=== PATIENT | male | born 1960 | race Caucasian/White ===

== ENCOUNTER 2017-11-13 12:22 | Emergency (ER) | payer OTHER ==
--- OUTSIDE RECORDS SUMMARY | 2017-11-13 12:25 | XMS REPORT | Clinical Summary ---
:1960 Author Organization [facility] Address [address] [place] [address] Care Team Providers Name Role Phone System, Provider Not In MD Primary Care Provider Unavailable Allergies Active Allergy Reactions Severity Noted Date Comments Iodine Rash Low 06/10/2017 Nsaids (Non-Steroidal Anaphylaxis High 04/18/2017 Anti-Inflammatory Drug) Penicillin Other (See Comments) 04/18/2017 "childhood allergy" Current Medications Prescription Sig. Disp. Refills Start Date End Date Status HYDROcodone-acetamin Take 1 tablet Active ophen (NORCO) 10-325 by mouth every mg per tablet 6 (six) hours as needed for moderate pain. moxifloxacin 1 drop. 10/23/2017 Active (VIGAMOX) 0.5 % ophthalmic solution prednisoLONE acetate 10/23/2017 Active (PRED FORTE) 1 % ophthalmic suspension tamsulosin (FLOMAX) Take 1 capsule 7 capsule 0 11/11/2017 Active 0.4 mg capsule (0.4 mg total) 8 by mouth daily for 7 days. ondansetron ODT Take 1 tablet 9 tablet 0 11/11/2017 Active (ZOFRAN-ODT) 4 MG (4 mg total) 8 disintegrating by mouth every tablet 8 (eight) hours as needed for nausea or vomiting for up to 3 days. traMADol (ULTRAM) 50 Take 1 tablet 20 tablet 0 04/18/2017 mg tablet (50 mg total) 8 by mouth every 6 (six) hours as needed for moderate pain for up to 20 days. clindamycin Take 2 28 capsule 0 04/18/2017 (CLEOCIN) 150 MG capsules (300 8 capsule mg total) by mouth 3 (three) times a day for 10 days. traMADol (ULTRAM) 50 Take 1 tablet 15 tablet 0 08/04/2017 mg tablet (50 mg total) 8 by mouth every 6 (six) hours as needed for moderate pain for up to 5 days. dicyclomine (BENTYL) Take 1 tablet 20 tablet 0 08/16/2017 20 mg tablet (20 mg total) 8 by mouth 2 (two) times a day for 20 doses. ciprofloxacin Take 1 tablet 20 tablet 0 08/16/2017 (CIPRO) 500 MG (500 mg total) 8 tablet by mouth 2 (two) times a day for 10 days. metroNIDAZOLE Take 1 tablet 30 tablet 0 08/16/2017 (FLAGYL) 500 MG (500 mg total) 8 tablet by mouth 3 (three) times a day for 10 days. acetaminophen-codein Take 1-2 20 tablet 0 09/08/2017 Discontinued e (TYLENOL WITH tablets by 8 CODEINE #3) 300-30 mouth every 6 mg per tablet (six) hours as needed for moderate pain for up to 5 days. ondansetron ODT Take 1 tablet 8 tablet 0 09/08/2017 (ZOFRAN ODT) 4 MG (4 mg total) 8 disintegrating by mouth every tablet 8 (eight) hours as needed for nausea or vomiting for up to 30 days. acetaminophen-codein Take 1-2 20 tablet 0 09/08/2017 e (TYLENOL WITH tablets by 8 CODEINE #3) 300-30 mouth every 6 mg per tablet (six) hours as needed for moderate pain for up to 5 days. 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 Nephrolithiasis 06/10/2017 Encounters Date Type Specialty Care Team Description 11/11/2017 Emergency Emergency Medicine Roberto Carlos Alex, Acute suprapubic pain (Primary Dx) 2017 Emergency Emergency Medicine Mike Pepper Hidradenicandie ( Primary Dx); III, Pelvic pain; Testicular pain 10/11/2017 Emergency Emergency Medicine Sami Patel Abdominal pain, Mohammad, DO unspecified abdominal location (Primary Dx) 10/06/2017 Emergency General Internal David Sommers Chronic abdominal pain (Primary Dx); Medicine MD Mitul Rectal fistula Silvia Harris MD 09/19/2017 Emergency Emergency Medicine Les Worrell Abdominal pain, unspecified abdominal location (Primary Dx); MD Brennan Pelvic pain; Diarrhea, unspecified type 09/15/2017 Emergency Emergency Medicine Brandi, Abdominal pain, unspecified abdominal location (Primary Dx); Derek Evans MD [facility] 09/11/2017 Emergency Emergency Medicine Damion Nadim Bin, Abdominal pain, unspecified abdominal location (Primary Dx); Acute back pain, unspecified back location, unspecified back pain laterality 09/08/2017 Emergency Emergency Medicine ghassan Tucker, Left lower quadrant pain (Primary Dx); Adriano Maynard, Renal stones 09/01/2017 Emergency Emergency Medicine Raul Cameron Flank pain ( Primary T., Dx) 08/31/2017 Emergency Emergency Medicine Damion Nadim Bin, Lower abdominal pain (Primary Dx); Diarrhea, unspecified type 08/16/2017 Emergency Emergency Medicine Meagan, Mando LLQ pain (Primary Dx ) MD Ej 08/10/2017 Orders Only Pulmonology Osmany Britton MD 08/04/2017 Emergency Emergency Medicine Bee Clark, Abdominal pain, unspecified abdominal location (Primary Dx); Diarrhea, unspecified type 06/10/2017 Emergency General Internal Tarik Triana, Nephrolithiasis ( Primary Dx); - Medicine Intractable back pain 06/11/2017 Michaela Lira MD Lakhva, Asma, MD 06/10/2017 Hospital Access Pati Go Encounter MD Fredrick 04/18/2017 Emergency Emergency Medicine Mosque, Nadim Bin, Lower abdominal pain (Primary Dx); Hidradenitis; Phlegmon; Anemia, unspecified type after 11/12/2016 Social History Tobacco Use Types Packs/Day Years Used Date Current Some Day Smoker Cigarettes 0.25 20 Smokeless Tobacco: Never Used Tobacco Cessation: Ready to Quit: No; Counseling Given: Yes Alcohol Use Drinks/Week oz/Week Comments No Sex Assigned at Date Recorded Not on file Last Filed Vital Signs Vital Sign Reading Time Taken Blood Pressure 122/74 11/11/2017 11:35 AM CDT Pulse 75 11/11/2017 11:35 AM CDT Temperature 36.7 C (98 F) 11/11/2017 11:35 AM CDT Respiratory Rate 15 11/11/2017 11:35 AM CDT Oxygen Saturation 99% 11/11/2017 11:35 AM CDT Inhaled Oxygen Concentration - - Weight 65.8 kg (145 lb) 11/11/2017 8:38 AM CDT Height 175.3 cm (5' 9") 11/11/2017 8:38 AM CDT Body Mass Index 21.41 11/11/2017 8:38 AM CDT Plan of Treatment Health Maintenance Due Date Last Done Comments COLON CANCER SCREENING 2010 SHINGRIX VACCINE (#1) 2010 INFLUENZA VACCINE 11/01/2017 Procedures Procedure Name Priority Date/Time Associated Comments Diagnosis US SCROTAL STAT 11/11/2017 10:47 Results for this AM CDT procedure are in the results section. URINALYSIS SCREEN AND STAT 11/11/2017 10:19 Results for this MICROSCOPY, WITH REFLEX AM CDT procedure are in TO CULTURE the results section. URINE CULTURE STAT 11/11/2017 10:19 Results for this AM CDT procedure are in the results section. CT RENAL STONE PROTOCOL STAT 11/11/2017 10:03 Results for this AM CDT procedure are in the results section. SMEAR REVIEW STAT 11/11/2017 9:11 Results for this AM CDT procedure are in the results section. HEPATIC FUNCTION PANEL STAT 11/11/2017 9:11 Results for this AM CDT procedure are in the results section. LIPASE LEVEL STAT 11/11/2017 9:11 Results for this AM CDT procedure are in the results section. ESTIMATED GFR STAT 11/11/2017 9:11 Results for this AM CDT procedure are in the results section. BASIC METABOLIC PANEL STAT 11/11/2017 9:11 Results for this AM CDT procedure are in the results section. HC COMPLETE BLD COUNT STAT 11/11/2017 9:11 Results for this W/AUTO DIFF AM CDT procedure are in the results section. CT ABDOMEN PELVIS WO STAT 2017 12:47 Results for this CONTRAST PM CDT procedure are in the results section. US SCROTAL STAT 2017 12:13 Results for this PM CDT procedure are in the results section. ESTIMATED GFR STAT 2017 11:40 Results for this AM CDT procedure are in the results section. LACTIC ACID LEVEL, STAT 2017 11:40 Results for this SEPSIS - NOW AND REPEAT AM CDT procedure are in 2X EVERY 3 HOURS the results section. COMPREHENSIVE METABOLIC STAT 2017 11:40 Results for this PANEL AM CDT procedure are in the results section. HC COMPLETE BLD COUNT STAT 2017 11:40 Results for this W/AUTO DIFF AM CDT procedure are in the results section. CT RENAL STONE PROTOCOL STAT 10/11/2017 9:52 Results for this AM CDT procedure are in the results section. SMEAR REVIEW STAT 10/11/2017 9:20 Results for this AM CDT procedure are in the results section. ESTIMATED GFR STAT 10/11/2017 9:20 Results for this AM CDT procedure are in the results section. LIPASE LEVEL STAT 10/11/2017 9:20 Results for this AM CDT procedure are in the results section. COMPREHENSIVE METABOLIC STAT 10/11/2017 9:20 Results for this PANEL AM CDT procedure are in the results section. HC COMPLETE BLD COUNT STAT 10/11/2017 9:20 Results for this W/AUTO DIFF AM CDT procedure are in the results section. ESTIMATED GFR STAT 10/06/2017 11:30 Results for this AM CDT procedure are in the results section. LIPASE LEVEL STAT 10/06/2017 11:30 Results for this AM CDT procedure are in the results section. COMPREHENSIVE METABOLIC STAT 10/06/2017 11:30 Results for this PANEL AM CDT procedure are in the results section. PARTIAL THROMBOPLASTIN STAT 10/06/2017 11:30 Results for this TIME (PTT) AM CDT procedure are in the results section. PROTHROMBIN TIME WITH STAT 10/06/2017 11:30 Results for this INR AM CDT procedure are in the results section. HC COMPLETE BLD COUNT STAT 10/06/2017 11:30 Results for this W/AUTO DIFF AM CDT procedure are in the results section. CT RENAL STONE PROTOCOL STAT 10/06/2017 11:13 Results for this AM CDT procedure are in the results section. CT ABDOMEN PELVIS WO STAT 09/19/2017 11:21 Results for this CONTRAST AM CDT procedure are in the results section. ESTIMATED GFR STAT 09/19/2017 11:02 Results for this AM CDT procedure are in the results section. LIPASE LEVEL STAT 09/19/2017 11:02 Results for this AM CDT procedure are in the results section. HEPATIC FUNCTION PANEL STAT 09/19/2017 11:02 Results for this AM CDT procedure are in the results section. BASIC METABOLIC PANEL STAT 09/19/2017 11:02 Results for this AM CDT procedure are in the results section. HC COMPLETE BLD COUNT STAT 09/19/2017 11:02 Results for this W/AUTO DIFF AM CDT procedure are in the results section. URINALYSIS SCREEN AND STAT 09/19/2017 10:37 Results for this MICROSCOPY, WITH REFLEX AM CDT procedure are in TO CULTURE the results section. GRAM STAIN STAT 09/19/2017 10:37 Results for this AM CDT procedure are in the results section. URINE CULTURE STAT 09/19/2017 10:37 Results for this AM CDT procedure are in the results section. ESTIMATED GFR STAT 09/15/2017 12:30 Results for this PM CDT procedure are in the results section. COMPREHENSIVE METABOLIC STAT 09/15/2017 12:30 Results for this PANEL PM CDT procedure are in the results section. HC COMPLETE BLD COUNT STAT 09/15/2017 12:30 Results for this W/AUTO DIFF PM CDT procedure are in the results section. US RENAL STAT 09/11/2017 3:28 Results for this PM CDT procedure are in the results section. XR CHEST 1 VW STAT 09/11/2017 1:00 Results for this PM CDT procedure are in the results section. URINALYSIS SCREEN AND STAT 09/11/2017 11:45 Results for this MICROSCOPY, WITH REFLEX AM CDT procedure are in TO CULTURE the results section. URINE CULTURE STAT 09/11/2017 11:45 Results for this AM CDT procedure are in the results section. BLOOD CULTURE, AEROBIC Routine 09/11/2017 11:45 Results for this & ANAEROBIC AM CDT procedure are in the results section. BLOOD CULTURE, AEROBIC Routine 09/11/2017 11:43 Results for this & ANAEROBIC AM CDT procedure are in the results section. SMEAR REVIEW STAT 09/11/2017 11:40 Results for this AM CDT procedure are in the results section. ESTIMATED GFR STAT 09/11/2017 11:40 Results for this AM CDT procedure are in the results section. B NATRIURETIC PEPTIDE STAT 09/11/2017 11:40 Results for this AM CDT procedure are in the results section. TROPONIN STAT 09/11/2017 11:40 Results for this AM CDT procedure are in the results section. CREATINE KINASE, TOTAL STAT 09/11/2017 11:40 Results for this (CPK) AM CDT procedure are in the results section. LACTIC ACID LEVEL, STAT 09/11/2017 11:40 Results for this SEPSIS - NOW AND REPEAT AM CDT procedure are in 2X EVERY 3 HOURS the results section. COMPREHENSIVE METABOLIC STAT 09/11/2017 11:40 Results for this PANEL AM CDT procedure are in the results section. PARTIAL THROMBOPLASTIN STAT 09/11/2017 11:40 Results for this TIME (PTT) AM CDT procedure are in the results section. PROTHROMBIN TIME WITH STAT 09/11/2017 11:40 Results for this INR AM CDT procedure are in the results section. HC COMPLETE BLD COUNT STAT 09/11/2017 11:40 Results for this W/AUTO DIFF AM CDT procedure are in the results section. CT RENAL STONE PROTOCOL STAT 09/08/2017 12:05 Results for this PM CDT procedure are in the results section. URINALYSIS SCREEN AND STAT 09/08/2017 11:51 Results for this MICROSCOPY, WITH REFLEX AM CDT procedure are in TO CULTURE the results section. URINE CULTURE STAT 09/08/2017 11:51 Results for this AM CDT procedure are in the results section. SMEAR REVIEW STAT 09/08/2017 11:25 Results for this AM CDT procedure are in the results section. ESTIMATED GFR STAT 09/08/2017 11:25 Results for this AM CDT procedure are in the results section. LIPASE LEVEL STAT 09/08/2017 11:25 Results for this AM CDT procedure are in the results section. COMPREHENSIVE METABOLIC STAT 09/08/2017 11:25 Results for this PANEL AM CDT procedure are in the results section. HC COMPLETE BLD COUNT STAT 09/08/2017 11:25 Results for this W/AUTO DIFF AM CDT procedure are in the results section. URINALYSIS SCREEN AND STAT 09/01/2017 4:06 Results for this MICROSCOPY, WITH REFLEX PM CDT procedure are in TO CULTURE the results section. URINE CULTURE STAT 09/01/2017 4:00 Results for this PM CDT procedure are in the results section. ESTIMATED GFR STAT 09/01/2017 3:27 Results for this PM CDT procedure are in the results section. LIPASE LEVEL STAT 09/01/2017 3:27 Results for this PM CDT procedure are in the results section. COMPREHENSIVE METABOLIC STAT 09/01/2017 3:27 Results for this PANEL PM CDT procedure are in the results section. HC COMPLETE BLD COUNT STAT 09/01/2017 3:27 Results for this W/AUTO DIFF PM CDT procedure are in the results section. CT RENAL STONE PROTOCOL STAT 09/01/2017 2:36 Results for this PM CDT procedure are in the results section. CT ABDOMEN PELVIS WO STAT 08/31/2017 2:06 Results for this CONTRAST PM CDT procedure are in the results section. URINALYSIS SCREEN AND STAT 08/31/2017 12:21 Results for this MICROSCOPY, WITH REFLEX PM CDT procedure are in TO CULTURE the results section. URINE CULTURE STAT 08/31/2017 12:21 Results for this PM CDT procedure are in the results section. SMEAR REVIEW STAT 08/31/2017 11:25 Results for this AM CDT procedure are in the results section. ESTIMATED GFR STAT 08/31/2017 11:25 Results for this AM CDT procedure are in the results section. LIPASE LEVEL STAT 08/31/2017 11:25 Results for this AM CDT procedure are in the results section. AMYLASE LEVEL STAT 08/31/2017 11:25 Results for this AM CDT procedure are in the results section. COMPREHENSIVE METABOLIC STAT 08/31/2017 11:25 Results for this PANEL AM CDT procedure are in the results section. HC COMPLETE BLD COUNT STAT 08/31/2017 11:25 Results for this W/AUTO DIFF AM CDT procedure are in the results section. CT ABDOMEN PELVIS W STAT 08/16/2017 4:36 Results for this CONTRAST PM CDT procedure are in the results section. URINALYSIS SCREEN AND STAT 08/16/2017 3:45 Results for this MICROSCOPY, WITH REFLEX PM CDT procedure are in TO CULTURE the results section. ESTIMATED GFR STAT 08/16/2017 3:08 Results for this PM CDT procedure are in the results section. LIPASE LEVEL STAT 08/16/2017 3:08 Results for this PM CDT procedure are in the results section. COMPREHENSIVE METABOLIC STAT 08/16/2017 3:08 Results for this PANEL PM CDT procedure are in the results section. HC COMPLETE BLD COUNT STAT 08/16/2017 3:08 Results for this W/AUTO DIFF PM CDT procedure are in the results section. ECG 12-LEAD Routine 08/07/2017 12:00 AM CDT ECG ED PRELIMINARY Routine 08/04/2017 3:45 Results for this INTERPRETATION PM CDT procedure are in the results section. URINALYSIS SCREEN AND STAT 08/04/2017 3:33 Results for this MICROSCOPY, WITH REFLEX PM CDT procedure are in TO CULTURE the results section. URINE CULTURE STAT 08/04/2017 3:33 Results for this PM CDT procedure are in the results section. ECG 12-LEAD STAT 08/04/2017 1:52 Results for this PM CDT procedure are in the results section. CT ABDOMEN PELVIS WO STAT 08/04/2017 1:49 Results for this CONTRAST PM CDT procedure are in the results section. ESTIMATED GFR STAT 08/04/2017 1:00 Results for this PM CDT procedure are in the results section. LIPASE LEVEL STAT 08/04/2017 1:00 Results for this PM CDT procedure are in the results section. AMYLASE LEVEL STAT 08/04/2017 1:00 Results for this PM CDT procedure are in the results section. COMPREHENSIVE METABOLIC STAT 08/04/2017 1:00 Results for this PANEL PM CDT procedure are in the results section. HC COMPLETE BLD COUNT STAT 08/04/2017 1:00 Results for this W/AUTO DIFF PM CDT procedure are in the results section. ESTIMATED GFR Routine 06/11/2017 3:55 Results for this AM CDT procedure are in the results section. COMPREHENSIVE METABOLIC Routine 06/11/2017 3:55 Results for this PANEL AM CDT procedure are in the results section. HC COMPLETE BLD COUNT Routine 06/11/2017 3:55 Results for this W/AUTO DIFF AM CDT procedure are in the results section. CT RENAL STONE PROTOCOL STAT 06/10/2017 9:06 Results for this PM [facility] procedure are in the results section. ESTIMATED GFR STAT 06/10/2017 8:40 Results for this PM [facility] procedure are in the results section. LIPASE LEVEL STAT 06/10/2017 8:40 Results for this PM [facility] procedure are in the results section. AMYLASE LEVEL STAT 06/10/2017 8:40 Results for this PM [facility] procedure are in the results section. COMPREHENSIVE METABOLIC STAT 06/10/2017 8:40 Results for this PANEL PM [facility] procedure are in the results section. HC COMPLETE BLD COUNT STAT 06/10/2017 8:40 Results for this W/AUTO DIFF PM [facility] procedure are in the results section. CT ABDOMEN PELVIS W STAT 04/18/2017 4:22 Results for this CONTRAST AM [facility] procedure are in the results section. ESTIMATED GFR STAT 04/18/2017 2:27 Results for this AM [facility] procedure are in the results section. URINALYSIS SCREEN AND STAT 04/18/2017 2:27 Results for this MICROSCOPY, WITH REFLEX AM [facility] procedure are in TO CULTURE the results section. LIPASE LEVEL STAT 04/18/2017 2:27 Results for this AM [facility] procedure are in the results section. AMYLASE LEVEL STAT 04/18/2017 2:27 Results for this AM [facility] procedure are in the results section. COMPREHENSIVE METABOLIC STAT 04/18/2017 2:27 Results for this PANEL AM [facility] procedure are in the results section. HC COMPLETE BLD COUNT STAT 04/18/2017 2:27 Results for this W/AUTO DIFF AM [facility] procedure are in the results section. after 11/12/2016 Results US Scrotal (11/11/2017 10:47 AM)Only the most recent of2 resultswithin the time period is included. Narrative Performed At PROCEDURE:US SCROTAL [facility] CLINICAL HISTORY:R testicular pain since this AM COMPARISON:2017 TECHNIQUE: Multiple B-mode grayscale 2-D echo tomograms were performed of the testes and both hemiscrota in sagittal and transverse orientations. Interrogation with color-flow and 2-D spectral Doppler was also performed. FINDINGS: The echotexture of the right and left testes is homogeneous. The right testicle measures 4 cm length by 1.9 cm x 2.5 cm. The left testicle measures 4 cm length by 1.6 cm x 2.7 cm. Color flow and pulse wave spectral Doppler confirm arterial flow to both testes. The head of the right epididymis measures 6.3 mm x 7.2 mm and the head of the left epididymis measures 8.7 mm x 7.6 mm. No fluid is demonstrated in either hemiscrotum. No skin thickening is demonstrated of the right or left hemiscrotum. The right hemiscrotal skin thickness measures 2.1 mm and the left hemiscrotal skin thickness measures 1.9 mm. IMPRESSION: Unremarkable exam. No evidence of testicular torsion or epididymitis. [facility] [id number] . Procedure Note Interface, Radiology Results Incoming - 11/11/2017 11:07 AM CDT PROCEDURE: US SCROTAL CLINICAL HISTORY: R testicular pain since this AM COMPARISON: 2017 TECHNIQUE: Multiple B-mode grayscale 2-D echo tomograms were performed of the testes and both hemiscrota in sagittal and transverse orientations. Interrogation with color-flow and 2-D spectral Doppler was also performed. FINDINGS: The echotexture of the right and left testes is homogeneous. The right testicle measures 4 cm length by 1.9 cm x 2.5 cm. The left testicle measures 4 cm length by 1.6 cm x 2.7 cm. Color flow and pulse wave spectral Doppler confirm arterial flow to both testes. The head of the right epididymis measures 6.3 mm x 7.2 mm and the head of the left epididymis measures 8.7 mm x 7.6 mm. No fluid is demonstrated in either hemiscrotum. No skin thickening is demonstrated of the right or left hemiscrotum. The right hemiscrotal skin thickness measures 2.1 mm and the left hemiscrotal skin thickness measures 1.9 mm. IMPRESSION: Unremarkable exam. No evidence of testicular torsion or epididymitis. [facility] [place]-[id number] . Performing Organization Address City/State/Zipcode Phone Number [facility] [address] [place] [address] Urinalysis screen and microscopy, with reflex to culture (11/11/2017 10:19 AM) Only the most recent of9 resultswithin the time period is included. Specimen site Clean catch [facility] DEPARTMENT OF PATHOLOGY AND GENOMIC MEDICINE Color, UA Yellow [facility] DEPARTMENT OF PATHOLOGY AND GENOMIC MEDICINE Appearance, UA Clear [facility] DEPARTMENT OF PATHOLOGY AND GENOMIC MEDICINE Specific gravity, UA 1.017 1.001 - 1.[address] [facility] DEPARTMENT OF PATHOLOGY AND GENOMIC MEDICINE pH, UA 5.0 5.0 - 8.[address] [facility] DEPARTMENT OF PATHOLOGY AND GENOMIC MEDICINE Protein, UA Negative Negative [facility] DEPARTMENT OF PATHOLOGY AND GENOMIC MEDICINE Glucose, UA Negative Negative [facility] DEPARTMENT OF PATHOLOGY AND GENOMIC MEDICINE Ketones, UA Negative Negative [facility] DEPARTMENT OF PATHOLOGY AND GENOMIC MEDICINE Bilirubin, UA Negative Negative [facility] DEPARTMENT OF PATHOLOGY AND GENOMIC MEDICINE Blood, UA Negative Negative [facility] DEPARTMENT OF PATHOLOGY AND GENOMIC MEDICINE Nitrite, UA Negative Negative [facility] DEPARTMENT OF PATHOLOGY AND GENOMIC MEDICINE Urobilinogen, UA Negative <2.[address] [facility] DEPARTMENT OF PATHOLOGY AND [facility] Leukocyte esterase, UA Negative Negative [facility] DEPARTMENT OF PATHOLOGY AND GENOMIC MEDICINE WBC, UA 0-5 0 - 1 /HPF [facility] DEPARTMENT OF PATHOLOGY AND GENOMIC MEDICINE RBC, UA 0-5 0 - 5 /HPF [facility] DEPARTMENT OF PATHOLOGY AND GENOMIC MEDICINE Bacteria, UA None seen None seen [facility] DEPARTMENT OF PATHOLOGY AND GENOMIC MEDICINE Yeast, UA None seen [facility] DEPARTMENT OF PATHOLOGY AND GENOMIC MEDICINE Yeast with pseudohyphae, UA None seen [facility] DEPARTMENT OF PATHOLOGY AND [facility] Specimen Urine Performing Organization Address City/[facility] Phone Number [facility] AND [id number] [place] [address] [place], [place] [id number] [place] [address] Urine culture (11/11/2017 10:19 AM)Only the most recent of7 resultswithin the time period is included. Urine culture SEE COMMENTComment: Bacteriuria [facility] DEPARTMENT OF PATHOLOGY screen negative. AND [facility] Specimen Urine Performing Organization Address City/[facility] Phone Number [facility] AND [address] [place] [address] [place] [address] [facility] CT Renal Stone Protocol (11/11/2017 10:03 AM)Only the most recent of6 resultswithin the time period is included. Narrative Performed At PROCEDURE:CT RENAL STONE PROTOCOL [facility] CLINICAL HISTORY:lower abd pain with suprapubic testicular painhx of kidney stones COMPARISON:2017 TECHNIQUE: Contiguous 2.5 mm axial images were obtained from the hemidiaphragms to the pubic symphysis without administration of intravenous iodinated or oral contrast media on a multidetector CT scanner using helical scanning technique followed by 2-D sagittal and coronal reconstructions. The dose length product for this procedure was 373 mGy-cm. CT imaging was performed with iterative reconstruction technique and/or automated exposure control to reduce radiation dose. FINDINGS: 1. Lung parenchymal window settings demonstrate no abnormality in the visualized lung bases. 2. Multiple calculi are demonstrated in both kidneys more numerous in the left kidney than the right. The size and distribution of the calculi are unchanged from the prior examination. 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 In the right kidney multiple calculi are present with the largest in the anterior aspect of the upper pole of the right kidney measuring 3.3 mm. No dilatation of the pelvicalyceal system is seen. 3. No calculi are demonstrated along the course of the ureters. 4. The enteric tract is generally better evaluated if opacified with enteric contrast. Multiple diverticula are demonstrated in the sigmoid colon. The appendix is is visualized and normal. The appendix fills with contrast.. 5. No abnormality is demonstrated of the remainder of the intra-abdominal solid organs on this unenhanced study. 6. L5 atheromatous plaque formation is demonstrated in the infrarenal abdominal aorta with no aneurysm seen.. The IVC is unremarkable on this unenhanced exam. 7. The sagittal and coronal reconstructed images demonstrate disc space narrowing with vacuum phenomenon throughout most of the lumbar spine with prior laminectomy at the L3 and L4 levels. Degenerative anterolisthesis is noted with spondylolysis at L5-S1. CT PELVIS- No calculi are seen in the distal ureters or UV junction. No pelvic fluid collections or masses are seen. Note is made of skin thickening in the region of the intergluteal cleft and towards the inferior gluteal fold. Mild punctate prostatic calcification is seen. IMPRESSION: Abnormal study. Multiple bilateral intrarenal nonobstructing calculi as before. No evidence of obstructive uropathy. Diverticulosis. Degenerative disc disease. [facility]-[id number] . Procedure Note Interface, Radiology Results Incoming - 11/11/2017 10:24 AM CDT PROCEDURE: CT RENAL STONE PROTOCOL CLINICAL HISTORY: lower abd pain with suprapubic testicular pain hx of kidney stones COMPARISON: 2017 TECHNIQUE: Contiguous 2.5 mm axial images were obtained from the hemidiaphragms to the pubic symphysis without administration of intravenous iodinated or oral contrast media on a multidetector CT scanner using helical scanning technique followed by 2-D sagittal and coronal reconstructions. The dose length product for this procedure was 373 mGy-cm. CT imaging was performed with iterative reconstruction technique and/or automated exposure control to reduce radiation dose. FINDINGS: 1. Lung parenchymal window settings demonstrate no abnormality in the visualized lung bases. 2. Multiple calculi are demonstrated in both kidneys more numerous in the left kidney than the right. The size and distribution of the calculi are unchanged from the prior examination. 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 In the right kidney multiple calculi are present with the largest in the anterior aspect of the upper pole of the right kidney measuring 3.3 mm. No dilatation of the pelvicalyceal system is seen. 3. No calculi are demonstrated along the course of the ureters. 4. The enteric tract is generally better evaluated if opacified with enteric contrast. Multiple diverticula are demonstrated in the sigmoid colon. The appendix is is visualized and normal. The appendix fills with contrast.. 5. No abnormality is demonstrated of the remainder of the intra-abdominal solid organs on this unenhanced study. 6. L5 atheromatous plaque formation is demonstrated in the infrarenal abdominal aorta with no aneurysm seen.. The IVC is unremarkable on this unenhanced exam. 7. The sagittal and coronal reconstructed images demonstrate disc space narrowing with vacuum phenomenon throughout most of the lumbar spine with prior laminectomy at the L3 and L4 levels. Degenerative anterolisthesis is noted with spondylolysis at L5-S1. CT PELVIS- No calculi are seen in the distal ureters or UV junction. No pelvic fluid collections or masses are seen. Note is made of skin thickening in the region of the intergluteal cleft and towards the inferior gluteal fold. Mild punctate prostatic calcification is seen. IMPRESSION: Abnormal study. Multiple bilateral intrarenal nonobstructing calculi as before. No evidence of obstructive uropathy. Diverticulosis. Degenerative disc disease. [facility]-[id number] . Performing Organization Address City/State/Zipcode Phone Number [facility] [address] [place] [address] Smear review (11/11/2017 9:11 AM)Only the most recent of5 resultswithin the time period is included. Platelet slide review Og adequate [facility] DEPARTMENT OF PATHOLOGY AND GENOMIC MEDICINE Performing Organization Address City/State/Zipcode Phone Number [facility] DEPARTMENT OF PATHOLOGY AND [address] [place] [address] GENOMIC MEDICINE Estimated GFR (11/11/2017 9:11 AM)Only the most recent of15 resultswithin the time period is included. GFR Non Af Amer >90 mL/min/1.[address] [facility] DEPARTMENT OF PATHOLOGY AND GENOMIC MEDICINE GFR Af Amer >90 mL/min/1.[address] [facility] DEPARTMENT OF Comment: PATHOLOGY AND GENOMIC Chronic kidney disease: <60 mL/min/1.73m2 MEDICINE Kidney failure: <15 mL/min/1.73m2 The estimated GFR is calculated from the IDMS-traceable Modification of Diet in Renal Disease Equation. The accuracy of the calculation is poor when the creatinine is normal. Calculated values >90 mL/min/1.73m2 are not reported. This equation has not been validated in children (<18 years), women, the elderly (>70 years), or ethnic groups other than Caucasians and Americans. Specimen Plasma specimen Performing Organization Address City/State/Zipcode Phone Number [facility] DEPARTMENT OF PATHOLOGY AND [address] [place] [address] [facility] CBC with platelet and differential (11/11/2017 9:11 AM)Only the most recent of15 resultswithin the time period is included. WBC 9.44 4.50 - 11.00 k/uL [facility] DEPARTMENT OF PATHOLOGY AND GENOMIC MEDICINE RBC 3.65 (L) 4.40 - 6.00 m/uL [facility] DEPARTMENT OF PATHOLOGY AND GENOMIC MEDICINE HGB 8.1 (L) 14.0 - 18.0 g/dL [facility] DEPARTMENT OF PATHOLOGY AND GENOMIC MEDICINE HCT 28.1 (L) 41.0 - 51.0 % [facility] DEPARTMENT OF PATHOLOGY AND GENOMIC MEDICINE MCV 77.0 (L) 82.0 - 100.[address] [facility] DEPARTMENT OF PATHOLOGY AND GENOMIC MEDICINE MCH 22.2 (L) 27.0 - 34.[address] [facility] DEPARTMENT OF PATHOLOGY AND GENOMIC MEDICINE MCHC 28.8 (L) 31.0 - 37.0 g/dL [facility] DEPARTMENT OF PATHOLOGY AND GENOMIC MEDICINE RDW - SD 49.1 37.0 - 55.[address] [facility] DEPARTMENT OF PATHOLOGY AND GENOMIC MEDICINE MPV 9.2 8.8 - 13.[address] [facility] DEPARTMENT OF PATHOLOGY AND GENOMIC MEDICINE Platelet count 417 (H) 150 - 400 k/uL [facility] DEPARTMENT OF PATHOLOGY AND GENOMIC MEDICINE Nucleated RBC 0.00 /[address] [facility] DEPARTMENT OF PATHOLOGY AND GENOMIC MEDICINE Neutrophils 75.7 (H) 39.0 - 69.0 % [facility] DEPARTMENT OF PATHOLOGY AND GENOMIC MEDICINE Lymphocytes 11.1 (L) 25.0 - 45.0 % [facility] DEPARTMENT OF PATHOLOGY AND GENOMIC MEDICINE Monocytes 8.1 0.0 - 10.0 % [facility] DEPARTMENT OF PATHOLOGY AND GENOMIC MEDICINE Eosinophils 4.3 0.0 - 5.0 % [facility] DEPARTMENT OF PATHOLOGY AND GENOMIC MEDICINE Basophils 0.3 0.0 - 1.0 % [facility] DEPARTMENT OF PATHOLOGY AND GENOMIC MEDICINE Specimen Blood Performing Organization Address City/[facility] Phone Number [facility] DEPARTMENT OF PATHOLOGY AND [address] [place] [address] [place], [place] [id number] [place] [address] Lipase level (11/11/2017 9:11 AM)Only the most recent of11 resultswithin the time period is included. Lipase 36 13 - 60 U/L [facility] DEPARTMENT OF PATHOLOGY AND GENOMIC MEDICINE Specimen Plasma specimen Performing Organization Address [facility] Phone Number [facility] AND [address] [place] [address] [place] [address] [facility] Hepatic function panel (11/11/2017 9:11 AM)Only the most recent of2 resultswithin the time period is included. Albumin 3.7 3.5 - 5.0 g/dL [facility] DEPARTMENT OF PATHOLOGY AND GENOMIC MEDICINE Total bilirubin <0.2 0.0 - 1.2 mg/dL [facility] DEPARTMENT OF PATHOLOGY AND GENOMIC MEDICINE Bilirubin direct <0.1 0.0 - 0.3 mg/dL [facility] DEPARTMENT OF PATHOLOGY AND GENOMIC MEDICINE Alkaline phosphatase 127 40 - 129 U/L [facility] DEPARTMENT OF PATHOLOGY AND GENOMIC MEDICINE Protein 7.6 6.3 - 8.3 g/dL [facility] DEPARTMENT OF Comment: PATHOLOGY AND GENOMIC 4.6-7.0 g/dL MEDICINE 1 week 4.4-7.6 g/dL 7 months-1year5.1-7.3 g/dL 1-2 years5.6-7.5 g/dL >3 years6.0-8.0 g/dL 18-150 6.3-8.3 g/dL ALT 7 5 - 50 U/L [facility] DEPARTMENT OF PATHOLOGY AND GENOMIC MEDICINE AST 9 (L) 10 - 50 U/L [facility] DEPARTMENT OF PATHOLOGY AND GENOMIC [facility] Specimen Plasma specimen Performing Organization Address [facility] Phone Number [facility] AND [id number] [place] [address] [place] [address] [facility] Basic metabolic panel (11/11/2017 9:11 AM)Only the most recent of2 resultswithin the time period is included. Sodium 138 135 - 148 mEq/L [facility] OF PATHOLOGY AND [facility] Potassium 4.4 3.5 - 5.0 mEq/L [facility] OF PATHOLOGY AND [facility] Chloride 104 98 - 112 mEq/L [facility] OF PATHOLOGY AND [facility] CO2 23 (L) 24 - 31 mEq/L [facility] PATHOLOGY [facility] Anion gap 11@ANIO 7 - 15 mEq/L [facility] PATHOLOGY [facility] HOSTING MEDICINE BUN 12 6 - 20 mg/dL [facility] OF PATHOLOGY AND [facility] Creatinine 0.7 0.7 - 1.2 mg/dL [facility] DEPARTMENT OF PATHOLOGY [facility]ICINE Glucose 99 65 - 99 mg/dL [facility] PATHOLOGY [facility] Calcium 8.7 8.3 - 10.2 mg/dL [facility] PATHOLOGY AND [facility] Specimen Plasma specimen Performing Organization Address [facility] Phone Number [facility] AND [address] [place] [address] [place] [address] [facility] [address] Abdomen Pelvis Wo Contrast (2017 12:47 PM)Only the most recent of4 resultswithin the time period is included. Narrative Performed At EXAMINATION:CT ABDOMEN PELVIS WO CONTRAST [facility] CLINICAL HISTORY:no oral contrast Patient with perianal hidradenitisconcern for abscess perirectal.Patient has iodine allergy TECHNIQUE:Multiple axial images of the abdomen and pelvis were obtained without intravenous administration of iodinated contrast. Sagittal and coronal computerized reformatted images were also obtained. The lack of intravenous contrast reduces the sensitivity of detecting solid organ disease. CT imaging was performed with iterative reconstruction techniques and/or automated exposure control to reduce radiation dose. COMPARISON:To previous studies dating back to 04/18/2017 and 12/11/2014 IMPRESSION: Abdomen: 1. No parenchymal abnormality is noted in the lung bases. 2.The liver and the spleen are normal in appearance. 3.The pancreas and both adrenal glands are normal in appearance. 4.A high density left renal cyst measuring 1 cm in size is stable and not of clinical concern. Multiple calculi are noted in the left kidney most marked in the left lower pole. There is no evidence of hydronephrosis involving either kidney a few small calculi are present in the right kidney. Pelvis: 1. Scans through the pelvis demonstrate extensive nodular infiltration involving the skin of the lower buttocks and proximal thighs. In both lower thighs there may actually be small fluid collections especially on the right side representing abscesses involving the posterior fascia. 2.The infiltration and nodularity consistent with hidradenitis extends from the scrotum anteriorly along the skin surfaces. In addition, there is a probable sinus tract extending from the left side of the distal rectum in the left ischio rectal fossa extending posteriorly to the skin surface. There is no evidence of abscess in this area. 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 3.No bowel distention is appreciated. Moderate vascular calcifications are present diffusely. 4.Severe arthritic changes are noted involving the lower lumbar spine, with anterolisthesis of L4 upon L5 and anterolisthesis of L5 upon S1. [facility]-[id number] Procedure Note [facility], Radiology Results Incoming - 2017 3:26 PM CDT EXAMINATION: CT ABDOMEN PELVIS WO CONTRAST CLINICAL HISTORY: no oral contrast Patient with perianal hidradenitis concern for abscess perirectal. Patient has iodine allergy TECHNIQUE: Multiple axial images of the abdomen and pelvis were obtained without intravenous administration of iodinated contrast. Sagittal and coronal computerized reformatted images were also obtained. The lack of intravenous contrast reduces the sensitivity of detecting solid organ disease. CT imaging was performed with iterative reconstruction techniques and/or automated exposure control to reduce radiation dose. COMPARISON: To previous studies dating back to 04/18/2017 and 12/11/2014 IMPRESSION: Abdomen: 1. No parenchymal abnormality is noted in the lung bases. 2. The liver and the spleen are normal in appearance. 3. The pancreas and both adrenal glands are normal in appearance. 4. A high density left renal cyst measuring 1 cm in size is stable and not of clinical concern. Multiple calculi are noted in the left kidney most marked in the left lower pole. There is no evidence of hydronephrosis involving either kidney a few small calculi are present in the right kidney. Pelvis: 1. Scans through the pelvis demonstrate extensive nodular infiltration involving the skin of the lower buttocks and proximal thighs. In both lower thighs there may actually be small fluid collections especially on the right side representing abscesses involving the posterior fascia. 2. The infiltration and nodularity consistent with hidradenitis extends from the scrotum anteriorly along the skin surfaces. In addition, there is a probable sinus tract extending from the left side of the distal rectum in the left ischio rectal fossa extending posteriorly to the skin surface. There is no evidence of abscess in this area. 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 3. No bowel distention is appreciated. Moderate vascular calcifications are present diffusely. 4. Severe arthritic changes are noted involving the lower lumbar spine, with anterolisthesis of L4 upon L5 and anterolisthesis of L5 upon S1. [facility]-[id number] Performing Organization Address City/[facility]/Zipcode Phone Number [facility] [address] [place] [address] Lactic acid level, SEPSIS - Now and repeat 2x every 3 hours (2017 11:40 AM )Only the most recent of2 resultswithin the time period is included. Lactic acid 1.0 0.5 - 2.2 mmol/L [facility] DEPARTMENT OF PATHOLOGY AND GENOMIC MEDICINE Specimen Plasma specimen Performing Organization Address City/State/Zipcode Phone Number [facility] DEPARTMENT OF PATHOLOGY [address] [place] [address] AND [facility] Comprehensive metabolic panel (2017 11:40 AM)Only the most recent of13 resultswithin the time period is included. Sodium 139 135 - 148 mEq/L [facility] DEPARTMENT OF PATHOLOGY AND GENOMIC MEDICINE Potassium 3.8 3.5 - 5.0 mEq/L [facility] DEPARTMENT OF PATHOLOGY AND GENOMIC MEDICINE Chloride 103 98 - 112 mEq/L [facility] DEPARTMENT OF PATHOLOGY AND GENOMIC MEDICINE CO2 23 (L) 24 - 31 mEq/L [facility] DEPARTMENT OF PATHOLOGY AND GENOMIC MEDICINE Anion gap 13@ANIO 7 - 15 mEq/L [facility] DEPARTMENT OF PATHOLOGY AND GENOMIC MEDICINE BUN 10 6 - 20 mg/dL [facility] DEPARTMENT OF PATHOLOGY AND GENOMIC MEDICINE Creatinine 0.6 (L) 0.7 - 1.2 mg/dL [facility] DEPARTMENT OF PATHOLOGY AND GENOMIC MEDICINE Glucose 111 (H) 65 - 99 mg/dL [facility] DEPARTMENT OF PATHOLOGY AND GENOMIC MEDICINE Calcium 9.3 8.3 - 10.2 mg/dL [facility] DEPARTMENT OF PATHOLOGY AND GENOMIC MEDICINE Protein 7.5 6.3 - 8.3 g/dL [facility] DEPARTMENT OF PATHOLOGY AND GENOMIC MEDICINE Albumin 3.8 3.5 - 5.0 g/dL [facility] DEPARTMENT OF PATHOLOGY AND GENOMIC MEDICINE A/G ratio 1.0 0.7 - 3.8 [facility] DEPARTMENT OF PATHOLOGY AND GENOMIC MEDICINE Alkaline phosphatase 183 (H) 40 - 129 U/L [facility] DEPARTMENT OF PATHOLOGY AND GENOMIC MEDICINE AST 22 10 - 50 U/L [facility] DEPARTMENT OF PATHOLOGY AND GENOMIC MEDICINE ALT 17 5 - 50 U/L [facility] DEPARTMENT OF PATHOLOGY AND GENOMIC MEDICINE Total bilirubin <0.2 0.2 - 1.2 mg/dL [facility] DEPARTMENT OF PATHOLOGY AND GENOMIC MEDICINE Specimen Plasma specimen Performing Organization Address City/State/Zipcode Phone Number [facility] DEPARTMENT OF PATHOLOGY [address] [place] [address] AND [facility] Partial thromboplastin time, activated (10/06/2017 11:30 AM)Only the most recent of2 resultswithin the time period is included. PTT 26.3 23.0 - 36.0 sec [facility] DEPARTMENT OF Comment: PATHOLOGY AND HOSTING PTT therapeutic range for unfractionated heparin is MEDICINE 61.0-112.0 seconds which corresponds to Anti-Xa 0.3-0.7 U/ml. Specimen Blood Performing Organization Address City/[facility] Phone Number [facility] [place] [address], [address] [place] [address] PATHOLOGY AND [facility] Prothrombin time with INR (10/06/2017 11:30 AM)Only the most recent of2 resultswithin the time period is included. Prothrombin time 12.5 12.0 - 15.0 sec [facility] DEPARTMENT OF PATHOLOGY AND HOSTING MEDICINE INR 0.9 [facility] DEPARTMENT OF Comment: PATHOLOGY AND HOSTING The International Normalized Ratio (INR) is a therapeutic MEDICINE monitoring tool for patients who are stable on oral anticoagulant therapy. An INR of 2.0-3.0 is suggested for deep vein thrombosis/pulmonary embolism. Specimen Blood Performing Organization Address City/State/Zipcode Phone Number [facility] [place] [address], [address] [place] [address] PATHOLOGY AND [facility] Gram stain (09/19/2017 10:37 AM) Gram stain result Rare WBC's [facility] DEPARTMENT OF PATHOLOGY No organisms seen AND GENOMIC MEDICINE Comment: Specimen Information Specimen Source: Urine Specimen Site: Clean catch Specimen Urine Performing Organization Address [facility] Phone Number [facility] DEPARTMENT OF PATHOLOGY AND [address] [place] [address] GENOMIC MEDICINE US Renal (09/11/2017 3:28 PM) Narrative Performed At EXAMINATION:US RENAL [facility] CLINICAL HISTORY:Examine for possible masses, Explore for possible renal calculi, HYDRONEPHROSIS COMPARISON:September 08, 2017 CT scan FINDINGS: 1. Right kidney measures 11.4 cm in length. Left kidney measures 10.9 cm in length. 2.No hydronephrosis in either kidney. 3.There are multiple bilateral renal calculi. The largest calculus is in the lower pole of the left kidney. 4.No mass or cyst is seen. 5.Urinary bladder is not distended. IMPRESSION: Bilateral renal calculi without evidence of hydronephrosis. [id number] Procedure Note Interface, Radiology Results Incoming - 09/11/2017 3:33 PM CDT EXAMINATION: US RENAL CLINICAL HISTORY: Examine for possible masses, Explore for possible renal calculi, HYDRONEPHROSIS COMPARISON: September 08, 2017 CT scan FINDINGS: 1. Right kidney measures 11.4 cm in length. Left kidney measures 10.9 cm in length. 2. No hydronephrosis in either kidney. 3. There are multiple bilateral renal calculi. The largest calculus is in the lower pole of the left kidney. 4. No mass or cyst is seen. 5. Urinary bladder is not distended. IMPRESSION: Bilateral renal calculi without evidence of hydronephrosis. [id number] Performing Organization Address [facility] Phone Number [facility] [address] [place] [address] XR Chest 1 Vw (09/11/2017 1:00 PM) Narrative Performed At EXAMINATION:[facility]:back pain COMPARISON:None IMPRESSION: No acute abnormality single view chest Emphysematous changes over the upper lobes bilaterally. Minimal linear atelectasis versus scar left base. No infiltrate congestion or effusion. No pneumothorax. Cardiomediastinal silhouette pulmonary vasculature and visualized skeleton normal in appearance [id number] Procedure Note Interface, Radiology Results Incoming - 09/11/2017 1:16 PM CDT EXAMINATION: XR CHEST 1 VW CLINICAL HISTORY: back pain COMPARISON: None IMPRESSION: No acute abnormality single view chest Emphysematous changes over the upper lobes bilaterally. Minimal linear atelectasis versus scar left base. No infiltrate congestion or effusion. No pneumothorax. Cardiomediastinal silhouette pulmonary vasculature and visualized skeleton normal in appearance [id number] Performing Organization Address [facility]/Zipcode Phone Number [facility] [address] [place] [address] Blood culture, aerobic & anaerobic (09/11/2017 11:45 AM)Only the most recent of2 resultswithin the time period is included. Blood culture isolate No growth after 5 days of incubation. [facility] DEPARTMENT OF Comment: PATHOLOGY AND GENOMIC Specimen Information MEDICINE Specimen Source: Blood Specimen Site: Forearm, left Specimen Blood - Forearm, left Performing Organization Address [facility] Phone Number [facility] DEPARTMENT OF PATHOLOGY AND [address] [place] [id number] [facility] Troponin (09/11/2017 11:40 AM) Troponin <0.300 0.000 - 0.300 ng/mL [facility] DEPARTMENT OF Comment: PATHOLOGY AND GENOMIC 0.30 - 1.49 ng/mlMay indicate increased risk of acute MEDICINE coronary syndrome. >=1.5 ng/mlConsistent with acute myocardial infarction. The diagnostic value of a single normal or non-diagnostic result is questionable.Serial samples at 2-6 hour intervals are required to rule out acute myocardial injury. Specimen Plasma specimen Performing Organization Address [facility] Phone Number [facility] DEPARTMENT OF PATHOLOGY AND [address] [place] [address] B natriuretic peptide (09/11/2017 11:40 AM) BNP 5 0 - 100 pg/mL [facility] DEPARTMENT OF PATHOLOGY AND GENOMIC MEDICINE Specimen Blood Performing Organization Address [facility] Phone Number [facility] DEPARTMENT PATHOLOGY AND [address] [place] [address] Creatine kinase, total (CPK) (09/11/2017 11:40 AM) Creatine kinase 54 39 - 308 U/L [facility] DEPARTMENT OF PATHOLOGY AND GENOMIC MEDICINE Specimen Plasma specimen Performing Organization Address City/State/Zipcode Phone Number [facility] DEPARTMENT OF PATHOLOGY AND [address] [place] [address] GENOMIC MEDICINE Amylase level (08/31/2017 11:25 AM)Only the most recent of4 resultswithin the time period is included. Amylase 94 (H) 13 - 73 U/L [facility] DEPARTMENT OF PATHOLOGY AND GENOMIC [facility] Specimen Plasma specimen Performing Organization Address City/State/Zipcode Phone Number [facility] DEPARTMENT OF PATHOLOGY AND [address] [place] [address] [facility] [address] Abdomen Pelvis W Contrast (08/16/2017 4:36 PM)Only the most recent of2 resultswithin the time period is included. Narrative Performed At EXAMINATION:CT ABDOMEN PELVIS W CONTRAST [facility] CLINICAL HISTORY:LLQ painh o diverticperf TECHNIQUE: Multiple axial images of the abdomen and pelvis were obtained following intravenous administration of iodinated contrast. Sagittal and coronal computerized reformatted images were also obtained. CT imaging was performed with iterative reconstruction technique and/or automated exposure control to reduce radiation dose. COMPARISON:08/04/2017 FINDINGS: Abdomen: Heart size is within normal limits.. Lung bases are within normal limits.. Calcified hepatic granulomata are seen. Gallbladder is unremarkable. Spleen, pancreas, and adrenals are within normal limits. Tiny right renal calyceal stone is seen measuring 3 mm. A small to moderate-sized staghorn calculus seen in the left lower kidney. Tiny stone is seen in the upper pole left kidney measuring 5 mm. The abdominal aorta is atherosclerotic. Appendix is unremarkable. Pelvis: There is no enlarged pelvic lymph node.Bladder is unremarkable.Sigmoid diverticula are present. There are laminectomy changes in the lower lumbar spine. Bones are osteopenic. Degenerative changes of the spine are seen. IMPRESSION: Findings of diverticulosis without evidence of diverticulitis. Left renal staghorn calculus. Bilateral renal calyceal stones. [facility]-[id number] Procedure Note Interface, Radiology Results Incoming - 08/16/2017 4:50 PM CDT EXAMINATION: CT ABDOMEN PELVIS W CONTRAST CLINICAL HISTORY: LLQ pain h o divertic perf TECHNIQUE: Multiple axial images of the abdomen and pelvis were obtained following intravenous administration of iodinated contrast. Sagittal and coronal computerized reformatted images were also obtained. CT imaging was performed with iterative reconstruction technique and/or automated exposure control to reduce radiation dose. COMPARISON: 08/04/2017 FINDINGS: Abdomen: Heart size is within normal limits.. Lung bases are within normal limits.. Calcified hepatic granulomata are seen. Gallbladder is unremarkable. Spleen, pancreas, and adrenals are within normal limits. Tiny right renal calyceal stone is seen measuring 3 mm. A small to moderate- sized staghorn calculus seen in the left lower kidney. Tiny stone is seen in the upper pole left kidney measuring 5 mm. The abdominal aorta is atherosclerotic. Appendix is unremarkable. Pelvis: There is no enlarged pelvic lymph node. Bladder is unremarkable. Sigmoid diverticula are present. There are laminectomy changes in the lower lumbar spine. Bones are osteopenic. Degenerative changes of the spine are seen. IMPRESSION: Findings of diverticulosis without evidence of diverticulitis. Left renal staghorn calculus. Bilateral renal calyceal stones. [facility]-[id number] Performing Organization Address City/State/Zipcode Phone Number [facility] [address] [place] [address] ECG 12 lead (08/07/2017)Only the most recent of2 resultswithin the time period is included. Narrative Performed At ECG ED Preliminary Interpretation - NOT AN ORDER (08/04/2017 3:45 PM) Narrative Performed At Jen Cervantes NP 08/05/2017 11:15 AM ECG ED Preliminary Interpretation - Not an Order Performed by: JEN CERVANTES Authorized by: BEE CLARK ECG reviewed by ED Physician in the absence of a senior sales manager: yes Interpretation: Interpretation: normal Rate: ECG rate:89 ECG rate assessment: normal Rhythm: Rhythm: sinus rhythm QRS: QRS axis: 74. after 11/12/2016 Insurance Payer Benefit Plan / Group Subscriber ID Type Phone Address [facility] [employer] xxxxxxxxx O
--- OUTSIDE RECORDS SUMMARY | 2017-11-13 12:25 | XMS REPORT | Clinical Summary ---
:1960 Author Organization [facility] Address [address] [place] [address] Phone Care Team Providers Name Role Phone Unavailable Primary Care Provider Unavailable Allergies Active Allergy Reactions Severity Noted Date Comments Iodinated Contrast- Oral Hives High 09/13/2017 And Iv Dye Iodine And Iodide Hives High 05/06/2015 Containing Products Nsaids (Non-Steroidal Swelling High 12/11/2014 Anti-Inflammatory Drug) Penicillins Other (See Comments) High 12/11/2014 Unknown reaction Current Medications Prescription Sig. Disp. Refills Start Date End Date Status metroNIDAZOLE (FLAGYL) 250 Take 250 mg by Active MG tablet mouth 3 (three) times daily. ciprofloxacin HCl (CIPRO) Take 250 mg by Active 250 MG tablet mouth 2 (two) times daily. Active Problems Problem Noted Date History of diverticulitis 08/16/2017 History of kidney stones 08/16/2017 Abdominal pain 12/11/2014 Left against medical advice 08/19/2014 Overview: 12/11/2014 Refused Morphine IV; left immediatelly after Dilaudid IV. Encounters Date Type Specialty Care Team Description 09/13/2017 - Emergency Emergency Medicine Ryland Osorio Left lower quadrant 09/14/2017 MD Ronnie pain (Primary Dx);History of kidney stones 08/16/2017 Emergency Emergency Medicine Ramírez Bray Left lower quadrant pain (Primary Dx);History of diverticulitis;History of kidney stones;Left against medical advice 06/18/2017 Emergency Emergency Medicine after 11/12/2016 Social History Tobacco Use Types Packs/Day Years Used Date Current Every Day Smoker Cigarettes 0.5 25 Smokeless Tobacco: Never Used Alcohol Use Drinks/Week oz/Week Comments No Sex Assigned at Date Recorded Not on file Last Filed Vital Signs Vital Sign Reading Time Taken Blood Pressure 140/88 09/13/2017 4:49 PM CDT Pulse 75 09/13/2017 4:49 PM CDT Temperature 36.7 C (98 F) 09/13/2017 12:52 PM CDT Respiratory Rate 18 09/13/2017 4:49 PM CDT Oxygen Saturation 94% 09/13/2017 4:49 PM CDT Inhaled Oxygen Concentration - - Weight 63.5 kg (140 lb) 09/13/2017 11:53 AM CDT Height 175.3 cm (5' 9") 09/13/2017 11:53 AM CDT Body Mass Index 20.67 09/13/2017 11:53 AM CDT Plan of Treatment Not on file Results CT abdomen/pelvis without iv contrast (09/13/2017 3:00 PM) Specimen Performing Laboratory [facility] Narrative FINAL REPORT CT of the abdomen and pelvis, without contrast Clinical History:ABDOMINAL PAIN NAUSEA RLQ abd pain Technique: CT of the abdomen and pelvis is performed without intravenous contrast administration. This exam was performed according to our departmental dose optimization program which includes automated exposure control, adjustment of the mA and/or kV according to patient's size and/or use of iterative reconstructive technique. Comparison Film:December 11, 2014 Discussion: Visualized lower thorax is unremarkable. Liver contains a few tiny calcified granulomas. No discrete liver lesion is identified on this noncontrast exam. The spleen, pancreas, and adrenal glands are unremarkable. Nonobstructive stones are present in both kidneys, left greater than right. Largest conglomeration of stones in the left lower pole measures up to 1.4 cm in largest dimension. There are also a few hyperdensities within the renal parenchyma, the largest is on the left, measuring 1.2 cm, likely a hyperdense cyst. There is no hydronephrosis. No ureteral, or bladder stone is identified. No evidence of bowel obstruction. No bowel wall thickening is evident. Note evaluation is suboptimal in the absence of IV and oral contrast. There is colonic diverticulosis, without significant inflammatory change to suggest acute diverticulitis. Normal appendix. In the pelvis, bladder is unremarkable. The prostate gland contains small dystrophic calcifications. There is prominent perineal region soft tissue thickening and irregularity, and a linear density at the left ischiorectal fat, and extending to the left scrotum could represent a fistulous tract. Overall appearance is similar to the previous exam, but this area is incompletely imaged. There is no ascites, free air, or adenopathy. Osseous structures demonstrate advanced degenerative changes. There is anterolisthesis at L4-L5, L5-S1, and retrolisthesis at L3-L4. Status post laminectomy in the lower lumbar spine. Impression: Nonobstructive stones in both kidneys, left greater than right. No hydronephrosis. Colonic diverticulosis, without evidence of acute diverticulitis. 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 This finding can BE correlate with patient history and physical exam. Signed: Kevin Thomas MD Report Verified Date/Time:09/13/2017 16:55:35 Reading Location: [facility] B1 C013X Ortho Consult Reading Room Procedure Note Interface, External Ris In - 09/13/2017 4:57 PM CDT FINAL REPORT CT of the abdomen and pelvis, without contrast Clinical History: ABDOMINAL PAIN NAUSEA RLQ abd pain Technique: CT of the abdomen and pelvis is performed without intravenous contrast administration. This exam was performed according to our departmental dose optimization program which includes automated exposure control, adjustment of the mA and/or kV according to patient's size and/or use of iterative reconstructive technique. Comparison Film: December 11, 2014 Discussion: Visualized lower thorax is unremarkable. Liver contains a few tiny calcified granulomas. No discrete liver lesion is identified on this noncontrast exam. The spleen, pancreas, and adrenal glands are unremarkable. Nonobstructive stones are present in both kidneys, left greater than right. Largest conglomeration of stones in the left lower pole measures up to 1.4 cm in largest dimension. There are also a few hyperdensities within the renal parenchyma, the largest is on the left, measuring 1.2 cm, likely a hyperdense cyst. There is no hydronephrosis. No ureteral, or bladder stone is identified. No evidence of bowel obstruction. No bowel wall thickening is evident. Note evaluation is suboptimal in the absence of IV and oral contrast. There is colonic diverticulosis, without significant inflammatory change to suggest acute diverticulitis. Normal appendix. In the pelvis, bladder is unremarkable. The prostate gland contains small dystrophic calcifications. There is prominent perineal region soft tissue thickening and irregularity, and a linear density at the left ischiorectal fat, and extending to the left scrotum could represent a fistulous tract. Overall appearance is similar to the previous exam, but this area is incompletely imaged. There is no ascites, free air, or adenopathy. Osseous structures demonstrate advanced degenerative changes. There is anterolisthesis at L4-L5, L5-S1, and retrolisthesis at L3-L4. Status post laminectomy in the lower lumbar spine. Impression: Nonobstructive stones in both kidneys, left greater than right. No hydronephrosis. Colonic diverticulosis, without evidence of acute diverticulitis. 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 This finding can BE correlate with patient history and physical exam. Signed: Kevin Thomas MD Report Verified Date/Time: 09/13/2017 16:55:35 Reading Location: [facility] C013X Ortho Consult Reading Room Urinalysis with Microscopic If Indicated (09/13/2017 1:26 PM) Component Value Ref Range Color, UA Light Yellow Clarity, UA Clear Specific Dawes, UA 1.011 1.001 - 1.035 pH, UA 6.5 5.0 - 8.0 Protein, UA Negative Negative Glucose, UA Negative Negative Ketones, UA Negative Negative Bilirubin, UA Negative Negative Blood, UA Negative Negative Nitrite, UA Negative Negative Leukocytes, UA Negative Negative Urobilinogen, UA 0.2 0.2 - 1.0 mg/dL Specimen Source Specimen Performing Laboratory Urine - Urine, Clean Catch [address] [address] POC-Lactic Acid, Venous (09/13/2017 12:39 PM) Component Value Ref Range POC-Lactic Acid, Venous 0.8 (L)Comment: TESTED AT [address] 0.9 - 1.7 mmol/L [facility] [id number] Specimen Performing Laboratory Blood [address] [address] POC-Glucose meter (09/13/2017 12:39 PM) Component Value Ref Range POC-Glucose Meter 93Comment: TESTED AT [address] 70 - 110 mg/dL [id number] Specimen Performing Laboratory Blood [address] [place] [address] CBC with platelet count + automated diff (09/13/2017 12:33 PM)Only the most recent of2 resultswithin the time period is included. Component Value Ref Range WBC 11.5 (H) 3.5 - 10.5 K/L RBC 3.93 (L) 4.63 - 6.08 M/L Hemoglobin 8.9 (L) 13.7 - 17.5 GM/DL Hematocrit 30.6 (L) 40.1 - 51.0 % MCV 77.9 (L) 79.0 - 92.2 fL MCH 22.6 (L) 25.7 - 32.2 pg MCHC 29.1 (L) 32.3 - 36.5 GM/DL RDW 16.4 (H) 11.6 - 14.4 % Platelets 442 150 - 450 K/CU MM MPV 10.2 9.4 - 12.4 fL nRBC 0 0 - 0 /100 WBC % Neutros 79 % % Lymphs 9 % % Monos 9 % % Eos 2 % % Baso 0 % # Neutros 9.15 (H) 1.78 - 5.38 K/L # Lymphs 1.04 (L) 1.32 - 3.57 K/L # Monos 0.98 (H) 0.30 - 0.82 K/L # Eos 0.26 0.04 - 0.54 K/L # Baso 0.02 0.01 - 0.08 K/L Immature Granulocytes-Relative 1 0 - 1 % Specimen Performing Laboratory Blood [facility] [address] [address] CBC with platelet count + automated diff (09/13/2017 12:33 PM)Only the most recent of2 resultswithin the time period is included. Specimen Performing Laboratory Blood Narrative The following orders were created for panel order CBC with platelet count + automated diff. Procedure Abnormality Status --------- ------ CBC with platelet count ...[[id number]]AbnormalFinal result Please view results for these tests on the individual orders. Comprehensive metabolic panel (09/13/2017 12:33 PM)Only the most recent of2 resultswithin the time period is included. Component Value Ref Range Protein, Total 7.3 6.0 - 8.3 gm/dL Albumin 3.6 3.5 - 5.0 g/dL Alkaline Phosphatase 122 40 - 150 U/L Total Bilirubin 0.3 0.2 - 1.2 mg/dL Sodium 140 136 - 145 meq/L Potassium 3.8 3.5 - 5.1 meq/L Chloride 107 98 - 107 meq/L CO2 23 22 - 29 meq/L BUN 9 7 - 21 mg/dL Creatinine 0.70 0.57 - 1.25 mg/dL Glucose 86 70 - 105 mg/dL Calcium 9.2 8.4 - 10.2 mg/dL AST 8 5 - 34 U/L ALT 6 6 - 55 U/L EGFR 117Comment: ESTIMATED GFR IS NOT ACCURATE mL/min/1.73 sq m CREATININE CLEARANCE IN PREDICTING GLOMERULAR FILTRATION RATE. ESTIMATED GFR IS NOT APPLICABLE FOR DIALYSIS PATIENTS. Specimen Performing Laboratory Blood [facility] [address] [place] [address] Lipase (08/16/2017 8:19 AM) Component Value Ref Range Lipase 29 8 - 78 U/L Specimen Performing Laboratory Blood [facility] [address] [place] [address] after 11/12/2016
--- OUTSIDE RECORDS SUMMARY | 2017-11-13 12:27 | XMS REPORT ---
:1960 [facility] Address [address] [place] [address] Care Team Providers Name Role Phone EDMUNDO LEIVA MD Primary Care Provider Unavailable DR DECLAN SALAZAR Unavailable Unavailable LALA KOVACS Unavailable Unavailable PAUL VAZ Unavailable Unavailable DR PERICO DICKENS Unavailable Unavailable MS MONICA KINGSLEY Unavailable Unavailable David Diana Unavailable Unavailable ASIF BOWMAN Unavailable Unavailable NELLIE GRIFFITH Unavailable Unavailable Problems This patient has no known problems. Allergies, Adverse Reactions, Alerts This patient has no known allergies or adverse reactions. Medications This patient has no known medications. Encounters Start End Encounter Admission Attending Care Care Encounter Date/Time Date/Time Type Type Clinicians Facility Department ID 2017-08-04 2017-08-04 Emergency E [facility] [id number] 10:02:00 12:00:00 2017-07-30 2017-07-[address] [facility] [id number] 13:37:00 17:53:00 MONICA 2017-06-07 2017-06-[address] [facility] [id number] 10:57:00 13:46:00 ASIF 2017-05-28 2017-05-28 Emergency E [facility] [id number] 13:59:00 13:59:00 Results Test Description Test Time Test Comments Text Results Atomic Results Result Comments URINALYSIS 2017-11-12 16:30:00 Test Item Value Reference Range Comments GLUCOSE (test code=URGLU) NEGATIVE MG/DL NEG-100 BILIRUBN (test code=URBILI) NEGATIVE NEGATIVE KETONE (test code=URKET) NEGATIVE MG/DL NEGATIVE BLOOD (test code=URBLD) NEGATIVE UR PH (test code=URPH) 6.0 5.0-7.5 PROTEIN (test code=URPRO) NEGATIVE MG/DL NEGATIVE NITRITES (test code=URNIT) NEGATIVE NEGATIVE UROBILINGEN (test code=URURO) 0.2 EU/DL 0.2-1.0 LEUKOCYT (test code=URLEU) NEGATIVE NEGATIVE UA COLOR (test code=UA COLOR) YELLOW YELLOW CLARITY (test code=CLARITY) CLEAR CLEAR SP GRAV (test code=URSPGRAV) 1.025 1.000-1.025 UAMICRO (test code=UAMICRO) NO [id number] 15:48:00 Test Item Value Reference Range Comments WBC (test code=WBC) 9.8 K/UL 3.5-10.9 RBC (test code=RBC) 3.58 M/UL 4.3-5.7 HGB (test code=HGB) 8.4 G/DL 13.0-17.9 HCT (test code=HCT) 27.5 % 38-52 MCV (test code=MCV) 76.8 FL 80-98 MCH (test code=MCH) 23.5 PG 28-32 MCHC (test code=MCHC) 30.5 G/DL 32.5-36.5 RDW (test code=RDW) 17.6 % 11.5-14.5 PLT (test code=PLT) 441 K/UL 150-450 MPV (test code=MPV) 10.6 FL 7.4-10.4 MANDIFF (test code=MANDIFF) NO SCAN (test code=SCAN) YES NEUT% (test code=NEUT%) 71.8 % 40-75 LYMPH% (test code=LYMPH%) 13.4 % 24-44 MONO% (test code=MONO%) 9.6 % 0-13 EOS% (test code=EOS%) 4.1 % 0-4 BASO % (test code=BASO%) 0.4 % 0-2 IG% (test code=IG%) 0.7 % 0-1 IG%=Metamyelocytes, Myelocytes, and Promyelocytes. (Immature neutrophils not including "bands".) > 3% IG indicates risk of sepsis NRBC% (test code=NRBC%) 0 /100 WBC PLT-EST (test code=PLT-EST) NORMAL NORMAL ANISOCYTOISIS (test code=ANIS) 2+ HYPOCHROMIC (test code=HYPO) 2+ ABS NEUT (test code=NEUT) 7.1 K/UL 1.2-7.2 [id number] 15:35:00 Test Item Value Reference Range Comments SODIUM (test code=NA) 142 MMOL/L 137-145 K+ (test code=KSERUM) 4.8 MMOL/L 3.5-5.1 PLEASE NOTE NEW REFERENCE RANGE(S) IN EFFECT EFFECTIVE 11/05/2009 - NEW [employer] ([employer] 56[employer]) CHLORIDE (test code=CL) 107 MMOL/L 98-107 CO2 (test code=CO2) 26 MMOL/L 22-30 BUN (test code=BUN) 15 MG/DL 9-20 CREA (test code=CREA) 0.7 MG/DL 0.8-1.5 GLUCOSE (test 87 MG/DL 70-99 Fasting glucose normal code=GLUCOSE) <100 MG/DL- [place] recommendation CALCIUM (test 9.5 MG/DL 8.4-10.2 code=CABLOOD) TOTPROT (test 6.9 G/DL 6.3-8.2 code=TOTPROT) ALBUMIN (test 3.6 G/DL 3.5-5.0 code=ALBSERUM) BILITOT (test 0.3 MG/DL 0.2-1.3 code=BILITOT) AST (test code=AST) 22 U/L 15-46 PHOSALK (test 100 U/L 38-126 code=PHOSALK) ALT (test code=ALT) 19 U/L 13-69 GFR (test code=GFR) 124 mL/min/1.73m2 A GFR of >90 mL/min/1.73m2 is considered normal. Slightly hemolyzed [id number] 15:35:00 Test Item Value Reference Range Comments LIPASE (test code=LIPA) 58 U/L 23-300 US [id number] 15:07:[address] [address]EPOCJWRCGL IMAGING REPORTPatient Name: ASHLEY STORY NDate of Service: [id number]: 57 Sex: M Order #: [id number] Room: ERSDOB: 1960 X-Ray Number: [id number] Record Number: [id number] Hospital Number: [id number] Physician: JOSEPH SHARMA -Ordering Physician: Osmani SANTOS ultrasound.History: Right testicular pain.Technique: Transcutaneous ultrasound assessment of the scrotum andcontents. Grayscale, spectral waveform and color Doppler images wereincluded.Findings:Both testicles appearnormal in terms of size, shape, and echogenicity.Both testicles appear hypervascular.The right testicle measures 3.2 x 2.2 x 2.3 cm. There is pulsatile arterialflow present.The right epididymis appearsnormal.The left testicle measures 2.9 x 1.5 x 2.8 cm. There is pulsatile arterialflow present.The left epididymis appears normal.There are no fluid collection seen.Impression:Probable bilateral orchitis. Mild testicular hypervascularity.No other specific defects.Electronically Signed By: Jack Luke M.D., 11/12/2017 3:05 PMLegally authenticated by TELLY Thompson 2017-11-12 15:05:15URINE [id number] 11:54:00 Test Item Value Reference Range Comments Culture Observations (test NO GROWTH (<1,000 CFU/ML) code=COB1) CT ABDOMEN AND PELVIS WITHOUT CONTRAST *WW*2017-11-10 15:13:00CT abdomen and pelvis without contrastLocation Code: [id number] HISTORY: R52: PAIN, UNSPECIFIEDCOMPARISON: 07/30/2017, 06/07/2017Technique: Helical CT of the abdomen and pelvis was performed without contrast.Thin section axial, sagittal and coronal images were obtained. Automaticexposure control was utilized. Total DLP: 412.50 mGycmFINDINGS:The lung bases are clear. 1.4 cm lower pole left renal staghorn calculus is stable. Several small,subcentimeter nonobstructing right renal calculi are unchanged from as well.Several small bilateral cortical hyperdensities, likely hemorrhagic renal cystsare unchanged. There is no ureteral calculus or hydronephrosis. The unenhanced gallbladder, adrenal glands , kidneys, pancreas, and spleen areunremarkable.The unopacified loops of bowel demonstrate no focal thickening or dilatation.The appendix is visualized and is normal. Diverticuli are seen scatteredthroughoutthe sigmoid colon with no wall thickening or adjacent inflammation. There is no free peritoneal airor fluid. Calcified atheromatous plaque is present throughout the abdominal aorta withoutaneurysm. There is no retroperitoneal mass or fluid collection. The urinary bladder is unremarkable. There is nopelvic mass or fluidcollection. Perineal and bilateral inner gluteal fold inflammatory changes appear stable.There is no discrete fluid collection.Extensive degenerative changes are again noted throughout the spine. Grade 2anterolisthesis of L4 on L5 is stable.IMPRESSION:1. Stable left renal lower pole staghorn calculus and small bilateralnonobstructing bilateral renal calculi. There is no ureteral calculus orhydronephrosis.2. Stable perineal inflammatory changes without appreciable fluid collection tosuggest abscess.3. Diverticulosis with no evidence of diverticulitis.U/S TESTICULAR2017-11-10 15:00:22SCROTAL ULTRASOUNDLocation Code: [id number] HISTORY: R52: PAIN, UNSPECIFIEDCOMPARISON: None.TECHNIQUE: Multiple high resolution images were obtained through the pelvis using amultifrequency linear transducer. Color Doppler was also utilized.FINDINGS: The bilateral testes are normal in size, shape, andechogenicity. The righttestis measures 3.3 x 1.2 x 2.3 cm. The left testis measures 3.3 x 2.5 x 1.5cm. No solid or cystic masses identified. Vascular flow is documented; thereis no evidence of torsion.The bilateral epididymides are also within normal limits. No solid or cysticmass is found. No hyperemia is seen. There is no hydrocele.IMPRESSION:No acute sonographic abnormality.BASIC METABOLIC PANEL * *2017-11-10 13:23:00 Test Item Value Reference Range Comments GLUCOSE (test code=06D) 98 mg/dL 75-100 SODIUM (test code=01A) 139 mmol/L 136-145 POTASSIUM (test code=01B) 4.1 mmol/L 3.6-5.1 CHLORIDE (test code=04A) 105 mmol/L 98-107 CO2 (test code=02A) 25 mmol/L 22-32 ANION GAP (test code=ANG) 12.8 mmol/L BUN (test code=05D) 13 mg/dL 7-18 CREATININE (test code=03E) 0.7 mg/dL 0.7-1.3 BUN/CREA (test code=BCR) 19 12-20 CALCIUM (test code=09D) 8.9 mg/dL 8.3-9.5 URINALYSIS WITH MICRO 2017-11-10 13:22:00 Test Item Value Reference Range Comments COLOR (test code=COLU) YELLOW YELLOW CLARITY (test code=CLA) SLT HAZY CLEAR GLUCOSE UR (test code=UA GLUCOSE) NEGATIVE NEGATIVE BILI UR (test code=BILE) NEGATIVE NEGATIVE KETONES UR (test code=EMILIANA) NEGATIVE NEGATIVE SP GRAVITY (test code=SPGR) 1.025 1.005-1.030 PH UR (test code=PH) 6.0 4.5-8.0 PROTEIN UR (test code=PU) TRACE NEGATIVE UROBIL UR (test code=UROQ) 0.2 EU/dL 0.2-1.0 NITRITE UR (test code=NITRITE) NEGATIVE NEGATIVE BLOOD UR (test code=UA BLOOD) TRACE-INTACT NEGATIVE LEUK ES UR (test code=LEUK) NEGATIVE NEGATIVE WBC UR (test code=UWBC) 3 /HPF 0-3 RBC UR (test code=URBC) 3 /HPF 0-2 EPITH UR (test code=UEPC) NONE /LPF NONE BACTERIA UR (test code=UBACT) FEW /HPF NONE CAST UR (test code=CAST) /LPF NONE CRYSTAL UR (test code=CRYU) / LPF NONE MUCUS UR (test code=MUC) / HPF NONE AMORPH UR (test code=CRISTINA) / HPF NONE TRICH UR (test code=UTRICH) /HPF NONE YEAST UR (test code=UY) /HPF NONE SPERM UR (test code=USPERM) /HPF NONE CBC (INCLUDES AUTOMATED DIFFERENTIAL)*[id number] 13:00:00 Test Item Value Reference Range Comments WBC (test code=WBC) 11.6 10\\S\\3/uL 4.5-11.0 RBC (test code=RBC) 3.97 10\\S\\6/uL 4.20-5.60 HGB (test code=HBG) 9.0 g/dL 14.0-18.0 HCT (test code=HCT) 29.9 % 35.0-46.0 MCV (test code=MCV) 75.3 fL 80.0-94.0 MCH (test code=MCH) 22.7 pg 27.0-31.0 MCHC (test code=MCHC) 30.1 g/dL 32.0-36.0 RDW (test code=RDW) 17.2 % 11.5-14.5 PLT (test code=PLT) 488 10\\S\\3/uL 130-400 MPV (test code=MPV) 9.8 fL 9.4-12.4 NEUTROP # (test code=NE#) 9.4 10\\S\\3/uL 2.0-8.0 LYMPH # (test code=LY#) 1.1 10\\S\\3/uL 1.2-4.0 MONOCYTE # (test code=MO#) 0.6 10\\S\\3/uL 0.0-1.1 EOSINOPH # (test code=EO#) 0.3 10\\S\\3/uL 0.0-0.7 BASOPHIL # (test code=BA#) 0.0 10\\S\\3/uL 0.0-0.3 IG # (test code=IG#) 0.06 10\\S\\3/uL 0.00-0.06 NRBC # (test code=NRBC#) 0.00 10\\S\\3/uL 0.00-0.01 NEUTROPH % (test code=NE%) 81.4 % 35.0-73.0 LYMPH % (test code=LY%) 9.6 % 20.0-55.0 MONO % (test code=MO%) 5.4 % 2.5-10.0 EOSINOPH % (test code=EO%) 2.8 % 0.0-5.0 BASOPHIL % (test code=BA%) 0.3 % 0.0-2.0 IG % (test code=IG%) 0.5 % 0.0-0.8 NRBC% (test code=NRBC%) 0.0 % 0.0-0.2 MANDIFF (test code=WMDIFF) NO NO RBC MORPH (test code=WRBCMOR) NORMAL CT, [id number] 16:55:00Reason for exam:->ABDOMINAL PAINReason for exam :->NAUSEAWhat is the patient's sedation requirement?->No SedationFINAL REPORT CT of the abdomen and pelvis, without contrast Clinical History: ABDOMINAL PAINNAUSEARLQ abd pain Technique: CT of the abdomen [...] Liver contains a few tiny calcified granulomas. Nodiscrete liver lesion is identified on this noncontrast exam. The spleen, pancreas, and adrenal glands are unremarkable. Nonobstructive stones are present in both kidneys, left greater than right. Largest conglomeration of stones in the left lower pole measures up to 1.4 cm in largest dimension. Thereare also a few hyperdensities within the renal parenchyma, the largest is on the left, measuring 1.2cm, likely a hyperdense cyst. There is no [...] is no ascites, free air, or adenopathy. Osseousstructures demonstrate advanced degenerative changes. There is anterolisthesis at L4-L5, L5-S1, and retrolisthesis at L3-L4. Status post laminectomy in the lower lumbar spine. Impression: Nonobstructive stones in both kidneys, left greater than right. No hydronephrosis. Colonic diverticulosis, withoutevidence of acute diverticulitis. 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 This finding can BE correlate with patient history and physical exam. Signed: Kevin Thomaseport Verified Date/Time: 09/13/2017 16:55:35 Reading Location: [facility] B1 [id number] Ortho Consult Reading Room POCT-GLUCOSE [id number] 15:48:00 Test Item Value Reference Range Comments POC-GLUCOSE METER (BEAKER) 93 mg/dL 70-110 TESTED AT [facility] [address] [facility] [facility] (test lsgt=2652) [place] [address] URINALYSIS WITH MICROSCOPIC IF [id number] 14:32:00 Test Item Value Reference Range Comments COLOR (BEAKER) (test ocll=620) Light Yellow CLARITY (BEAKER) (test rwxp=832) Clear SPECIFIC GRAVITY UA (BEAKER) (test dcbs=385) 1.011 1.001-1.035 PH UA (BEAKER) (test uvyy=422) 6.5 5.0-8.0 PROTEIN UA (BEAKER) (test qinw=839) Negative Negative GLUCOSE UA (BEAKER) (test vaxe=824) Negative Negative KETONES UA (BEAKER) (test swik=921) Negative Negative BILIRUBIN UA (BEAKER) (test tkkr=578) Negative Negative BLOOD UA (BEAKER) (test poed=111) Negative Negative NITRITE UA (BEAKER) (test lkxz=920) Negative Negative LEUKOCYTE ESTERASE UA (BEAKER) (test ijgf=169) Negative Negative UROBILINOGEN UA (BEAKER) (test hgaf=287) 0.2 mg/dL 0.2-1.0 SOURCE(BEAKER) (test vbsq=6531) COMPREHENSIVE METABOLIC [id number] 13:36:00 Test Item Value Reference Range Comments TOTAL PROTEIN (BEAKER) 7.3 gm/dL 6.0-8.3 (test csnu=694) ALBUMIN (BEAKER) (test 3.6 g/dL 3.5-5.0 drdo=8518) ALKALINE PHOSPHATASE 122 U/L 40-150 (BEAKER) (test itkr=679) BILIRUBIN TOTAL (BEAKER) 0.3 mg/dL 0.2-1.2 (test pmdz=167) SODIUM (BEAKER) (test 140 meq/L 136-145 gddc=406) POTASSIUM (BEAKER) (test 3.8 meq/L 3.5-5.1 jmbk=124) CHLORIDE (BEAKER) (test 107 meq/L 98-107 bfgg=998) CO2 (BEAKER) (test 23 meq/L 22-29 hgxa=512) BLOOD UREA NITROGEN 9 mg/dL 7-21 (BEAKER) (test hwbp=849) CREATININE (BEAKER) (test 0.70 mg/dL 0.57-1.25 evlc=313) GLUCOSE RANDOM (BEAKER) 86 mg/dL 70-105 (test vtyn=437) CALCIUM (BEAKER) (test 9.2 mg/dL 8.4-10.2 bxig=043) AST (SGOT) (BEAKER) (test 8 U/L 5-34 kutl=933) ALT (SGPT) (BEAKER) (test 6 U/L 6-55 sqfl=135) EGFR (BEAKER) (test 117 mL/min/1.73 sq ESTIMATED GFR IS NOT tfcz=6143) m ACCURATE CREATININE CLEARANCE IN PREDICTING GLOMERULAR FILTRATION RATE. ESTIMATED GFR IS NOT APPLICABLE FOR DIALYSIS PATIENTS. CBC W/PLT COUNT & AUTO [id number] 13:07:00 Test Item Value Reference Range Comments WHITE BLOOD CELL COUNT (BEAKER) (test fbyn=334) 11.5 K/ L 3.5-10.5 RED BLOOD CELL COUNT (BEAKER) (test qize=479) 3.93 M/ L 4.63-6.08 HEMOGLOBIN (BEAKER) (test dgpm=468) 8.9 GM/DL 13.7-17.5 HEMATOCRIT (BEAKER) (test gagq=720) 30.6 % 40.1-51.0 MEAN CORPUSCULAR VOLUME (BEAKER) (test upct=788) 77.9 fL 79.0-92.2 MEAN CORPUSCULAR HEMOGLOBIN (BEAKER) (test 22.6 pg 25.7-32.2 gciw=599) MEAN CORPUSCULAR HEMOGLOBIN CONC (BEAKER) (test 29.1 GM/DL 32.3-36.5 kqbs=909) RED CELL DISTRIBUTION WIDTH (BEAKER) (test 16.4 % 11.6-14.4 xscz=385) PLATELET COUNT (BEAKER) (test kydi=237) 442 K/CU MM 150-450 MEAN PLATELET VOLUME (BEAKER) (test ranl=379) 10.2 fL 9.4-12.4 NUCLEATED RED BLOOD CELLS (BEAKER) (test 0 /100 WBC 0-0 ugbt=234) NEUTROPHILS RELATIVE PERCENT (BEAKER) (test 79 % gwvg=089) LYMPHOCYTES RELATIVE PERCENT (BEAKER) (test 9 % dnpx=576) MONOCYTES RELATIVE PERCENT (BEAKER) (test 9 % krut=587) EOSINOPHILS RELATIVE PERCENT (BEAKER) (test 2 % ehmx=675) BASOPHILS RELATIVE PERCENT (BEAKER) (test 0 % cypc=709) NEUTROPHILS ABSOLUTE COUNT (BEAKER) (test 9.15 K/ L 1.78-5.38 ably=960) LYMPHOCYTES ABSOLUTE COUNT (BEAKER) (test 1.04 K/ L 1.32-3.57 bjku=021) MONOCYTES ABSOLUTE COUNT (BEAKER) (test 0.98 K/ L 0.30-0.82 oagu=964) EOSINOPHILS ABSOLUTE COUNT (BEAKER) (test 0.26 K/ L 0.04-0.54 hhvt=582) BASOPHILS ABSOLUTE COUNT (BEAKER) (test 0.02 K/ L 0.01-0.08 nhnb=373) IMMATURE GRANULOCYTES-RELATIVE PERCENT (BEAKER) 1 % 0-1 (test lije=9375) POCT-LACTIC ACID, [id number] 12:44:00 Test Item Value Reference Range Comments POC-LACTIC ACID, VENOUS 0.8 mmol/L 0.9-1.7 TESTED AT [facility] [address] [facility] (BEAKER) (test myvw=0779) [facility] [address] COMPREHENSIVE METABOLIC [id number] 08:51:00 Test Item Value Reference Range Comments TOTAL PROTEIN (BEAKER) 7.5 gm/dL 6.0-8.5 (test oixc=243) ALBUMIN (BEAKER) (test 3.6 g/dL 3.5-5.0 wnwt=1815) ALKALINE PHOSPHATASE 119 U/L 30-115 (BEAKER) (test cijc=162) BILIRUBIN TOTAL (BEAKER) 0.1 mg/dL 0.1-1.3 (test ddox=697) SODIUM (BEAKER) (test 138 meq/L 135-148 rfty=363) POTASSIUM (BEAKER) (test 4.0 meq/L 3.5-5.5 qedm=059) CHLORIDE (BEAKER) (test 105 meq/L 98-106 qpoq=768) CO2 (BEAKER) (test 26 meq/L 20-31 klsg=364) BLOOD UREA NITROGEN 10 mg/dL 10-26 (BEAKER) (test xsym=295) CREATININE (BEAKER) (test 0.74 mg/dL 0.50-1.20 zlqg=343) GLUCOSE RANDOM (BEAKER) 88 mg/dL 70-110 (test dqhj=395) CALCIUM (BEAKER) (test 9.4 mg/dL 8.5-10.5 gktf=995) AST (SGOT) (BEAKER) (test 9 U/L 5-40 gtbu=913) ALT (SGPT) (BEAKER) (test < U/L 6-50 chgr=225) EGFR (BEAKER) (test 109 mL/min/1.73 sq ESTIMATED GFR IS NOT muqk=2685) m ACCURATE CREATININE CLEARANCE IN PREDICTING GLOMERULAR FILTRATION RATE. ESTIMATED GFR IS NOT APPLICABLE FOR DIALYSIS PATIENTS. [id number] 08:49:00 Test Item Value Reference Range Comments LIPASE (BEAKER) (test mxrc=538) 29 U/L 8-78 CBC W/PLT COUNT & AUTO [id number] 08:35:00 Test Item Value Reference Range Comments WHITE BLOOD CELL COUNT (BEAKER) (test cltg=978) 8.8 K/ L 4.0-10.0 RED BLOOD CELL COUNT (BEAKER) (test ijpi=328) 3.93 M/ L 4.20-5.80 HEMOGLOBIN (BEAKER) (test xsid=537) 9.3 GM/DL 13.0-16.8 HEMATOCRIT (BEAKER) (test xesd=117) 29.7 % 40.0-50.0 MEAN CORPUSCULAR VOLUME (BEAKER) (test yydm=036) 75.6 fL 82.0-98.0 MEAN CORPUSCULAR HEMOGLOBIN (BEAKER) (test 23.5 pg 27.0-33.0 iiyv=821) MEAN CORPUSCULAR HEMOGLOBIN CONC (BEAKER) (test 31.2 GM/DL 32.0-36.0 msok=248) RED CELL DISTRIBUTION WIDTH (BEAKER) (test 18.0 % 12.0-15.0 nxjp=286) PLATELET COUNT (BEAKER) (test esji=612) 482 K/CU MM 150-430 MEAN PLATELET VOLUME (BEAKER) (test gonm=205) 8.3 fL 6.5-10.5 NUCLEATED RED BLOOD CELLS (BEAKER) (test 0 /100 WBC 0-0 vbyh=784) NEUTROPHILS RELATIVE PERCENT (BEAKER) (test 77 % pqil=278) LYMPHOCYTES RELATIVE PERCENT (BEAKER) (test 13 % tqkr=578) MONOCYTES RELATIVE PERCENT (BEAKER) (test 5 % ujes=365) EOSINOPHILS RELATIVE PERCENT (BEAKER) (test 4 % uuhi=219) BASOPHILS RELATIVE PERCENT (BEAKER) (test 1 % awfx=194) NEUTROPHILS ABSOLUTE COUNT (BEAKER) (test 6.80 K/ L 1.80-8.00 aghp=297) LYMPHOCYTES ABSOLUTE COUNT (BEAKER) (test 1.10 K/ L 1.48-4.50 ntvp=028) MONOCYTES ABSOLUTE COUNT (BEAKER) (test 0.50 K/ L 0.00-1.30 xrdv=503) EOSINOPHILS ABSOLUTE COUNT (BEAKER) (test 0.40 K/ L 0.00-0.50 smqf=306) BASOPHILS ABSOLUTE COUNT (BEAKER) (test 0.10 K/ L 0.00-0.20 aikx=496) AMYLASE AND LIPASE 2017-08-04 11:44:00 Test Item Value Reference Range Comments AMYLASE (test code=10A) 85 U/L 28-100 LIPASE (test code=60A) 187 IU/L 73-393 COMPREHENSIVE METABOLIC ORTEGA 2017-08-04 11:44:00 Test Item Value Reference Range Comments GLUCOSE (test code=06D) 76 mg/dL 75-100 SODIUM (test code=01A) 140 mmol/L 136-145 POTASSIUM (test code=01B) 3.8 mmol/L 3.6-5.1 CHLORIDE (test code=04A) 105 mmol/L 98-107 CO2 (test code=02A) 27 mmol/L 22-32 ANION GAP (test code=ANG) 12.2 mmol/L BUN (test code=05D) 9 mg/dL 7-18 CREATININE (test code=03E) 0.6 mg/dL 0.7-1.3 BUN/CREA (test code=BCR) 14 12-20 CALCIUM (test code=09D) 8.5 mg/dL 8.3-9.5 BILI TOTAL (test code=11A) 0.2 mg/dL 0.2-1.0 PROTEIN (test code=07D) 7.2 g/dL 6.4-8.2 ALBUMIN (test code=08D) 2.9 g/dL 3.5-4.8 GLOBULIN (test code=GLB) 4.3 g/dL 1.5-3.8 ALB/GLOB (test code=AGRR) 0.7 1.0-2.6 ALK PHOS (test code=35A) 132 IU/L 42-121 AST (test code=30A) 9 IU/L <=42 ALT (test code=31A) 8 IU/L <=78 CARDIAC PROFILE 2017-08-04 11:38:00 Test Item Value Reference Range Comments TROPONIN I (test code=A84) <0.015 ng/mL 0.000-0.045 CKMB (test code=A49) <1.0 ng/mL <=3.6 CPK (test code=32A) 40 IU/L 39-308 DRUGS OF ABUSE 2017-08-04 11:36:00 Test Item Value Reference Range Comments DRUG SCRN (test code=HDOA) URINE DRUG SCREEN This is an unconfirmed screening result and should not be used for non-medical purposes CANNABINOD (test code=88C) Negative NEGATIVE AMPHETAMINE (test code=84A) Negative NEGATIVE BENZODIAZP (test code=86A) Negative NEGATIVE BARBITURAT (test code=85A) Negative NEGATIVE OPIATES (test code=92B) Negative NEGATIVE COCAINE (test code=87A) Negative NEGATIVE PHENCYCLID (test code=66A) Negative NEGATIVE METHADONE (test code=64A) Negative NEGATIVE DOAH (test code=DOAH) URINE DRUG SCREEN Cut-off values are as follows: ---- Cannabinoids 50 ng/mL Cocaine 300 ng/mL Amphetamines 1000 ng/mL Phencyclidine 25 ng/mL Benzodiazepines 200 ng.mL Methadone 300 ng/mL Barbiturates 200 ng/mL Opiates 2000 ng/mL URINALYSIS WITH MICRO 2017-08-04 11:29:00 Test Item Value Reference Range Comments COLOR (test code=COLU) YELLOW YELLOW CLARITY (test code=CLA) SLT HAZY CLEAR GLUCOSE UR (test code=UA GLUCOSE) NEGATIVE NEGATIVE BILI UR (test code=BILE) NEGATIVE NEGATIVE KETONES UR (test code=EMILIANA) NEGATIVE NEGATIVE SP GRAVITY (test code=SPGR) 1.020 1.005-1.030 PH UR (test code=PH) 6.0 4.5-8.0 PROTEIN UR (test code=PU) NEGATIVE NEGATIVE UROBIL UR (test code=UROQ) 0.2 EU/dL 0.2-1.0 NITRITE UR (test code=NITRITE) NEGATIVE NEGATIVE BLOOD UR (test code=UA BLOOD) 1+ NEGATIVE LEUK ES UR (test code=LEUK) NEGATIVE NEGATIVE WBC UR (test code=UWBC) 1 /HPF 0-3 RBC UR (test code=URBC) 4 /HPF 0-2 EPITH UR (test code=UEPC) FEW /LPF NONE BACTERIA UR (test code=UBACT) FEW /HPF NONE CAST UR (test code=CAST) /LPF NONE CRYSTAL UR (test code=CRYU) / LPF NONE MUCUS UR (test code=MUC) / HPF NONE AMORPH UR (test code=CRISTINA) / HPF NONE TRICH UR (test code=UTRICH) /HPF NONE YEAST UR (test code=UY) /HPF NONE SPERM UR (test code=USPERM) /HPF NONE CBC (INCLUDES AUTOMATED DIFFERENTIAL)*[id number] 11:23:00 Test Item Value Reference Range Comments WBC (test code=WBC) 15.4 10\\S\\3/uL 4.5-11.0 RBC (test code=RBC) 3.85 10\\S\\6/uL 4.20-5.60 HGB (test code=HBG) 9.1 g/dL 14.0-18.0 HCT (test code=HCT) 30.3 % 35.0-46.0 MCV (test code=MCV) 78.7 fL 80.0-94.0 MCH (test code=MCH) 23.6 pg 27.0-31.0 MCHC (test code=MCHC) 30.0 g/dL 32.0-36.0 RDW (test code=RDW) 17.2 % 11.5-14.5 PLT (test code=PLT) 476 10\\S\\3/uL 130-400 MPV (test code=MPV) 10.1 fL 9.4-12.4 NEUTROP # (test code=NE#) 12.5 10\\S\\3/uL 2.0-8.0 LYMPH # (test code=LY#) 1.3 10\\S\\3/uL 1.2-4.0 MONOCYTE # (test code=MO#) 1.2 10\\S\\3/uL 0.0-1.1 EOSINOPH # (test code=EO#) 0.3 10\\S\\3/uL 0.0-0.7 BASOPHIL # (test code=BA#) 0.0 10\\S\\3/uL 0.0-0.3 IG # (test code=IG#) 0.11 10\\S\\3/uL 0.00-0.06 NRBC # (test code=NRBC#) 0.00 10\\S\\3/uL 0.00-0.01 NEUTROPH % (test code=NE%) 81.4 % 35.0-73.0 LYMPH % (test code=LY%) 8.6 % 20.0-55.0 MONO % (test code=MO%) 7.6 % 2.5-10.0 EOSINOPH % (test code=EO%) 1.6 % 0.0-5.0 BASOPHIL % (test code=BA%) 0.1 % 0.0-2.0 IG % (test code=IG%) 0.7 % 0.0-0.8 NRBC% (test code=NRBC%) 0.0 % 0.0-0.2 MANDIFF (test code=WMDIFF) NO NO RBC MORPH (test code=WRBCMOR) NORMAL CT DISSECTION PROTOCOL *WW*2017-07-30 17:16:36Dissection protocol CT of the aortaClinical indication: Right abdominal painComparison renal stone protocol CT of the abdomen and pelvis dated today and CTof the abdomen and pelvis dated Location R 16Spiral CT is obtained from aortic arch to iliac arteries with continuation intothe pelvis to include the scrotum. Axial series are provided to the pelvis withcoronal and sagittal and parasagittaloblique series of the chest. One or moreof the following dose reduction techniques were used: Automated exposurecontrol, adjustment of the MA and/or kV according to patient size, and/orutilization of iterative reconstruction technique. DLP 1785.65 mGy* cm. The aorta is well-opacified and without intimal flap or dilatation to suggestaneurysm or dissection.The pulmonary arteries are well opacified without intrinsic defects to suggestpulmonary embolism.Heart is normal in size. Great vessels are normal in caliber.There is no significant mediastinal or hilar adenopathy. Lungs are clear. Thereis no evidence of pleural effusion, nodules or consolidation.Liver contains calcified granulomas. Gallbladder is contracted gallbladder wallthickening can't be excluded.Spleen, stomach, pancreas, kidneys and adrenal glands are significant forstaghorn calculus on the left and punctate renal calcifications bilaterally.Unopacified bowel is unremarkable. Appendix is unremarkable.Urinary bladder, prostate and rectum are significant for perirectal collectionon the left which extends to the left buttocks. The scrotal wall is thickenedand there is bilateral hydrocele.Bony structures demonstrate demonstrate an advanced postoperative deformity oflower lumbar spine with laminectomy, scoliosis, sclerosis of multiple vertebraeand chronic facet deformities as well as anterior spondylolisthesis of L4 onL5.Impression: 1. No evidence of dissection.2. Again demonstrated are staghorn calculus on the left, bilateral renalcalculi3. Gallbladder is contracted. Wall thickening can't be excluded.4. There is a well organized collection in the left perirectal fossa whichextends to the left buttocks, essentially unchanged since the previousexamination of the month ago.5. Findings were discussed with Dr. Kingsley in the emergency roomat the timeof dictation.CT STONE PROTOCOL STUDY * WW*2017-07-30 15:33:02CT Stone protocol abdomen and pelvisClinical indication: Right lower quadrant painComparison: 06/07/2017Location R 16Spiral CT is obtained from lung bases to inferior pubic rami without contrastand with 2.5 mm axial and 3 mm coronal and sagittal reconstructions provided.One or more of the following dosereduction techniques were used: Automatedexposure control, adjustment of the MA and/or kV according to patient size,and/or utilization of iterative reconstruction technique. DLP 998.83 mGy*cm.Lung bases are clear. Heart is normal in sizeVessels are normal in caliber.Liver contains scattered calcifications likely representing calcifiedgranulomas.Gallbladder is normally distended.Spleen, stomach, adrenal glands and pancreas are unremarkable.Both kidneys contain multiple calcifications. Large staghorn type calcificationis present on the left measuring 2.5 cm. Punctate calcifications are present onthe right. There is high density nodule in the periphery of the left kidneymeasuring 10 mm likely representing a calcified cyst..Unopacified bowel is remarkable for diffuse, moderate diverticulosis. Normalappendix is noted.Urinary bladder is distended. Prostate is mildly enlarged.There is asymmetric soft tissue within the rectal fossa on the left possiblyrepresenting abscess. Clinical correlation is recommended. Findings were calledto Dr. Kingsley at time of dictation.There is grade 2 anterior spondylolisthesis of L4 and L5 and grade 1retrolisthesis of L3 on L4 with chronic pars interarticularis fractures andadvanced sclerosis of lower lumbar vertebrae.Impression:1. Staghorn calculus on the left and bilateral renal calculi.2. Diverticulosis.3. Perirectal process on the left for which clinical correlation is recommendedand additional imaging if clinically indicated.4. Grade 2 anterior spondylolisthesis of L4 on L5 with retrolisthesis of L3 onL4, advanced facet arthritis, chronic pars fractures and bony sclerosis of thelower lumbar vertebrae.URINALYSIS WITH MICRO *WW*2017-07-30 15:14:00 Test Item Value Reference Range Comments COLOR (test code=COLU) YELLOW YELLOW CLARITY (test code=CLA) CLEAR CLEAR GLUCOSE UR (test code=UA GLUCOSE) TRACE NEGATIVE BILI UR (test code=BILE) NEGATIVE NEGATIVE KETONES UR (test code=EMILIANA) NEGATIVE NEGATIVE SP GRAVITY (test code=SPGR) 1.020 1.005-1.030 PH UR (test code=PH) 6.0 4.5-8.0 PROTEIN UR (test code=PU) NEGATIVE NEGATIVE UROBIL UR (test code=UROQ) 0.2 EU/dL 0.2-1.0 NITRITE UR (test code=NITRITE) NEGATIVE NEGATIVE BLOOD UR (test code=UA BLOOD) 1+ NEGATIVE LEUK ES UR (test code=LEUK) NEGATIVE NEGATIVE WBC UR (test code=UWBC) 2 /HPF 0-3 RBC UR (test code=URBC) 5 /HPF 0-2 EPITH UR (test code=UEPC) NONE /LPF NONE BACTERIA UR (test code=UBACT) FEW /HPF NONE CAST UR (test code=CAST) /LPF NONE CRYSTAL UR (test code=CRYU) / LPF NONE MUCUS UR (test code=MUC) / HPF NONE AMORPH UR (test code=CRISTINA) / HPF NONE TRICH UR (test code=UTRICH) /HPF NONE YEAST UR (test code=UY) /HPF NONE SPERM UR (test code=USPERM) /HPF NONE BASIC METABOLIC PANEL 2017-07-30 14:21:00 Test Item Value Reference Range Comments GLUCOSE (test code=06D) 133 mg/dL 75-100 SODIUM (test code=01A) 143 mmol/L 136-145 POTASSIUM (test code=01B) 3.6 mmol/L 3.6-5.1 CHLORIDE (test code=04A) 109 mmol/L 98-107 CO2 (test code=02A) 25 mmol/L 22-32 ANION GAP (test code=ANG) 12.7 mmol/L BUN (test code=05D) 9 mg/dL 7-18 CREATININE (test code=03E) 0.8 mg/dL 0.7-1.3 BUN/CREA (test code=BCR) 12 12-20 CALCIUM (test code=09D) 8.1 mg/dL 8.3-9.5 CBC (INCLUDES AUTOMATED DIFFERENTIAL)*[id number] 14:14:00 Test Item Value Reference Range Comments WBC (test code=WBC) 8.0 10\\S\\3/uL 4.5-11.0 RBC (test code=RBC) 3.70 10\\S\\6/uL 4.20-5.60 HGB (test code=HBG) 8.6 g/dL 14.0-18.0 HCT (test code=HCT) 28.9 % 35.0-46.0 MCV (test code=MCV) 78.1 fL 80.0-94.0 MCH (test code=MCH) 23.2 pg 27.0-31.0 MCHC (test code=MCHC) 29.8 g/dL 32.0-36.0 RDW (test code=RDW) 17.4 % 11.5-14.5 PLT (test code=PLT) 359 10\\S\\3/uL 130-400 MPV (test code=MPV) 10.2 fL 9.4-12.4 NEUTROP # (test code=NE#) 6.2 10\\S\\3/uL 2.0-8.0 LYMPH # (test code=LY#) 1.0 10\\S\\3/uL 1.2-4.0 MONOCYTE # (test code=MO#) 0.6 10\\S\\3/uL 0.0-1.1 EOSINOPH # (test code=EO#) 0.1 10\\S\\3/uL 0.0-0.7 BASOPHIL # (test code=BA#) 0.0 10\\S\\3/uL 0.0-0.3 IG # (test code=IG#) 0.04 10\\S\\3/uL 0.00-0.06 NRBC # (test code=NRBC#) 0.00 10\\S\\3/uL 0.00-0.01 NEUTROPH % (test code=NE%) 78.1 % 35.0-73.0 LYMPH % (test code=LY%) 12.6 % 20.0-55.0 MONO % (test code=MO%) 7.6 % 2.5-10.0 EOSINOPH % (test code=EO%) 1.1 % 0.0-5.0 BASOPHIL % (test code=BA%) 0.1 % 0.0-2.0 IG % (test code=IG%) 0.5 % 0.0-0.8 NRBC% (test code=NRBC%) 0.0 % 0.0-0.2 MANDIFF (test code=WMDIFF) NO NO RBC MORPH (test code=WRBCMOR) NORMAL Culture, [id number] 14:17:00 Test Item Value Reference Range Comments Culture, Urine (test code=URC) [id number] 14:50:00 Test Item Value Reference Range Comments Urinalysis (test code=UACLR) Straw Yellow Urinalysis (test code=UACLY) Clear Clear Urinalysis (test code=SPGR) 1.020 1.005-1.030 Urinalysis (test code=IRWIN) 7.0 5.0-9.0 Urinalysis (test code=UALEU) Negative Negative Urinalysis (test code=UANIT) Negative Negative Urinalysis (test code=PROUADIP) Negative mg/dL Neg-Trace Urinalysis (test code=GLUCU) Negative mg/dL Negative Urinalysis (test code=KETU) Negative mg/dL Negative Urinalysis (test code=UAUROB) 0.2 mg/dL 0.2-1.0 Urinalysis (test code=UABIL) Negative Negative Urinalysis (test code=UABLD) Trace Negative Urine Source: Urine [id number] 14:50:00 Test Item Value Reference Range Comments Urinalysis (test code=UARBC) 0-3 HPF 0-3 Urinalysis (test code=UASQUAM) 0-3 HPF 0-3 Urine Source: Urine [id number] 14:48:00 Test Item Value Reference Range Comments Hematology (test code=SED) 74 mm/hr 0-10 ADDED SED RATE, CRP NOT [id number] 14:00:00 Test Item Value Reference Range Comments Chemistry (test 140 mmol/L 136-145 code=NA-T) Chemistry (test code=K-T) 4.6 mmol/L 3.5-5.1 Chemistry (test code=CL) 107 mmol/L 98-107 Chemistry (test code=CO2) 22 mmol/L 22-29 Chemistry (test 16 mmol/L 10-20 code=ANGP) Chemistry (test code=BUN) 14 mg/dL 8.4-25.7 Chemistry (test 0.62 mg/dL 0.7-1.3 code=CREATT) Chemistry (test Greater than 90 Reference Range for code=EGFRMDRD) Estimated GFR: Greater than 90 mL/min/1.73 m2NOTE:The MDRD equation has not been validated for use with theelderly (over 70 years of age), women, patientswith serious comorbid condition or persons with extremes ofbody size, muscle mass, or nutritional status. Chemistry (test 95 mg/dL 70-105 code=GLU-T) Chemistry (test code=CA) 9.0 mg/dL 7.8-10.44 Chemistry (test 0.1 mg/dL 0.2-1.2 code=TBILI) Chemistry (test code=TP) 6.5 g/dL 6.0-8.3 Chemistry (test code=ALB) 3.4 g/dL 3.5-5.0 Chemistry (test 3.1 g/dL 2.4-3.5 code=GLOB) Chemistry (test code=AG) 1.1 g/dL 1.2-2.2 Chemistry (test code=ALP) 111 U/L 40-150 Chemistry (test code=AST) 15 U/L 5-34 Chemistry (test code=ALT) 8 U/L 8-55 [id number] 14:00:00 Test Item Value Reference Range Comments Chemistry (test code=FELISHA) 93.0 U/L 25-125 [id number] 14:00:00 Test Item Value Reference Range Comments Chemistry (test code=LIP) 31 U/L 8-78 [id number] 13:53:00 Test Item Value Reference Range Comments Hematology (test code=WBCT) 12.0 thou/uL 4.8-10.8 Hematology (test code=RBCT) 3.50 mill/uL 4.70-6.10 Hematology (test code=HGBT) 8.1 g/dL 14.0-18.0 Hematology (test code=HCTT) 26.2 % 42.0-52.0 Hematology (test code=MCV) 74.9 fl 80.0-94.0 Hematology (test code=MCH) 23.2 pg 27.0-31.0 Hematology (test code=MCHC) 31.0 g/dL 32.0-36.0 Hematology (test code=RDW) 15.2 % 11.5-14.5 Hematology (test code=PLTT) 355 thou/uL 130-400 Hematology (test code=MPV) 8.2 fL 7.4-10.4 Hematology (test code=%NEUT) 78.7 % 42.0-75.0 Hematology (test code=%LYMPH) 12.7 % 21.0-51.0 Hematology (test code=%MONO) 5.5 % 0.0-10.0 Hematology (test code=%EOS) 2.1 % 0.0-10.0 Hematology (test code=%BASO) 1.0 % 0.0-1.0 Hematology (test code=NEUT#) 9.4 thou/uL 1.40-6.50 Hematology (test code=LYMPH#) 1.5 thou/uL 1.20-3.40 Hematology (test code=MONO#) 0.7 thou/uL 0.11-0.59 Hematology (test code=EOS#) 0.3 thou/uL 0.0-0.7 Hematology (test code=BASO#) 0.1 thou/uL 0.0-0.2 U/S KIDNEY (RENAL)2017-06-07 13:37:51RENAL ULTRASOUNDLocation Code: [id number] HISTORY: N28.1: CYST OF KIDNEY, ACQUIREDCOMPARISON: CT performed earlier on same day.COMMENT: Sarmiento scale and selective color Doppler sonographic imaging of thekidneys was performed.The right kidney measures 11.8 x 6.5 x 6.0 cm. Small, 4 mm calculus at the midpole corresponds to the CT finding. There is no mass or hydronephrosis.The left kidney measures 10.0 x6.4 x 6.1 cm. 1.4 cm upper pole cystcorresponds to the hyperdense lesion noted on recent ultrasound.Multiplecalculi are noted measuring up to 1 cm. The bladder is unremarkable with no significant postvoid residual. Bilateralureteral jets are identified.IMPRESSION: 1. Small, minimally complex, likelyhemorrhagic upper pole left renal cystcorresponding to recent CT finding. There is no solid or worrisome lesion.2. Multiple small bilateral nonobstructing renal calculi.COMPREHENSIVE METABOLIC ORTEGA 2017-06-07 12:02:00 Test Item Value Reference Range Comments GLUCOSE (test code=06D) 108 mg/dL 75-100 SODIUM (test code=01A) 138 mmol/L 136-145 POTASSIUM (test code=01B) 3.8 mmol/L 3.6-5.1 CHLORIDE (test code=04A) 105 mmol/L 98-107 CO2 (test code=02A) 27 mmol/L 22-32 ANION GAP (test code=ANG) 9.8 mmol/L BUN (test code=05D) 10 mg/dL 7-18 CREATININE (test code=03E) 0.8 mg/dL 0.7-1.3 BUN/CREA (test code=BCR) 13 12-20 CALCIUM (test code=09D) 8.5 mg/dL 8.3-9.5 BILI TOTAL (test code=11A) 0.3 mg/dL 0.2-1.0 PROTEIN (test code=07D) 8.1 g/dL 6.4-8.2 ALBUMIN (test code=08D) 3.1 g/dL 3.5-4.8 GLOBULIN (test code=GLB) 5.0 g/dL 1.5-3.8 ALB/GLOB (test code=AGRR) 0.6 1.0-2.6 ALK PHOS (test code=35A) 140 IU/L 42-121 AST (test code=30A) 11 IU/L <=42 ALT (test code=31A) 14 IU/L <=78 AMYLASE AND LIPASE 2017-06-07 12:02:00 Test Item Value Reference Range Comments AMYLASE (test code=10A) 108 U/L 28-100 LIPASE (test code=60A) 166 IU/L 73-393 URINALYSIS 2017-06-07 11:52:00 Test Item Value Reference Range Comments COLOR (test code=COLU) YELLOW YELLOW CLARITY (test code=CLA) CLEAR CLEAR GLUCOSE UR (test code=UA GLUCOSE) NEGATIVE NEGATIVE BILI UR (test code=BILE) NEGATIVE NEGATIVE KETONES UR (test code=EMILIANA) NEGATIVE NEGATIVE SP GRAVITY (test code=SPGR) 1.020 1.005-1.030 PH UR (test code=PH) 7.0 4.5-8.0 PROTEIN UR (test code=PU) NEGATIVE NEGATIVE UROBIL UR (test code=UROQ) 0.2 EU/dL 0.2-1.0 NITRITE UR (test code=NITRITE) NEGATIVE NEGATIVE BLOOD UR (test code=UA BLOOD) NEGATIVE NEGATIVE LEUK ES UR (test code=LEUK) NEGATIVE NEGATIVE AUAM (test code=WAUAM) NO NO CBC (INCLUDES AUTOMATED DIFFERENTIAL)*[id number] 11:49:00 Test Item Value Reference Range Comments WBC (test code=WBC) 15.0 10\\S\\3/uL 4.5-11.0 RBC (test code=RBC) 3.88 10\\S\\6/uL 4.20-5.60 HGB (test code=HBG) 9.2 g/dL 14.0-18.0 HCT (test code=HCT) 30.4 % 35.0-46.0 MCV (test code=MCV) 78.4 fL 80.0-94.0 MCH (test code=MCH) 23.7 pg 27.0-31.0 MCHC (test code=MCHC) 30.3 g/dL 32.0-36.0 RDW (test code=RDW) 16.3 % 11.5-14.5 PLT (test code=PLT) 530 10\\S\\3/uL 130-400 MPV (test code=MPV) 10.0 fL 9.4-12.4 NEUTROP # (test code=NE#) 12.2 10\\S\\3/uL 2.0-8.0 LYMPH # (test code=LY#) 1.5 10\\S\\3/uL 1.2-4.0 MONOCYTE # (test code=MO#) 0.9 10\\S\\3/uL 0.0-1.1 EOSINOPH # (test code=EO#) 0.4 10\\S\\3/uL 0.0-0.7 BASOPHIL # (test code=BA#) 0.0 10\\S\\3/uL 0.0-0.3 IG # (test code=IG#) 0.13 10\\S\\3/uL 0.00-0.06 NRBC # (test code=NRBC#) 0.00 10\\S\\3/uL 0.00-0.01 NEUTROPH % (test code=NE%) 80.9 % 35.0-73.0 LYMPH % (test code=LY%) 9.8 % 20.0-55.0 MONO % (test code=MO%) 5.8 % 2.5-10.0 EOSINOPH % (test code=EO%) 2.4 % 0.0-5.0 BASOPHIL % (test code=BA%) 0.2 % 0.0-2.0 IG % (test code=IG%) 0.9 % 0.0-0.8 NRBC% (test code=NRBC%) 0.0 % 0.0-0.2 MANDIFF (test code=WMDIFF) NO NO RBC MORPH (test code=WRBCMOR) NORMAL CT ABDOMEN AND PELVIS WITHOUT CONTRAST *WW*2017-06-07 11:34:10EXAM: CT ABDOMEN AND PELVIS WITHOUT CONTRAST *WW*HISTORY: [id number]: Lower abdominal pain . Initial encounter. No history oftrauma. TECHNIQUE: Axial imaging of the abdomen and pelvis from the lung baseto thepubic symphysis following administration of intravenous contrast. Sagittal and coronalreconstructions. ACR accredited facility. CT scanperformed using appropriate/available dose optimization/reduction techniques.COMPARISON: None.FINDINGS:Lung base:The visualized lung base is clear. The heart size is normal. Nopericardial or pleural effusion is present. Liver/spleen: Liver is normal in size and contour. Coarse hepatic parenchymalcalcifications compatible with prior granulomatous disease are present. Thespleen is unremarkable.Biliary system: The gallbladder is unremarkably distended. No biliary ductdilatation.Pancreas: Unremarkable.Adrenal glands: Normal. Kidneys: Lateral nephrolithiasis is present. Calculus burden is greater on theleft. The largest left renal calculus measures 12 x 8 mm, at the left lowerpole. No associated hydronephrosis is present in either kidney. A 9 mm corticalhyperdense lesion along the left upper pole likely represents aproteinaceous/hemorrhagic cyst.Vascular: Mild atherosclerosis normal caliber abdominal aorta. Lymph nodes : No abdominal lymphadenopathy.Pelvic structures: The urinary bladder is unremarkably distended. No pelviclymphadenopathy or free fluid. Gastrointestinal tract: Moderate diverticulosis is present. This is mostprominent at the sigmoid colon. No findings of acute diverticulitis. Noabnormal bowel dilatation. Normal caliber appendix is identified. No focalfluid collections, ascites or evidence of pneumoperitoneum. Bones and soft tissues: Moderate degenerative disc disease affects the lowerlumbar spine. Postsurgical changes of laminectomy are present at L3-L5. A 9 mmanterolisthesis of L5 with respect to S1 is present. No focal aggressiveosseous lesions. IMPRESSION:Bilateral nonobstructing nephrolithiasis.9 mm left renal cortical hyperdense lesion most likely represents a hemorrhagiccyst. Suggest ultrasound confirmation.Moderate diverticulosis, no evidence of acute diverticulitis.HEPATITIS C ANTIBODY [id number] 08:46:00 Test Item Value Reference Range Comments SCRN HCV (test code=SCRN NEGATIVE NEGATIVE Hepatitis C Antibody test is for HCV) screening purposes only. All reactives will be confirmed by additional testing. ER SCREEN FOR HIV 08:46:00 Test Item Value Reference Range Comments HIV 1/2 AB (test NONREACTIVE NONREACTIVE This test is used for SCREENING code=SCRN HIV) purposes only. All reactive results are prelimenary and confirmation results will follow. 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) CHLORIDE (test code=CL) 106 MMOL/L 98-107 CO2 (test code=CO2) 21 MMOL/L 22-30 BUN (test code=BUN) 11 MG/DL 9-20 CREA (test code=CREA) 0.5 MG/DL 0.8-1.5 GLUCOSE (test 195 MG/DL 70-99 Fasting glucose normal code=GLUCOSE) <100 MG/DL- [place] [employer] recommendation CALCIUM (test 8.9 MG/DL 8.4-10.2 code=CABLOOD) TOTPROT (test 6.6 G/DL 6.3-8.2 code=TOTPROT) ALBUMIN (test 3.2 G/DL 3.5-5.0 code=ALBSERUM) BILITOT (test 0.4 MG/DL 0.2-1.3 code=BILITOT) AST (test code=AST) 20 U/L 15-46 PHOSALK (test 99 U/L 38-126 code=PHOSALK) ALT (test code=ALT) 12 U/L 13-69 GFR (test code=GFR) 183 mL/min/1.73m2 A GFR of >90 mL/min/1.73m2 is considered normal. [id number] 12:25:00 Test Item Value Reference Range Comments LIPASE (test code=LIPA) 74 U/L 23-300 [id number] 12:25:00 Test Item Value Reference Range Comments WBC (test code=WBC) 14.2 K/UL 3.5-10.9 RBC (test code=RBC) 3.30 M/UL 4.3-5.7 HGB (test code=HGB) 7.8 G/DL 13.0-17.9 HCT (test code=HCT) 26.7 % 38-52 MCV (test code=MCV) 80.9 FL 80-98 MCH (test code=MCH) 23.6 PG 28-32 MCHC (test code=MCHC) 29.2 G/DL 32.5-36.5 RDW (test code=RDW) 15.8 % 11.5-14.5 PLT (test code=PLT) 450 K/UL 150-450 MPV (test code=MPV) 10.1 FL 7.4-10.4 MANDIFF (test code=MANDIFF) NO SCAN (test code=SCAN) NO NEUT% (test code=NEUT%) 81.6 % 40-75 LYMPH% (test code=LYMPH%) 10.4 % 24-44 MONO% (test code=MONO%) 5.8 % 0-13 EOS% (test code=EOS%) 1.4 % 0-4 BASO % (test code=BASO%) 0.2 % 0-2 IG% (test code=IG%) 0.6 % 0-1 IG%=Metamyelocytes, Myelocytes, and Promyelocytes. (Immature neutrophils not including "bands".) > 3% IG indicates risk of sepsis NRBC% (test code=NRBC%) 0 /100 WBC ABS NEUT (test code=NEUT) 11.6 K/UL 1.2-7.2 TROPONIN [id number] 12:01:00 Test Item Value Reference Range Comments TROPER (test code=TROPER) 0.00 ng/ml 0.0-0.08 INTERPRETIVE DATA A POC TROPONIN OF </=0.08 NG/ML IS CONSIDERED NEGATIVE Culture, [id number] 11:42:00 Test Item Value Reference Range Comments Culture, Urine (test code=URC) [id number] Chemistry - BNP, HgbA1c, [id number] 15:48:00 Test Item Value Reference Range Comments Chemistry - BNP, HgbA1c, PTHi (test Less than 10.0 pg/mL 0-100 code=BNP) [id number] 15:40:00 Test Item Value Reference Range Comments Urinalysis (test code=UACLR) Yellow Yellow Urinalysis (test code=UACLY) Hazy Clear Urinalysis (test code=SPGR) 1.020 1.005-1.030 Urinalysis (test code=IRWIN) 5.5 5.0-9.0 Urinalysis (test code=UALEU) Small Negative Urinalysis (test code=UANIT) Negative Negative Urinalysis (test code=PROUADIP) Negative mg/dL Neg-Trace Urinalysis (test code=GLUCU) Negative mg/dL Negative Urinalysis (test code=KETU) Negative mg/dL Negative Urinalysis (test code=UAUROB) 0.2 mg/dL 0.2-1.0 Urinalysis (test code=UABIL) Negative Negative Urinalysis (test code=UABLD) Trace Negative Urinalysis (test code=UARBC) 0-3 HPF 0-3 Urinalysis (test code=UAWBC) 4-6 HPF 0-3 Urinalysis (test code=UASQUAM) 0-3 HPF 0-3 Urinalysis (test code=UABAC) Rare-Few HPF None Seen Urinalysis (test code=UACRST) 1+ CA OXALATE HPF Negative Urine Source: Urine [id number] 15:13:00 Test Item Value Reference Range Comments Hematology (test code=WBCT) 14.8 thou/uL 4.8-10.8 Hematology (test code=RBCT) 4.12 mill/uL 4.70-6.10 Hematology (test code=HGBT) 12.9 g/dL 14.0-18.0 Hematology (test code=HCTT) 39.0 % 42.0-52.0 Hematology (test code=MCV) 94.7 fL 80.0-94.0 Hematology (test code=MCH) 31.3 pg 27.0-31.0 Hematology (test code=MCHC) 33.1 g/dL 32.0-36.0 Hematology (test code=RDW) 14.3 % 11.5-14.5 Hematology (test code=PLTT) 314 thou/uL 130-400 Hematology (test code=MPV) 7.0 fL 7.4-10.4 Hematology (test code=%NEUT) 81.0 % 42.0-75.0 Hematology (test code=%LYMPH) 11.7 % 21.0-51.0 Hematology (test code=%MONO) 5.8 % 0.0-10.0 Hematology (test code=%EOS) 0.7 % 0.0-10.0 Hematology (test code=%BASO) 0.8 % 0.0-1.0 Hematology (test code=NEUT#) 12.0 thou/uL 1.40-6.50 Hematology (test code=LYMPH#) 1.7 thou/uL 1.20-3.40 Hematology (test code=MONO#) 0.9 thou/uL 0.11-0.59 Hematology (test code=EOS#) 0.1 thou/uL 0.0-0.7 Hematology (test code=BASO#) 0.1 thou/uL 0.0-0.2 [id number] 15:11:00 Test Item Value Reference Range Comments Chemistry (test 141 mmol/L 136-145 code=NA-T) Chemistry (test 3.5 mmol/L 3.5-5.1 code=K-T) Chemistry (test 106 mmol/L 98-107 code=CL) Chemistry (test 24 mmol/L 22-29 code=CO2) Chemistry (test 15 mmol/L 10-20 code=ANGP) Chemistry (test 14 mg/dL 8.4-25.7 code=BUN) Chemistry (test 0.65 mg/dL 0.7-1.3 code=CREATT) Chemistry (test Greater than 90 Reference Range for code=EGFRMDRD) Estimated GFR: Greater than 90 mL/min/1.73 m2NOTE:The MDRD equation has not been validated for use with theelderly (over 70 years of age), women, patientswith serious comorbid condition or persons with extremes ofbody size, muscle mass, or nutritional status. Chemistry (test 92 mg/dL 70-105 code=GLU-T) Chemistry (test 9.9 mg/dL 7.8-10.44 code=CA) Chemistry (test Less than 0.3 mg/dL 0.2-1.2 code=TBILI) Chemistry (test 7.2 g/dL 6.0-8.3 code=TP) Chemistry (test 3.7 g/dL 3.5-5.0 code=ALB) Chemistry (test 3.5 g/dL 2.4-3.5 code=GLOB) Chemistry (test 1.1 g/dL 1.2-2.2 code=AG) Chemistry (test 102 U/L 40-150 code=ALP) Chemistry (test 11 U/L 5-34 code=AST) Chemistry (test 14 U/L 8-55 code=ALT) [id number] 15:11:00 Test Item Value Reference Range Comments Chemistry (test code=CK) 63 U/L 30-200
[2017-11-13] MEDS ORDERED: ONDANSETRON 4 MG/2 ML VIAL ONE (12:48)
[2017-11-13] MEDS ORDERED: MORPHINE 4 MG/ML SYR ONE ×2 (12:48→13:37)
[2017-11-13] MEDS ORDERED: NA CHLORIDE 0.9% 1,000 ML ONE (12:48)
[2017-11-13 12:52] LABS: Absolute Lymphocytes (CBC) 1.2 K/uL (0.7-4.9); Absolute Monocytes 0.8 K/uL (0.1-1.3); Absolute Neutrophil 8.2 K/uL (1.8-8.0); Basophils % 0.4 % (0-1.3); Eosinophils % 3.8 % (0-4.4); Hematocrit 27.7 % (39.6-49.0); Lymphocytes % 11.2 % (15.3-44.8); MCV 73.3 fL (80-100); MPV 8.1 fL (7.6-11.3); Monocytes % 7.6 % (3.3-12.3); RBC Red Blood Cell Count 3.78 M/uL (4.33-5.43)
[2017-11-13 13:09] LABS: ALT/SGPT 11 U/L (12-78); AST/SGOT 14 U/L (15-37); Albumin 2.8 g/dL (3.4-5.0); Alkaline Phosphatase 124 U/L (45-117); Amylase Level 82 U/L (25-115); BUN Blood Urea Nitrogen 8 mg/dL (7-18); Bicarbonate 27 mmol/L (21-32); Bilirubin Direct < 0.1 mg/dL (0-0.2); Bilirubin Total < 0.1 mg/dL (0.2-1.0); Glucose Level 85 mg/dL (74-106); Lipase 123 U/L (73-393); Potassium 3.9 mmol/L (3.5-5.1); Protein, Total 7.5 g/dL (6.4-8.2); Sodium Level 142 mmol/L (136-145)
[2017-11-13 13:46] LABS: Urine Blood NEGATIVE (NEG); Urine Glucose NEGATIVE (NEG); Urine Protein NEGATIVE (NEG); Urine Specific Gravity 1.025 (1.005-1.030)
[2017-11-13] MEDS ORDERED: FENTANYL CITR 100 MCG/2 ML ONE (14:17)
--- NOTE | 2017-11-13 15:02 | RAD REPORT ---
EXAM DESCRIPTION: CT - Abdomen Pelvis Wo Contrast - 11/13/2017 2:28 pm CLINICAL HISTORY: Abdominal pain, history of diverticulosis COMPARISON: CT study June 2017 TECHNIQUE: Axial [address] imaging of the abdomen and pelvis was performed without IV contrast. No IV contrast was given because of allergy, abnormal renal function, patient refusal or physician re quest. Oral contrast was given. All CT scans are performed using dose optimization technique as appropriate and may include automated exposure control or mA/KV adjustment according to patient size. FINDINGS: No suspicious findings in the lung bases. The liver, spleen and pancreas show no suspicious findings on non-contrast imaging. Gallbladder and b iliary tree are also without suspicious finding. Benign calcifications are seen in the liver parenchy ma similar to comparison. No hydronephrosis and no obstructing calculi. Small 1-3 mm parenchymal or calyx calcifications are se en lower pole on the right. There is a 5 millimeter rounded hyperdense focus in the anterior superior right kidney. In the lateral superior left kidney there is a 15 x 10 mm oval homogeneous hyperdense mass. 5-6 mm calyx calcifications are seen upper pole left kidney with multiple clustered calcificati ons up to 8 mm in size in the lower pole calices on the left. No significant adrenal finding. Isoden se renal masses and pyelonephritis cannot be excluded in the absence of IV contrast. The urinary blad lisa is without significant finding. No dilated bowel loops or bowel wall thickening. The appendix is normal. No free air, free fluid or i nflammatory stranding. No mass or bulky lymphadenopathy. A small fat only umbilical hernia is present . No omental thickening. Diverticulosis is present without evidence for diverticulitis. Patient has very advanced disc and bony degenerative change in the lower lumbar spine along with post surgical change. Pathologic process is not suspected. Findings are not substantially different from c omparison. IMPRESSION: No diverticulitis, obstruction, appendicitis or other acute GI process. Numerous nonobstructing renal calculi are present. No acute finding evident. Isodense masses and p yelonephritis are not excluded on noncontrast imaging. Two rounded areas of hyperdensity in the renal parenchyma are likely high protein content cysts. Aggr essive renal mass lesion not suspected. Patient has very advanced disc and bone degenerative change and postsurgical change in the lumbar spi ne. No acute bone finding or significant interval change. Overall exam is not substantially different from prior imaging. Full assessment is limited is the absence of IV contrast.
--- NOTE | 2017-11-13 15:12 | ER ---
Nurse's Notes [facility] Name: Chandler Carr Age: 57 yrs Sex: Male : 1960 Arrival Date: 11/13/2017 Time: 12:25 Bed 8 Private MD: None, None Diagnosis: Lower abdominal pain, unspecified Presentation: 11/13 12:28 Presenting complaint: Patient states: Lower abdominal pain began this morning, history jl7 of diverticulitis. Report nausea, denies V/D. Transition of care: patient was not received from another setting of care. Onset of symptoms was November 13, 2017. Risk Assessment: Do you want to hurt yourself or someone else? Patient reports no desire to harm self or others. Initial Sepsis Screen: Does the patient meet any 2 criteria? No. Patient's initial sepsis screen is negative. Does the patient have a suspected source of infection? No. Patient's initial sepsis screen is negative. Care prior to arrival: None. 12:28 Method Of Arrival: Ambulatory [facility] 12:28 Acuity: SCAR 3 jl7 Historical: - Allergies: 12:31 NSAIDS; jl7 12:31 PENICILLINS; jl7 - Home Meds: 12:31 None [Active]; jl7 - PMHx: 12:31 Diverticulitis; skin cancer; jl7 - PSHx: 12:31 back sx; skin cancer removed from chest.; kidney stone sx; jl7 - Immunization history:: Adult Immunizations up to date. - Social history:: Smoking status: Patient uses tobacco products, smokes one-half pack cigarettes per day. - Ebola Screening: : No symptoms or risks identified at this time. Screenin:51 Abuse screen: Denies threats or abuse. Nutritional screening: No deficits noted. la1 Tuberculosis screening: No symptoms or risk factors identified. Fall Risk None identified. Assessment: 12:50 General: Appears uncomfortable, Behavior is calm, cooperative. Pain: Complains of pain la1 in right lower quadrant and left lower quadrant. Neuro: Level of Consciousness is awake, alert, obeys commands, Oriented to person, place, time, situation. Cardiovascular: Capillary refill < 3 seconds Patient's skin is warm and dry. Respiratory: Airway is patent Trachea midline Respiratory effort is even, unlabored, Respiratory pattern is regular, symmetrical, Breath sounds are clear bilaterally. GI: Abdomen is round non-distended, Bowel sounds present X 4 quads. Abd is soft X 4 quads Abdomen is tender to palpation in suprapubic area, right lower quadrant and left lower quadrant. : No signs and/or symptoms were reported regarding the genitourinary system. 13:40 Reassessment: Patient appears in no apparent distress at this time. No changes from la1 previously documented assessment. Patient and/or family updated on plan of care and expected duration. Pain level reassessed. Patient is alert, oriented x 3, equal unlabored respirations, skin warm/dry/pink. Vital Signs: 12:31 BP 120 / 79; Pulse 96; Resp 18 S; Temp 98.1(O); Pulse Ox 99% on R/A; Weight 68.04 kg jl7 (R); Height 5 ft. 9 in. (175.26 cm) (R); Pain 9/10; 13:40 BP 132 / 95; Pulse 69; Resp 16; Pulse Ox 100% on R/A; la1 15:22 BP 124 / 65; Pulse 84; Resp 16; Pulse Ox 100% on R/A; la1 12:31 Body Mass Index 22.15 (68.04 kg, 175.26 cm) jl7 ED Course: 12:25 Patient arrived in ED. mr 12:25 None, None is Private Physician. mr 12:29 Triage completed. jl7 12:30 Mey Galvan [facility]C [facility] kb 12:30 Luis Fernando Acharya MD is Attending Physician. kb 12:31 Arm band placed on right wrist. jl7 12:32 Heriberto Yo, [place] is Primary Nurse. la1 12:51 Call light in reach. Side rails up X 1. la1 12:51 No provider procedures requiring assistance completed. Inserted saline lock: 20 gauge la1 in left forearm, using aseptic technique. Blood collected. 13:01 Oral contrast reported to be complete. vr 14:27 CT completed. Patient tolerated procedure well. Patient moved to CT via wheelchair. sj Patient moved back from CT. 14:28 Abdomen In Process Unspecified. EDMS 15:21 IV discontinued, intact, bleeding controlled, No redness/swelling at site. Pressure la1 dressing applied. Administered Medications: 12:49 Drug: morphine 4 mg Route: IVP; Site: left forearm; la1 13:20 Follow up: Response: No adverse reaction; Pain is decreased la1 12:49 Drug: Zofran 4 mg Route: IVP; Site: left forearm; la1 13:20 Follow up: Response: No adverse reaction la1 12:49 Drug: NS 0.9% 1000 ml Route: IV; Rate: 1000 ml; Site: left forearm; la1 13:20 Follow up: IV Status: Completed infusion la1 14:38 Follow up: IV Status: Completed infusion la1 13:35 Drug: morphine 4 mg Route: IVP; Site: left forearm; la1 14:38 Follow up: Response: No adverse reaction; Pain is decreased la1 14:17 Drug: fentaNYL (PF) 50 mcg Route: IVP; Site: left forearm; la1 14:38 Follow up: Response: No adverse reaction; Pain is decreased la1 Outcome: 15:11 Discharge ordered by . franky 15:21 Discharged to home ambulatory. la1 15:21 Condition: stable 15:21 Discharge instructions given to patient, Instructed on discharge instructions, follow up and referral plans. medication usage, Demonstrated understanding of instructions, follow-up care, medications. 15:22 Patient left the ED. la1 Signatures: Dispatcher [employer] EDMS Mey Galvan, KAYA ODNATOP-La Acevedo, Elizabeth Hinson Lee, RN RN la1 Jose Samson RN RN jl7
--- NOTE | 2017-11-13 15:12 | EDPHYS ---
Physician Documentation [facility] Name: Chandler Carr Age: 57 yrs Sex: Male : 1960 Arrival Date: 11/13/2017 Time: 12:25 Bed 8 Private MD: None, None ED Physician Luis Fernando Acharya HPI: 11/13 12:47 This 57 yrs old Male presents to ER via Ambulatory with complaints of kb Abdominal Pain. 12:47 The patient presents with abdominal pain in the left lower quadrant. Onset: The kb symptoms/episode began/occurred this morning, at 06:00. The symptoms do not radiate. Associated signs and symptoms: Pertinent positives: nausea. The symptoms are described as constant, sharp. Modifying factors: The symptoms are alleviated by nothing, the symptoms are aggravated by pressure. Severity of pain: At its worst the pain was moderate severe in the emergency department the pain is unchanged. The patient has experienced a previous episode, and the symptoms today are exactly the same, "feels like diverticulitis". The patient has not recently seen a physician. Historical: - Allergies: 12:31 NSAIDS; jl7 12:31 PENICILLINS; jl7 - Home Meds: 12:31 None [Active]; jl7 - PMHx: 12:31 Diverticulitis; skin cancer; jl7 - PSHx: 12:31 back sx; skin cancer removed from chest.; kidney stone sx; jl7 - Immunization history:: Adult Immunizations up to date. - Social history:: Smoking status: Patient uses tobacco products, smokes one-half pack cigarettes per day. - Ebola Screening: : No symptoms or risks identified at this time. ROS: 12:44 Constitutional: Negative for fever, chills, and weight loss, Cardiovascular: Negative kb for chest pain, palpitations, and edema, Respiratory: Negative for shortness of breath, cough, wheezing, and pleuritic chest pain, Back: Negative for injury and pain, : Negative for injury, bleeding, discharge, and swelling, MS/Extremity: Negative for injury and deformity, Skin: Negative for injury, rash, and discoloration, Neuro: Negative for headache, weakness, numbness, tingling, and seizure. 12:44 Abdomen/GI: Positive for abdominal pain, nausea, Negative for vomiting, diarrhea, constipation, abdominal cramps, abdominal distension, anorexia. Exam: 12:44 Constitutional: This is a well developed, well nourished patient who is awake, alert, kb and in no acute distress. Head/Face: Normocephalic, atraumatic. Chest/axilla: Normal chest wall appearance and motion. Nontender with no deformity. No lesions are appreciated. Cardiovascular: Regular rate and rhythm with a normal S1 and S2. No gallops, murmurs, or rubs. Normal PMI, no JVD. No pulse deficits. Respiratory: Lungs have equal breath sounds bilaterally, clear to auscultation and percussion. No rales, rhonchi or wheezes noted. No increased work of breathing, no retractions or nasal flaring. Back: No spinal tenderness. No costovertebral tenderness. Full range of motion. Skin: Warm, dry with normal turgor. Normal color with no rashes, no lesions, and no evidence of cellulitis. MS/ Extremity: Pulses equal, no cyanosis. Neurovascular intact. Full, normal range of motion. Neuro: Awake and alert, GCS 15, oriented to person, place, time, and situation. Cranial nerves II-XII grossly intact. Motor strength 5/5 in all extremities. Sensory grossly intact. Cerebellar exam normal. Normal gait. 12:44 Abdomen/GI: Inspection: abdomen appears normal, Bowel sounds: normal, in all quadrants, Palpation: soft, in all quadrants, moderate abdominal tenderness, in the left lower quadrant. Vital Signs: 12:31 BP 120 / 79; Pulse 96; Resp 18 S; Temp 98.1(O); Pulse Ox 99% on R/A; Weight 68.04 kg 7 (R); Height 5 ft. 9 in. (175.26 cm) (R); Pain 9/10; 13:40 BP 132 / 95; Pulse 69; Resp 16; Pulse Ox 100% on R/A; la1 15:22 BP 124 / 65; Pulse 84; Resp 16; Pulse Ox 100% on R/A; la1 12:31 Body Mass Index 22.15 (68.04 kg, 175.26 cm) jl7 MDM: 12:32 Patient medically screened. kb 12:44 Data reviewed: vital signs, nurses notes. Data interpreted: Pulse oximetry: on room air kb is 99 %. Interpretation: normal. 15:06 Counseling: I had a detailed discussion with the patient and/or guardian regarding: the kb historical points, exam findings, and any diagnostic results supporting the discharge/admit diagnosis, lab results, radiology results, the need for outpatient follow up, a family practitioner, to return to the emergency department if symptoms worsen or persist or if there are any questions or concerns that arise at home. 15:12 ED course: Pt has norco at home for pain. kb 11/13 12:33 Order name: Amylase, Serum; Complete Time: 13:17 kb 11/13 12:33 Order name: Basic Metabolic Panel; Complete Time: 13:17 kb 11/13 12:33 Order name: CBC with Diff; Complete Time: 12:58 kb 11/13 12:33 Order name: Hepatic Function; Complete Time: 13:17 kb 11/13 12:33 Order name: Lipase; Complete Time: 13:17 kb 11/13 13:32 Order name: Urine Dipstick--Ancillary (enter results); Complete Time: 14:11 bd 11/13 12:33 Order name: IV Saline Lock; Complete Time: 12:41 kb 11/13 14:22 Order name: Abdomen ; Complete Time: 15:03 EDMS 11/13 12:33 Order name: Labs collected and sent; Complete Time: 12:41 kb 11/13 12:33 Order name: Urine Dipstick-Ancillary (obtain specimen); Complete Time: 13:20 kb Administered Medications: 12:49 Drug: morphine 4 mg Route: IVP; Site: left forearm; la1 13:20 Follow up: Response: No adverse reaction; Pain is decreased la1 12:49 Drug: Zofran 4 mg Route: IVP; Site: left forearm; la1 13:20 Follow up: Response: No adverse reaction la1 12:49 Drug: NS 0.9% 1000 ml Route: IV; Rate: 1000 ml; Site: left forearm; la1 13:20 Follow up: IV Status: Completed infusion la1 14:38 Follow up: IV Status: Completed infusion la1 13:35 Drug: morphine 4 mg Route: IVP; Site: left forearm; la1 14:38 Follow up: Response: No adverse reaction; Pain is decreased la1 14:17 Drug: fentaNYL (PF) 50 mcg Route: IVP; Site: left forearm; la1 14:38 Follow up: Response: No adverse reaction; Pain is decreased la1 Disposition: 11/14 11:32 Co-signature as Attending Physician, Luis Fernando Acharya MD I agree with the assessment and ethan plan of care. Disposition: 11/13/17 15:11 Discharged to Home. Impression: Lower abdominal pain, unspecified. - Condition is Stable. - Discharge Instructions: Abdominal Pain, Adult, [id number]. - Medication Reconciliation Form, Thank You Letter, Antibiotic Education, Prescription Opioid Use form. - Follow up: Private Physician; When: 2 - 3 days; Reason: Recheck today's complaints, Continuance of care, Re-evaluation by your physician. Follow up: Emergency Department; When: As needed; Reason: Worsening of condition. Signatures: Dispatcher [employer] [facility] Mey Galvan, MUSIC LEADER-C MUSIC LEADER-Luis Fernando Youssef MD MD cha Attema, Lee, RN RN la1 Jose Samson RN RN jl7 Corrections: (The following items were deleted from the chart) 11/13 14:22 12:41 Abdomen Pelvis W Con+CT.RAD.BRZ ordered. [facility] 15:22 15:11 11/13/2017 15:11 Discharged to Home. Impression: Lower abdominal pain, la1 unspecified. Condition is Stable. Discharge Instructions: Abdominal Pain, Adult, [id number]. Prescriptions for Tramadol 50 mg Oral Tablet - take 1 tablet by ORAL route every 8 hours as needed; 12 tablet. and Forms are Medication Reconciliation Form, Thank You Letter, Antibiotic Education, Prescription Opioid Use. Follow up: Private Physician; When: 2 - 3 days; Reason: Recheck today's complaints, Continuance of care, Re-evaluation by your physician. Follow up: Emergency Department; When: As needed; Reason: Worsening of condition. kb
== END 2017-11-13 15:22 | disposition home or self-care (01) ==
LOC: ER 12:22
DX: R10.32 Left lower quadrant pain (principal); F17.210 Nicotine dependence, cigarettes, uncomplicated; Z88.0 Allergy status to penicillin; Z88.6 Allergy status to analgesic agent; Z85.828 Personal history of other malignant neoplasm of skin
CPT/HCPCS: 36415; 74176; 80048; 80076; 81003; 82150; 83690; 85025; 96361; 96374; 96375; 99284; J2405; J3010; J7030

== ENCOUNTER 2017-11-14 16:41 | Emergency (ER) | payer OTHER ==
--- OUTSIDE RECORDS SUMMARY | 2017-11-14 16:45 | XMS REPORT | Clinical Summary ---
:1960 Author Organization [facility] Address [address] [place] [address] Phone Care Team Providers Name Role Phone [...] Ryland Osorio Left lower quadrant 09/14/2017 MD Ronnei pain (Primary Dx);History of kidney stones 08/16/2017 Emergency Emergency Medicine Ramírez Bray Left lower quadrant pain (Primary Dx);History of diverticulitis;History of kidney stones;Left against medical advice 06/18/2017 Emergency Emergency Medicine after 11/13/2016 Social History Tobacco Use Types Packs/Day Years [...] contrast (09/13/2017 3:00 PM) Specimen Performing Laboratory [employer] Narrative FINAL REPORT CT of the abdomen [...] MD Report Verified Date/Time:09/13/2017 16:55:35 Reading Location: [facility] B1 C013X Ortho Consult Reading Room Procedure [...] Report Verified Date/Time: 09/13/2017 16:55:35 Reading Location: [facility] C013X Ortho Consult Reading Room Urinalysis with Microscopic If Indicated (09/13/2017 1:26 PM) Component Value Ref Range Color, UA Light Yellow Clarity, UA Clear Specific [place], UA 1.011 1.001 - 1.035 pH, UA 6.5 5.0 - 8.0 Protein, UA Negative Negative Glucose, UA Negative Negative Ketones, UA Negative Negative Bilirubin, UA Negative Negative Blood, UA Negative Negative Nitrite, UA Negative Negative Leukocytes, UA Negative Negative Urobilinogen, UA 0.2 0.2 - 1.0 mg/dL Specimen Source Specimen Performing Laboratory Urine - Urine, Clean Catch [address] [address] POC-Lactic Acid, Venous (09/13/2017 12:39 PM) Component Value Ref Range POC-Lactic Acid, Venous 0.8 (L)Comment: TESTED AT [address] 0.9 - 1.7 mmol/L [facility] [id number] Specimen Performing Laboratory Blood [address] [address] POC-Glucose meter (09/13/2017 12:39 PM) Component Value Ref Range POC-Glucose Meter 93Comment: TESTED AT [address] 70 - 110 mg/dL [address] Specimen Performing Laboratory Blood [address] [place] [address] CBC with platelet count + automated diff [...] 1 % Specimen Performing Laboratory Blood [facility] [address] [address] CBC with platelet count + automated diff (09/13/2017 12:33 PM)Only the most recent of2 resultswithin the time period is included. Specimen Performing Laboratory Blood Narrative The following orders were created for panel order CBC with platelet count + automated diff. Procedure Abnormality Status --------- ------ CBC with platelet count ...[[id number]]AbnormalFinal result Please view results for these tests [...] FOR DIALYSIS PATIENTS. Specimen Performing Laboratory Blood [facility] [address] [place] [address] Lipase (08/16/2017 8:19 AM) Component Value Ref Range Lipase 29 8 - 78 U/L Specimen Performing Laboratory Blood [facility] [address] [place] [address] after 11/13/2016
--- OUTSIDE RECORDS SUMMARY | 2017-11-14 16:45 | XMS REPORT | Clinical Summary ---
:1960 Author Organization [employer] Address [address] [place] [address] Care Team Providers Name Role Phone System, [...] Dx); Derek Evans MD Drug-seeking behavior Rene [facility] services[facility] MD Emerald 09/11/2017 Emergency Emergency Medicine Damion [...] Encounter MD Fredrick 04/18/2017 Emergency Emergency Medicine [place], Nadim Bin, Lower abdominal pain (Primary Dx); Hidradenitis; Phlegmon; Anemia, unspecified type after 11/13/2016 Social History Tobacco Use Types [...] STAT 06/10/2017 9:06 Results for this PM [employer]ODUCER ASSISTANT procedure are in the results section. ESTIMATED GFR STAT 06/10/2017 8:40 Results for this PM [employer]ODUCER ASSISTANT procedure are in the results section. LIPASE LEVEL STAT 06/10/2017 8:40 Results for this PM [employer]ODUCER ASSISTANT procedure are in the results section. AMYLASE LEVEL STAT 06/10/2017 8:40 Results for this PM [employer]ODUCER ASSISTANT procedure are in the results section. COMPREHENSIVE METABOLIC STAT 06/10/2017 8:40 Results for this PANEL PM [employer]ODUCER ASSISTANT procedure are in the results section. HC COMPLETE BLD COUNT STAT 06/10/2017 8:40 Results for this W/AUTO DIFF PM [employer]UC[employer] ASSISTANT procedure are in the results section. CT ABDOMEN PELVIS W STAT 04/18/2017 4:22 Results for this CONTRAST AM [employer]ODUCER ASSISTANT procedure are in the results section. ESTIMATED GFR STAT 04/18/2017 2:27 Results for this AM [employer]UCER ASSISTANT procedure are in the results section. URINALYSIS SCREEN AND STAT 04/18/2017 2:27 Results for this MICROSCOPY, WITH REFLEX AM [employer]UC[employer] ASSISTANT procedure are in TO CULTURE the results section. LIPASE LEVEL STAT 04/18/2017 2:27 Results for this AM [employer]ODUCER ASSISTANT procedure are in the results section. AMYLASE LEVEL STAT 04/18/2017 2:27 Results for this AM [employer]ODUCER ASSISTANT procedure are in the results section. COMPREHENSIVE METABOLIC STAT 04/18/2017 2:27 Results for this PANEL AM [employer]ODUCER ASSISTANT procedure are in the results section. HC COMPLETE BLD COUNT STAT 04/18/2017 2:27 Results for this W/AUTO DIFF AM PRODUCER ASSISTANT procedure are in the results section. after 11/13/2016 Results US Scrotal (11/11/2017 10:47 AM)Only the [...] No evidence of testicular torsion or epididymitis. [facility][id number] . Procedure Note Interface, Radiology Results Incoming [...] [facility]-[id number] . Performing Organization Address City/State/Zipcode Phone Number [facility] [address] [place] [address] Urinalysis screen and microscopy, with reflex to culture (11/11/2017 10:19 AM) Only the most recent of9 resultswithin the time period is included. Specimen site Clean catch [facility] DEPARTMENT OF PATHOLOGY AND GENOMIC MEDICINE Color, UA Yellow [facility] DEPARTMENT OF PATHOLOGY AND GENOMIC MEDICINE Appearance, UA Clear [facility] DEPARTMENT OF PATHOLOGY AND GENOMIC MEDICINE Specific gravity, UA 1.017 1.001 - 1.035 [facility] DEPARTMENT OF PATHOLOGY AND GENOMIC MEDICINE pH, UA 5.0 5.0 - 8.5 [facility] DEPARTMENT OF PATHOLOGY AND GENOMIC MEDICINE Protein, UA Negative Negative [facility] DEPARTMENT OF PATHOLOGY AND GENOMIC MEDICINE Glucose, UA Negative Negative [facility] DEPARTMENT OF PATHOLOGY AND GENOMIC MEDICINE Ketones, UA Negative Negative [facility] DEPARTMENT OF PATHOLOGY AND GENOMIC MEDICINE Bilirubin, UA Negative Negative [facility] DEPARTMENT OF PATHOLOGY AND GENOMIC MEDICINE Blood, UA Negative Negative [facility] DEPARTMENT OF PATHOLOGY AND GENOMIC MEDICINE Nitrite, UA Negative Negative [facility] DEPARTMENT OF PATHOLOGY AND GENOMIC MEDICINE Urobilinogen, UA Negative <2.0 [facility] DEPARTMENT OF PATHOLOGY AND [facility] Leukocyte esterase, UA Negative Negative [facility] DEPARTMENT OF PATHOLOGY AND GENOMIC MEDICINE WBC, UA 0-5 0 - 1 /HPF [facility] DEPARTMENT OF PATHOLOGY AND GENOMIC MEDICINE RBC, UA 0-5 0 - 5 /HPF [facility] DEPARTMENT OF PATHOLOGY AND GENOMIC MEDICINE Bacteria, UA None seen None seen [facility] DEPARTMENT OF PATHOLOGY AND GENOMIC MEDICINE Yeast, UA None seen [facility] DEPARTMENT OF PATHOLOGY AND GENOMIC MEDICINE Yeast with pseudohyphae, UA None seen [facility] DEPARTMENT OF PATHOLOGY AND [facility] Specimen Urine Performing Organization Address City/[facility] Phone Number [facility] AND [id number] [place] [address] [place], [place] [phone] [place] [address] Urine culture (11/11/2017 10:19 AM)Only the most recent of7 resultswithin the time period is included. Urine culture SEE COMMENTComment: Bacteriuria [facility] DEPARTMENT OF PATHOLOGY screen negative. AND [facility] Specimen Urine Performing Organization Address City/[facility] Phone Number [facility] AND [address] [place] [address] [place] [address] [facility] CT Renal Stone Protocol (11/11/2017 [...] [facility]-[id number] . Procedure Note Interface, Radiology Results Incoming [...] [facility]-[id number] . Performing Organization Address City/State/Zipcode Phone Number [facility] [address] [place] [address] Smear review (11/11/2017 9:11 AM)Only the most recent of5 resultswithin the time period is included. Platelet slide review Og adequate [facility] DEPARTMENT OF PATHOLOGY AND GENOMIC MEDICINE Performing Organization Address City/State/Zipcode Phone Number [facility] DEPARTMENT OF PATHOLOGY AND [address] [place] [address] GENOMIC MEDICINE Estimated GFR (11/11/2017 9:11 AM)Only the most recent of15 resultswithin the time period is included. GFR Non Af Amer >90 mL/min/1.73 m2 [facility] DEPARTMENT OF PATHOLOGY AND GENOMIC MEDICINE GFR Af Amer >90 mL/min/1.73 m2 [facility] DEPARTMENT OF Comment: PATHOLOGY AND GENOMIC Chronic [...] specimen Performing Organization Address City/State/Zipcode Phone Number [facility] DEPARTMENT OF PATHOLOGY AND [address] [place] [address] [facility] CBC with platelet and differential (11/11/2017 9:11 AM)Only the most recent of15 resultswithin the time period is included. WBC 9.44 4.50 - 11.00 k/uL [facility] DEPARTMENT OF PATHOLOGY AND GENOMIC MEDICINE RBC 3.65 (L) 4.40 - 6.00 m/uL [facility] DEPARTMENT OF PATHOLOGY AND GENOMIC MEDICINE HGB 8.1 (L) 14.0 - 18.0 g/dL [facility] DEPARTMENT OF PATHOLOGY AND GENOMIC MEDICINE HCT 28.1 (L) 41.0 - 51.0 % [facility] DEPARTMENT OF PATHOLOGY AND GENOMIC MEDICINE MCV 77.0 (L) 82.0 - 100.0 fL [facility] DEPARTMENT OF PATHOLOGY AND GENOMIC MEDICINE MCH 22.2 (L) 27.0 - 34.0 pg [facility] DEPARTMENT OF PATHOLOGY AND GENOMIC MEDICINE MCHC 28.8 (L) 31.0 - 37.0 g/dL [facility] DEPARTMENT OF PATHOLOGY AND GENOMIC MEDICINE RDW - SD 49.1 37.0 - 55.0 fL [facility] DEPARTMENT OF PATHOLOGY AND GENOMIC MEDICINE MPV 9.2 8.8 - 13.2 fL [facility] DEPARTMENT OF PATHOLOGY AND GENOMIC MEDICINE Platelet count 417 (H) 150 - 400 k/uL [facility] DEPARTMENT OF PATHOLOGY AND GENOMIC MEDICINE Nucleated RBC 0.00 /100 WBC [facility] DEPARTMENT OF PATHOLOGY AND GENOMIC MEDICINE Neutrophils 75.7 (H) 39.0 - 69.0 % [facility] DEPARTMENT OF PATHOLOGY AND GENOMIC MEDICINE Lymphocytes 11.1 (L) 25.0 - 45.0 % [facility] DEPARTMENT OF PATHOLOGY AND GENOMIC MEDICINE Monocytes 8.1 0.0 - 10.0 % [facility] DEPARTMENT OF PATHOLOGY AND GENOMIC MEDICINE Eosinophils 4.3 0.0 - 5.0 % [facility] DEPARTMENT OF PATHOLOGY AND GENOMIC MEDICINE Basophils 0.3 0.0 - 1.0 % [facility] DEPARTMENT OF PATHOLOGY AND GENOMIC MEDICINE Specimen Blood Performing Organization Address City/[facility] Phone Number [facility] DEPARTMENT OF PATHOLOGY AND [address] [place] [address] [place], [place] [phone] [place] [address] Lipase level (11/11/2017 9:11 AM)Only the most recent of11 resultswithin the time period is included. Lipase 36 13 - 60 U/L [facility] DEPARTMENT OF PATHOLOGY AND GENOMIC MEDICINE Specimen Plasma specimen Performing Organization Address [facility] Phone Number [facility] AND [address] [place] [address] [place] [address] [facility] Hepatic function panel (11/11/2017 9:11 AM)Only the most recent of2 resultswithin the time period is included. Albumin 3.7 3.5 - 5.0 g/dL [facility] DEPARTMENT OF PATHOLOGY AND GENOMIC MEDICINE Total bilirubin <0.2 0.0 - 1.2 mg/dL [facility] DEPARTMENT OF PATHOLOGY AND GENOMIC MEDICINE Bilirubin direct <0.1 0.0 - 0.3 mg/dL [facility] DEPARTMENT OF PATHOLOGY AND GENOMIC MEDICINE Alkaline phosphatase 127 40 - 129 U/L [facility] DEPARTMENT OF PATHOLOGY AND GENOMIC MEDICINE Protein 7.6 6.3 - 8.3 g/dL [facility] DEPARTMENT OF Comment: PATHOLOGY AND GENOMIC 4.6-7.0 g/dL MEDICINE 1 week 4.4-7.6 g/dL 7 months-1year5.1-7.3 g/dL 1-2 years5.6-7.5 g/dL >3 years6.0-8.0 g/dL 18-150 6.3-8.3 g/dL ALT 7 5 - 50 U/L [facility] DEPARTMENT OF PATHOLOGY AND GENOMIC MEDICINE AST 9 (L) 10 - 50 U/L [facility] DEPARTMENT OF PATHOLOGY AND GENOMIC [facility] Specimen Plasma specimen Performing Organization Address [facility] Phone Number [facility] AND [id number] [place] [address] [place] [address] [facility] Basic metabolic panel (11/11/2017 9:11 AM)Only the most recent of2 resultswithin the time period is included. Sodium 138 135 - 148 mEq/L [facility] OF PATHOLOGY AND [employer] [facility] Potassium 4.4 3.5 - 5.0 mEq/L [facility] OF PATHOLOGY AND [employer] MEDICINE Chloride 104 98 - 112 mEq/L [facility] OF PATHOLOGY AND [employer] MEDICINE CO2 23 (L) 24 - 31 mEq/L [facility] [employer] [facility] Anion gap 11@ANIO 7 - 15 mEq/L [facility] PATHOLOGY [facility] [employer] MEDICINE BUN 12 6 - 20 mg/dL [facility] OF PATHOLOGY AND [employer] MEDICINE Creatinine 0.7 0.7 - 1.2 mg/dL [facility] DEPARTMENT OF PATHOLOGY [facility] [employer] MEDICINE Glucose 99 65 - 99 mg/dL [facility] PATHOLOGY [facility] [employer] [facility] Calcium 8.7 8.3 - 10.2 mg/dL [facility] PATHOLOGY AND [employer] MEDICINE Specimen Plasma specimen Performing Organization Address [facility] Phone Number [facility] AND [address] [place] [address] [place] [address] [facility] CT Abdomen Pelvis Wo Contrast [...] L5 and anterolisthesis of L5 upon S1. [facility]-[id number] Procedure Note [facility], Radiology Results Incoming - 2017 3:26 PM [...] L5 and anterolisthesis of L5 upon S1. [facility]-[id number] Performing Organization Address City/[facility]/Zipcode Phone Number [facility] [address] [place] [address] Lactic acid level, SEPSIS - Now and repeat 2x every 3 hours (2017 11:40 AM )Only the most recent of2 resultswithin the time period is included. Lactic acid 1.0 0.5 - 2.2 mmol/L [facility] DEPARTMENT OF PATHOLOGY AND GENOMIC MEDICINE Specimen Plasma specimen Performing Organization Address City/State/Zipcode Phone Number [facility] DEPARTMENT OF PATHOLOGY [address] [place] [address] AND [facility] Comprehensive metabolic panel (2017 11:40 AM)Only the most recent of13 resultswithin the time period is included. Sodium 139 135 - 148 mEq/L [facility] DEPARTMENT OF PATHOLOGY AND GENOMIC MEDICINE Potassium 3.8 3.5 - 5.0 mEq/L [facility] DEPARTMENT OF PATHOLOGY AND GENOMIC MEDICINE Chloride 103 98 - 112 mEq/L [facility] DEPARTMENT OF PATHOLOGY AND GENOMIC MEDICINE CO2 23 (L) 24 - 31 mEq/L [facility] DEPARTMENT OF PATHOLOGY AND GENOMIC MEDICINE Anion gap 13@ANIO 7 - 15 mEq/L [facility] DEPARTMENT OF PATHOLOGY AND GENOMIC MEDICINE BUN 10 6 - 20 mg/dL [facility] DEPARTMENT OF PATHOLOGY AND GENOMIC MEDICINE Creatinine 0.6 (L) 0.7 - 1.2 mg/dL [facility] DEPARTMENT OF PATHOLOGY AND GENOMIC MEDICINE Glucose 111 (H) 65 - 99 mg/dL [facility] DEPARTMENT OF PATHOLOGY AND GENOMIC MEDICINE Calcium 9.3 8.3 - 10.2 mg/dL [facility] DEPARTMENT OF PATHOLOGY AND GENOMIC MEDICINE Protein 7.5 6.3 - 8.3 g/dL [facility] DEPARTMENT OF PATHOLOGY AND GENOMIC MEDICINE Albumin 3.8 3.5 - 5.0 g/dL [facility] DEPARTMENT OF PATHOLOGY AND GENOMIC MEDICINE A/G ratio 1.0 0.7 - 3.8 [facility] DEPARTMENT OF PATHOLOGY AND GENOMIC MEDICINE Alkaline phosphatase 183 (H) 40 - 129 U/L [facility] DEPARTMENT OF PATHOLOGY AND GENOMIC MEDICINE AST 22 10 - 50 U/L [facility] DEPARTMENT OF PATHOLOGY AND GENOMIC MEDICINE ALT 17 5 - 50 U/L [facility] DEPARTMENT OF PATHOLOGY AND GENOMIC MEDICINE Total bilirubin <0.2 0.2 - 1.2 mg/dL [facility] DEPARTMENT OF PATHOLOGY AND GENOMIC MEDICINE Specimen Plasma specimen Performing Organization Address City/State/Zipcode Phone Number [facility] DEPARTMENT OF PATHOLOGY [address] [place] [address] [facility] Partial thromboplastin time, activated (10/06/2017 11:30 AM)Only the most recent of2 resultswithin the time period is included. PTT 26.3 23.0 - 36.0 sec [facility] DEPARTMENT OF Comment: PATHOLOGY AND [employer] PTT therapeutic range for unfractionated heparin is MEDICINE 61.0-112.0 seconds which corresponds to Anti-Xa 0.3-0.7 U/ml. Specimen Blood Performing Organization Address City/[facility] Phone Number [facility] [place] [address], [address] [place] [address] [address] [employer] [facility] Prothrombin time with INR (10/06/2017 11:30 AM)Only the most recent of2 resultswithin the time period is included. Prothrombin time 12.5 12.0 - 15.0 sec [facility] DEPARTMENT OF PATHOLOGY AND [employer] MEDICINE INR 0.9 [facility] DEPARTMENT OF Comment: PATHOLOGY AND [employer] The International Normalized Ratio (INR) is a therapeutic MEDICINE monitoring tool for patients who are stable on oral anticoagulant therapy. An INR of 2.0-3.0 is suggested for deep vein thrombosis/pulmonary embolism. Specimen Blood Performing Organization Address City/State/Zipcode Phone Number [facility] [place] [address], [address] [place] [address] [address] [employer] [facility] Gram stain (09/19/2017 10:37 AM) Gram stain result Rare WBC's [facility] DEPARTMENT OF PATHOLOGY No organisms seen AND GENOMIC MEDICINE Comment: Specimen Information Specimen Source: Urine Specimen Site: Clean catch Specimen Urine Performing Organization Address [facility] Phone Number [facility] DEPARTMENT OF PATHOLOGY AND [address] [place] [address] GENOMIC MEDICINE US Renal (09/11/2017 3:28 PM) [...] Bilateral renal calculi without evidence of hydronephrosis. [id number] Procedure Note Interface, Radiology Results Incoming - [...] Bilateral renal calculi without evidence of hydronephrosis. [id number] Performing Organization Address [facility] Phone Number [facility] [address] [place] [address] XR Chest 1 Vw (09/11/2017 1:00 PM) Narrative Performed At EXAMINATION:[facility]:back pain COMPARISON:None IMPRESSION: No acute abnormality single view chest Emphysematous changes over the upper lobes bilaterally. Minimal linear atelectasis versus scar left base. No infiltrate congestion or effusion. No pneumothorax. Cardiomediastinal silhouette pulmonary vasculature and visualized skeleton normal in appearance [id number] Procedure Note Interface, Radiology Results Incoming - 09/11/2017 1:16 PM CDT EXAMINATION: XR CHEST 1 VW CLINICAL HISTORY: back pain COMPARISON: None IMPRESSION: No acute abnormality single view chest Emphysematous changes over the upper lobes bilaterally. Minimal linear atelectasis versus scar left base. No infiltrate congestion or effusion. No pneumothorax. Cardiomediastinal silhouette pulmonary vasculature and visualized skeleton normal in appearance [id number] Performing Organization Address [facility]/Zipcode Phone Number [facility] [address] [place] [address] Blood culture, aerobic & anaerobic (09/11/2017 11:45 AM)Only the most recent of2 resultswithin the time period is included. Blood culture isolate No growth after 5 days of incubation. [facility] DEPARTMENT OF Comment: PATHOLOGY AND GENOMIC Specimen Information MEDICINE Specimen Source: Blood Specimen Site: Forearm, left Specimen Blood - Forearm, left Performing Organization Address [facility] Phone Number [facility] DEPARTMENT OF PATHOLOGY AND [address] [place] [address] [facility] Troponin (09/11/2017 11:40 AM) Troponin <0.300 0.000 - 0.300 ng/mL [facility] DEPARTMENT OF Comment: PATHOLOGY AND GENOMIC 0.30 - 1.49 ng/mlMay indicate increased risk of acute MEDICINE coronary syndrome. >=1.5 ng/mlConsistent with acute myocardial infarction. The diagnostic value of a single normal or non-diagnostic result is questionable.Serial samples at 2-6 hour intervals are required to rule out acute myocardial injury. Specimen Plasma specimen Performing Organization Address [facility] Phone Number [facility] DEPARTMENT OF PATHOLOGY AND [address] [place] [address] B natriuretic peptide (09/11/2017 11:40 AM) BNP 5 0 - 100 pg/mL [facility] DEPARTMENT OF PATHOLOGY AND GENOMIC MEDICINE Specimen Blood Performing Organization Address [facility] Phone Number [facility] DEPARTMENT PATHOLOGY AND [address] [place] [address] Creatine kinase, total (CPK) (09/11/2017 11:40 AM) Creatine kinase 54 39 - 308 U/L [facility] DEPARTMENT OF PATHOLOGY AND GENOMIC MEDICINE Specimen Plasma specimen Performing Organization Address City/State/Zipcode Phone Number [facility] DEPARTMENT OF PATHOLOGY AND [address] [place] [address] GENOMIC MEDICINE Amylase level (08/31/2017 11:25 AM)Only the most recent of4 resultswithin the time period is included. Amylase 94 (H) 13 - 73 U/L [facility] DEPARTMENT OF PATHOLOGY AND GENOMIC [facility] Specimen Plasma specimen Performing Organization Address City/State/Zipcode Phone Number [facility] DEPARTMENT OF PATHOLOGY AND [address] [place] [address] [facility] CT Abdomen Pelvis W Contrast [...] renal staghorn calculus. Bilateral renal calyceal stones. [id number] Procedure Note Interface, Radiology Results Incoming - [...] renal staghorn calculus. Bilateral renal calyceal stones. [id number] Performing Organization Address City/State/Zipcode Phone Number [facility] [address] [place] [address] ECG 12 lead (08/07/2017)Only the most recent of2 resultswithin the time period is included. Narrative Performed At ECG ED Preliminary Interpretation - NOT AN ORDER (08/04/2017 3:45 PM) Narrative Performed At Jen Cervantes NP 08/05/2017 11:15 AM ECG ED Preliminary Interpretation - Not an Order Performed by: JEN CERVANTES Authorized by: BEE CLARK ECG reviewed by ED Physician in the absence of a health therapist: yes Interpretation: Interpretation: normal Rate: ECG rate:89 ECG rate assessment: normal Rhythm: Rhythm: sinus rhythm QRS: QRS axis: 74. after 11/13/2016 Insurance Payer Benefit Plan / Group Subscriber ID Type Phone Address [facility] [employer] xxxxxxxxx O
--- OUTSIDE RECORDS SUMMARY | 2017-11-14 16:47 | XMS REPORT ---
:1960 [facility] Address [address] [place] [address] Care Team Providers Name Role Phone EDMUNDO [...] Date/Time Type Type Clinicians Facility Department ID 2017-11-10 2017-11-10 [place] [facility] [place] [id number] 15:42:00 21:51:00 DECLAN 2017-08-04 2017-08-04 Emergency E [facility]ICO [facility] [id number] 10:02:00 12:00:00 2017-07-30 2017-07-30 Emergency E TONI [facility] [id number] 13:37:00 17:53:00 MONICA 2017-06-07 2017-06-07 Emergency E COLBY [facility] [id number] 10:57:00 13:46:00 ASIF 2017-05-28 2017-05-28 [facility] [id number] 13:59:00 13:59:00 Results Test Description Test Time [...] code=URSPGRAV) 1.025 1.000-1.025 UAMICRO (test code=UAMICRO) NO [id number] 15:48:00 Test Item Value Reference Range Comments [...] ABS NEUT (test code=NEUT) 7.1 K/UL 1.2-7.2 [id number] 15:35:00 Test Item Value Reference Range Comments SODIUM (test code=NA) 142 MMOL/L 137-145 K+ (test code=KSERUM) 4.8 MMOL/L 3.5-5.1 PLEASE NOTE NEW REFERENCE RANGE(S) IN EFFECT EFFECTIVE 11/05/2009 - NEW ANALYZER ([employer] 5600) CHLORIDE (test code=CL) 107 MMOL/L 98-107 CO2 (test code=CO2) 26 MMOL/L 22-30 BUN (test code=BUN) 15 MG/DL 9-20 CREA (test code=CREA) 0.7 MG/DL 0.8-1.5 GLUCOSE (test 87 MG/DL 70-99 Fasting glucose normal code=GLUCOSE) <100 MG/DL- [employer] recommendation CALCIUM (test 9.5 MG/DL 8.4-10.2 code=CABLOOD) TOTPROT (test 6.9 G/DL 6.3-8.2 code=TOTPROT) ALBUMIN (test 3.6 G/DL 3.5-5.0 code=ALBSERUM) BILITOT (test 0.3 MG/DL 0.2-1.3 code=BILITOT) AST (test code=AST) 22 U/L 15-46 PHOSALK (test 100 U/L 38-126 code=PHOSALK) ALT (test code=ALT) 19 U/L 13-69 GFR (test code=GFR) 124 mL/min/1.73m2 A GFR of >90 mL/min/1.73m2 is considered normal. Slightly hemolyzed [id number] 15:35:00 Test Item Value Reference Range Comments LIPASE (test code=LIPA) 58 U/L 23-300 US [id number] 15:07:[address] [id number] IMAGING REPORTPatient Name: ASHLEY STORY NDate of Service: [id number]: 57 Sex: M Order #: [id number] [facility] 1960 [facility] Number: [id number] Record Number: [id number] Hospital Number: [id number] Physician: JOSEPH SHARMA -Ordering Physician: Osmani SANTOS [...] PMLegally authenticated by TELLY Thompson 2017-11-12 15:05:15URINE [id number] 11:54:00 Test Item Value Reference Range Comments Culture Observations (test NO GROWTH (<1,000 CFU/ML) code=COB1) CT ABDOMEN AND PELVIS WITHOUT CONTRAST *WW*2017-11-10 15:13:00CT abdomen and pelvis without contrastLocation Code: [id number] HISTORY: R52: PAIN, UNSPECIFIEDCOMPARISON: 07/30/2017, 06/07/2017Technique: Helical [...] evidence of diverticulitis.U/S TESTICULAR2017-11-10 15:00:22SCROTAL ULTRASOUNDLocation Code: [id number] HISTORY: R52: PAIN, UNSPECIFIEDCOMPARISON: None.TECHNIQUE: Multiple high [...] (test code=USPERM) /HPF NONE CBC (INCLUDES AUTOMATED DIFFERENTIAL)*[id number] 13:00:00 Test Item Value Reference Range Comments [...] NO RBC MORPH (test code=WRBCMOR) NORMAL CT, [id number] 16:55:00Reason for exam:->ABDOMINAL PAINReason for exam :->NAUSEAWhat [...] with patient history and physical exam. Signed: Kevni Thomas MDReport Verified Date/Time: 09/13/2017 16:55:35 Reading Location: [facility] C013X Ortho Consult Reading Room POCT-GLUCOSE [id number] 15:48:00 Test Item Value Reference Range Comments POC-GLUCOSE METER (BEAKER) 93 mg/dL 70-110 TESTED AT [facility] [address] [facility] (test soum=5776) [facility] [address] URINALYSIS WITH MICROSCOPIC IF [id number] 14:32:00 Test Item Value Reference Range Comments COLOR (BEAKER) (test rbfz=762) Light Yellow CLARITY (BEAKER) (test ihck=158) Clear SPECIFIC GRAVITY UA (BEAKER) (test kwtl=150) 1.011 1.001-1.035 PH UA (BEAKER) (test gkbu=205) 6.5 5.0-8.0 PROTEIN UA (BEAKER) (test mrls=700) Negative Negative GLUCOSE UA (BEAKER) (test aimp=647) Negative Negative KETONES UA (BEAKER) (test jykx=020) Negative Negative BILIRUBIN UA (BEAKER) (test rzjp=165) Negative Negative BLOOD UA (BEAKER) (test ufbv=428) Negative Negative NITRITE UA (BEAKER) (test axem=601) Negative Negative LEUKOCYTE ESTERASE UA (BEAKER) (test ovzq=259) Negative Negative UROBILINOGEN UA (BEAKER) (test lxpn=446) 0.2 mg/dL 0.2-1.0 SOURCE(BEAKER) (test upix=2759) COMPREHENSIVE METABOLIC [id number] 13:36:00 Test Item Value Reference Range Comments TOTAL PROTEIN (BEAKER) 7.3 gm/dL 6.0-8.3 (test djhq=657) ALBUMIN (BEAKER) (test 3.6 g/dL 3.5-5.0 gxhy=4512) ALKALINE PHOSPHATASE 122 U/L 40-150 (BEAKER) (test nqmc=053) BILIRUBIN TOTAL (BEAKER) 0.3 mg/dL 0.2-1.2 (test jrba=678) SODIUM (BEAKER) (test 140 meq/L 136-145 ykqa=305) POTASSIUM (BEAKER) (test 3.8 meq/L 3.5-5.1 oebn=952) CHLORIDE (BEAKER) (test 107 meq/L 98-107 zhez=697) CO2 (BEAKER) (test 23 meq/L 22-29 brsq=953) BLOOD UREA NITROGEN 9 mg/dL 7-21 (BEAKER) (test gtrk=572) CREATININE (BEAKER) (test 0.70 mg/dL 0.57-1.25 kqew=522) GLUCOSE RANDOM (BEAKER) 86 mg/dL 70-105 (test wiue=752) CALCIUM (BEAKER) (test 9.2 mg/dL 8.4-10.2 olpn=209) AST (SGOT) (BEAKER) (test 8 U/L 5-34 xqdz=914) ALT (SGPT) (BEAKER) (test 6 U/L 6-55 rcxj=537) EGFR (BEAKER) (test 117 mL/min/1.73 sq ESTIMATED GFR IS NOT yuya=0356) m ACCURATE CREATININE CLEARANCE IN PREDICTING GLOMERULAR FILTRATION RATE. ESTIMATED GFR IS NOT APPLICABLE FOR DIALYSIS PATIENTS. CBC W/PLT COUNT & AUTO [id number] 13:07:00 Test Item Value Reference Range Comments WHITE BLOOD CELL COUNT (BEAKER) (test gihi=370) 11.5 K/ L 3.5-10.5 RED BLOOD CELL COUNT (BEAKER) (test xcxq=404) 3.93 M/ L 4.63-6.08 HEMOGLOBIN (BEAKER) (test tagk=901) 8.9 GM/DL 13.7-17.5 HEMATOCRIT (BEAKER) (test ekrd=301) 30.6 % 40.1-51.0 MEAN CORPUSCULAR VOLUME (BEAKER) (test brta=420) 77.9 fL 79.0-92.2 MEAN CORPUSCULAR HEMOGLOBIN (BEAKER) (test 22.6 pg 25.7-32.2 ysrx=225) MEAN CORPUSCULAR HEMOGLOBIN CONC (BEAKER) (test 29.1 GM/DL 32.3-36.5 oplu=248) RED CELL DISTRIBUTION WIDTH (BEAKER) (test 16.4 % 11.6-14.4 dfxi=502) PLATELET COUNT (BEAKER) (test uuyn=627) 442 K/CU MM 150-450 MEAN PLATELET VOLUME (BEAKER) (test ouih=876) 10.2 fL 9.4-12.4 NUCLEATED RED BLOOD CELLS (BEAKER) (test 0 /100 WBC 0-0 yprp=089) NEUTROPHILS RELATIVE PERCENT (BEAKER) (test 79 % svkd=399) LYMPHOCYTES RELATIVE PERCENT (BEAKER) (test 9 % ayuv=350) MONOCYTES RELATIVE PERCENT (BEAKER) (test 9 % lygd=825) EOSINOPHILS RELATIVE PERCENT (BEAKER) (test 2 % zyly=442) BASOPHILS RELATIVE PERCENT (BEAKER) (test 0 % gevh=062) NEUTROPHILS ABSOLUTE COUNT (BEAKER) (test 9.15 K/ L 1.78-5.38 kgap=663) LYMPHOCYTES ABSOLUTE COUNT (BEAKER) (test 1.04 K/ L 1.32-3.57 yoga=492) MONOCYTES ABSOLUTE COUNT (BEAKER) (test 0.98 K/ L 0.30-0.82 uqus=076) EOSINOPHILS ABSOLUTE COUNT (BEAKER) (test 0.26 K/ L 0.04-0.54 cubx=870) BASOPHILS ABSOLUTE COUNT (BEAKER) (test 0.02 K/ L 0.01-0.08 prij=370) IMMATURE GRANULOCYTES-RELATIVE PERCENT (BEAKER) 1 % 0-1 (test awqh=8035) POCT-LACTIC ACID, [id number] 12:44:00 Test Item Value Reference Range Comments POC-LACTIC ACID, VENOUS 0.8 mmol/L 0.9-1.7 TESTED AT [facility] [address] [facility] (BEAKER) (test ptzd=4776) [facility] [address] COMPREHENSIVE METABOLIC [id number] 08:51:00 Test Item Value Reference Range Comments TOTAL PROTEIN (BEAKER) 7.5 gm/dL 6.0-8.5 (test fmiz=479) ALBUMIN (BEAKER) (test 3.6 g/dL 3.5-5.0 reyw=1764) ALKALINE PHOSPHATASE 119 U/L 30-115 (BEAKER) (test pyrf=419) BILIRUBIN TOTAL (BEAKER) 0.1 mg/dL 0.1-1.3 (test higj=003) SODIUM (BEAKER) (test 138 meq/L 135-148 zlpe=660) POTASSIUM (BEAKER) (test 4.0 meq/L 3.5-5.5 oojh=098) CHLORIDE (BEAKER) (test 105 meq/L 98-106 ywdb=812) CO2 (BEAKER) (test 26 meq/L 20-31 kxji=970) BLOOD UREA NITROGEN 10 mg/dL 10-26 (BEAKER) (test ymtq=159) CREATININE (BEAKER) (test 0.74 mg/dL 0.50-1.20 ecvt=608) GLUCOSE RANDOM (BEAKER) 88 mg/dL 70-110 (test kngk=576) CALCIUM (BEAKER) (test 9.4 mg/dL 8.5-10.5 alvr=968) AST (SGOT) (BEAKER) (test 9 U/L 5-40 bcvw=898) ALT (SGPT) (BEAKER) (test < U/L 6-50 rfrz=693) EGFR (BEAKER) (test 109 mL/min/1.73 sq ESTIMATED GFR IS NOT iybu=4309) m ACCURATE CREATININE CLEARANCE IN PREDICTING GLOMERULAR FILTRATION RATE. ESTIMATED GFR IS NOT APPLICABLE FOR DIALYSIS PATIENTS. [id number] 08:49:00 Test Item Value Reference Range Comments LIPASE (BEAKER) (test vdnl=185) 29 U/L 8-78 CBC W/PLT COUNT & AUTO [id number] 08:35:00 Test Item Value Reference Range Comments WHITE BLOOD CELL COUNT (BEAKER) (test bjwm=260) 8.8 K/ L 4.0-10.0 RED BLOOD CELL COUNT (BEAKER) (test xelb=082) 3.93 M/ L 4.20-5.80 HEMOGLOBIN (BEAKER) (test lyyd=915) 9.3 GM/DL 13.0-16.8 HEMATOCRIT (BEAKER) (test dayi=478) 29.7 % 40.0-50.0 MEAN CORPUSCULAR VOLUME (BEAKER) (test eqsm=041) 75.6 fL 82.0-98.0 MEAN CORPUSCULAR HEMOGLOBIN (BEAKER) (test 23.5 pg 27.0-33.0 rcpo=334) MEAN CORPUSCULAR HEMOGLOBIN CONC (BEAKER) (test 31.2 GM/DL 32.0-36.0 jplj=031) RED CELL DISTRIBUTION WIDTH (BEAKER) (test 18.0 % 12.0-15.0 pglf=082) PLATELET COUNT (BEAKER) (test qcxv=436) 482 K/CU MM 150-430 MEAN PLATELET VOLUME (BEAKER) (test uzzb=364) 8.3 fL 6.5-10.5 NUCLEATED RED BLOOD CELLS (BEAKER) (test 0 /100 WBC 0-0 rjpf=862) NEUTROPHILS RELATIVE PERCENT (BEAKER) (test 77 % cffg=029) LYMPHOCYTES RELATIVE PERCENT (BEAKER) (test 13 % laci=611) MONOCYTES RELATIVE PERCENT (BEAKER) (test 5 % meer=792) EOSINOPHILS RELATIVE PERCENT (BEAKER) (test 4 % ifhr=567) BASOPHILS RELATIVE PERCENT (BEAKER) (test 1 % lltx=537) NEUTROPHILS ABSOLUTE COUNT (BEAKER) (test 6.80 K/ L 1.80-8.00 pasa=444) LYMPHOCYTES ABSOLUTE COUNT (BEAKER) (test 1.10 K/ L 1.48-4.50 suwe=990) MONOCYTES ABSOLUTE COUNT (BEAKER) (test 0.50 K/ L 0.00-1.30 lisc=803) EOSINOPHILS ABSOLUTE COUNT (BEAKER) (test 0.40 K/ L 0.00-0.50 icit=747) BASOPHILS ABSOLUTE COUNT (BEAKER) (test 0.10 K/ L 0.00-0.20 dhze=571) AMYLASE AND LIPASE 2017-08-04 11:44:00 Test Item [...] ng/mL Opiates 2000 ng/mL URINALYSIS WITH MICRO *WW*2017-08-04 11:29:00 Test Item Value Reference Range Comments [...] (test code=USPERM) /HPF NONE CBC (INCLUDES AUTOMATED DIFFERENTIAL)*[id number] 11:23:00 Test Item Value Reference Range Comments [...] code=09D) 8.1 mg/dL 8.3-9.5 CBC (INCLUDES AUTOMATED DIFFERENTIAL)*[id number] 14:14:00 Test Item Value Reference Range Comments [...] NO RBC MORPH (test code=WRBCMOR) NORMAL Culture, [id number] 14:17:00 Test Item Value Reference Range Comments Culture, Urine (test code=URC) NG36 [id number] 14:50:00 Test Item Value Reference Range Comments [...] (test code=UABLD) Trace Negative Urine Source: Urine [id number] 14:50:00 Test Item Value Reference Range Comments Urinalysis (test code=UARBC) 0-3 HPF 0-3 Urinalysis (test code=UASQUAM) 0-3 HPF 0-3 Urine Source: Urine [id number] 14:48:00 Test Item Value Reference Range Comments Hematology (test code=SED) 74 mm/hr 0-10 ADDED SED RATE, CRP NOT [id number] 14:00:00 Test Item Value Reference Range Comments [...] 5-34 Chemistry (test code=ALT) 8 U/L 8-55 [id number] 14:00:00 Test Item Value Reference Range Comments Chemistry (test code=FELISHA) 93.0 U/L 25-125 [id number] 14:00:00 Test Item Value Reference Range Comments Chemistry (test code=LIP) 31 U/L 8-78 [id number] 13:53:00 Test Item Value Reference Range Comments [...] (test code=BASO#) 0.1 thou/uL 0.0-0.2 U/S KIDNEY (RENAL)*LISA*2017-06-07 13:37:51RENAL ULTRASOUNDLocation Code: [id number] HISTORY: N28.1: CYST OF KIDNEY, ACQUIREDCOMPARISON: CT [...] small bilateral nonobstructing renal calculi.COMPREHENSIVE METABOLIC ORTEGA *LISA*2017-06-07 12:02:00 Test Item Value Reference Range Comments [...] (test code=WAUAM) NO NO CBC (INCLUDES AUTOMATED DIFFERENTIAL)*[id number] 11:49:00 Test Item Value Reference Range Comments [...] NORMAL CT ABDOMEN AND PELVIS WITHOUT CONTRAST *LISA*2017-06-07 11:34:10EXAM: CT ABDOMEN AND PELVIS WITHOUT CONTRAST *WW*HISTORY: [id number]: Lower abdominal pain . Initial encounter. No [...] no evidence of acute diverticulitis.HEPATITIS C ANTIBODY [id number] 08:46:00 Test Item Value Reference Range Comments [...] and confirmation results will follow. 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[employer]) CHLORIDE (test code=CL) 106 MMOL/L 98-107 CO2 (test code=CO2) 21 MMOL/L 22-30 BUN (test code=BUN) 11 MG/DL 9-20 CREA (test code=CREA) 0.5 MG/DL 0.8-1.5 GLUCOSE (test 195 MG/DL 70-99 Fasting glucose normal code=GLUCOSE) <100 MG/DL- [employer] recommendation CALCIUM (test 8.9 MG/DL 8.4-10.2 code=CABLOOD) TOTPROT (test 6.6 G/DL 6.3-8.2 code=TOTPROT) ALBUMIN (test 3.2 G/DL 3.5-5.0 code=ALBSERUM) BILITOT (test 0.4 MG/DL 0.2-1.3 code=BILITOT) AST (test code=AST) 20 U/L 15-46 PHOSALK (test 99 U/L 38-126 code=PHOSALK) ALT (test code=ALT) 12 U/L 13-69 GFR (test code=GFR) 183 mL/min/1.73m2 A GFR of >90 mL/min/1.73m2 is considered normal. [id number] 12:25:00 Test Item Value Reference Range Comments LIPASE (test code=LIPA) 74 U/L 23-300 [id number] 12:25:00 Test Item Value Reference Range Comments [...] NEUT (test code=NEUT) 11.6 K/UL 1.2-7.2 TROPONIN [id number] 12:01:00 Test Item Value Reference Range Comments TROPER (test code=TROPER) 0.00 ng/ml 0.0-0.08 INTERPRETIVE DATA A POC TROPONIN OF </=0.08 NG/ML IS CONSIDERED NEGATIVE Culture, [id number] 11:42:00 Test Item Value Reference Range Comments Culture, Urine (test code=URC) NG48 Chemistry - BNP, HgbA1c, [id number] 15:48:00 Test Item Value Reference Range Comments Chemistry - BNP, HgbA1c, PTHi (test Less than 10.0 pg/mL 0-100 code=BNP) [id number] 15:40:00 Test Item Value Reference Range Comments [...] CA OXALATE HPF Negative Urine Source: Urine [id number] 15:13:00 Test Item Value Reference Range Comments [...] 0.0-0.7 Hematology (test code=BASO#) 0.1 thou/uL 0.0-0.2 [id number] 15:11:00 Test Item Value Reference Range Comments [...] code=AST) Chemistry (test 14 U/L 8-55 code=ALT) [id number] 15:11:00 Test Item Value Reference Range Comments Chemistry (test code=CK) 63 U/L 30-200
[2017-11-14] MEDS ORDERED: MORPHINE 4 MG/ML SYR ONE ×3 (19:18→20:58)
[2017-11-14] MEDS ORDERED: ONDANSETRON 4 MG/2 ML VIAL ONE (19:18)
[2017-11-14] MEDS ORDERED: TAMSULOSIN 0.4 MG SR CAP ONE (19:18)
[2017-11-14] MEDS ORDERED: CIPROFLOXACIN 400mg IV 400 MG/200 ML BAG IV ONE (19:18)
[2017-11-14] MEDS ORDERED: NA CHLORIDE 0.9% 1,000 ML ONE (19:18)
[2017-11-14 19:52] LABS: Absolute Lymphocytes (CBC) 1.1 K/uL (0.7-4.9); Absolute Monocytes 0.9 K/uL (0.1-1.3); Absolute Neutrophil 6.8 K/uL (1.8-8.0); Basophils % 1.1 % (0-1.3); Hematocrit 25.6 % (39.6-49.0); Lymphocytes % 12.2 % (15.3-44.8); MCH 23.4 pg (27.0-35.0); MCV 74.3 fL (80-100); MPV 8.4 fL (7.6-11.3); Monocytes % 9.4 % (3.3-12.3); RBC Red Blood Cell Count 3.45 M/uL (4.33-5.43)
--- NOTE | 2017-11-14 20:11 | RAD REPORT ---
EXAM DESCRIPTION: US - Scrotum Testicles - 11/14/2017 7:51 pm CLINICAL HISTORY: Testicle pain COMPARISON: none FINDINGS: The right testicle measures 3.9 x 1.5 x 2.8 centimeters. The echotexture appears homogeneo us The left testicle measures 3.8 x 1.7 x 2.5 centimeters. The echotexture appears homogeneous The epididymides are normal in size and echotexture There is normal appearing blood flow to the testicles and epididymides IMPRESSION: Unremarkable exam
[2017-11-14 20:14] LABS: Potassium 3.7 mmol/L (3.5-5.1)
--- NOTE | 2017-11-14 20:28 | EDPHYS ---
Physician Documentation [facility] Name: Chandler Carr Age: 57 yrs Sex: Male : 1960 Arrival Date: 11/14/2017 Time: 16:43 Bed 20 Private MD: None, None ED Physician Ap Loja HPI: 11/14 18:33 This 57 yrs old Male presents to ER via Wheelchair with complaints of Pelvic snw Pain. 18:33 Onset: The symptoms/episode began/occurred acutely. Associated signs and symptoms: snw Pertinent positives: fever, headache. Modifying factors: The patient symptoms are alleviated by nothing, the patient symptoms are aggravated by nothing. The patient has not experienced similar symptoms in the past. The patient has been recently seen by a physician: The patient has been recently seen at the [facility] Emergency Department, yesterday, for similar complaints CT scan was performed, was given a prescription for pain medications. Historical: - Allergies: 17:38 NSAIDS; aj1 17:38 PENICILLINS; aj1 - Home Meds: 17:38 Hydrocodone-Acetaminophen Oral [Active]; aj1 - PMHx: 17:38 Diverticulitis; skin cancer; aj1 - Immunization history:: Flu vaccine status is unknown. - Social history:: Smoking status: Patient uses tobacco products, smokes one-half pack cigarettes per day. - Ebola Screening: : Patient denies travel to an Ebola-affected area in the 21 days before illness onset. ROS: 18:33 Constitutional: Negative for fever, chills, and weight loss, Eyes: Negative for injury, snw pain, redness, and discharge, ENT: Negative for injury, pain, and discharge, Neck: Negative for injury, pain, and swelling, Cardiovascular: Negative for chest pain, palpitations, and edema, Respiratory: Negative for shortness of breath, cough, wheezing, and pleuritic chest pain, Back: Negative for injury and pain, : Negative for injury, bleeding, discharge, and swelling, MS/Extremity: Negative for injury and deformity, Skin: Negative for injury, rash, and discoloration, Neuro: Negative for headache, weakness, numbness, tingling, and seizure, Psych: Negative for depression, anxiety, suicide ideation, homicidal ideation, and hallucinations. 18:33 Abdomen/GI: Positive for abdominal pain, testicular pain. Exam: 18:30 Head/Face: Normocephalic, atraumatic. Eyes: Pupils equal round and reactive to light, snw extra-ocular motions intact. Lids and lashes normal. Conjunctiva and sclera are non-icteric and not injected. Cornea within normal limits. Periorbital areas with no swelling, redness, or edema. ENT: Nares patent. No nasal discharge, no septal abnormalities noted. Tympanic membranes are normal and external auditory canals are clear. Oropharynx with no redness, swelling, or masses, exudates, or evidence of obstruction, uvula midline. Mucous membranes moist. Neck: Trachea midline, no thyromegaly or masses palpated, and no cervical lymphadenopathy. Supple, full range of motion without nuchal rigidity, or vertebral point tenderness. No Meningismus. Chest/axilla: Normal chest wall appearance and motion. Nontender with no deformity. No lesions are appreciated. Cardiovascular: Regular rate and rhythm with a normal S1 and S2. No gallops, murmurs, or rubs. Normal PMI, no JVD. No pulse deficits. Respiratory: Lungs have equal breath sounds bilaterally, clear to auscultation and percussion. No rales, rhonchi or wheezes noted. No increased work of breathing, no retractions or nasal flaring. Abdomen/GI: Soft, non-tender, with normal bowel sounds. No distension or tympany. No guarding or rebound. No evidence of tenderness throughout. Back: No spinal tenderness. No costovertebral tenderness. Full range of motion. Male : Normal genitalia with no discharge or lesions. left testicle in normal position, right testicle elevated within scrotum Skin: Warm, dry with decreased turgor. Normal color with no rashes, no lesions, and no evidence of cellulitis. hx of skin grafting at buttock and scrotum 2nd to surgical debridement of problem associated with hiradenitis MS/ Extremity: Pulses equal, no cyanosis. Neurovascular intact. Full, normal range of motion. Neuro: Awake and alert, GCS 15, oriented to person, place, time, and situation. Cranial nerves II-XII grossly intact. Motor strength 5/5 in all extremities. Sensory grossly intact. Cerebellar exam normal. Normal gait. Psych: Awake, alert, with orientation to person, place and time. Behavior, mood, and affect are within normal limits. 18:30 Constitutional: The patient appears alert, anxious, unkempt. Vital Signs: 17:38 BP 123 / 74; Pulse 96; Resp 20; Temp 99.2; Pulse Ox 99% on R/A; Weight 65.77 kg (R); aj1 Height 5 ft. 9 in. (175.26 cm) (R); Pain 10/10; 19:50 BP 120 / 70; Pulse 88; Resp 20; Pulse Ox 98% ; ea 21:22 BP 128 / 76; Pulse 86; Resp 19; Temp 98; Pulse Ox 98% on R/A; ea 17:38 Body Mass Index 21.41 (65.77 kg, 175.26 cm) aj1 MDM: 18:22 Patient medically screened. snw 20:29 Data reviewed: vital signs, nurses notes. Data interpreted: Pulse oximetry: on room air snw is 99 %. Interpretation: normal. Counseling: I had a detailed discussion with the patient and/or guardian regarding: the historical points, exam findings, and any diagnostic results supporting the discharge/admit diagnosis, lab results, radiology results, the need for outpatient follow up, to return to the emergency department if symptoms worsen or persist or if there are any questions or concerns that arise at home. Special discussion: Based on the history and exam findings, there is no indication for further emergent testing or inpatient evaluation. I discussed with the patient/guardian the need to see the primary care provider for further evaluation of the symptoms. I discussed with the patient/guardian the need to see the urologist for further evaluation of the symptoms. 11/14 18:18 Order name: CBC with Diff; Complete Time: 20:22 snw 11/14 18:18 Order name: Chem 7; Complete Time: 20:22 snw 11/14 18:18 Order name: Blood Culture* snw 11/14 18:30 Order name: US Scrotum Testicles; Complete Time: 20:22 snw Administered Medications: 19:11 CANCELLED (other intevention used): fentaNYL (PF) 50 mcg IVP once snw 19:20 Drug: morphine 4 mg Route: IVP; Site: right antecubital; ea 20:00 Follow up: Response: No adverse reaction ea 20:11 Drug: Cipro 400 mg Volume: 200 ml; Route: IVPB; Infused Over: 60 mins; Site: right ea antecubital; 21:23 Follow up: Response: No adverse reaction; IV Status: Completed infusion ea 20:11 Drug: NS 0.9% 1000 ml Route: IV; Rate: 125 ml/hr; Site: right antecubital; ea 21:23 Follow up: Response: No adverse reaction; IV Status: Completed infusion ea 20:30 Not Given (Patient Refused): morphine 4 mg IM once ea 20:33 Drug: Flomax 0.4 mg Route: PO; ea 21:00 Follow up: Response: No adverse reaction ea 21:00 Drug: morphine 8 mg Route: IM; Site: right gluteus; ea 21:23 Follow up: Response: No adverse reaction; Medication administered at discharge. ea Disposition: 21:36 Co-signature as Attending Physician, Ap Loja MD I agree with the assessment and tw4 plan of care. Disposition: 11/14/17 20:27 Discharged to Home. Impression: Unspecified renal colic, Anemia, unspecified, Calculus of kidney. - Condition is Stable. - Discharge Instructions: Anemia, Nonspecific, Kidney Stones, Renal Colic. - Prescriptions for Cipro 500 mg Oral Tablet - take 1 tablet by ORAL route every 12 hours for 10 days; 20 tablet. Flomax 0.4 mg Oral Capsule, Sust. Release 24 hr - take 1 capsule by ORAL route once daily 1/2 hour following the same meal each day; 10 capsule. - SBAR form, Medication Reconciliation Form, Thank You Letter, Antibiotic Education, Prescription Opioid Use form. - Follow up: Private Physician; When: 2 - 3 days; Reason: Recheck today's complaints, Continuance of care, Re-evaluation by your physician. Follow up: Emergency Department; When: As needed; Reason: Worsening of condition. Signatures: Dispatcher [employer] Mayra Yanez RN RN aj1 Carole Narayanan FNP-C FNP-Marie Castillo RN RN ea Wadley, Terrence, MD MD tw4 Corrections: (The following items were deleted from the chart) 19:11 18:30 fentaNYL (PF) 50 mcg IVP once ordered. snw snw 21:24 20:27 11/14/2017 20:27 Discharged to Home. Impression: Unspecified renal colic; Anemia, ea unspecified; Calculus of kidney. Condition is Stable. Forms are SBAR form, Medication Reconciliation Form, Thank You Letter, Antibiotic Education, Prescription Opioid Use. Follow up: Private Physician; When: 2 - 3 days; Reason: Recheck today's complaints, Continuance of care, Re-evaluation by your physician. Follow up: Emergency Department; When: As needed; Reason: Worsening of condition. snw
--- NOTE | 2017-11-14 20:28 | ER ---
Nurse's Notes [facility] Name: Chandler Carr Age: 57 yrs Sex: Male : 1960 Arrival Date: 11/14/2017 Time: 16:43 Bed 20 Private MD: None, None Diagnosis: Unspecified renal colic;Anemia, unspecified;Calculus of kidney Presentation: 11/14 17:35 Presenting complaint: Patient states: He was seen here yesterday for pelvic pain, he aj1 had a CT scan, he was discharged home and instructed to return if the pain got worse. Today the pain is worse and is now radiates to both his testicles. Patient states he did not go home with any Rx yesterday. Denies penile discharge. Transition of care: patient was not received from another setting of care. Onset of symptoms was November 13, 2017. Risk Assessment: Do you want to hurt yourself or someone else? Patient reports no desire to harm self or others. Initial Sepsis Screen: Does the patient meet any 2 criteria? HR > 90 bpm. No. Patient's initial sepsis screen is negative. Does the patient have a suspected source of infection? Yes: Acute abdominal pain. Care prior to arrival: None. 17:35 Method Of Arrival: Wheelchair aj1 17:35 Acuity: SCAR 3 aj1 Triage Assessment: 17:38 General: Appears uncomfortable, Behavior is cooperative, restless. Pain: Complains of aj1 pain in pelvis Pain currently is 10 out of 10 on a pain scale. Neuro: Level of Consciousness is awake, alert, obeys commands. Cardiovascular: Patient's skin is warm and dry. Respiratory: Airway is patent Respiratory effort is even, unlabored, Respiratory pattern is regular, symmetrical. GI: Reports nausea, Patient currently denies diarrhea, vomiting. : Reports pelvic and testicular pain. Historical: - Allergies: 17:38 NSAIDS; aj1 17:38 PENICILLINS; aj1 - Home Meds: 17:38 Hydrocodone-Acetaminophen Oral [Active]; aj1 - PMHx: 17:38 Diverticulitis; skin cancer; aj1 - Immunization history:: Flu vaccine status is unknown. - Social history:: Smoking status: Patient uses tobacco products, smokes one-half pack cigarettes per day. - Ebola Screening: : Patient denies travel to an Ebola-affected area in the 21 days before illness onset. Screenin:30 Abuse screen: Denies threats or abuse. Denies injuries from another. Nutritional ch screening: No deficits noted. Tuberculosis screening: No symptoms or risk factors identified. Fall Risk None identified. Assessment: 18:30 General: Appears in no apparent distress. comfortable, Behavior is calm, cooperative, ch appropriate for age. Pain: Complains of pain in left testicle and right testicle Pain currently is 8 out of 10 on a pain scale. Neuro: No deficits noted. Respiratory: No deficits noted. : Reports pain in right in left scrotum, testicle. Derm: Skin is pink, warm \T\ dry. 18:30 Musculoskeletal: No signs and/or symptoms reported regarding the musculoskeletal ch system. Circulation, motion, and sensation intact. Capillary refill < 3 seconds, in bilateral fingers. toes. 19:00 General: Appears uncomfortable, Behavior is calm, cooperative, appropriate for age. ea Pain: Complains of pain in right testicle and left testicle and groin and pelvis Pain currently is 8 out of 10 on a pain scale. Quality of pain is described as aching. Neuro: Level of Consciousness is awake, alert, obeys commands, Oriented to person, place, time, situation. Cardiovascular: Patient's skin is warm and dry. Respiratory: Airway is patent Respiratory effort is even, unlabored, Respiratory pattern is regular, symmetrical, Breath sounds are clear bilaterally. GI: Abdomen is non-distended. : Reports pain in right in left testicle. Derm: Skin is pink, warm \T\ dry. Musculoskeletal: Circulation, motion, and sensation intact. 20:50 Reassessment: Patient and/or family updated on plan of care and expected duration. Pain ea level reassessed. Patient is alert, oriented x 3, equal unlabored respirations, skin warm/dry/pink. Awaiting on IV infusion to complete. 21:20 Reassessment: Patient and/or family updated on plan of care and expected duration. Pain ea level reassessed. Patient is alert, oriented x 3, equal unlabored respirations, skin warm/dry/pink. Discharge instructions given to patient, verbalized the understanding of instruction. Patient states symptoms have improved. Vital Signs: 17:38 BP 123 / 74; Pulse 96; Resp 20; Temp 99.2; Pulse Ox 99% on R/A; Weight 65.77 kg (R); aj1 Height 5 ft. 9 in. (175.26 cm) (R); Pain 10/10; 19:50 BP 120 / 70; Pulse 88; Resp 20; Pulse Ox 98% ; ea 21:22 BP 128 / 76; Pulse 86; Resp 19; Temp 98; Pulse Ox 98% on R/A; ea 17:38 Body Mass Index 21.41 (65.77 kg, 175.26 cm) aj1 ED Course: 16:43 Patient arrived in ED. sb2 16:44 None, None is Private Physician. sb2 17:37 Triage completed. aj1 17:38 Arm band placed on Patient placed in waiting room, Patient notified of wait time. aj1 18:17 Carole Narayanan FNP-C [facility]. snw 18:18 Ap Loja MD is Attending Physician. snw 18:30 Patient has correct armband on for positive identification. Bed in low position. Call light in reach. Side rails up X2. Pulse ox on. NIBP on. Warm blanket given. 18:32 Kerrie Sainz, RN is Primary Nurse. 19:02 Radiology exam delayed due to Per transport, patietnt is requesting pain meds before cy ultrasound. 19:51 US Scrotum Testicles In Process Unspecified. EDMS 20:11 Marie Rob, RN is Primary Nurse. ea 21:20 No provider procedures requiring assistance completed. IV discontinued, intact, ea bleeding controlled, No redness/swelling at site. Pressure dressing applied. Administered Medications: 19:11 CANCELLED (other intevention used): fentaNYL (PF) 50 mcg IVP once snw 19:20 Drug: morphine 4 mg Route: IVP; Site: right antecubital; ea 20:00 Follow up: Response: No adverse reaction ea 20:11 Drug: Cipro 400 mg Volume: 200 ml; Route: IVPB; Infused Over: 60 mins; Site: right ea antecubital; 21:23 Follow up: Response: No adverse reaction; IV Status: Completed infusion ea 20:11 Drug: NS 0.9% 1000 ml Route: IV; Rate: 125 ml/hr; Site: right antecubital; ea 21:23 Follow up: Response: No adverse reaction; IV Status: Completed infusion ea 20:30 Not Given (Patient Refused): morphine 4 mg IM once ea 20:33 Drug: Flomax 0.4 mg Route: PO; ea 21:00 Follow up: Response: No adverse reaction ea 21:00 Drug: morphine 8 mg Route: IM; Site: right gluteus; ea 21:23 Follow up: Response: No adverse reaction; Medication administered at discharge. ea Outcome: 20:27 Discharge ordered by MD. bettencourt 21:21 Discharged to home ambulatory, with family. ea 21: Condition: improved 21:21 Discharge instructions given to patient, Instructed on discharge instructions, follow up and referral plans. medication usage, Demonstrated understanding of instructions, follow-up care, medications, Prescriptions given X 2. 21:24 Patient left the ED. ea Signatures: Dispatcher [employer] EDMS Kerrie Sainz, RN RN Mayra Omer RN RN aj1 Carole Narayanan, IUSS ANALYST-C IUSS ANALYST-Csnw Marie Rob RN RN ea Yong, Chheannith cy Billeau, Sheri sb2
== END 2017-11-14 21:24 | disposition home or self-care (01) ==
LOC: ER 16:41
DX: N20.0 Calculus of kidney (principal); N23 Unspecified renal colic; D64.9 Anemia, unspecified; F17.210 Nicotine dependence, cigarettes, uncomplicated; Z88.0 Allergy status to penicillin; Z88.6 Allergy status to analgesic agent; Z85.828 Personal history of other malignant neoplasm of skin
CPT/HCPCS: 36415; 76870; 80048; 85025; 87040; 96361; 96365; 96372; 96375; 99284; J0744; J2405; J7030

== ENCOUNTER 2017-11-23 05:07 | Emergency (ER) | payer OTHER ==
--- OUTSIDE RECORDS SUMMARY | 2017-11-23 05:10 | XMS REPORT | Clinical Summary ---
:1960 Author Organization [facility] Address [address] [place] [address] Phone Care Team Providers Name Role Phone [...] medical advice 06/18/2017 Emergency Emergency Medicine after 11/22/2016 Social History Tobacco Use Types Packs/Day Years [...] contrast (09/13/2017 3:00 PM) Specimen Performing Laboratory [employer] Narrative FINAL REPORT CT of the abdomen [...] MD Report Verified Date/Time:09/13/2017 16:55:35 Reading Location: [facility] B1 C013X Ortho Consult Reading Room [...] Report Verified Date/Time: 09/13/2017 16:55:35 Reading Location: [facility] C013X Ortho Consult Reading Room Urinalysis with Microscopic If Indicated (09/13/2017 1:26 PM) Component Value Ref Range Color, UA Light Yellow Clarity, UA Clear Specific [place], UA 1.011 1.001 - 1.035 pH, UA 6.5 5.0 - 8.0 Protein, UA Negative Negative Glucose, UA Negative Negative Ketones, UA Negative Negative Bilirubin, UA Negative Negative Blood, UA Negative Negative Nitrite, UA Negative Negative Leukocytes, UA Negative Negative Urobilinogen, UA 0.2 0.2 - 1.0 mg/dL Specimen Source Specimen Performing Laboratory Urine - Urine, Clean Catch [address] [address] POC-Lactic Acid, Venous (09/13/2017 12:39 PM) Component Value Ref Range POC-Lactic Acid, Venous 0.8 (L)Comment: TESTED AT [address] 0.9 - 1.7 mmol/L [facility] [address] Specimen Performing Laboratory Blood [address] [address] POC-Glucose meter (09/13/2017 12:39 PM) Component Value Ref Range POC-Glucose Meter 93Comment: TESTED AT [address] 70 - 110 mg/dL [address] Specimen Performing Laboratory Blood [address] [place] [address] CBC with platelet count + automated diff [...] 1 % Specimen Performing Laboratory Blood [facility] [address] [address] CBC with platelet count + automated diff (09/13/2017 12:33 PM)Only the most recent of2 resultswithin the time period is included. Specimen Performing Laboratory Blood Narrative The following orders were created for panel order CBC with platelet count + automated diff. Procedure Abnormality Status --------- ------ CBC with platelet count ...[[id number]]AbnormalFinal result Please view results for these tests [...] FOR DIALYSIS PATIENTS. Specimen Performing Laboratory Blood [facility] [address] [place] [address] Lipase (08/16/2017 8:19 AM) Component Value Ref Range Lipase 29 8 - 78 U/L Specimen Performing Laboratory Blood [facility] [address] [place] [address] after 11/22/2016
--- OUTSIDE RECORDS SUMMARY | 2017-11-23 05:10 | XMS REPORT | Clinical Summary ---
:1960 Author Organization [facility] Address [address] [place] [address] Care Team Providers Name Role Phone System, [...] Active (PRED FORTE) 1 % ophthalmic suspension traMADol (ULTRAM) 50 Take 1 tablet 20 [...] to 5 days. Prn pain with food tamsulosin (FLOMAX) Take 1 capsule 7 capsule 0 11/11/2017 0.4 mg capsule (0.4 mg total) 8 by mouth daily for 7 days. ondansetron ODT Take 1 tablet 9 tablet 0 11/11/2017 (ZOFRAN-ODT) 4 MG (4 mg total) 8 disintegrating by mouth every tablet 8 (eight) hours as needed for nausea or vomiting for up to 3 days. 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 Nephrolithiasis 06/10/2017 Encounters Date Type Specialty Care Team Description 11/20/2017 Emergency Emergency Medicine Shane Blackwell MD - 11/21/2017 11/16/2017 Emergency Emergency Medicine Malik, Lumbar radiculopathy, acute (Primary Dx); Charlie Ambriz MD Acute back pain with sciatica, left 11/11/2017 Emergency Emergency Medicine Roberto Carlos Alex, Acute suprapubic pain (Primary Dx) 2017 Emergency Emergency Medicine Mike Pepper Hidradenitis ( Primary Dx); MD DEXTER Pelvic pain; Testicular pain 10/11/2017 Emergency Emergency Medicine Sami Patel Abdominal pain, Osiel, DO unspecified abdominal location (Primary Dx) 10/06/2017 Emergency General Internal David Sommers Chronic abdominal pain (Primary Dx); Medicine MD Mitul Rectal fistula Silvia Harris MD 09/19/2017 Emergency Emergency Medicine Gm Les Abdominal pain, unspecified abdominal location (Primary Dx); MD Brennan Pelvic pain; Diarrhea, unspecified type 09/15/2017 Emergency Emergency Medicine Brandi, Abdominal pain, unspecified abdominal location (Primary Dx); Derek Evans MD Drug-seeking behavior [facility] MD Emerald 09/11/2017 Emergency Emergency Medicine Jewish, Nadim Bin, Abdominal pain, unspecified abdominal location (Primary Dx); Acute back pain, unspecified back location, unspecified back pain laterality 09/08/2017 Emergency Emergency Medicine ghassan Tucker, Left lower quadrant pain (Primary Dx); Adriano Maynard, Renal stones 09/01/2017 Emergency Emergency Medicine Raul Cameron Flank pain ( Primary T., Dx) 08/31/2017 Emergency Emergency Medicine Jewish, Nadim Bin, Lower abdominal pain (Primary Dx); Diarrhea, unspecified type 08/16/2017 Emergency Emergency Medicine Meagan Mando LLQ pain (Primary Dx ) MD [...] Encounter MD Fredrick 04/18/2017 Emergency Emergency Medicine Jewish, Nadim Bin, Lower abdominal pain (Primary Dx); Hidradenitis; Phlegmon; Anemia, unspecified type after 11/22/2016 Social History Tobacco Use Types Packs/Day Years Used Date Current Some Day Smoker Cigarettes 0.25 20 Smokeless Tobacco: Never Used Tobacco Cessation: Ready to Quit: No; Counseling Given: Yes Alcohol Use Drinks/Week oz/Week Comments No Sex Assigned at Date Recorded Not on file Last Filed Vital Signs Vital Sign Reading Time Taken Blood Pressure 133/73 11/20/2017 10:01 PM CDT Pulse 102 11/20/2017 10:01 PM CDT Temperature 37.1 C (98.7 F) 11/20/2017 10:01 PM CDT Respiratory Rate 22 11/20/2017 10:01 PM CDT Oxygen Saturation 94% 11/20/2017 10:01 PM CDT Inhaled Oxygen Concentration - - Weight 68 kg (150 lb) 11/20/2017 10:02 PM CDT Height 175.3 cm (5' 9") 11/20/2017 10:02 PM CDT Body Mass Index 22.15 11/20/2017 10:02 PM CDT Plan of Treatment Health Maintenance Due Date Last Done Comments COLON CANCER SCREENING 2010 SHINGRIX VACCINE (#1) 2010 INFLUENZA VACCINE 11/01/2017 Procedures Procedure Name Priority Date/Time Associated Comments Diagnosis XR HIPS BILATERAL AP STAT 11/16/2017 1:44 Results for this LATERAL W AP PELVIS PM CDT procedure are in the results section. US SCROTAL STAT 11/11/2017 10:47 Results for [...] STAT 06/10/2017 9:06 Results for this PM [facility] procedure are in the results section. ESTIMATED GFR STAT 06/10/2017 8:40 Results for this PM [facility] procedure are in the results section. LIPASE LEVEL STAT 06/10/2017 8:40 Results for this PM [facility] procedure are in the results section. AMYLASE LEVEL STAT 06/10/2017 8:40 Results for this PM [facility] procedure are in the results section. COMPREHENSIVE METABOLIC STAT 06/10/2017 8:40 Results for this PANEL PM [facility] procedure are in the results section. HC COMPLETE BLD COUNT STAT 06/10/2017 8:40 Results for this W/AUTO DIFF PM [facility] procedure are in the results section. CT ABDOMEN PELVIS W STAT 04/18/2017 4:22 Results for this CONTRAST AM [facility] procedure are in the results section. ESTIMATED GFR STAT 04/18/2017 2:27 Results for this AM [facility] procedure are in the results section. URINALYSIS SCREEN AND STAT 04/18/2017 2:27 Results for this MICROSCOPY, WITH REFLEX AM [facility] procedure are in TO CULTURE the results section. LIPASE LEVEL STAT 04/18/2017 2:27 Results for this AM [facility] procedure are in the results section. AMYLASE LEVEL STAT 04/18/2017 2:27 Results for this AM [facility] procedure are in the results section. COMPREHENSIVE METABOLIC STAT 04/18/2017 2:27 Results for this PANEL AM [facility] procedure are in the results section. HC COMPLETE BLD COUNT STAT 04/18/2017 2:27 Results for this W/AUTO DIFF AM [facility] procedure are in the results section. after 11/22/2016 Results XR Hips Bilateral Ap Lateral W Ap Pelvis (11/16/2017 1:44 PM) Narrative Performed At EXAMINATION:XR HIPS BILATERAL AP LATERAL W AP PELVIS [facility] CLINICAL HISTORY:Fracturehip COMPARISON:None. FINDINGS: AP pelvis:There are degenerative changes of the lumbar spine. There is mild sclerosis of the sacroiliac joints slightly greater on the right. There is narrowing superior compartment of both hips. There are no acute findings visualized. IMPRESSION: 1. Diffuse osteopenia 2. 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 Right hip: AP and frog-lateral views: There is mild narrowing and superior medial compartments. There are no acute osseous abnormalities identified. IMPRESSION: No acute finding is visualized Left hip: AP and frog-lateral views: There is narrowing of the superior joint compartment with small osteophytes. Mild narrowing medially is also present. There are no additional findings of significance noted. Impression: Arthritic changes as noted. [id number] Procedure Note Hm Interface, Radiology Results Incoming - 11/16/2017 1:52 PM CDT EXAMINATION: XR HIPS BILATERAL AP LATERAL W AP PELVIS CLINICAL HISTORY: Fracture hip COMPARISON: None. FINDINGS: AP pelvis:There are degenerative changes of the lumbar spine. There is mild sclerosis of the sacroiliac joints slightly greater on the right. There is narrowing superior compartment of both hips. There are no acute findings visualized. IMPRESSION: 1. Diffuse osteopenia 2. 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 Right hip: AP and frog-lateral views: There is mild narrowing and superior medial compartments. There are no acute osseous abnormalities identified. IMPRESSION: No acute finding is visualized Left hip: AP and frog-lateral views: There is narrowing of the superior joint compartment with small osteophytes. Mild narrowing medially is also present. There are no additional findings of significance noted. Impression: Arthritic changes as noted. [id number] Performing Organization Address City/State/Zipcode Phone Number [facility] [address] [place] [address] [place] Scrotal (11/11/2017 10:47 AM)Only the most recent of2 resultswithin the time period is included. Narrative Performed At PROCEDURE:US SCROTAL [facility] CLINICAL HISTORY:R testicular pain since this [...] [id number] . Procedure Note Interface, Radiology Results Incoming [...] [id number] . Performing Organization Address City/State/Zipcode Phone Number [facility] [address] [place] [address] Urinalysis screen and microscopy, with reflex to culture (11/11/2017 10:19 AM) Only the most recent of9 resultswithin the time period is included. Specimen site Clean catch [facility] DEPARTMENT OF PATHOLOGY AND GENOMIC MEDICINE Color, UA Yellow [facility] DEPARTMENT OF PATHOLOGY AND GENOMIC MEDICINE Appearance, UA Clear [facility] DEPARTMENT OF PATHOLOGY AND GENOMIC MEDICINE Specific gravity, UA 1.017 1.001 - 1.035 [facility] DEPARTMENT OF PATHOLOGY AND GENOMIC MEDICINE pH, UA 5.0 5.0 - 8.5 [facility] DEPARTMENT OF PATHOLOGY AND GENOMIC MEDICINE Protein, UA Negative Negative [facility] DEPARTMENT OF PATHOLOGY AND GENOMIC MEDICINE Glucose, UA Negative Negative [facility] DEPARTMENT OF PATHOLOGY AND GENOMIC MEDICINE Ketones, UA Negative Negative [facility] DEPARTMENT OF PATHOLOGY AND GENOMIC MEDICINE Bilirubin, UA Negative Negative [facility] DEPARTMENT OF PATHOLOGY AND GENOMIC MEDICINE Blood, UA Negative Negative [facility] DEPARTMENT OF PATHOLOGY AND GENOMIC MEDICINE Nitrite, UA Negative Negative [facility] DEPARTMENT OF PATHOLOGY AND GENOMIC MEDICINE Urobilinogen, UA Negative <2.0 [facility] DEPARTMENT OF PATHOLOGY AND GENOMIC MEDICINE Leukocyte esterase, UA Negative Negative [facility] DEPARTMENT OF PATHOLOGY AND GENOMIC MEDICINE WBC, UA 0-5 0 - 1 /HPF [facility] DEPARTMENT OF PATHOLOGY AND GENOMIC MEDICINE RBC, UA 0-5 0 - 5 /HPF [facility] DEPARTMENT OF PATHOLOGY AND GENOMIC MEDICINE Bacteria, UA None seen None seen [facility] DEPARTMENT OF PATHOLOGY AND GENOMIC MEDICINE Yeast, UA None seen [facility] DEPARTMENT OF PATHOLOGY AND GENOMIC MEDICINE Yeast with pseudohyphae, UA None seen [facility] DEPARTMENT OF PATHOLOGY AND [facility] MEDICINE Specimen Urine Performing Organization Address City/[facility] Phone Number [facility] DEPARTMENT OF PATHOLOGY AND [id number] [place] [address] [place] [address] [facility] Urine culture (11/11/2017 10:19 AM)Only the most recent of7 resultswithin the time period is included. Urine culture SEE COMMENTComment: Bacteriuria [facility] DEPARTMENT OF PATHOLOGY screen negative. AND [facility] Specimen Urine Performing Organization Address [facility] Phone Number [facility] AND [id number] [place] [address] [place] [address] [facility] [address] Renal Stone Protocol (11/11/2017 10:03 AM)Only the most recent of6 resultswithin the time period is included. Narrative Performed At PROCEDURE:CT RENAL STONE PROTOCOL [facility] CLINICAL HISTORY:lower abd pain with suprapubic [...] of obstructive uropathy. Diverticulosis. Degenerative disc disease. [id number] . Procedure Note Interface, Radiology Results Incoming [...] of obstructive uropathy. Diverticulosis. Degenerative disc disease. [id number] . Performing Organization Address City/State/Zipcode Phone Number [facility] [address] [place] [address] Smear review (11/11/2017 9:11 AM)Only the most recent of5 resultswithin the time period is included. Platelet slide review Og adequate [facility] DEPARTMENT OF PATHOLOGY AND GENOMIC MEDICINE Performing Organization Address City/State/Zipcode Phone Number [facility] DEPARTMENT OF PATHOLOGY AND [address] [place] [address] [place] [address] GENOMIC MEDICINE Estimated GFR (11/11/2017 9:11 AM)Only the most recent of15 resultswithin the time period is included. GFR Non Af Amer >90 mL/min/1.73 m2 [facility] DEPARTMENT OF PATHOLOGY AND GENOMIC MEDICINE GFR Af Amer >90 mL/min/1.73 m2 [facility] DEPARTMENT OF Comment: PATHOLOGY AND GENOMIC Chronic [...] specimen Performing Organization Address City/State/Zipcode Phone Number [facility] OF PATHOLOGY AND [address] [place] [address] [facility] CBC with platelet and differential (11/11/2017 9:11 AM)Only the most recent of15 resultswithin the time period is included. WBC 9.44 4.50 - 11.00 k/uL [facility] DEPARTMENT OF PATHOLOGY AND GENOMIC MEDICINE RBC 3.65 (L) 4.40 - 6.00 m/uL [facility] DEPARTMENT OF PATHOLOGY AND GENOMIC MEDICINE HGB 8.1 (L) 14.0 - 18.0 g/dL [facility] DEPARTMENT OF PATHOLOGY AND GENOMIC MEDICINE HCT 28.1 (L) 41.0 - 51.0 % [facility] DEPARTMENT OF PATHOLOGY AND GENOMIC MEDICINE MCV 77.0 (L) 82.0 - 100.0 fL [facility] DEPARTMENT OF PATHOLOGY AND GENOMIC MEDICINE MCH 22.2 (L) 27.0 - 34.0 pg [facility] DEPARTMENT OF PATHOLOGY AND GENOMIC MEDICINE MCHC 28.8 (L) 31.0 - 37.0 g/dL [facility] DEPARTMENT OF PATHOLOGY AND GENOMIC MEDICINE RDW - SD 49.1 37.0 - 55.0 fL [facility] DEPARTMENT OF PATHOLOGY AND GENOMIC MEDICINE MPV 9.2 8.8 - 13.2 fL [facility] DEPARTMENT OF PATHOLOGY AND GENOMIC MEDICINE Platelet count 417 (H) 150 - 400 k/uL [facility] DEPARTMENT OF PATHOLOGY AND GENOMIC MEDICINE Nucleated RBC 0.00 /100 WBC [facility] DEPARTMENT OF PATHOLOGY AND GENOMIC MEDICINE Neutrophils 75.7 (H) 39.0 - 69.0 % [facility] DEPARTMENT OF PATHOLOGY AND GENOMIC MEDICINE Lymphocytes 11.1 (L) 25.0 - 45.0 % [facility] DEPARTMENT OF PATHOLOGY AND GENOMIC MEDICINE Monocytes 8.1 0.0 - 10.0 % [facility] DEPARTMENT OF PATHOLOGY AND GENOMIC MEDICINE Eosinophils 4.3 0.0 - 5.0 % [facility] DEPARTMENT OF PATHOLOGY AND GENOMIC [facility] Basophils 0.3 0.0 - 1.0 % [facility] DEPARTMENT OF PATHOLOGY AND GENOMIC [facility] Specimen Blood Performing Organization Address [facility] Phone Number [facility] AND [address] [place] [address] Lipase level (11/11/2017 9:11 AM)Only the most recent of11 resultswithin the time period is included. Lipase 36 13 - 60 U/L [facility] OF PATHOLOGY AND GENOMIC [facility] Specimen Plasma specimen Performing Organization Address City/[facility] Phone Number [facility] AND [address] [place] [address] [place], [place] [id number] [place] [address] Hepatic function panel (11/11/2017 9:11 AM)Only the most recent of2 resultswithin the time period is included. Albumin 3.7 3.5 - 5.0 g/dL [facility] DEPARTMENT OF PATHOLOGY AND GENOMIC [facility] Total bilirubin <0.2 0.0 - 1.2 mg/dL [facility] DEPARTMENT OF PATHOLOGY AND GENOMIC MEDICINE Bilirubin direct <0.1 0.0 - 0.3 mg/dL [facility] DEPARTMENT OF PATHOLOGY AND GENOMIC [facility] Alkaline phosphatase 127 40 - 129 U/L [facility] DEPARTMENT OF PATHOLOGY AND GENOMIC MEDICINE Protein 7.6 6.3 - 8.3 g/dL [facility] DEPARTMENT OF Comment: PATHOLOGY AND GENOMIC [place] 4.6-7.0 g/dL MEDICINE 1 week 4.4-7.6 g/dL 7 months-1year5.1-7.3 g/dL 1-2 years5.6-7.5 g/dL >3 years6.0-8.0 g/dL 18-150 6.3-8.3 g/dL ALT 7 5 - 50 U/L [facility] OF PATHOLOGY AND [facility] AST 9 (L) 10 - 50 U/L [facility] DEPARTMENT OF PATHOLOGY AND GENOMIC MEDICINE Specimen Plasma specimen Performing Organization Address [facility] Phone Number [facility] AND [address] [place] [address] Basic metabolic panel (11/11/2017 9:11 AM)Only the most recent of2 resultswithin the time period is included. Sodium 138 135 - 148 mEq/L [facility] DEPARTMENT OF PATHOLOGY AND GENOMIC MEDICINE Potassium 4.4 3.5 - 5.0 mEq/L [facility] DEPARTMENT OF PATHOLOGY AND [facility] Chloride 104 98 - 112 mEq/L [facility] DEPARTMENT OF PATHOLOGY AND [facility] CO2 23 (L) 24 - 31 mEq/L [facility] OF PATHOLOGY [facility] Anion gap 11@ANIO 7 - 15 mEq/L [facility] DEPARTMENT OF PATHOLOGY AND GENOMIC MEDICINE BUN 12 6 - 20 mg/dL [facility] DEPARTMENT OF PATHOLOGY AND GENOMIC MEDICINE Creatinine 0.7 0.7 - 1.2 mg/dL [facility] DEPARTMENT OF PATHOLOGY [facility] Glucose 99 65 - 99 mg/dL [facility] OF PATHOLOGY AND [facility] Calcium 8.7 8.3 - 10.2 mg/dL [facility] OF PATHOLOGY AND GENOMIC MEDICINE Specimen Plasma specimen Performing Organization Address [facility] Phone Number [facility] AND [address] [place] [address] Abdomen Pelvis Wo Contrast (2017 12:47 [...] anterolisthesis of L5 upon S1. [facility]-[id number] Procedure Note [facility], Radiology Results Incoming - 2017 3:26 PM [...] anterolisthesis of L5 upon S1. [facility]-[id number] Performing Organization Address City/[facility]/Zipcode Phone Number [facility] [address] [place] [address] Lactic acid level, SEPSIS - Now and repeat 2x every 3 hours (2017 11:40 AM )Only the most recent of2 resultswithin the time period is included. Lactic acid 1.0 0.5 - 2.2 mmol/L [facility] DEPARTMENT OF PATHOLOGY AND [facility] Specimen Plasma specimen Performing Organization Address City/State/Zipcode Phone Number [facility] DEPARTMENT OF PATHOLOGY [address] [place] [address] AND [facility] Comprehensive metabolic panel (2017 11:40 AM)Only the most recent of13 resultswithin the time period is included. Sodium 139 135 - 148 mEq/L [facility] DEPARTMENT OF PATHOLOGY AND GENOMIC MEDICINE Potassium 3.8 3.5 - 5.0 mEq/L [facility] DEPARTMENT OF PATHOLOGY AND GENOMIC MEDICINE Chloride 103 98 - 112 mEq/L [facility] DEPARTMENT OF PATHOLOGY AND GENOMIC MEDICINE CO2 23 (L) 24 - 31 mEq/L [facility] DEPARTMENT OF PATHOLOGY AND GENOMIC MEDICINE Anion gap 13@ANIO 7 - 15 mEq/L [facility] DEPARTMENT OF PATHOLOGY AND GENOMIC MEDICINE BUN 10 6 - 20 mg/dL [facility] DEPARTMENT OF PATHOLOGY AND GENOMIC MEDICINE Creatinine 0.6 (L) 0.7 - 1.2 mg/dL [facility] DEPARTMENT OF PATHOLOGY AND GENOMIC MEDICINE Glucose 111 (H) 65 - 99 mg/dL [facility] DEPARTMENT OF PATHOLOGY AND GENOMIC MEDICINE Calcium 9.3 8.3 - 10.2 mg/dL [facility] DEPARTMENT OF PATHOLOGY AND GENOMIC MEDICINE Protein 7.5 6.3 - 8.3 g/dL [facility] DEPARTMENT OF PATHOLOGY AND GENOMIC MEDICINE Albumin 3.8 3.5 - 5.0 g/dL [facility] DEPARTMENT OF PATHOLOGY AND GENOMIC MEDICINE A/G ratio 1.0 0.7 - 3.8 [facility] DEPARTMENT OF PATHOLOGY AND GENOMIC MEDICINE Alkaline phosphatase 183 (H) 40 - 129 U/L [facility] DEPARTMENT OF PATHOLOGY AND GENOMIC MEDICINE AST 22 10 - 50 U/L [facility] DEPARTMENT OF PATHOLOGY AND GENOMIC MEDICINE ALT 17 5 - 50 U/L [facility] DEPARTMENT OF PATHOLOGY AND GENOMIC MEDICINE Total bilirubin <0.2 0.2 - 1.2 mg/dL [facility] DEPARTMENT OF PATHOLOGY AND GENOMIC MEDICINE Specimen Plasma specimen Performing Organization Address City/State/Zipcode Phone Number [facility] DEPARTMENT OF PATHOLOGY [address] [place] [address] AND [employer] [facility] Partial thromboplastin time, activated (10/06/2017 11:30 AM)Only the most recent of2 resultswithin the time period is included. PTT 26.3 23.0 - 36.0 sec [facility] DEPARTMENT OF Comment: PATHOLOGY AND [employer] PTT therapeutic range for unfractionated heparin is MEDICINE 61.0-112.0 seconds which corresponds to Anti-Xa 0.3-0.7 U/ml. Specimen Blood Performing Organization Address City/[facility] Phone [place] [address], [address] [place] [address] PATHOLOGY AND [facility] Prothrombin time with INR (10/06/2017 11:30 AM)Only the most recent of2 resultswithin the time period is included. Prothrombin time 12.5 12.0 - 15.0 sec [facility] DEPARTMENT OF PATHOLOGY AND [facility] INR 0.9 [facility] DEPARTMENT OF Comment: PATHOLOGY AND GENOMIC The International Normalized Ratio (INR) is a therapeutic MEDICINE monitoring tool for patients who are stable on oral anticoagulant therapy. An INR of 2.0-3.0 is suggested for deep vein thrombosis/pulmonary embolism. Specimen Blood Performing Organization Address City/[facility]/Zipcode Phone Number [place] [address], [address] [place] [address] PATHOLOGY AND GENOMIC MEDICINE Gram stain (09/19/2017 10:37 AM) Gram stain result Rare WBC's [facility] DEPARTMENT OF PATHOLOGY No organisms seen AND GENOMIC MEDICINE Comment: Specimen Information Specimen Source: Urine Specimen Site: Clean catch Specimen Urine Performing Organization Address [facility] Phone Number [facility] DEPARTMENT OF PATHOLOGY AND [address] [place] [address] GENOMIC MEDICINE US Renal (09/11/2017 3:28 PM) [...] Bilateral renal calculi without evidence of hydronephrosis. [id number] Procedure Note [facility], Radiology Results Incoming - 09/11/2017 3:33 PM [...] Bilateral renal calculi without evidence of hydronephrosis. [id number] Performing Organization Address City/[facility]/Zipcode Phone Number [facility] [address] [place] [address] XR Chest 1 Vw (09/11/2017 1:00 PM) Narrative Performed At EXAMINATION:XR CHEST 1 VW [facility] CLINICAL HISTORY:back pain COMPARISON:None IMPRESSION: No acute abnormality single view chest Emphysematous changes over the upper lobes bilaterally. Minimal linear atelectasis versus scar left base. No infiltrate congestion or effusion. No pneumothorax. Cardiomediastinal silhouette pulmonary vasculature and visualized skeleton normal in appearance [id number] Procedure Note Interface, Radiology Results Incoming - 09/11/2017 1:16 PM CDT EXAMINATION: XR CHEST 1 VW CLINICAL HISTORY: back pain COMPARISON: None IMPRESSION: No acute abnormality single view chest Emphysematous changes over the upper lobes bilaterally. Minimal linear atelectasis versus scar left base. No infiltrate congestion or effusion. No pneumothorax. Cardiomediastinal silhouette pulmonary vasculature and visualized skeleton normal in appearance [id number] Performing Organization Address [facility]/Zipcode Phone Number [facility] [address] [place] [phone] Blood culture, aerobic & anaerobic (09/11/2017 11:45 AM)Only the most recent of2 resultswithin the time period is included. Blood culture isolate No growth after 5 days of incubation. [facility] DEPARTMENT OF Comment: PATHOLOGY AND GENOMIC Specimen Information MEDICINE Specimen Source: Blood Specimen Site: Forearm, left Specimen Blood - Forearm, left Performing Organization Address [facility] Phone Number [facility] DEPARTMENT OF PATHOLOGY AND [address] [place], [place] [id number] [facility] Troponin (09/11/2017 11:40 AM) Troponin <0.300 0.000 - 0.300 ng/mL [facility] DEPARTMENT OF Comment: PATHOLOGY AND GENOMIC 0.30 - 1.49 ng/mlMay indicate increased risk of acute MEDICINE coronary syndrome. >=1.5 ng/mlConsistent with acute myocardial infarction. The diagnostic value of a single normal or non-diagnostic result is questionable.Serial samples at 2-6 hour intervals are required to rule out acute myocardial injury. Specimen Plasma specimen Performing Organization Address [facility] Phone Number [facility] DEPARTMENT OF PATHOLOGY AND [address] [place] [address] [place] [address] [facility] B natriuretic peptide (09/11/2017 11:40 AM) BNP 5 0 - 100 pg/mL [facility] DEPARTMENT OF PATHOLOGY AND GENOMIC MEDICINE Specimen Blood Performing Organization Address [facility] Phone Number [facility] DEPARTMENT OF PATHOLOGY AND [address] [place] [address] [place] [address] [facility] Creatine kinase, total (CPK) (09/11/2017 11:40 AM) Creatine kinase 54 39 - 308 U/L [facility] DEPARTMENT OF PATHOLOGY AND GENOMIC [facility] Specimen Plasma specimen Performing Organization Address City/[facility]/Zipcode Phone Number [facility] DEPARTMENT OF PATHOLOGY AND [address] [place] [address] [facility] Amylase level (08/31/2017 11:25 AM)Only the most recent of4 resultswithin the time period is included. Amylase 94 (H) 13 - 73 U/L [facility] DEPARTMENT OF PATHOLOGY AND [facility] Specimen Plasma specimen Performing Organization Address [facility] Phone Number [facility] DEPARTMENT OF PATHOLOGY AND [address] [place] [address] [facility] [address] Abdomen Pelvis W Contrast (08/16/2017 4:36 PM)Only the most recent of2 resultswithin the time period is included. Narrative Performed At EXAMINATION:CT ABDOMEN PELVIS W CONTRAST [facility] CLINICAL HISTORY:LLQ painh o diverticperf TECHNIQUE: [...] calculus. Bilateral renal calyceal stones. [facility]-[id number] Procedure Note Interface, Radiology Results Incoming - [...] calculus. Bilateral renal calyceal stones. [facility]-[id number] Performing Organization Address City/State/Zipcode Phone Number [facility] [address] [place] [address] ECG 12 lead (08/07/2017)Only the most recent of2 resultswithin the time period is included. Narrative Performed At ECG ED Preliminary Interpretation - NOT AN ORDER (08/04/2017 3:45 PM) Narrative Performed At Jen Cervantes NP 08/05/2017 11:15 AM ECG ED Preliminary Interpretation - Not an Order Performed by: JEN CERVANTES Authorized by: BEE LCARK ECG reviewed by ED Physician in the absence of a house visitor: yes Interpretation: Interpretation: normal Rate: ECG rate:89 ECG rate assessment: normal Rhythm: Rhythm: sinus rhythm QRS: QRS axis: 74. after 11/22/2016 Insurance Payer Benefit Plan / Group Subscriber ID Type Phone Address [facility] xxxxxxxxx O
--- OUTSIDE RECORDS SUMMARY | 2017-11-23 05:12 | XMS REPORT ---
:1960 Author Organization [facility] Address [address] [place] [address] Care Team Providers Name Role Phone EDMUNDO [...] Department ID 2017-11-10 2017-11-10 Outpatient E [facility] [id number] 15:42:00 21:51:00 DECLAN 2017-08-04 2017-08-04 Emergency E PERICO [facility] [id number] 10:02:00 12:00:00 2017-07-30 2017-07-30 Emergency E TONI [facility] [id number] 13:37:00 17:53:00 MONICA 2017-06-07 2017-06-07 Emergency E COLBY [facility] [id number] 10:57:00 13:46:00 ASIF 2017-05-28 2017-05-28 [facility] [id number] 13:59:00 13:59:00 Results Test Description Test Time Test Comments Text Results Atomic Results Result Comments URINE CULTURE 2017-11-12 11:54:00 Test Item Value Reference Range Comments Culture Observations (test code=COB1) NO GROWTH (<1,000 CFU/ML) CT ABDOMEN AND PELVIS WITHOUT CONTRAST *WW*2017-11-10 15:13:00CT abdomen and pelvis without contrastLocation Code: [id number] HISTORY: R52: PAIN, UNSPECIFIEDCOMPARISON: 07/30/2017, 06/07/2017Technique: Helical [...] abscess.3. Diverticulosis with no evidence of diverticulitis.U/S TESTICULAR*WW*2017-11-10 15:00:22SCROTAL ULTRASOUNDLocation Code: [id number] HISTORY: R52: PAIN, UNSPECIFIEDCOMPARISON: None.TECHNIQUE: Multiple high [...] (test code=USPERM) /HPF NONE CBC (INCLUDES AUTOMATED DIFFERENTIAL)*[id number] 13:00:00 Test Item Value Reference Range Comments WBC (test code=WBC) 11.6 10\S\3/uL 4.5-11.0 RBC (test code=RBC) 3.97 10\S\6/uL 4.20-5.60 HGB (test code=HBG) 9.0 g/dL 14.0-18.0 HCT (test code=HCT) 29.9 % 35.0-46.0 MCV (test code=MCV) 75.3 fL 80.0-94.0 MCH (test code=MCH) 22.7 pg 27.0-31.0 MCHC (test code=MCHC) 30.1 g/dL 32.0-36.0 RDW (test code=RDW) 17.2 % 11.5-14.5 PLT (test code=PLT) 488 10\S\3/uL 130-400 MPV (test code=MPV) 9.8 fL 9.4-12.4 NEUTROP # (test code=NE#) 9.4 10\S\3/uL 2.0-8.0 LYMPH # (test code=LY#) 1.1 10\S\3/uL 1.2-4.0 MONOCYTE # (test code=MO#) 0.6 10\S\3/uL 0.0-1.1 EOSINOPH # (test code=EO#) 0.3 10\S\3/uL 0.0-0.7 BASOPHIL # (test code=BA#) 0.0 10\S\3/uL 0.0-0.3 IG # (test code=IG#) 0.06 10\S\3/uL 0.00-0.06 NRBC # (test code=NRBC#) 0.00 10\S\3/uL 0.00-0.01 NEUTROPH % (test code=NE%) 81.4 % 35.0-73.0 LYMPH % (test code=LY%) 9.6 % 20.0-55.0 MONO % (test code=MO%) 5.4 % 2.5-10.0 EOSINOPH % (test code=EO%) 2.8 % 0.0-5.0 BASOPHIL % (test code=BA%) 0.3 % 0.0-2.0 IG % (test code=IG%) 0.5 % 0.0-0.8 NRBC% (test code=NRBC%) 0.0 % 0.0-0.2 MANDIFF (test code=WMDIFF) NO NO RBC MORPH (test code=WRBCMOR) NORMAL CT, [id number] 16:55:00Reason for exam:->ABDOMINAL PAINReason for exam :->NAUSEAWhat [...] patient history and physical exam. Signed: Kevin Thomasort Verified Date/Time: 09/13/2017 16:55:35 Reading Location: [facility] C013X Ortho Consult Reading Room POCT-GLUCOSE [id number] 15:48:00 Test Item Value Reference Range Comments POC-GLUCOSE METER (BEAKER) 93 mg/dL 70-110 TESTED AT [facility] [address] [facility] (test jzuj=4169) [facility] [address] URINALYSIS WITH MICROSCOPIC IF [id number] 14:32:00 Test Item Value Reference Range Comments COLOR (BEAKER) (test bfoc=415) Light Yellow CLARITY (BEAKER) (test qlhe=448) Clear SPECIFIC GRAVITY UA (BEAKER) (test jfpt=705) 1.011 1.001-1.035 PH UA (BEAKER) (test qjlq=127) 6.5 5.0-8.0 PROTEIN UA (BEAKER) (test yuzl=761) Negative Negative GLUCOSE UA (BEAKER) (test iyph=548) Negative Negative KETONES UA (BEAKER) (test wbnh=884) Negative Negative BILIRUBIN UA (BEAKER) (test kcha=346) Negative Negative BLOOD UA (BEAKER) (test mtdl=091) Negative Negative NITRITE UA (BEAKER) (test etzl=522) Negative Negative LEUKOCYTE ESTERASE UA (BEAKER) (test jrky=533) Negative Negative UROBILINOGEN UA (BEAKER) (test orxi=741) 0.2 mg/dL 0.2-1.0 SOURCE(BEAKER) (test qwjt=0726) COMPREHENSIVE METABOLIC [id number] 13:36:00 Test Item Value Reference Range Comments TOTAL PROTEIN (BEAKER) 7.3 gm/dL 6.0-8.3 (test cbfv=080) ALBUMIN (BEAKER) (test 3.6 g/dL 3.5-5.0 hklb=0346) ALKALINE PHOSPHATASE 122 U/L 40-150 (BEAKER) (test hdtp=335) BILIRUBIN TOTAL (BEAKER) 0.3 mg/dL 0.2-1.2 (test cmgk=927) SODIUM (BEAKER) (test 140 meq/L 136-145 bbou=129) POTASSIUM (BEAKER) (test 3.8 meq/L 3.5-5.1 wccu=775) CHLORIDE (BEAKER) (test 107 meq/L 98-107 sdks=795) CO2 (BEAKER) (test 23 meq/L 22-29 msuu=526) BLOOD UREA NITROGEN 9 mg/dL 7-21 (BEAKER) (test vxfe=393) CREATININE (BEAKER) (test 0.70 mg/dL 0.57-1.25 yfhd=653) GLUCOSE RANDOM (BEAKER) 86 mg/dL 70-105 (test zaps=357) CALCIUM (BEAKER) (test 9.2 mg/dL 8.4-10.2 mfuy=957) AST (SGOT) (BEAKER) (test 8 U/L 5-34 yrlw=103) ALT (SGPT) (BEAKER) (test 6 U/L 6-55 pwwv=633) EGFR (BEAKER) (test 117 mL/min/1.73 sq ESTIMATED GFR IS NOT gwea=3281) m ACCURATE CREATININE CLEARANCE IN PREDICTING GLOMERULAR FILTRATION RATE. ESTIMATED GFR IS NOT APPLICABLE FOR DIALYSIS PATIENTS. CBC W/PLT COUNT & AUTO [id number] 13:07:00 Test Item Value Reference Range Comments WHITE BLOOD CELL COUNT (BEAKER) (test qyyh=489) 11.5 K/ L 3.5-10.5 RED BLOOD CELL COUNT (BEAKER) (test gddg=684) 3.93 M/ L 4.63-6.08 HEMOGLOBIN (BEAKER) (test tryv=443) 8.9 GM/DL 13.7-17.5 HEMATOCRIT (BEAKER) (test vovn=048) 30.6 % 40.1-51.0 MEAN CORPUSCULAR VOLUME (BEAKER) (test dzri=767) 77.9 fL 79.0-92.2 MEAN CORPUSCULAR HEMOGLOBIN (BEAKER) (test 22.6 pg 25.7-32.2 lrix=975) MEAN CORPUSCULAR HEMOGLOBIN CONC (BEAKER) (test 29.1 GM/DL 32.3-36.5 pykk=184) RED CELL DISTRIBUTION WIDTH (BEAKER) (test 16.4 % 11.6-14.4 rmyi=322) PLATELET COUNT (BEAKER) (test dnhq=415) 442 K/CU MM 150-450 MEAN PLATELET VOLUME (BEAKER) (test cdqr=941) 10.2 fL 9.4-12.4 NUCLEATED RED BLOOD CELLS (BEAKER) (test 0 /100 WBC 0-0 vfwp=864) NEUTROPHILS RELATIVE PERCENT (BEAKER) (test 79 % nths=591) LYMPHOCYTES RELATIVE PERCENT (BEAKER) (test 9 % nnsy=369) MONOCYTES RELATIVE PERCENT (BEAKER) (test 9 % hntq=688) EOSINOPHILS RELATIVE PERCENT (BEAKER) (test 2 % kzws=991) BASOPHILS RELATIVE PERCENT (BEAKER) (test 0 % ncfq=238) NEUTROPHILS ABSOLUTE COUNT (BEAKER) (test 9.15 K/ L 1.78-5.38 hcmn=197) LYMPHOCYTES ABSOLUTE COUNT (BEAKER) (test 1.04 K/ L 1.32-3.57 ougf=723) MONOCYTES ABSOLUTE COUNT (BEAKER) (test 0.98 K/ L 0.30-0.82 sjbh=974) EOSINOPHILS ABSOLUTE COUNT (BEAKER) (test 0.26 K/ L 0.04-0.54 eamm=172) BASOPHILS ABSOLUTE COUNT (BEAKER) (test 0.02 K/ L 0.01-0.08 cygd=783) IMMATURE GRANULOCYTES-RELATIVE PERCENT (BEAKER) 1 % 0-1 (test hmvy=6993) POCT-LACTIC ACID, [id number] 12:44:00 Test Item Value Reference Range Comments POC-LACTIC ACID, VENOUS 0.8 mmol/L 0.9-1.7 TESTED AT [facility] [address] (BEAKER) (test xuzd=3223) [facility] [address] COMPREHENSIVE METABOLIC [id number] 08:51:00 Test Item Value Reference Range Comments TOTAL PROTEIN (BEAKER) 7.5 gm/dL 6.0-8.5 (test kqrx=766) ALBUMIN (BEAKER) (test 3.6 g/dL 3.5-5.0 dnkf=8781) ALKALINE PHOSPHATASE 119 U/L 30-115 (BEAKER) (test vpfq=278) BILIRUBIN TOTAL (BEAKER) 0.1 mg/dL 0.1-1.3 (test qiwp=952) SODIUM (BEAKER) (test 138 meq/L 135-148 uses=404) POTASSIUM (BEAKER) (test 4.0 meq/L 3.5-5.5 pwsj=666) CHLORIDE (BEAKER) (test 105 meq/L 98-106 tvug=586) CO2 (BEAKER) (test 26 meq/L 20-31 irtk=973) BLOOD UREA NITROGEN 10 mg/dL 10-26 (BEAKER) (test tjrk=651) CREATININE (BEAKER) (test 0.74 mg/dL 0.50-1.20 zkyz=920) GLUCOSE RANDOM (BEAKER) 88 mg/dL 70-110 (test cqwu=859) CALCIUM (BEAKER) (test 9.4 mg/dL 8.5-10.5 nqsb=162) AST (SGOT) (BEAKER) (test 9 U/L 5-40 jokt=721) ALT (SGPT) (BEAKER) (test < U/L 6-50 fjcr=912) EGFR (BEAKER) (test 109 mL/min/1.73 sq ESTIMATED GFR IS NOT qcow=0726) m ACCURATE CREATININE CLEARANCE IN PREDICTING GLOMERULAR FILTRATION RATE. ESTIMATED GFR IS NOT APPLICABLE FOR DIALYSIS PATIENTS. [id number] 08:49:00 Test Item Value Reference Range Comments LIPASE (BEAKER) (test vtwc=869) 29 U/L 8-78 CBC W/PLT COUNT & AUTO [id number] 08:35:00 Test Item Value Reference Range Comments WHITE BLOOD CELL COUNT (BEAKER) (test rbbo=061) 8.8 K/ L 4.0-10.0 RED BLOOD CELL COUNT (BEAKER) (test ugag=468) 3.93 M/ L 4.20-5.80 HEMOGLOBIN (BEAKER) (test bmlb=960) 9.3 GM/DL 13.0-16.8 HEMATOCRIT (BEAKER) (test xnkx=433) 29.7 % 40.0-50.0 MEAN CORPUSCULAR VOLUME (BEAKER) (test gmib=179) 75.6 fL 82.0-98.0 MEAN CORPUSCULAR HEMOGLOBIN (BEAKER) (test 23.5 pg 27.0-33.0 wmod=119) MEAN CORPUSCULAR HEMOGLOBIN CONC (BEAKER) (test 31.2 GM/DL 32.0-36.0 tyny=374) RED CELL DISTRIBUTION WIDTH (BEAKER) (test 18.0 % 12.0-15.0 runb=228) PLATELET COUNT (BEAKER) (test bjsf=216) 482 K/CU MM 150-430 MEAN PLATELET VOLUME (BEAKER) (test qqum=692) 8.3 fL 6.5-10.5 NUCLEATED RED BLOOD CELLS (BEAKER) (test 0 /100 WBC 0-0 yosv=582) NEUTROPHILS RELATIVE PERCENT (BEAKER) (test 77 % mfdh=422) LYMPHOCYTES RELATIVE PERCENT (BEAKER) (test 13 % elgx=378) MONOCYTES RELATIVE PERCENT (BEAKER) (test 5 % ybfx=247) EOSINOPHILS RELATIVE PERCENT (BEAKER) (test 4 % agml=569) BASOPHILS RELATIVE PERCENT (BEAKER) (test 1 % tepm=667) NEUTROPHILS ABSOLUTE COUNT (BEAKER) (test 6.80 K/ L 1.80-8.00 xfxf=154) LYMPHOCYTES ABSOLUTE COUNT (BEAKER) (test 1.10 K/ L 1.48-4.50 ywiy=863) MONOCYTES ABSOLUTE COUNT (BEAKER) (test 0.50 K/ L 0.00-1.30 xyvh=401) EOSINOPHILS ABSOLUTE COUNT (BEAKER) (test 0.40 K/ L 0.00-0.50 drec=952) BASOPHILS ABSOLUTE COUNT (BEAKER) (test 0.10 K/ L 0.00-0.20 arzv=575) AMYLASE AND LIPASE *WW*2017-08-04 11:44:00 Test Item Value Reference Range Comments AMYLASE (test code=10A) 85 U/L 28-100 LIPASE (test code=60A) 187 IU/L 73-393 COMPREHENSIVE METABOLIC ORTEGA *WW*2017-08-04 11:44:00 Test Item Value Reference Range Comments [...] (test code=USPERM) /HPF NONE CBC (INCLUDES AUTOMATED DIFFERENTIAL)*[id number] 11:23:00 Test Item Value Reference Range Comments WBC (test code=WBC) 15.4 10\S\3/uL 4.5-11.0 RBC (test code=RBC) 3.85 10\S\6/uL 4.20-5.60 HGB (test code=HBG) 9.1 g/dL 14.0-18.0 HCT (test code=HCT) 30.3 % 35.0-46.0 MCV (test code=MCV) 78.7 fL 80.0-94.0 MCH (test code=MCH) 23.6 pg 27.0-31.0 MCHC (test code=MCHC) 30.0 g/dL 32.0-36.0 RDW (test code=RDW) 17.2 % 11.5-14.5 PLT (test code=PLT) 476 10\S\3/uL 130-400 MPV (test code=MPV) 10.1 fL 9.4-12.4 NEUTROP # (test code=NE#) 12.5 10\S\3/uL 2.0-8.0 LYMPH # (test code=LY#) 1.3 10\S\3/uL 1.2-4.0 MONOCYTE # (test code=MO#) 1.2 10\S\3/uL 0.0-1.1 EOSINOPH # (test code=EO#) 0.3 10\S\3/uL 0.0-0.7 BASOPHIL # (test code=BA#) 0.0 10\S\3/uL 0.0-0.3 IG # (test code=IG#) 0.11 10\S\3/uL 0.00-0.06 NRBC # (test code=NRBC#) 0.00 10\S\3/uL 0.00-0.01 NEUTROPH % (test code=NE%) 81.4 % [...] code=09D) 8.1 mg/dL 8.3-9.5 CBC (INCLUDES AUTOMATED DIFFERENTIAL)*[id number] 14:14:00 Test Item Value Reference Range Comments WBC (test code=WBC) 8.0 10\S\3/uL 4.5-11.0 RBC (test code=RBC) 3.70 10\S\6/uL 4.20-5.60 HGB (test code=HBG) 8.6 g/dL 14.0-18.0 HCT (test code=HCT) 28.9 % 35.0-46.0 MCV (test code=MCV) 78.1 fL 80.0-94.0 MCH (test code=MCH) 23.2 pg 27.0-31.0 MCHC (test code=MCHC) 29.8 g/dL 32.0-36.0 RDW (test code=RDW) 17.4 % 11.5-14.5 PLT (test code=PLT) 359 10\S\3/uL 130-400 MPV (test code=MPV) 10.2 fL 9.4-12.4 NEUTROP # (test code=NE#) 6.2 10\S\3/uL 2.0-8.0 LYMPH # (test code=LY#) 1.0 10\S\3/uL 1.2-4.0 MONOCYTE # (test code=MO#) 0.6 10\S\3/uL 0.0-1.1 EOSINOPH # (test code=EO#) 0.1 10\S\3/uL 0.0-0.7 BASOPHIL # (test code=BA#) 0.0 10\S\3/uL 0.0-0.3 IG # (test code=IG#) 0.04 10\S\3/uL 0.00-0.06 NRBC # (test code=NRBC#) 0.00 10\S\3/uL 0.00-0.01 NEUTROPH % (test code=NE%) 78.1 % 35.0-73.0 LYMPH % (test code=LY%) 12.6 % 20.0-55.0 MONO % (test code=MO%) 7.6 % 2.5-10.0 EOSINOPH % (test code=EO%) 1.1 % 0.0-5.0 BASOPHIL % (test code=BA%) 0.1 % 0.0-2.0 IG % (test code=IG%) 0.5 % 0.0-0.8 NRBC% (test code=NRBC%) 0.0 % 0.0-0.2 MANDIFF (test code=WMDIFF) NO NO RBC MORPH (test code=WRBCMOR) NORMAL Culture, [id number] 14:17:00 Test Item Value Reference Range Comments Culture, Urine (test code=URC) NG36 [id number] 14:50:00 Test Item Value Reference Range Comments [...] (test code=UABLD) Trace Negative Urine Source: Urine [id number] 14:50:00 Test Item Value Reference Range Comments Urinalysis (test code=UARBC) 0-3 HPF 0-3 Urinalysis (test code=UASQUAM) 0-3 HPF 0-3 Urine Source: Urine [id number] 14:48:00 Test Item Value Reference Range Comments Hematology (test code=SED) 74 mm/hr 0-10 ADDED SED RATE, CRP NOT [id number] 14:00:00 Test Item Value Reference Range Comments [...] 5-34 Chemistry (test code=ALT) 8 U/L 8-55 [id number] 14:00:00 Test Item Value Reference Range Comments Chemistry (test code=FELISHA) 93.0 U/L 25-125 [id number] 14:00:00 Test Item Value Reference Range Comments Chemistry (test code=LIP) 31 U/L 8-78 [id number] 13:53:00 Test Item Value Reference Range Comments [...] (test code=BASO#) 0.1 thou/uL 0.0-0.2 U/S KIDNEY (RENAL)*WW*2017-06-07 13:37:51RENAL ULTRASOUNDLocation Code: [id number] HISTORY: N28.1: CYST OF KIDNEY, ACQUIREDCOMPARISON: CT [...] (test code=WAUAM) NO NO CBC (INCLUDES AUTOMATED DIFFERENTIAL)*[id number] 11:49:00 Test Item Value Reference Range Comments WBC (test code=WBC) 15.0 10\S\3/uL 4.5-11.0 RBC (test code=RBC) 3.88 10\S\6/uL 4.20-5.60 HGB (test code=HBG) 9.2 g/dL 14.0-18.0 HCT (test code=HCT) 30.4 % 35.0-46.0 MCV (test code=MCV) 78.4 fL 80.0-94.0 MCH (test code=MCH) 23.7 pg 27.0-31.0 MCHC (test code=MCHC) 30.3 g/dL 32.0-36.0 RDW (test code=RDW) 16.3 % 11.5-14.5 PLT (test code=PLT) 530 10\S\3/uL 130-400 MPV (test code=MPV) 10.0 fL 9.4-12.4 NEUTROP # (test code=NE#) 12.2 10\S\3/uL 2.0-8.0 LYMPH # (test code=LY#) 1.5 10\S\3/uL 1.2-4.0 MONOCYTE # (test code=MO#) 0.9 10\S\3/uL 0.0-1.1 EOSINOPH # (test code=EO#) 0.4 10\S\3/uL 0.0-0.7 BASOPHIL # (test code=BA#) 0.0 10\S\3/uL 0.0-0.3 IG # (test code=IG#) 0.13 10\S\3/uL 0.00-0.06 NRBC # (test code=NRBC#) 0.00 10\S\3/uL 0.00-0.01 NEUTROPH % (test code=NE%) 80.9 % [...] CT ABDOMEN AND PELVIS WITHOUT CONTRAST *WW*HISTORY: [id number]: Lower abdominal pain . Initial encounter. No [...] ultrasound confirmation.Moderate diverticulosis, no evidence of acute diverticulitis.Culture, [id number] 11:42:00 Test Item Value Reference Range Comments Culture, Urine (test code=URC) NG48 Chemistry - BNP, HgbA1c, [id number] 15:48:00 Test Item Value Reference Range Comments Chemistry - BNP, HgbA1c, PTHi (test Less than 10.0 pg/mL 0-100 code=BNP) [id number] 15:40:00 Test Item Value Reference Range Comments [...] CA OXALATE HPF Negative Urine Source: Urine [id number] 15:13:00 Test Item Value Reference Range Comments [...] 0.0-0.7 Hematology (test code=BASO#) 0.1 thou/uL 0.0-0.2 [id number] 15:11:00 Test Item Value Reference Range Comments [...] code=AST) Chemistry (test 14 U/L 8-55 code=ALT) [id number] 15:11:00 Test Item Value Reference Range Comments Chemistry (test code=CK) 63 U/L 30-200
[2017-11-23 05:57] LABS: Absolute Lymphocytes (CBC) 1.4 K/uL (0.7-4.9); Absolute Monocytes 1.4 K/uL (0.1-1.3); Absolute Neutrophil 7.8 K/uL (1.8-8.0); Basophils % 0.3 % (0-1.3); Eosinophils % 2.5 % (0-4.4); Hematocrit 26.9 % (39.6-49.0); Lymphocytes % 12.6 % (15.3-44.8); MCH 22.8 pg (27.0-35.0); MCV 72.3 fL (80-100); MPV 8.3 fL (7.6-11.3); Monocytes % 12.8 % (3.3-12.3); RBC Red Blood Cell Count 3.72 M/uL (4.33-5.43)
[2017-11-23] MEDS ORDERED: FENTANYL CITR 100 MCG/2 ML ONE (06:34)
[2017-11-23] MEDS ORDERED: LIDOCAINE 1% MPF 5 ML VIAL ONE (06:38)
[2017-11-23] MEDS ORDERED: COLCHICINE 0.6 MG TAB ONE (07:36)
[2017-11-23] MEDS ORDERED: MORPHINE 4 MG/ML SYR ONE ×3 (07:36→09:43)
--- NOTE | 2017-11-23 08:18 | RAD REPORT ---
EXAM DESCRIPTION: CT - Wrist Right Wo Cont - 11/23/2017 7:23 am CLINICAL HISTORY: hand pain Wrist pain and swelling COMPARISON: No comparisons FINDINGS: Advanced degenerative change is noted involving the first carpometacarpal joint with joint space loss, osteophytes, mild subluxation and degenerative cysts. Significant widening of the scapholunate interval is noted to 6 mm, compatible with tear of the scaph olunate ligament. The lunate appears tilted in the dorsal direction without dislocation. This raises the possibility of DISI. Old ulnar styloid avulsion is seen. No acute fracture is identified. No hematoma or soft tissue mass. Moderate soft tissue swelling is seen along the radial aspect of the base of the thumb. IMPRESSION: Advanced degenerative changes present at the first carpometacarpal joint with adjacent s oft tissue swelling. 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 No acute fracture seen. All CT scans are performed using dose optimization technique as appropriate and may include automated exposure control or mA/KV adjustment according to patient size.
[2017-11-23] MEDS ORDERED: DEXAMETHASONE 10 MG/ML VIAL ONE (09:24)
--- NOTE | 2017-11-23 09:56 | EDPHYS ---
Physician Documentation [facility] Name: Chandler Carr Age: 57 yrs Sex: Male : 1960 Arrival Date: 11/23/2017 Time: 05:08 Bed 20 Private MD: ED Physician Harrison Gandhi HPI: 11/23 08:09 This 57 yrs old Male presents to ER via Ambulatory with complaints of Hand wa Pain. 08:09 The patient or guardian reports pain, swelling, tenderness, R base of thumb. The wa complaints affect the dorsal aspect of proximal phalanx of right thumb. Context: The problem was sustained at a denies injury. states began last night with pain. now swollen, resulted from an unknown cause, h/o gout. Onset: The symptoms/episode began/occurred yesterday. Modifying factors: The symptoms are alleviated by nothing, the symptoms are aggravated by movement, dependent position. Associated signs and symptoms: Pertinent positives: Pertinent negatives: cyanosis distally, decreased sensation distally, numbness distally, tingling distally. Severity of symptoms: At their worst the symptoms were moderate, in the emergency department the symptoms are actually worse, moderately. The patient has not experienced similar symptoms in the past. The patient has not recently seen a physician. Historical: - Allergies: 05:22 NSAIDS; bs1 05:22 PENICILLINS; bs1 - Home Meds: 05:22 Hydrocodone-Acetaminophen Oral [Active]; bs1 - PMHx: 05:22 Diverticulitis; skin cancer; hydradenitis; hx of gout in left foot; squamous cell bs1 carcinoma; - PSHx: 05:22 cataracts; kidney stones sx; plastic sx; back sx; removed tumor on chest; bs1 - Immunization history:: Adult Immunizations up to date. - Social history:: Smoking status: Patient uses tobacco products, denies chronic smoking, but will smoke occasionally. - Ebola Screening: : Patient negative for fever greater than or equal to 101.5 degrees Fahrenheit, and additional compatible Ebola Virus Disease symptoms Patient denies exposure to infectious person. - Family history:: not pertinent. - Hospitalizations: : No recent hospitalization is reported. ROS: 08:12 Constitutional: Negative for fever, chills, and weight loss, Eyes: Negative for injury, wa pain, redness, and discharge, ENT: Negative for injury, pain, and discharge, Neck: Negative for injury, pain, and swelling, Cardiovascular: Negative for chest pain, palpitations, and edema, Respiratory: Negative for shortness of breath, cough, wheezing, and pleuritic chest pain, Abdomen/GI: Negative for abdominal pain, nausea, vomiting, diarrhea, and constipation, Back: Negative for injury and pain, : Negative for injury, bleeding, discharge, and swelling, Skin: Negative for injury, rash, and discoloration, Neuro: Negative for headache, weakness, numbness, tingling, and seizure, Psych: Negative for depression, anxiety, suicide ideation, homicidal ideation, and hallucinations. 08:12 MS/extremity: Positive for pain, swelling, tenderness, of the dorsal aspect of proximal phalanx of right thumb. 08:12 All other systems are negative. Exam: 08:12 Constitutional: This is a well developed, well nourished patient who is awake, alert, wa and in no acute distress. Head/Face: Normocephalic, atraumatic. Eyes: Pupils equal round and reactive to light, extra-ocular motions intact. Lids and lashes normal. Conjunctiva and sclera are non-icteric and not injected. Cornea within normal limits. Periorbital areas with no swelling, redness, or edema. ENT: Nares patent. No nasal discharge, no septal abnormalities noted. Tympanic membranes are normal and external auditory canals are clear. Oropharynx with no redness, swelling, or masses, exudates, or evidence of obstruction, uvula midline. Mucous membranes moist. Neck: Trachea midline, no thyromegaly or masses palpated, and no cervical lymphadenopathy. Supple, full range of motion without nuchal rigidity, or vertebral point tenderness. No Meningismus. Chest/axilla: Normal chest wall appearance and motion. Nontender with no deformity. No lesions are appreciated. Cardiovascular: Regular rate and rhythm with a normal S1 and S2. No gallops, murmurs, or rubs. Normal PMI, no JVD. No pulse deficits. Respiratory: Lungs have equal breath sounds bilaterally, clear to auscultation and percussion. No rales, rhonchi or wheezes noted. No increased work of breathing, no retractions or nasal flaring. Abdomen/GI: Soft, non-tender, with normal bowel sounds. No distension or tympany. No guarding or rebound. No evidence of tenderness throughout. Back: No spinal tenderness. No costovertebral tenderness. Full range of motion. Skin: Warm, dry with normal turgor. Normal color with no rashes, no lesions, and no evidence of cellulitis. Neuro: Awake and alert, GCS 15, oriented to person, place, time, and situation. Cranial nerves II-XII grossly intact. Motor strength 5/5 in all extremities. Sensory grossly intact. Cerebellar exam normal. Normal gait. Psych: Awake, alert, with orientation to person, place and time. Behavior, mood, and affect are within normal limits. 08:12 Musculoskeletal/extremity: Extremities: grossly normal except: pain, swelling, tenderness, base of R thumb. no redness. no fluctuance. mild increased warmth. Vital Signs: 05:30 BP 120 / 70; Pulse 93; Resp 16; Temp 98.1(O); Pulse Ox 95% on R/A; Weight 68.04 kg; bs1 Height 5 ft. 9 in. (175.26 cm); Pain 10/10; 06:30 BP 115 / 65; Pulse 84; Resp 17; Pulse Ox 97% on R/A; Pain 9/10; bs1 07:30 BP 135 / 77; Pulse 84; Resp 18; Pulse Ox 97% on R/A; Pain 10/10; iw 08:35 BP 131 / 84; Pulse 81; Resp 16; Pulse Ox 96% on R/A; em 09:30 BP 139 / 72; Pulse 82; Resp 16; Pulse Ox 97% on R/A; Pain 10/10; em 05:30 Body Mass Index 22.15 (68.04 kg, 175.26 cm) bs1 Procedures: 09:58 Splinting: Splint applied to right wrist using Orthoglass splint, applied by nurse. wa Examined by me, post splint application: neurovascular intact, 2+ distal pulses palpable, brisk capillary refill noted, Patient tolerated well, thumb spica fashion. MDM: 05:28 Patient medically screened. gs 08:13 Differential diagnosis: gout? infection, less likely. denies trauma. pain control. wa colcrys. reassess. 09:39 Data reviewed: vital signs, nurses notes, lab test result(s), radiologic studies. Test wa interpretation: by ED physician or midlevel provider: labs noted for anemia. nml uric acid. 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 Widening of the scapholunate interval compatible with underlying scapholunate ligament tear with DISI.. Response to treatment: the patient's symptoms have mildly improved after treatment. ED course: discussed CT findings with radiologist. will not tap the joint as no definitive fluid collection. Per Radiologist, findings not acute and may signifying underlying rheum arthritis. Gave a dose of decadron. splint and sling placed. will have f/u with ortho closely. 11/23 05:29 Order name: Uric Acid; Complete Time: 06:20 gs 11/23 05:29 Order name: CBC with Diff; Complete Time: 06:20 gs 11/23 06:47 Order name: Wrist Right Wo Cont; Complete Time: 08:19 EDMS 11/23 09:34 Order name: Thumb Spica Splint: R; Complete Time: 10:03 wa Administered Medications: 04:57 Drug: morphine 8 mg Route: IVP; Site: left antecubital; em 10:02 Follow up: Response: No adverse reaction; Pain is decreased em 06:37 Drug: fentaNYL (PF) 50 mcg Route: IVP; Site: left forearm; bs1 06:53 Follow up: Response: No adverse reaction bs1 06:46 Not Given (not available, per verbal order from Dr Bartholomew, set up 1% lido): Lidocaine (2 bs1 %) 5 mg Infiltration once 07:39 Drug: morphine 4 mg Route: IVP; Site: left antecubital; iw 08:11 Follow up: Response: No adverse reaction; Pain is unchanged, physician notified em 07:40 Drug: Colcrys 1.2 mg Route: PO; em 08:11 Follow up: Response: No adverse reaction em 08:11 Drug: morphine 4 mg Route: IVP; Site: left antecubital; em 09:33 Follow up: Response: No adverse reaction; Pain is unchanged, physician notified em 08:48 Not Given (Physician Discretion): Pepcid 20 mg IVP once em 09:33 Not Given (Physician Discretion): Lidocaine (1 %) 1 application 5 ml Infiltration once; em to bedside 09:40 Drug: Decadron - Dexamethasone 10 mg Route: IVP; Site: left antecubital; iw 10:02 Follow up: Response: No adverse reaction em Disposition: 11/23/17 09:55 Discharged to Home. Impression: Right Wrist Pain and Swelling, Scapholunate Ligament Tear. - Condition is Stable. - Discharge Instructions: Wrist Splint, Wrist Pain, [id number]. - Prescriptions for Prednisone 20 mg Oral Tablet - take 2 tablet by ORAL route once daily for 5 days; 10 tablet. - Medication Reconciliation Form, Thank You Letter, Antibiotic Education, Prescription Opioid Use form. - Follow up: Domenic Huertas MD; When: 1 - 2 days; Reason: for further evaluation. - Problem is new. - Symptoms have improved. - Notes: continue to wear the splint. see the bone doctor for further evaluation of your wrist as it appears you may have a tear in a ligament Signatures: Dispatcher [employer] EDRoberto Redding, SKEIN DRIER SKEIN DRIER em Chelly Webster RN RN Bro Bartholomew MD MD Harrison Gandhi MD MD wa Salazar, Brittany RN RN bs1 Corrections: (The following items were deleted from the chart) 10:03 06:31 Surgical Consent ordered. em 10:13 09:55 11/23/2017 09:55 Discharged to Home. Impression: Right Wrist Pain and Swelling; em Scapholunate Ligament Tear. Condition is Stable. Forms are Medication Reconciliation Form, Thank You Letter, Antibiotic Education, Prescription Opioid Use. Follow up: Domenic Huertas; When: 1 - 2 days; Reason: for further evaluation. Problem is new. Symptoms have improved. wa
--- NOTE | 2017-11-23 09:56 | ER ---
Nurse's Notes [facility] Name: Chandler Carr Age: 57 yrs Sex: Male : 1960 Arrival Date: 11/23/2017 Time: 05:08 Bed 20 Private MD: Diagnosis: Right Wrist Pain and Swelling;Scapholunate Ligament Tear Presentation: 11/23 05:18 Presenting complaint: Patient states: "My right hand is hurting me real bad, it started bs1 yesterday evening, look how swollen it is." Patient denies any trauma. Transition of care: patient was not received from another setting of care. Onset of symptoms was November 22, 2017. Risk Assessment: Do you want to hurt yourself or someone else? Patient reports no desire to harm self or others. Initial Sepsis Screen: Does the patient meet any 2 criteria? HR > 90 bpm. Does the patient have a suspected source of infection? No. Patient's initial sepsis screen is negative. Care prior to arrival: None. 05:18 Method Of Arrival: Ambulatory bs1 05:18 Acuity: SCAR 4 bs1 Historical: - Allergies: 05:22 NSAIDS; bs1 05:22 PENICILLINS; bs1 - Home Meds: 05:22 Hydrocodone-Acetaminophen Oral [Active]; bs1 - PMHx: 05:22 Diverticulitis; skin cancer; hydradenitis; hx of gout in left foot; squamous cell bs1 carcinoma; - PSHx: 05:22 cataracts; kidney stones sx; plastic sx; back sx; removed tumor on chest; bs1 - Immunization history:: Adult Immunizations up to date. - Social history:: Smoking status: Patient uses tobacco products, denies chronic smoking, but will smoke occasionally. - Ebola Screening: : Patient negative for fever greater than or equal to 101.5 degrees Fahrenheit, and additional compatible Ebola Virus Disease symptoms Patient denies exposure to infectious person. - Family history:: not pertinent. - Hospitalizations: : No recent hospitalization is reported. Screenin:39 Abuse screen: Denies threats or abuse. Denies injuries from another. Nutritional bs1 screening: No deficits noted. Tuberculosis screening: No symptoms or risk factors identified. Fall Risk None identified. Assessment: 05:23 General: Appears in no apparent distress. uncomfortable, slender, Behavior is bs1 cooperative, anxious. Pain: Complains of pain in right hand. Neuro: Level of Consciousness is awake, alert, obeys commands. Cardiovascular: Denies chest pain, shortness of breath, Heart tones S1 S2 present Capillary refill < 3 seconds Patient's skin is warm and dry. Respiratory: Airway is patent Trachea midline. GI: No signs and/or symptoms were reported involving the gastrointestinal system. : No signs and/or symptoms were reported regarding the genitourinary system. EENT: No signs and/or symptoms were reported regarding the EENT system. Derm: Skin is intact. Musculoskeletal: Circulation, motion, and sensation intact. Capillary refill < 3 seconds, Range of motion: limited in right hand Swelling present in right hand Reports pain in right hand. 06:40 Reassessment: Set up lido at bedside per Order from Dr Bartholomew. Pain medication given as bs1 prescribed. 07:01 Reassessment: Report given to GRACE Mejia. bs1 07:26 Reassessment: Patient appears in no apparent distress at this time. Patient and/or em family updated on plan of care and expected duration. Pain level reassessed. Patient is alert, oriented x 3, equal unlabored respirations, skin warm/dry/pink. Dr. Gandhi at bedside, pt reports pain in right hand, prior medication did not help, new medication orders received. 08:05 Reassessment: Patient appears in no apparent distress at this time. pt reports em medication did not help, Dr. Gandhi notified, new medication orders received. 08:39 Reassessment: Patient appears in no apparent distress at this time. Patient and/or em family updated on plan of care and expected duration. Pain level reassessed. Patient is alert, oriented x 3, equal unlabored respirations, skin warm/dry/pink. pt reports medication has not helped and is moving down his forearm, Dr. Gandhi, notified. 09:15 Reassessment: Patient appears in no apparent distress at this time. Patient and/or em family updated on plan of care and expected duration. Pain level reassessed. Patient is alert, oriented x 3, equal unlabored respirations, skin warm/dry/pink. pt reports pain is unchanged, Dr. Gandhi notified, new medication orders received. Vital Signs: 05:30 BP 120 / 70; Pulse 93; Resp 16; Temp 98.1(O); Pulse Ox 95% on R/A; Weight 68.04 kg; bs1 Height 5 ft. 9 in. (175.26 cm); Pain 10/10; 06:30 BP 115 / 65; Pulse 84; Resp 17; Pulse Ox 97% on R/A; Pain 9/10; bs1 07:30 BP 135 / 77; Pulse 84; Resp 18; Pulse Ox 97% on R/A; Pain 10/10; iw 08:35 BP 131 / 84; Pulse 81; Resp 16; Pulse Ox 96% on R/A; em 09:30 BP 139 / 72; Pulse 82; Resp 16; Pulse Ox 97% on R/A; Pain 10/10; em 05:30 Body Mass Index 22.15 (68.04 kg, 175.26 cm) bs1 ED Course: 05:08 Patient arrived in ED. ds1 05:12 Danielle Fisher, RN is Primary Nurse. bs1 05:15 Bro Bartholomew MD is Attending Physician. gs 05:19 Triage completed. bs1 05:39 Patient has correct armband on for positive identification. Bed in low position. Call bs1 light in reach. Side rails up X 1. Pulse ox on. NIBP on. Warm blanket given. 05:43 Inserted saline lock: 20 gauge in left forearm, using aseptic technique. Blood bs1 collected. By ut, flushed with 10cc NS. 05:44 Arm band placed on right wrist. bs1 07:10 Attending Physician role handed off by Bro Bartholomew MD wa 07:10 Harrison Gandhi MD is Attending Physician. wa 07:23 Wrist Right Wo Cont In Process Unspecified. EDMS 07:23 CT completed. Patient tolerated procedure well. Patient moved to CT via wheelchair. Patient moved back from ID. 09:53 Domenic Huertas MD is Referral Physician. wa 09:58 Orthoglass splint: Thumb spica splint applied on right forearm. em 10:11 No provider procedures requiring assistance completed. IV discontinued, intact, em bleeding controlled, No redness/swelling at site. Pressure dressing applied. Administered Medications: 04:57 Drug: morphine 8 mg Route: IVP; Site: left antecubital; em 10:02 Follow up: Response: No adverse reaction; Pain is decreased em 06:37 Drug: fentaNYL (PF) 50 mcg Route: IVP; Site: left forearm; bs1 06:53 Follow up: Response: No adverse reaction bs1 06:46 Not Given (not available, per verbal order from Dr Bartholomew, set up 1% lido): Lidocaine (2 bs1 %) 5 mg Infiltration once 07:39 Drug: morphine 4 mg Route: IVP; Site: left antecubital; iw 08:11 Follow up: Response: No adverse reaction; Pain is unchanged, physician notified em 07:40 Drug: Colcrys 1.2 mg Route: PO; em 08:11 Follow up: Response: No adverse reaction em 08:11 Drug: morphine 4 mg Route: IVP; Site: left antecubital; em 09:33 Follow up: Response: No adverse reaction; Pain is unchanged, physician notified em 08:48 Not Given (Physician Discretion): Pepcid 20 mg IVP once em 09:33 Not Given (Physician Discretion): Lidocaine (1 %) 1 application 5 ml Infiltration once; em to bedside 09:40 Drug: Decadron - Dexamethasone 10 mg Route: IVP; Site: left antecubital; iw 10:02 Follow up: Response: No adverse reaction em Outcome: 09:55 Discharge ordered by . wa 10:11 Discharged to home ambulatory, with family. em 10:11 Condition: good 10:11 Discharge instructions given to patient, Instructed on discharge instructions, follow up and referral plans. Demonstrated understanding of instructions, follow-up care, medications, Prescriptions given X 1. 10:13 Patient left the ED. em Signatures: Dispatcher [employer] EDGA Tamela Pratt Roberto Perez, CAPTAIN ROOM SERVICE CAPTAIN ROOM SERVICE em Abbie Jacobsen ds1 Chelly Webster, [place] RN iw Bro Bartholomew MD MD gs [place], William, MD MD wa Salazar, Brittany RN RN bs1 Corrections: (The following items were deleted from the chart) 06:59 05:23 Derm: Skin is intact, bs1 bs1 06:59 05:23 Musculoskeletal: Circulation, motion, and sensation intact. Capillary refill < 3 bs1 seconds, Range of motion: limited in right hand Reports pain in right hand bs1
== END 2017-11-23 10:13 | disposition home or self-care (01) ==
LOC: ER 05:07
PROC: 2W3CX1Z Immobilization of Right Lower Arm using Splint (ICD-10-PCS; principal; 2017-11-23)
DX: S63.8X1A Sprain of other part of right wrist and hand, initial encounter (principal); Z72.0 Tobacco use; Z85.828 Personal history of other malignant neoplasm of skin; Z88.0 Allergy status to penicillin; Z88.6 Allergy status to analgesic agent
CPT/HCPCS: 36415; 73200; 84550; 85025; 99285; J1100; J3010

== ENCOUNTER 2018-01-28 12:53 | Emergency (ER) | payer OTHER ==
--- OUTSIDE RECORDS SUMMARY | 2018-01-28 12:55 | XMS REPORT | Clinical Summary ---
:1960 Author Organization [facility] Address [facility] [place] [address] Care Team Providers Name Role Phone Unavailable Primary Care Provider Unavailable Allergies Active Allergy Reactions Severity Noted Date Comments Gadolinium-Containing Rash 12/15/2017 Does not cause reaction if Contrast Media premedicated with benadryl per patient. Penicillin G 12/15/2017 Current Medications Not on file Active Problems Problem Noted Date LLQ pain 12/15/2017 Encounters Date Type Specialty Care Team Description 12/15/2017 Emergency Emergency Medicine Billy Lozoya MD LLQ pain ( Primary Dx) after 01/27/2017 Social History Tobacco Use Types Packs/Day Years Used Date Never Assessed Sex Assigned at Date Recorded Not on file Last Filed Vital Signs Vital Sign Reading Time Taken Blood Pressure 124/86 12/15/2017 12:00 PM CDT Pulse 88 12/15/2017 12:00 PM CDT Temperature 37 C (98.6 F) 12/15/2017 12:00 PM CDT Respiratory Rate 18 12/15/2017 12:00 PM CDT Oxygen Saturation 98% 12/15/2017 12:00 PM CDT Inhaled Oxygen Concentration - - Weight 65.8 kg (145 lb) 12/15/2017 8:00 AM CDT Height - - Body Mass Index - - Plan of Treatment Health Maintenance Due Date Last Done Comments Colorectal Cancer Scrn Annual (FIT/FOBT) Age 50 to 75 2010 IMM Influenza Seasonal Jan to June (>/=19 yrs) 01/01/2018 Procedures Procedure Name Priority Date/Time Associated Comments Diagnosis UA CHEMISTRIES STAT 12/15/2017 11:37 Results for this AM CDT procedure are in the results section. CT ABDOMEN AND PELVIS STAT 12/15/2017 10:30 LLQ pain Results for this CONTRAST AM CDT procedure are in the results section. VBG POC Routine 12/15/2017 8:40 Results for this AM CDT procedure are in the results section. BMP POC Routine 12/15/2017 8:39 Results for this AM CDT procedure are in the results section. LIVER PROFILE STAT 12/15/2017 8:34 Results for this AM CDT procedure are in the results section. LIPASE STAT 12/15/2017 8:34 Results for this AM CDT procedure are in the results section. CBC/DIFF STAT 12/15/2017 8:34 Results for this AM CDT procedure are in the results section. after 01/27/2017 Results UA CHEMISTRIES (12/15/2017 11:37 AM) Color Yellow [facility] Clarity Clear [facility] Spec [place] 1.016 1.001 - 1.035 [facility] pH 6.0 5 - 8 [facility] Protein Negative NEG [facility] Glucose Negative NEG [facility] Ketone Negative NEG [facility] Bilirubin Negative NEG [facility] Nitrate Negative NEG [facility] Urobilinogen <1.0 0.2 - 1.0 EU/dL [facility] Leukocyte Negative NEG [facility] Blood Negative NEG [facility] Specimen Urine Performing Organization Address City/State/Zipcode Phone Number MISYS [facility] [address] CT ABDOMEN AND PELVIS CONTRAST (12/15/2017 10:30 AM) Addenda Addendum by Lex Jeter MD on 12/15/2017 1:19 PM Addendum: Multiple urinary calculi are present, greater on the left side, where there appears to be early development of staghorn calculus in the lower pole. Additional left-sided renal calculi are present. In the right kidney there are 3 tiny calculi lower pole. However, no obstructive uropathy is seen on either side. Signed By: Lex Jeter MD, 12/15/2017 1:19 PM Impressions Performed At IMPRESSION: SMS 1.Small amount of left sided perirectal stranding which appears to communicate with the adjacent fascia and tracks to the left pelvic sidewall and perineum, and, subsequently, the posteromedial buttocks and upper thighs. There is no hamida fluid collection. Please see coronal image 63. 2.Levoscoliosis of the lower lumbar spine with compression deformity and anterolisthesis of the involved vertebral bodies. This [facility] radiology report is a preliminary resident dictation until finalized by an attending.Changes to this preliminary report may occur in an additional preliminary or finalized version. Dictated By: Jyotsna Lemos MD, 12/15/2017 11:26 AM I have reviewed the study and agree with the findings in this report. Signed By: Lex Jeter MD, 12/15/2017 11:57 AM Narrative Performed At EXAM: CT ABDOMEN AND PELVIS WITH CONTRAST SMS DATE: 12/15/2017 10:32 AM INDICATION: LLQ pain, hx of diverticulosis and nephrolithiasis. LLQ pain ADDITIONAL INFORMATION: "PMhx significant for Squamous cell carcinoma s/p resection, nephrolithiasis, and Diverticulitis?who presents to the Emergency Center w/ c/o LLQ stabbing pain x 4 hours ago with two episodes of diarrhea and nausea w/ no vomiting. Denies fevers or chills but reports pain is similar to his diverticulitis pain." COMPARISON: None TECHNIQUE: Volumetric CT of the abdomen and pelvis is acquired following the intravenous administration of contrast. Axial, coronal and sagittal images are provided. IV contrast: 100 mL of Omnipaque 300 Enteric contrast: None. DLP: 906.80 mGy-cm FINDINGS: Lines, tubes and hardware: None. Lower thorax: Clear. Liver: Normal. Biliary tree: No intra- or extrahepatic biliary ductal dilation. Gallbladder: Normal. Pancreas: Normal. Spleen: Normal. Adrenals: Normal. Kidneys and ureters: Normal. Bladder: Fluid distended, normal. Reproductive organs: Seminal vesicles are unremarkable. Dysmorphic calcifications noted in the prostate, otherwise unremarkable. Gastrointestinal tract: Stomach: A small sliding hiatal hernia is noted. Small bowel: Normal. Colon: Normal. Appendix: Normal. Peritoneum, mesentery and retroperitoneum: No free air, ascites or loculated fluid. However, there is skin thickening along the posterior buttock and upper thigh, tracking along the perineum and the left pararectal fascia to the pelvic sidewall. Some inflammatory changes appear to extend from the rectum to the fascial thickening (coronal image 63). Lymph nodes: Normal. Vasculature: Aorta and branches: Moderate amount of calcific atherosclerosis is noted in the abdominal aorta extending into the bilateral iliac arteries. IVC and veins: Normal. Portal vasculature: Normal. Bones: Levoscoliosis centered at the L3 level with significant disc space narrowing and degenerative changes of the involved lumbar vertebrae. Chronic compression deformity of the L3-L4 vertebral bodies is noted. Postsurgical laminectomy changes, L3-L5. A Grade 2 L4 over L5 and Grade 1 L5 over S1 anterolisthesis are also noted. T8-9 disc space narrowing and subchondral sclerosis of the endplates are noted. Soft tissues: A small umbilical hernia is noted. The neck measures approximately 3.7 mm without signs of visceral organ entrapment. Procedure Note Interface, Rad/Mammog In - 12/15/2017 12:02 PM CDT EXAM: CT ABDOMEN AND PELVIS WITH CONTRAST DATE: 12/15/2017 10:32 AM INDICATION: LLQ pain, hx of diverticulosis and nephrolithiasis. LLQ pain ADDITIONAL INFORMATION: "PMhx significant for Squamous cell carcinoma s/p resection, nephrolithiasis, and Diverticulitis?who presents to the Emergency Center w/ c/o LLQ stabbing pain x 4 hours ago with two episodes of diarrhea and nausea w/ no vomiting. Denies fevers or chills but reports pain is similar to his diverticulitis pain." COMPARISON: None TECHNIQUE: Volumetric CT of the abdomen and pelvis is acquired following the intravenous administration of contrast. Axial, coronal and sagittal images are provided. IV contrast: 100 mL of Omnipaque 300 Enteric contrast: None. DLP: 906.80 mGy-cm FINDINGS: Lines, tubes and hardware: None. Lower thorax: Clear. Liver: Normal. Biliary tree: No intra- or extrahepatic biliary ductal dilation. Gallbladder: Normal. Pancreas: Normal. Spleen: Normal. Adrenals: Normal. Kidneys and ureters: Normal. Bladder: Fluid distended, normal. Reproductive organs: Seminal vesicles are unremarkable. Dysmorphic calcifications noted in the prostate, otherwise unremarkable. Gastrointestinal tract: Stomach: A small sliding hiatal hernia is noted. Small bowel: Normal. Colon: Normal. Appendix: Normal. Peritoneum, mesentery and retroperitoneum: No free air, ascites or loculated fluid. However, there is skin thickening along the posterior buttock and upper thigh, tracking along the perineum and the left pararectal fascia to the pelvic sidewall. Some inflammatory changes appear to extend from the rectum to the fascial thickening (coronal image 63). Lymph nodes: Normal. Vasculature: Aorta and branches: Moderate amount of calcific atherosclerosis is noted in the abdominal aorta extending into the bilateral iliac arteries. IVC and veins: Normal. Portal vasculature: Normal. Bones: Levoscoliosis centered at the L3 level with significant disc space narrowing and degenerative changes of the involved lumbar vertebrae. Chronic compression deformity of the L3-L4 vertebral bodies is noted. Postsurgical laminectomy changes, L3-L5. A Grade 2 L4 over L5 and Grade 1 L5 over S1 anterolisthesis are also noted. T8-9 disc space narrowing and subchondral sclerosis of the endplates are noted. Soft tissues: A small umbilical hernia is noted. The neck measures approximately 3.7 mm without signs of visceral organ entrapment. IMPRESSION IMPRESSION: 1. Small amount of left sided perirectal stranding which appears to communicate with the adjacent fascia and tracks to the left pelvic sidewall and perineum, and, subsequently, the posteromedial buttocks and upper thighs. There is no hamida fluid collection. Please see coronal image 63. 2. Levoscoliosis of the lower lumbar spine with compression deformity and anterolisthesis of the involved vertebral bodies. This [facility] radiology report is a preliminary resident dictation until finalized by an attending. Changes to this preliminary report may occur in an additional preliminary or finalized version. Dictated By: Jyotsna Lemos MD, 12/15/2017 11:26 AM I have reviewed the study and agree with the findings in this report. Signed By: Lex Jeter MD, 12/15/2017 11:57 AM Performing Organization Address City/State/Zipcode Phone Number SMS VBG POC (12/15/2017 8:40 AM) pH, Sean POC 7.42Comment: Physician 7.33 - 7.43 [facility] Notified pCO2, Sean POC 40.9 38.0 - 50.0 mm Hg [facility] pO2, Sean POC 24 (L) 50 - 75 mm Hg [facility] Base Excess, Sean POC 2 mmol/L [facility] HCO3, Sean POC 26.7 (H) 22.0 - 26.0 mmol/L [facility] % Sat, Sean POC 44 (L) 60 - 85 % [facility] Lactic Acid, Sean POC 0.89 0.4 - 2.0 mmol/L [facility] Sample Type Sean [facility] TCO2, SEAN POC 28 21 - 32 mmol/L [facility] Performing Organization Address [facility] Phone Number [place] BMP POC (12/15/2017 8:39 AM) CO2 POC 25Comment: Physician 21 - 32 mmol/L [facility] 1 Notified Chloride POC 104 98 - 107 mmol/L [facility] 1 Potassium POC 4.3 3.50 - 5.10 mmol/L [facility] 1 Sodium POC 140 136 - 145 mmol/L [facility] 1 Glucose POC 87 74 - 106 mg/dL [facility] 1 Urea Nitrogen POC 6 (L) 7 - 18 mg/dL [facility] 1 Creatinine POC 0.6 0.6 - 1.3 mg/dL [facility] 1 Calcium Ionized POC 1.20 1.15 - 1.29 mmol/L [facility] 1 Hemoglobin POC 10.5 (L) 14.0 - 18.0 g/dL [place] [id number] Hematocrit POC 31.0 (L) 40.0 - 54.0 % [place] [address] GFR, Estimated >60 mL/min/1.73 m2 [facility] [id number] GFR, Estim, Afr-Am >60 mL/min/1.73 m2 [facility] 1 Performing Organization Address [facility] Phone Number [place]MA [facility] LIVER PROFILE (12/15/2017 8:34 AM) T Protein 7.2 6.4 - 8.2 g/dL [facility] 1 Albumin 3.1 (L) 3.4 - 5.0 g/dL [place] [id number] T Bilirubin 0.2 0.2 - 1.0 mg/dL [facility] 1 Alk Phos 143 (H) 45 - 117 U/L [facility] 1 AST 11 (L) 15 - 37 U/L [facility] ALT 11 (L) 12 - 78 U/L [facility] 1 D Bilirubin <0.1 0.0 - 0.2 mg/dL [facility] 1 Specimen Blood Performing Organization Address [facility] Phone Number [place] [facility] 1 LIPASE (12/15/2017 8:34 AM) Lipase 100 73 - 393 U/L [facility] 1 Specimen Blood Performing Organization Address City/State/Zipcode Phone Number MISYS [facility] 1 CBC/DIFF (12/15/2017 8:34 AM) WBC 10.0 4.5 - 12.0 K/uL [facility] 2 RBC 4.10 (L) 4.60 - 6.20 M/uL [facility] 2 Hemoglobin 8.9 (L) 14.0 - 18.0 g/dL [facility] 2 Hematocrit 32.1 (L) 40.0 - 54.0 % [facility] 2 MCV 78 (L) 82 - 92 fL [facility] 2 MCH 21.7 (L) 27.0 - 31.0 pg [facility] 2 MCHC 27.7 (L) 32.0 - 36.0 g/dL [facility] 2 RDW 51.2 (H) 35.1 - 43.9 fL [facility] 2 Platelet 450 (H) 150 - 400 K/uL [facility] 2 Mean Platelet Volume 10.6 9.4 - 12.4 fL [facility] 2 Percent NRBC 0.0 [facility] 2 Absolute NRBC 0.00 [facility] 2 Neutrophil 79.1 (H) 34.0 - 67.9 % [facility] 2 Lymphocyte 9.5 (L) 21.8 - 50.0 % [facility] 2 Monocyte 6.6 5.3 - 12.0 % [facility] 2 Eosinophil 4.1 0.8 - 5.0 % [facility] 2 Basophil 0.3 0.2 - 1.2 % [facility] 2 Pct Immat Gran 0.4 0.0 - 0.5 [facility] 2 Neutrophil, Abs 7.95 (H) 1.78 - 5.36 K/uL [facility] 2 Lymphocyte, Abs 0.95 (L) 1.32 - 3.57 K/uL [facility] Monocyte, Abs 0.66 0.30 - 0.82 K/uL [facility] 2 Eosinophil, Abs 0.41 0.04 - 0.54 K/uL [facility] Basophil, Abs 0.03 0.01 - 0.08 K/uL [facility] Absol Immat Gran 0.04 (H) 0.00 - 0.03 K/uL [facility] 2 Specimen Blood Performing Organization Address City/State/Zipcode Phone Number MISYS [facility] 2 after 01/27/2017
--- OUTSIDE RECORDS SUMMARY | 2018-01-28 12:56 | XMS REPORT | Clinical Summary ---
:1960 Author Organization [facility] Address [address] [place] [address] Care Team Providers Name Role Phone Yuri Gopal Bob Primary Care Provider Allergies Active Allergy Reactions Severity Noted Date Comments Ibuprofen 10/21/2014 Iodinated Contrast- Oral Hives High 09/13/2017 And Iv Dye Iodine And Iodide Hives High 05/06/2015 Containing Products Nsaids (Non-Steroidal Swelling High 12/11/2014 Anti-Inflammatory Drug) Penicillins Other (See Comments) High 12/11/2014 Unknown reaction Medications Medication Sig Dispensed Refills Start Date End Date Status metroNIDAZOLE Take 250 mg by 0 Active (FLAGYL) 250 MG mouth 3 (three) tablet times daily. ciprofloxacin HCl Take 250 mg by 0 Active (CIPRO) 250 MG mouth 2 (two) tablet times daily. ondansetron Take 1 tablet (4 15 tablet 0 12/14/2017 Active (ZOFRAN-ODT) 4 MG mg total) by mouth disintegrating every 4 (four) tablet hours as needed for Nausea. acetaminophen-codein Take 1-2 tablets 20 tablet 0 12/14/2017 Active e (TYLENOL #3) by mouth every 6 300-30 mg per tablet (six) hours as needed for Pain. Max Daily Amount: 8 tablets sulfamethoxazole-tri Take 1 tablet (160 20 tablet 0 12/14/2017 12/24/2017 methoprim (BACTRIM mg of trimethoprim DS) 800-160 mg per total) by mouth 2 tablet (two) times daily for 10 days smx-tmp DS (BACTRIM) 800-160 mg tabs (1tab q12 D10). metroNIDAZOLE Take 1 tablet (500 30 tablet 0 12/14/2017 12/24/2017 (FLAGYL) 500 MG mg total) by mouth tablet 3 (three) times daily for 10 days. Active Problems Problem Noted Date History of diverticulitis 08/16/2017 History of kidney stones 08/16/2017 Abdominal pain 12/11/2014 Left against medical advice 08/19/2014 Overview: 12/11/2014 Refused Morphine IV; left immediatelly after Dilaudid IV. Encounters Date Type Specialty Care Team Description 12/14/2017 Emergency Emergency Medicine Gideon Gerardo MD Left lower quadrant pain (Primary Dx); Colitis; Diarrhea, unspecified type; Leukocytosis, unspecified type; Anemia, unspecified type 09/13/2017 - Emergency Emergency Medicine Ryland Osorio Left lower quadrant pain (Primary Dx); 09/14/2017 MD Ronnie History of kidney stones 08/16/2017 Emergency Emergency Medicine Ramírez Bray, Left lower quadrant pain (Primary Dx); History of diverticulitis; History of kidney stones; Left against medical advice 06/18/2017 Emergency Emergency Medicine after 01/27/2017 Social History Tobacco Use Types Packs/Day Years Used Date Current Every Day Smoker Cigarettes 0.5 25 Smokeless Tobacco: Never Used Alcohol Use Drinks/Week oz/Week Comments No Sex Assigned at Date Recorded Not on file Job Start Date Occupation Industry Not on file Not on file Not on file Travel History Travel Start Travel End No recent travel history available. Last Filed Vital Signs Vital Sign Reading Time Taken Blood Pressure 132/73 12/14/2017 9:51 AM CDT Pulse 96 12/14/2017 9:51 AM CDT Temperature 36.9 C (98.4 F) 12/14/2017 9:51 AM CDT Respiratory Rate 20 12/14/2017 9:51 AM CDT Oxygen Saturation 97% 12/14/2017 9:51 AM CDT Inhaled Oxygen Concentration - - Weight 68 kg (150 lb) 12/14/2017 9:51 AM CDT Height 175.3 cm (5' 9") 12/14/2017 9:51 AM CDT Body Mass Index 22.15 12/14/2017 9:51 AM CDT Plan of Treatment Not on file Procedures Procedure Name Priority Date/Time Associated Comments Diagnosis CBC W/PLT COUNT & AUTO STAT 12/14/2017 10:50 Results for this DIFFERENTIAL AM CDT procedure are in the results section. URINALYSIS W/ STAT 12/14/2017 10:50 Results for this MICROSCOPIC AM CDT procedure are in the results section. COMPREHENSIVE STAT 12/14/2017 10:50 Results for this METABOLIC PANEL AM CDT procedure are in the results section. CBC W/PLT COUNT & AUTO STAT 12/14/2017 10:50 Results for this DIFFERENTIAL AM CDT procedure are in the results section. CT ABDOMEN/PELVIS STAT 12/14/2017 10:30 Results for this WITHOUT IV CONTRAST AM CDT procedure are in the results section. CT ABDOMEN/PELVIS STAT 09/13/2017 3:00 Results for this WITHOUT IV CONTRAST PM CDT procedure are in the results section. URINALYSIS WITH STAT 09/13/2017 1:26 Results for this MICROSCOPIC IF PM CDT procedure are in INDICATED the results section. POCT-GLUCOSE METER Routine 09/13/2017 12:39 Results for this PM CDT procedure are in the results section. POCT-LACTIC ACID, Routine 09/13/2017 12:39 Results for this VENOUS PM CDT procedure are in the results section. CBC W/PLT COUNT & AUTO STAT 09/13/2017 12:33 Results for this DIFFERENTIAL PM CDT procedure are in the results section. COMPREHENSIVE STAT 09/13/2017 12:33 Results for this METABOLIC PANEL PM CDT procedure are in the results section. CBC W/PLT COUNT & AUTO STAT 09/13/2017 12:33 Results for this DIFFERENTIAL PM CDT procedure are in the results section. CBC W/PLT COUNT & AUTO STAT 08/16/2017 8:19 Results for this DIFFERENTIAL AM CDT procedure are in the results section. LIPASE STAT 08/16/2017 8:19 Results for this AM CDT procedure are in the results section. COMPREHENSIVE STAT 08/16/2017 8:19 Results for this METABOLIC PANEL AM CDT procedure are in the results section. CBC W/PLT COUNT & AUTO STAT 08/16/2017 8:19 Results for this DIFFERENTIAL AM CDT procedure are in the results section. after 01/27/2017 Results CBC with platelet count + automated diff (12/14/2017 10:50 AM CDT)Only the most recent of3 resultswithin the time period is included. WBC 14.1 (H) 4.0 - 10.0 K/L [facility] RBC 3.28 (L) 4.20 - 5.80 M/L [facility] Hemoglobin 7.3 (L) 13.0 - 16.8 GM/DL [facility] Hematocrit 24.5 (L) 36.0 - 50.0 % [facility] MCV 74.7 (L) 82.0 - 99.0 fL [facility] MCH 22.3 (L) 27.0 - 33.0 pg [facility] MCHC 29.8 (L) 32.0 - 36.0 GM/DL [facility] RDW 17.9 (H) 12.0 - 15.0 % [facility] Platelets 375 150 - 430 K/CU MM [facility] MPV 10.4Comment: 6.0 - 11.5 fL [facility] MPV-Approximately 20% positive bias due to method change. nRBC 0 0 - 0 /100 WBC [facility] % Neutros 83 % [facility] % Lymphs 7 % [facility] % Monos 7 % [facility] % Eos 3 % [facility] % Baso 0 % [facility] # Neutros 11.69 (H) 1.80 - 8.00 K/L [facility] # Lymphs 0.94 (L) 1.48 - 4.50 K/L [facility] # Monos 0.96 0.00 - 1.30 K/L [facility] # Eos 0.41 0.00 - 0.50 K/L [facility] # Baso 0.03 0.00 - 0.20 K/L [facility] Immature 1 (H) 0 - 0 % [facility] Granulocytes-Relative Specimen Blood - Arm, Left Performing Organization Address City/State/Zipcode Phone Number [facility] [address] [place] [address] [phone] Urinalysis w/Microscopic (12/14/2017 10:50 AM CDT) Color, UA Yellow [facility] Clarity, UA Clear [facility] Specific [place], UA 1.017 1.001 - 1.035 [facility] pH, UA 5.0 5.0 - 8.0 [facility] Protein, UA Negative Negative [facility] Glucose, UA Negative Negative [facility] Ketones, UA Negative Negative [facility] Bilirubin, UA Negative Negative [facility] Blood, UA Negative Negative [facility] Nitrite, UA Negative Negative [facility] Leukocytes, UA Negative Negative [facility] Urobilinogen, UA <1.0 0.2 - 1.0 mg/dL [facility] RBC, UA 2 /HPF [facility] WBC, UA 1 /HPF [facility] Mucus Rare [facility] Specimen Source [facility] Specimen Urine - Urine, Clean Catch Performing Organization Address [facility] Phone Number [facility] [address] [place] [address] Comprehensive metabolic panel (12/14/2017 10:50 AM CDT)Only the most recent of3 resultswithin the time period is included. Protein, Total 6.4 6.0 - 8.5 gm/dL [facility] Albumin 3.1 (L) 3.5 - 5.0 g/dL [facility] Alkaline Phosphatase 112 30 - 115 U/L [facility] Total Bilirubin 0.2 0.1 - 1.3 mg/dL [facility] Sodium 138 135 - 148 meq/L [facility] Potassium 3.7 3.5 - 5.5 meq/L [facility] Chloride 108 (H) 98 - 106 meq/L [facility] CO2 24 20 - 31 meq/L [facility] BUN 11 10 - 26 mg/dL [facility] Creatinine 0.74 0.50 - 1.20 mg/dL [facility] Glucose 109 70 - 110 mg/dL [facility] Calcium 8.5 8.5 - 10.5 mg/dL [facility] AST 7 5 - 40 U/L [facility] ALT <6 (L) 6 - 50 U/L [facility] EGFR 109Comment: ESTIMATED GFR mL/min/1.73 sq m [facility] IS NOT ACCURATE CREATININE CLEARANCE IN PREDICTING GLOMERULAR FILTRATION RATE. ESTIMATED GFR IS NOT APPLICABLE FOR DIALYSIS PATIENTS. Specimen Blood - Arm, Left Performing Organization Address [facility] Phone Number [facility] [address] [place] [address] [phone] CT abdomen/pelvis without iv contrast (12/14/2017 10:30 AM CDT)Only the most recent of2 resultswithin the time period is included. Narrative Performed At FINAL REPORT [facility] HISTORY : abdominal pain LLQ abd pain Technique: Multiple axial images of the abdomen and pelvis were performed without the administration of IV or oral contrast. This exam was performed according to our departmental dose optimization program which includes automated exposure control, adjustment of the mA and/or kV according to patient size and/or use of iterative reconstructive technique. COMPARISON :09/13/2017 COMMENT : The lung bases are clear. The visualized spleen, adrenal glands, pancreas, stomach and duodenum are within normal limits. There are multiple bilateral renal stones. 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 In the upper pole of the left kidney, there is a stable 1.2 cm hyperdense lesion. This could represent a hemorrhagic cyst. Findings could be best assessed with a CT/MRI, renal mass protocol, to exclude a mass. There is atherosclerotic vascular disease. There are multiple hepatic granulomata. There is no abdominal, retroperitoneal or pelvic lymphadenopathy. Multilevel degenerative disc changes of the visualized thoracolumbar spine are seen. There is stable anterolisthesis of L4-5 and L5 over S1. Some sclerotic foci which are unchanged are seen in the axial skeleton. While these may represent bone islands, other etiologies cannot be excluded. As clinically warranted, findings can be correlated with a nuclear medicine bone scan. As seen on the prior exam, there is some partially visualized nodularity/irregularity of the subcutaneous fat and soft tissues of the inferior gluteal fold regions extending into the medial bilateral proximal thighs. There appear to be some fluid collections and possible fistulous within this area. This area is only partially visualized. One of the fistulous tracts is seen in the left medial gluteal fold/proximal thigh region. Given the nodularity of the findings, a neoplastic process cannot be entirely excluded in the appropriate clinical context. The findings can be better assessed with a dedicated pelvic CT with IV contrast. There is no free fluid or free air in the abdomen or pelvis. No findings of any bowel obstruction. The small bowel is within normal limits. There is colonic diverticulosis. There is long segment wall thickening identified of the sigmoid colon that could be due to under distention versus a nonspecific colitis. The appendix is visualized. There are no CT findings to suggest appendicitis, however. The prostate gland is mildly enlarged. There are some calcifications within the prostate gland. The seminal vesicles are within normal limits. Impression: 1. Several bilateral nonobstructing renal stones. No ureteral stones are identified. There is no hydronephrosis/hydroureter. There is a stable hyperdense focus in the left kidney. 2. Colonic diverticulosis. There is long segment wall thickening of the sigmoid colon that could be due to under distention or a nonspecific colitis. 3. 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 Evaluation is limited without IV contrast as well as only partial visualization. Signed: Wayne Triplett MD Report Verified Date/Time:12/14/2017 10:49:21 Reading Location: [facility] Diagnostic Imaging Reading Room - [place] [id number] Procedure Note Interface, External Ris In - 12/14/2017 10:51 AM CDT FINAL REPORT HISTORY : abdominal pain LLQ abd pain Technique: Multiple axial images of the abdomen and pelvis were performed without the administration of IV or oral contrast. This exam was performed according to our departmental dose optimization program which includes automated exposure control, adjustment of the mA and/or kV according to patient size and/or use of iterative reconstructive technique. COMPARISON : 09/13/2017 COMMENT : The lung bases are clear. The visualized spleen, adrenal glands, pancreas, stomach and duodenum are within normal limits. There are multiple bilateral renal stones. 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 In the upper pole of the left kidney, there is a stable 1.2 cm hyperdense lesion. This could represent a hemorrhagic cyst. Findings could be best assessed with a CT/MRI, renal mass protocol, to exclude a mass. There is atherosclerotic vascular disease. There are multiple hepatic granulomata. There is no abdominal, retroperitoneal or pelvic lymphadenopathy. Multilevel degenerative disc changes of the visualized thoracolumbar spine are seen. There is stable anterolisthesis of L4-5 and L5 over S1. Some sclerotic foci which are unchanged are seen in the axial skeleton. While these may represent bone islands, other etiologies cannot be excluded. As clinically warranted, findings can be correlated with a nuclear medicine bone scan. As seen on the prior exam, there is some partially visualized nodularity/irregularity of the subcutaneous fat and soft tissues of the inferior gluteal fold regions extending into the medial bilateral proximal thighs. There appear to be some fluid collections and possible fistulous within this area. This area is only partially visualized. One of the fistulous tracts is seen in the left medial gluteal fold/proximal thigh region. Given the nodularity of the findings, a neoplastic process cannot be entirely excluded in the appropriate clinical context. The findings can be better assessed with a dedicated pelvic CT with IV contrast. There is no free fluid or free air in the abdomen or pelvis. No findings of any bowel obstruction. The small bowel is within normal limits. There is colonic diverticulosis. There is long segment wall thickening identified of the sigmoid colon that could be due to under distention versus a nonspecific colitis. The appendix is visualized. There are no CT findings to suggest appendicitis, however. The prostate gland is mildly enlarged. There are some calcifications within the prostate gland. The seminal vesicles are within normal limits. Impression: 1. Several bilateral nonobstructing renal stones. No ureteral stones are identified. There is no hydronephrosis/hydroureter. There is a stable hyperdense focus in the left kidney. 2. Colonic diverticulosis. There is long segment wall thickening of the sigmoid colon that could be due to under distention or a nonspecific colitis. 3. 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 Evaluation is limited without IV contrast as well as only partial visualization. Signed: Wayne Triplett MD Report Verified Date/Time: 12/14/2017 10:49:21 Reading Location: [facility] Diagnostic Imaging Reading Room - [place] [id number] Performing Organization Address City/State/Zipcode Phone Number [facility] Urinalysis with Microscopic If Indicated (09/13/2017 1:26 PM CDT) Color, UA Light Yellow [facility] Clarity, UA Clear [facility] Specific [place], UA 1.011 1.001 - 1.035 [facility] pH, UA 6.5 5.0 - 8.0 [facility] Protein, UA Negative Negative [facility] Glucose, UA Negative Negative [facility] Ketones, UA Negative Negative [facility] Bilirubin, UA Negative Negative [facility] Blood, UA Negative Negative [facility] Nitrite, UA Negative Negative [facility] Leukocytes, UA Negative Negative [facility] Urobilinogen, UA 0.2 0.2 - 1.0 mg/dL [facility] Specimen Source [facility] Specimen Urine - Urine, Clean Catch Performing Organization Address [facility] Phone Number [address] [address] [place] POC-Lactic Acid, Venous (09/13/2017 12:39 PM CDT) POC-Lactic Acid, Venous 0.8 (L)Comment: 0.9 - 1.7 mmol/L [facility] TESTED AT [address] [address] Specimen Blood Performing Organization Address [facility] Phone Number [address] [address] [phone] [place] POC-Glucose meter (09/13/2017 12:39 PM CDT) POC-Glucose Meter 93Comment: TESTED AT 70 - 110 mg/dL [address] [address] Specimen Blood Performing Organization Address [facility] Phone Number [address] [address] [place] Lipase (08/16/2017 8:19 AM CDT) Lipase 29 8 - 78 U/L [facility] Specimen Blood Performing Organization Address [facility] Phone Number [facility] [address] [place] [address] [phone] after 01/27/2017 Insurance Payer Benefit Plan / Group Subscriber ID Type Phone Address MEDICAID - MEDICAID MEDICAID [employer] xxxxxxxxx Medicaid [facility] CARE NON-CONTRACT Non-Contracted
--- OUTSIDE RECORDS SUMMARY | 2018-01-28 12:56 | XMS REPORT | Clinical Summary ---
:1960 Author Organization [facility] Address [address] [place] [address] Care Team Providers Name Role Phone System, Provider Not In MD Primary Care Provider Unavailable Allergies Active Allergy Reactions Severity Noted Date Comments Iodine Rash Low 06/10/2017 Iodine And Iodide 01/06/2018 Face rash Containing Products Nsaids (Non-Steroidal Anaphylaxis High 04/18/2017 Anti-Inflammatory Drug) [...] 3 days. 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 Nephrolithiasis 06/10/2017 Encounters Date Type Specialty Care Team Description 01/06/2018 Emergency Emergency Medicine Sivakumar Morirs Drug-seeking behavior (Primary Dx); MD Isacc Chronic midline low back pain, with sciatica presence unspecified 01/04/2018 Emergency Emergency Medicine Osei Clark, Acute midline low back pain with left-sided sciatica (Primary Dx); Drug-seeking behavior 12/28/2017 Orders Only Cardiology Alzahri, Mohammad 12/16/2017 Emergency Emergency Medicine Aaliyah Gordon Lower abdominal pain Jeromy Barry, (Primary Dx) Jacqueline Gonsales MD 11/20/2017 Emergency Emergency Medicine Shane Blackwell MD - 11/21/2017 11/16/2017 Emergency Emergency Medicine Wingkun, Lumbar radiculopathy, acute (Primary Dx); Charlie Ambriz MD Acute back pain with sciatica, left 11/11/2017 Emergency Emergency Medicine Roberto Carlos Alex H, Acute suprapubic pain (Primary Dx) 2017 Emergency Emergency Medicine Mike Pepper Hidradenitis ( Primary Dx); MD DEXTER Pelvic pain; Testicular pain 10/11/2017 Emergency Emergency Medicine Sami Patel Abdominal pain, Mohammad, DO unspecified abdominal location (Primary Dx) 10/06/2017 Emergency General Internal David Sommers Chronic abdominal pain (Primary Dx); John Bauman MD Rectal fistula Steven, Silvia Diaz MD 09/19/2017 Emergency Emergency Medicine Gm, Les Abdominal pain, unspecified abdominal location (Primary Dx); MD Brennan Pelvic pain; Diarrhea, unspecified type 09/15/2017 Emergency Emergency Medicine Brandi, Abdominal pain, unspecified abdominal location (Primary Dx); Derek Evans MD Drug-seeking behavior Demetrio Sommers MD 09/11/2017 Emergency Emergency Medicine Damion Nadim Bin, Abdominal pain, unspecified abdominal location (Primary Dx); Acute back pain, unspecified back location, unspecified back pain laterality 09/08/2017 Emergency Emergency Medicine de Tucker, Left lower quadrant pain (Primary Dx); Adriano Maynard, Renal stones 09/01/2017 Emergency Emergency Medicine Raul Cameron Flank pain ( Primary T., Dx) 08/31/2017 Emergency Emergency Medicine Restoration, Nadim Bin, Lower abdominal pain (Primary Dx); Diarrhea, unspecified type 08/16/2017 Emergency Emergency Medicine Meagan Mando LLQ pain (Primary Dx ) MD Ej 08/10/2017 Orders Only Pulmonology Osmany Britton MD 08/04/2017 Emergency Emergency Medicine Osei Clark, Abdominal pain, unspecified abdominal location (Primary Dx); Diarrhea, unspecified type 06/10/2017 Emergency General Internal Tarik Triana, Nephrolithiasis ( Primary Dx); - Medicine Intractable back pain 06/11/2017 Michaela Lira MD Lakhva, Asma, MD 06/10/2017 Hospital Access Pati Go Encounter MD Fredrick 04/18/2017 Emergency Emergency Medicine Janes Bruno Bin, Lower abdominal pain (Primary Dx); Hidradenitis; Phlegmon; Anemia, unspecified type after 01/27/2017 Social History Tobacco Use Types Packs/Day Years Used Date Current Some Day Smoker Cigarettes 0.25 20 Smokeless Tobacco: Never Used Tobacco Cessation: Ready to Quit: No; Counseling Given: Yes Alcohol Use Drinks/Week oz/Week Comments No Sex Assigned at Date Recorded Not on file Last Filed Vital Signs Vital Sign Reading Time Taken Blood Pressure 126/83 01/06/2018 10:20 AM CDT Pulse 117 01/06/2018 10:20 AM CDT Temperature 36.1 C (97 F) 01/06/2018 10:20 AM CDT Respiratory Rate 18 01/06/2018 10:20 AM CDT Oxygen Saturation 100% 01/06/2018 10:26 AM CDT Inhaled Oxygen Concentration - - Weight 68 kg (150 lb) 01/06/2018 10:20 AM CDT Height 175.3 cm (5' 9") 01/06/2018 10:20 AM CDT Body Mass Index 22.15 01/06/2018 10:20 AM CDT Plan of Treatment Health Maintenance Due Date Last Done Comments COLON CANCER SCREENING 2010 SHINGRIX VACCINE (#1) 2010 INFLUENZA VACCINE 11/01/2017 Procedures Procedure Name Priority Date/Time Associated Comments Diagnosis ECG 12-LEAD Routine 12/25/2017 12:00 AM CDT LACTIC ACID LEVEL, Timed 12/16/2017 4:27 Results for this SEPSIS - NOW AND REPEAT PM CDT procedure are in 2X EVERY 3 HOURS the results section. URINALYSIS SCREEN AND STAT 12/16/2017 4:05 Results for this MICROSCOPY, WITH REFLEX PM CDT procedure are in TO CULTURE the results section. URINE CULTURE STAT 12/16/2017 4:05 Results for this PM CDT procedure are in the results section. US SCROTAL STAT 12/16/2017 2:16 Results for this PM CDT procedure are in the results section. CT RENAL STONE PROTOCOL STAT 12/16/2017 1:44 Results for this PM CDT procedure are in the results section. ESTIMATED GFR STAT 12/16/2017 1:33 Results for this PM CDT procedure are in the results section. LACTIC ACID LEVEL, STAT 12/16/2017 1:33 Results for this SEPSIS - NOW AND REPEAT PM CDT procedure are in 2X EVERY 3 HOURS the results section. LIPASE LEVEL STAT 12/16/2017 1:33 Results for this PM CDT procedure are in the results section. PARTIAL THROMBOPLASTIN STAT 12/16/2017 1:33 Results for this TIME (PTT) PM CDT procedure are in the results section. PROTHROMBIN TIME WITH STAT 12/16/2017 1:33 Results for this INR PM CDT procedure are in the results section. COMPREHENSIVE METABOLIC STAT 12/16/2017 1:33 Results for this PANEL PM CDT procedure are in the results section. HC COMPLETE BLD COUNT STAT 12/16/2017 1:33 Results for this W/AUTO DIFF PM CDT procedure are in the results section. ECG ED PRELIMINARY Routine 12/16/2017 1:16 Results for this INTERPRETATION PM CDT procedure are in the results section. XR HIPS BILATERAL AP STAT 11/16/2017 1:44 [...] CDT procedure are in the results section. ZZESTIMATED GFR STAT 11/11/2017 9:11 Results for this [...] CDT procedure are in the results section. ZZESTIMATED GFR STAT 2017 11:40 Results for this [...] CDT procedure are in the results section. ZZESTIMATED GFR STAT 10/11/2017 9:20 Results for this [...] CDT procedure are in the results section. ZZESTIMATED GFR STAT 10/06/2017 11:30 Results for this [...] CDT procedure are in the results section. ZZESTIMATED GFR STAT 09/19/2017 11:02 Results for this [...] CDT procedure are in the results section. ZZESTIMATED GFR STAT 09/15/2017 12:30 Results for this [...] CDT procedure are in the results section. ZZESTIMATED GFR STAT 09/11/2017 11:40 Results for this [...] CDT procedure are in the results section. ZZESTIMATED GFR STAT 09/08/2017 11:25 Results for this [...] CDT procedure are in the results section. ZZESTIMATED GFR STAT 09/01/2017 3:27 Results for this [...] CDT procedure are in the results section. ZZESTIMATED GFR STAT 08/31/2017 11:25 Results for this [...] are in TO CULTURE the results section. ZZESTIMATED GFR STAT 08/16/2017 3:08 Results for this [...] CDT procedure are in the results section. ZZESTIMATED GFR STAT 08/04/2017 1:00 Results for this [...] CDT procedure are in the results section. ZZESTIMATED GFR Routine 06/11/2017 3:55 Results for this AM CDT procedure are in the results section. COMPREHENSIVE METABOLIC Routine 06/11/2017 3:55 Results for this PANEL AM CDT procedure are in the results section. HC COMPLETE BLD COUNT Routine 06/11/2017 3:55 Results for this W/AUTO DIFF AM CDT procedure are in the results section. CT RENAL STONE PROTOCOL STAT 06/10/2017 9:06 Results for this PM IMPORT DISPATCHER procedure are in the results section. ZZESTIMATED GFR STAT 06/10/2017 8:40 Results for this PM IMPORT DISPATCHER procedure are in the results section. LIPASE LEVEL STAT 06/10/2017 8:40 Results for this PM IMPORT DISPATCHER procedure are in the results section. AMYLASE LEVEL STAT 06/10/2017 8:40 Results for this PM IMPORT DISPATCHER procedure are in the results section. COMPREHENSIVE METABOLIC STAT 06/10/2017 8:40 Results for this PANEL PM IMPORT DISPATCHER procedure are in the results section. HC COMPLETE BLD COUNT STAT 06/10/2017 8:40 Results for this W/AUTO DIFF PM [employer] DISPATCHER procedure are in the results section. CT ABDOMEN PELVIS W STAT 04/18/2017 4:22 Results for this CONTRAST AM [employer] DISPATCHER procedure are in the results section. ZZESTIMATED GFR STAT 04/18/2017 2:27 Results for this AM IMP[employer] DISPATCHER procedure are in the results section. URINALYSIS SCREEN AND STAT 04/18/2017 2:27 Results for this MICROSCOPY, WITH REFLEX AM IMPORT DISPATCHER procedure are in TO CULTURE the results section. LIPASE LEVEL STAT 04/18/2017 2:27 Results for this AM IMPORT DISPATCHER procedure are in the results section. AMYLASE LEVEL STAT 04/18/2017 2:27 Results for this AM IMPORT DISPATCHER procedure are in the results section. COMPREHENSIVE METABOLIC STAT 04/18/2017 2:27 Results for this PANEL AM IMPORT DISPATCHER procedure are in the results section. HC COMPLETE BLD COUNT STAT 04/18/2017 2:27 Results for this W/AUTO DIFF AM [employer] DISPATCHER procedure are in the results section. after 01/27/2017 Results ECG 12 lead (12/25/2017)Only the most recent of3 resultswithin the time period is included. Narrative Performed At Lactic acid level, SEPSIS - Now and repeat 2x every 3 hours (12/16/2017 4:27 PM )Only the most recent of4 resultswithin the time period is included. Lactic acid 0.7 0.5 - 2.2 mmol/L [facility] DEPARTMENT OF PATHOLOGY AND GENOMIC MEDICINE Specimen Plasma specimen Performing Organization Address City/State/Zipcode Phone Number [facility] DEPARTMENT OF PATHOLOGY [address] [place] [address] AND [employer] [facility] Urinalysis screen and microscopy, with reflex to culture (12/16/2017 4:05 PM) Only the most recent of10 resultswithin the time period is included. Specimen site Clean catch [facility] DEPARTMENT OF PATHOLOGY AND GENOMIC MEDICINE Color, UA Yellow [facility] DEPARTMENT OF PATHOLOGY AND GENOMIC MEDICINE Appearance, UA Clear [facility] DEPARTMENT OF PATHOLOGY AND GENOMIC MEDICINE Specific gravity, UA 1.014 1.001 - 1.030 [facility] DEPARTMENT OF PATHOLOGY AND GENOMIC MEDICINE pH, UA 6.0 5.0 - 9.0 [facility] DEPARTMENT OF PATHOLOGY AND GENOMIC MEDICINE Protein, UA Negative Negative [facility] DEPARTMENT OF PATHOLOGY AND GENOMIC MEDICINE Glucose, UA Negative Negative [facility] DEPARTMENT OF PATHOLOGY AND GENOMIC MEDICINE Ketones, UA Negative Negative [facility] DEPARTMENT OF PATHOLOGY AND GENOMIC MEDICINE Bilirubin, UA Negative Negative [facility] DEPARTMENT OF PATHOLOGY AND GENOMIC MEDICINE Blood, UA Negative Negative [facility] DEPARTMENT OF PATHOLOGY AND GENOMIC MEDICINE Nitrite, UA Negative Negative [facility] DEPARTMENT OF PATHOLOGY AND GENOMIC MEDICINE Urobilinogen, UA 2.0 (A) <2.0 E.U./dL [facility] DEPARTMENT OF PATHOLOGY AND GENOMIC MEDICINE Leukocyte esterase, UA Negative Negative [facility] DEPARTMENT OF PATHOLOGY AND GENOMIC MEDICINE WBC, UA 1 0 - 1 /HPF [facility] DEPARTMENT OF PATHOLOGY AND GENOMIC MEDICINE RBC, UA 2 0 - 5 /HPF [facility] DEPARTMENT OF PATHOLOGY AND GENOMIC MEDICINE Bacteria, UA None seen None seen [facility] DEPARTMENT OF PATHOLOGY AND GENOMIC MEDICINE Yeast, UA None seen [facility] DEPARTMENT OF PATHOLOGY AND GENOMIC MEDICINE Yeast with pseudohyphae, UA None seen [facility] DEPARTMENT OF PATHOLOGY AND GENOMIC MEDICINE Specimen Urine Performing Organization Address City/[facility]/Zipcode Phone Number [facility] DEPARTMENT OF PATHOLOGY [address] [place] [address] AND [employer] [facility] Urine culture (12/16/2017 4:05 PM)Only the most recent of8 resultswithin the time period is included. Urine culture SEE COMMENTComment: Bacteriuria [facility] DEPARTMENT OF PATHOLOGY screen negative. AND GENOMIC MEDICINE Performing Organization Address City/[facility]/Zipcode Phone Number [facility] DEPARTMENT OF PATHOLOGY [address] [place] [address] AND [employer] MEDICINE US Scrotal (12/16/2017 2:16 PM)Only the most recent of3 resultswithin the time period is included. Narrative Performed At EXAMINATION:US SCROTAL [facility] CLINICAL HISTORY:testicular pain on right COMPARISON:None. TECHNIQUE:Sonographic evaluation of the scrotum. Real-time B mode grayscale, Doppler spectral analysis and Doppler color flow imaging was used to assess testicular vasculature. FINDINGS: RIGHT HEMISCROTUM: The right testicle measures 4.4 x 1.4 x 2.5 cm. Testicular echogenicity is normal. No intratesticular masses are identified. There is normal color and duplex Doppler flow. A 7 mm cyst is in the right epididymal head which is otherwise normal in sonographic appearance. There is no evidence of hydrocele or varicocele. LEFT HEMISCROTUM: The left testicle measures 3.7 x 1.4 x 2.7 cm. Testicular echogenicity is normal. No intratesticular masses are identified. There is normal color and duplex Doppler flow. The left epididymis is unremarkable. There is no evidence of hydrocele or varicocele. IMPRESSION: 1. Right epididymal head cyst or spermatocele. 2. Otherwise, unremarkable scrotal ultrasound. [id number] Procedure Note Interface, Radiology Results Incoming - 12/16/2017 2:23 PM CDT EXAMINATION: US SCROTAL CLINICAL HISTORY: testicular pain on right COMPARISON: None. TECHNIQUE: Sonographic evaluation of the scrotum. Real-time B mode grayscale, Doppler spectral analysis and Doppler color flow imaging was used to assess testicular vasculature. FINDINGS: RIGHT HEMISCROTUM: The right testicle measures 4.4 x 1.4 x 2.5 cm. Testicular echogenicity is normal. No intratesticular masses are identified. There is normal color and duplex Doppler flow. A 7 mm cyst is in the right epididymal head which is otherwise normal in sonographic appearance. There is no evidence of hydrocele or varicocele. LEFT HEMISCROTUM: The left testicle measures 3.7 x 1.4 x 2.7 cm. Testicular echogenicity is normal. No intratesticular masses are identified. There is normal color and duplex Doppler flow. The left epididymis is unremarkable. There is no evidence of hydrocele or varicocele. IMPRESSION: 1. Right epididymal head cyst or spermatocele. 2. Otherwise, unremarkable scrotal ultrasound. [facility]-[id number] Performing Organization Address City/State/Zipcode Phone Number [facility] [address] [place] [address] CT Renal Stone Protocol (12/16/2017 1:44 PM)Only the most recent of7 resultswithin the time period is included. Narrative Performed At PROCEDURE:CT RENAL STONE PROTOCOL [facility] CLINICAL HISTORY:hx of kidney stone and diverticulitispresents with suprapubic pain and radiates to right testicle COMPARISON:November 11, 2017 TECHNIQUE: Contiguous 2.5 mm axial images were obtained from the hemidiaphragms to the pubic symphysis without administration of intravenous iodinated or oral contrast media on a multidetector CT scanner using helical scanning technique followed by 2-D sagittal and coronal reconstructions. The dose length product for this procedure was 226 mGy-cm. CT imaging was performed with iterative reconstruction technique and/or automated exposure control to reduce radiation dose. FINDINGS: 1. Lung parenchymal window settings demonstrate no abnormality in the visualized lung bases. 2. Multiple punctate calcified granulomata are demonstrated in the right hepatic lobe presumably from old histoplasmosis. A tiny nonobstructing calculus is seen in the upper pole of left kidney and measures 4.7 mm. A hyperdense round lesion is seen in the upper pole of left kidney and measures 12 mm diameter. Additional calculus is seen in the central and lower pole with the largest calculus in the lower pole measuring 12.2 mm x 6.8 mm. In the right kidney a tiny 3 mm calculus is present in the posterior lower pole the right kidney with another calculus measuring 4.3 mm in the upper pole of the right kidney. . No dilatation of the pelvicalyceal system is seen. 3. No calculi are demonstrated along the course of the ureters. 4. The enteric tract is generally better evaluated if opacified with enteric contrast. Numerous diverticula are demonstrated in the sigmoid colon. The appendix is normal. The appendix is filled with barium. 5. No abnormality is demonstrated of the remainder of the intra-abdominal solid organs on this unenhanced study. 6. No abnormality of the abdominal aorta is seen. The IVC is unremarkable on this unenhanced exam. 7. The sagittal and coronal reconstructed images demonstrate no additional abnormality. CT PELVIS- No calculi are seen in the distal ureters or UV junction. No pelvic fluid collections or masses are seen. Note is made of prostatic calcification. Bone window settings illustrate multiple tiny sclerotic densities about the pelvis and both proximal femora which likely represent bone islands. However, further assessment with bone scan is recommended to exclude the less likely possibility of metastasis. IMPRESSION: Abnormal study. Bilateral intrarenal nonobstructing calculi. No evidence of ureteric calculi or obstructive uropathy. Hyperdense focal lesion in the left kidney which probably represents a complex cyst, milk of calcium cyst. This should be corroborated with an ultrasound, if clinically indicated. Bone islands versus, less likely metastatic deposit, about the pelvis and proximal femora. Further assessment with bone scanning may be useful, if clinically indicated. Prostatic calcification. Sigmoid diverticulosis. [facility]-[id number] . Procedure Note [facility], Radiology Results Incoming - 12/16/2017 1:58 PM CDT PROCEDURE: CT RENAL STONE PROTOCOL CLINICAL HISTORY: hx of kidney stone and diverticulitis presents with suprapubic pain and radiates to right testicle COMPARISON: November 11, 2017 TECHNIQUE: Contiguous 2.5 mm axial images were obtained from the hemidiaphragms to the pubic symphysis without administration of intravenous iodinated or oral contrast media on a multidetector CT scanner using helical scanning technique followed by 2-D sagittal and coronal reconstructions. The dose length product for this procedure was 226 mGy-cm. CT imaging was performed with iterative reconstruction technique and/or automated exposure control to reduce radiation dose. FINDINGS: 1. Lung parenchymal window settings demonstrate no abnormality in the visualized lung bases. 2. Multiple punctate calcified granulomata are demonstrated in the right hepatic lobe presumably from old histoplasmosis. A tiny nonobstructing calculus is seen in the upper pole of left kidney and measures 4.7 mm. A hyperdense round lesion is seen in the upper pole of left kidney and measures 12 mm diameter. Additional calculus is seen in the central and lower pole with the largest calculus in the lower pole measuring 12.2 mm x 6.8 mm. In the right kidney a tiny 3 mm calculus is present in the posterior lower pole the right kidney with another calculus measuring 4.3 mm in the upper pole of the right kidney. . No dilatation of the pelvicalyceal system is seen. 3. No calculi are demonstrated along the course of the ureters. 4. The enteric tract is generally better evaluated if opacified with enteric contrast. Numerous diverticula are demonstrated in the sigmoid colon. The appendix is normal. The appendix is filled with barium. 5. No abnormality is demonstrated of the remainder of the intra-abdominal solid organs on this unenhanced study. 6. No abnormality of the abdominal aorta is seen. The IVC is unremarkable on this unenhanced exam. 7. The sagittal and coronal reconstructed images demonstrate no additional abnormality. CT PELVIS- No calculi are seen in the distal ureters or UV junction. No pelvic fluid collections or masses are seen. Note is made of prostatic calcification. Bone window settings illustrate multiple tiny sclerotic densities about the pelvis and both proximal femora which likely represent bone islands. However, further assessment with bone scan is recommended to exclude the less likely possibility of metastasis. IMPRESSION: Abnormal study. Bilateral intrarenal nonobstructing calculi. No evidence of ureteric calculi or obstructive uropathy. Hyperdense focal lesion in the left kidney which probably represents a complex cyst, milk of calcium cyst. This should be corroborated with an ultrasound, if clinically indicated. Bone islands versus, less likely metastatic deposit, about the pelvis and proximal femora. Further assessment with bone scanning may be useful, if clinically indicated. Prostatic calcification. Sigmoid diverticulosis. [facility]-[id number] . Performing Organization Address City/[facility]/Zipcode Phone Number [facility] [address] [place] [address] Estimated GFR (12/16/2017 1:33 PM) Estimated GFR >=90 mL/min/1.73 m2 [facility] DEPARTMENT OF Comment: PATHOLOGY AND GENOMIC CatergoryUnitsInterpretation MEDICINE G1 >=90 Normal or high G2 60-89Mildly decreased [id number] to moderately decreased [id number] to severely decreased G4 15-29Severely decreased G5 <15Kidney failure The eGFR was calculated using the Chronic Kidney Disease Epidemiology Collaboration (CKD-EPI) equation. Interpretation is based on recommendations of the National Kidney Foundation-Kidney Disease Outcomes Quality Initiative (NKF-KDOQI) published in 2014. Specimen Plasma specimen Performing Organization Address City/State/Zipcode Phone Number [facility] DEPARTMENT OF PATHOLOGY [address] [place] [address] AND [employer] Partial thromboplastin time, activated (12/16/2017 1:33 PM)Only the most recent of3 resultswithin the time period is included. PTT 36.8 (H) 23.0 - 36.0 sec [facility] DEPARTMENT OF Comment: PATHOLOGY AND GENOMIC PTT therapeutic range for unfractionated heparin is MEDICINE 61.0-112.0 seconds which corresponds to Anti-Xa 0.3-0.7 U/ml. Specimen Blood Performing Organization Address City/[facility]/Zipcode Phone Number [facility] DEPARTMENT OF PATHOLOGY [id number] [place] [address] AND [facility] Prothrombin time with INR (12/16/2017 1:33 PM)Only the most recent of3 resultswithin the time period is included. Prothrombin time 13.4 12.0 - 15.0 sec [facility] DEPARTMENT OF PATHOLOGY AND GENOMIC MEDICINE INR 1.0 [facility] DEPARTMENT OF Comment: PATHOLOGY AND GENOMIC The International Normalized Ratio (INR) is a therapeutic MEDICINE monitoring tool for patients who are stable on oral anticoagulant therapy. An INR of 2.0-3.0 is suggested for deep vein thrombosis/pulmonary embolism. Specimen Blood Performing Organization Address [facility]/[place] Phone Number [facility] PATHOLOGY [address] [place] [address] AND [facility] CBC with platelet and differential (12/16/2017 1:33 PM)Only the most recent of16 resultswithin the time period is included. WBC 10.2 4.5 - 11.0 k/uL [facility] DEPARTMENT OF PATHOLOGY AND GENOMIC MEDICINE RBC 3.96 (L) 4.40 - 6.00 m/uL [facility] DEPARTMENT OF PATHOLOGY AND GENOMIC MEDICINE HGB 8.7 (L) 14.0 - 18.0 g/dL [facility] DEPARTMENT OF PATHOLOGY AND GENOMIC MEDICINE HCT 30.1 (L) 41.0 - 51.0 % [facility] DEPARTMENT OF PATHOLOGY AND GENOMIC MEDICINE MCV 76.0 (L) 82.0 - 100.0 fL [facility] DEPARTMENT OF PATHOLOGY AND GENOMIC MEDICINE MCH 22.0 (L) 27.0 - 34.0 pg [facility] DEPARTMENT OF PATHOLOGY AND GENOMIC MEDICINE MCHC 28.9 (L) 31.0 - 37.0 g/dL [facility] DEPARTMENT OF PATHOLOGY AND GENOMIC MEDICINE RDW - SD 48.7 37.0 - 55.0 fL [facility] DEPARTMENT OF PATHOLOGY AND GENOMIC MEDICINE MPV 10.1 6.9 - 11.0 fL [facility] DEPARTMENT OF PATHOLOGY AND GENOMIC MEDICINE Platelet count 439 (H) 150 - 400 K/uL [facility] DEPARTMENT OF PATHOLOGY AND GENOMIC MEDICINE Nucleated RBC 0.00 /100 WBC [facility] DEPARTMENT OF PATHOLOGY AND GENOMIC MEDICINE Neutrophils 72.5 (H) 39.0 - 69.0 % [facility] DEPARTMENT OF PATHOLOGY AND GENOMIC MEDICINE Lymphocytes 12.6 (L) 25.0 - 45.0 % [facility] DEPARTMENT OF PATHOLOGY AND GENOMIC MEDICINE Monocytes 10.1 (H) 0.0 - 10.0 % [facility] DEPARTMENT OF PATHOLOGY AND GENOMIC MEDICINE Eosinophils 4.2 0.0 - 5.0 % [facility] DEPARTMENT OF PATHOLOGY AND GENOMIC MEDICINE Basophils 0.2 0.0 - 1.0 % [facility] DEPARTMENT OF PATHOLOGY AND GENOMIC MEDICINE Immature granulocytes 0.4 0.0 - 1.0 % [facility] DEPARTMENT OF PATHOLOGY AND GENOMIC MEDICINE Specimen Blood Performing Organization Address City/[facility]/Zipcode Phone Number [facility] DEPARTMENT OF PATHOLOGY [address] [place] [address] AND [facility] Lipase level (12/16/2017 1:33 PM)Only the most recent of12 resultswithin the time period is included. Lipase 27 13 - 60 U/L [facility] DEPARTMENT OF PATHOLOGY AND GENOMIC MEDICINE Specimen Plasma specimen Performing Organization Address City/[facility]/Zipcode Phone Number [facility] DEPARTMENT OF PATHOLOGY [address] [place] [address] AND [facility] Comprehensive metabolic panel (12/16/2017 1:33 PM)Only the most recent of14 resultswithin the time period is included. Sodium 141 135 - 148 mEq/L [facility] DEPARTMENT OF PATHOLOGY AND GENOMIC MEDICINE Potassium 3.6 3.5 - 5.0 mEq/L [facility] DEPARTMENT OF PATHOLOGY AND GENOMIC MEDICINE Chloride 105 98 - 112 mEq/L [facility] DEPARTMENT OF PATHOLOGY AND GENOMIC MEDICINE CO2 24 24 - 31 mEq/L [facility] DEPARTMENT OF PATHOLOGY AND GENOMIC MEDICINE Anion gap 12@ANIO 7 - 15 mEq/L [facility] DEPARTMENT OF PATHOLOGY AND GENOMIC MEDICINE BUN 13 6 - 20 mg/dL [facility] DEPARTMENT OF PATHOLOGY AND GENOMIC MEDICINE Creatinine 0.74 0.70 - 1.20 mg/dL [facility] DEPARTMENT OF PATHOLOGY AND GENOMIC MEDICINE Glucose 87 65 - 99 mg/dL [facility] DEPARTMENT OF PATHOLOGY AND GENOMIC MEDICINE Calcium 8.8 8.3 - 10.2 mg/dL [facility] DEPARTMENT OF PATHOLOGY AND GENOMIC MEDICINE Protein 7.5 6.3 - 8.3 g/dL [facility] DEPARTMENT OF PATHOLOGY AND GENOMIC MEDICINE Albumin 3.7 3.5 - 5.0 g/dL [facility] DEPARTMENT OF PATHOLOGY AND GENOMIC MEDICINE A/G ratio 1.0 0.7 - 3.8 [facility] DEPARTMENT OF PATHOLOGY AND GENOMIC MEDICINE Alkaline phosphatase 125 40 - 129 U/L [facility] DEPARTMENT OF PATHOLOGY AND GENOMIC MEDICINE AST 10 10 - 50 U/L [facility] DEPARTMENT OF PATHOLOGY AND GENOMIC MEDICINE ALT <5 (A) 5 - 50 U/L [facility] DEPARTMENT OF PATHOLOGY AND GENOMIC MEDICINE Total bilirubin <0.2 0.2 - 1.2 mg/dL [facility] DEPARTMENT OF PATHOLOGY AND GENOMIC MEDICINE Specimen Plasma specimen Performing Organization Address City/State/Zipcode Phone Number [facility] DEPARTMENT OF PATHOLOGY [address] [place] [address] AND GENOMIC MEDICINE ECG ED Preliminary Interpretation - NOT AN ORDER (12/16/2017 1:16 PM)Only the most recent of2 resultswithin the time period is included. Narrative Performed At Aaliyah Gordon MD 12/18/2017 11:47 AM ECG ED Preliminary Interpretation - Not an Order Performed by: AALIYAH GORDON Authorized by: AALIYAH GORDON XR Hips Bilateral Ap Lateral W Ap [...] significance noted. Impression: Arthritic changes as noted. [id number] Procedure Note Hm Interface, Radiology Results Incoming [...] significance noted. Impression: Arthritic changes as noted. [id number] Performing Organization Address City/[facility]/Zipcode Phone Number [facility] [address] [place] [address] Smear review (11/11/2017 9:11 AM)Only the most recent of5 resultswithin the time period is included. Platelet slide review Og adequate [facility] DEPARTMENT OF PATHOLOGY AND GENOMIC MEDICINE Performing Organization Address [facility]/[place] Phone Number [facility] DEPARTMENT OF PATHOLOGY AND [address] [place] [address] [place] [address] GENOMIC MEDICINE Estimated GFR (11/11/2017 9:11 AM)Only the most recent of15 resultswithin the time period is included. GFR Non Af Amer >90 mL/min/1.73 m2 [facility] DEPARTMENT OF PATHOLOGY AND GENOMIC MEDICINE GFR Af Amer >90 mL/min/1.73 m2 [facility] DEPARTMENT OF Comment: PATHOLOGY AND [...] Americans. Specimen Plasma specimen Performing Organization Address [facility]/[place] Phone Number [facility] DEPARTMENT PATHOLOGY AND [id number] [place] [address] [place] [address] [employer] Hepatic function panel (11/11/2017 9:11 AM)Only the most recent of2 resultswithin the time period is included. Albumin 3.7 3.5 - 5.0 g/dL [facility] DEPARTMENT OF PATHOLOGY AND GENOMIC [facility] Total bilirubin <0.2 0.0 - 1.2 mg/dL [facility] DEPARTMENT OF PATHOLOGY AND GENOMIC [facility] Bilirubin direct <0.1 0.0 - 0.3 mg/dL [facility] DEPARTMENT OF PATHOLOGY AND GENOMIC [facility] Alkaline phosphatase 127 40 - 129 U/L [facility] DEPARTMENT OF PATHOLOGY AND GENOMIC MEDICINE Protein 7.6 6.3 - 8.3 g/dL [facility] DEPARTMENT OF Comment: PATHOLOGY AND GENOMIC 4.6-7.0 g/dL MEDICINE 1 week 4.4-7.6 g/dL 7 months-1year5.1-7.3 g/dL 1-2 years5.6-7.5 g/dL >3 years6.0-8.0 g/dL 18-150 6.3-8.3 g/dL ALT 7 5 - 50 U/L [facility] DEPARTMENT OF PATHOLOGY AND GENOMIC MEDICINE AST 9 (L) 10 - 50 U/L [facility] DEPARTMENT OF PATHOLOGY AND GENOMIC MEDICINE Specimen Plasma specimen Performing Organization Address City/State/Zipcode Phone Number [facility] DEPARTMENT OF [facility] AND [address] [place] [address] [facility] Basic metabolic panel (11/11/2017 9:11 AM)Only the most recent of2 resultswithin the time period is included. Sodium 138 135 - 148 mEq/L [facility] DEPARTMENT OF PATHOLOGY AND GENOMIC MEDICINE Potassium 4.4 3.5 - 5.0 mEq/L [facility] DEPARTMENT OF PATHOLOGY AND GENOMIC MEDICINE Chloride 104 98 - 112 mEq/L [facility] DEPARTMENT OF PATHOLOGY AND GENOMIC MEDICINE CO2 23 (L) 24 - 31 mEq/L [facility] DEPARTMENT OF PATHOLOGY AND GENOMIC MEDICINE Anion gap 11@ANIO 7 - 15 mEq/L [facility] DEPARTMENT OF PATHOLOGY AND GENOMIC MEDICINE BUN 12 6 - 20 mg/dL [facility] DEPARTMENT OF PATHOLOGY AND GENOMIC MEDICINE Creatinine 0.7 0.7 - 1.2 mg/dL [facility] DEPARTMENT OF PATHOLOGY AND GENOMIC MEDICINE Glucose 99 65 - 99 mg/dL [facility] DEPARTMENT OF PATHOLOGY AND GENOMIC MEDICINE Calcium 8.7 8.3 - 10.2 mg/dL [facility] DEPARTMENT OF PATHOLOGY AND GENOMIC MEDICINE Specimen Plasma specimen Performing Organization Address City/State/Zipcode Phone Number [facility] DEPARTMENT OF PATHOLOGY AND [address] [place] [address] Abdomen Pelvis Wo Contrast (2017 12:47 [...] L5 and anterolisthesis of L5 upon S1. [facility]-[id number] Procedure Note Interface, Radiology Results Incoming - 2017 3:26 PM [...] L5 and anterolisthesis of L5 upon S1. [facility]-[id number] Performing Organization Address City/State/Zipcode Phone Number [facility] [address] [place] [address] Gram stain (09/19/2017 10:37 AM) Gram stain result Rare WBC's [facility] DEPARTMENT OF PATHOLOGY No organisms seen AND GENOMIC MEDICINE Comment: Specimen Information Specimen Source: Urine Specimen Site: Clean catch Specimen Urine Performing Organization Address City/State/[place] Phone Number [facility] DEPARTMENT OF PATHOLOGY AND [address] [place] [address] GENOMIC MEDICINE US Renal (09/11/2017 3:28 PM) Narrative Performed At EXAMINATION:US RENAL [facility] CLINICAL HISTORY:Examine for possible masses, Explore for [...] Bilateral renal calculi without evidence of hydronephrosis. [id number] Procedure Note Interface, Radiology Results Incoming - [...] Bilateral renal calculi without evidence of hydronephrosis. [id number] Performing Organization Address [facility]/Zipcode Phone Number [facility] [address] [place] [address] XR Chest 1 Vw (09/11/2017 1:00 PM) Narrative Performed At EXAMINATION:[facility]:back pain COMPARISON:None IMPRESSION: No acute abnormality single view chest Emphysematous changes over the upper lobes bilaterally. Minimal linear atelectasis versus scar left base. No infiltrate congestion or effusion. No pneumothorax. Cardiomediastinal silhouette pulmonary vasculature and visualized skeleton normal in appearance [id number] Procedure Note Interface, Radiology Results Incoming - 09/11/2017 1:16 PM CDT EXAMINATION: XR CHEST 1 VW CLINICAL HISTORY: back pain COMPARISON: None IMPRESSION: No acute abnormality single view chest Emphysematous changes over the upper lobes bilaterally. Minimal linear atelectasis versus scar left base. No infiltrate congestion or effusion. No pneumothorax. Cardiomediastinal silhouette pulmonary vasculature and visualized skeleton normal in appearance [id number] Performing Organization Address [facility]/Zipcode Phone Number [facility] [address] [place] [address] Blood culture, aerobic & anaerobic (09/11/2017 11:45 AM)Only the most recent of2 resultswithin the time period is included. Blood culture isolate No growth after 5 days of incubation. [facility] DEPARTMENT OF Comment: PATHOLOGY AND GENOMIC Specimen Information MEDICINE Specimen Source: Blood Specimen Site: Forearm, left Specimen Blood - Forearm, left Performing Organization Address [facility] Phone Number [facility] DEPARTMENT OF PATHOLOGY AND [address] [place] [address] [facility] Troponin (09/11/2017 11:40 AM) Troponin <0.300 0.000 - 0.300 ng/mL [facility] DEPARTMENT OF Comment: PATHOLOGY AND GENOMIC 0.30 - 1.49 ng/mlMay indicate increased risk of acute MEDICINE coronary syndrome. >=1.5 ng/mlConsistent with acute myocardial infarction. The diagnostic value of a single normal or non-diagnostic result is questionable.Serial samples at 2-6 hour intervals are required to rule out acute myocardial injury. Specimen Plasma specimen Performing Organization Address [facility] Phone Number [facility] DEPARTMENT OF PATHOLOGY AND [address] [place] [address] [place] [address] [facility] B natriuretic peptide (09/11/2017 11:40 AM) BNP 5 0 - 100 pg/mL [facility] DEPARTMENT OF PATHOLOGY AND GENOMIC MEDICINE Specimen Blood Performing Organization Address [facility] Phone Number [facility] DEPARTMENT OF PATHOLOGY AND [address] [place] [address] [address] [place] [id number] [facility] Creatine kinase, total (CPK) (09/11/2017 11:40 AM) Creatine kinase 54 39 - 308 U/L [facility] DEPARTMENT OF PATHOLOGY AND GENOMIC MEDICINE Specimen Plasma specimen Performing Organization Address [facility] Phone Number [facility] DEPARTMENT OF PATHOLOGY AND [address] [place] [address] [place] [address] GENOMIC MEDICINE Amylase level (08/31/2017 11:25 AM)Only the most recent of4 resultswithin the time period is included. Amylase 94 (H) 13 - 73 U/L [facility] DEPARTMENT OF PATHOLOGY AND [facility] Specimen Plasma specimen Performing Organization Address City/State/Zipcode Phone Number [facility] DEPARTMENT OF PATHOLOGY AND [address] [place] [address] Abdomen Pelvis W Contrast (08/16/2017 4:36 [...] renal staghorn calculus. Bilateral renal calyceal stones. [facility]-[id number] Procedure Note Interface, Radiology Results Incoming - [...] renal staghorn calculus. Bilateral renal calyceal stones. [facility]-[id number] Performing Organization Address City/State/Zipcode Phone Number [facility] [address] [place] [address] after 01/27/2017 Insurance Payer Benefit Plan / Group Subscriber ID Type Phone Address [facility] [facility] [employer] xxxxxxxxx O
--- OUTSIDE RECORDS SUMMARY | 2018-01-28 12:57 | XMS REPORT | Continuity of Care Document ---
:1960 Author Organization Interface Problems Problem Status Onset Date Classification Date Comments Source Reported LLQ pain Active 12/15/2017 Problem 01/27/2018 [facility] Medications Medication Details Route Status Patient Ordering Order Source Instructions Provider Date Allergies, Adverse Reactions, Alerts Substance Category Reaction Severity Reaction Status Date Comments Source type Reported Penicillin G Propensity Active [place] to adverse 8 Health reactions to drug Gadolinium-C Rash Propensity Active [place] ontaining to adverse 8 Health Contrast reactions [place] to drug Immunizations Immunization Date Given Site Status Last Updated Comments Source Results Order Name Results Value Reference Date Interpretation Comments Source Range UA Color Yellow 12/15 [place] [facility]MI[facility]RIES [facility] UA Clarity Clear 12/15 [place] [facility] UA Spec [place] 1.016 1.001 - 12/15 [place] CHEMISTRIES 1.035 /2017 Health UA pH 6.0 5 - 8 12/15 [place] CHEMISTRIES /2017 Health UA Protein Negative NEG 12/15 [place] CHEMISTRIES /2017 Health UA Glucose Negative NEG 12/15 [place] CHEMISTRIES /2017 Health UA Ketone Negative NEG 12/15 [place] [facility] UA Bilirubin Negative NEG 12/15 [place] [facility] UA Nitrate Negative NEG 12/15 [place] CHEMISTRIES /2017 Health UA Urobilinogen <1.0 0.2 - 1 12/15 [place] [facility] UA Leukocyte Negative NEG 12/15 [place] [facility] UA Blood Negative NEG 12/[address] [place] [address] ABDOMEN AND Addendum by Lex Jeter MD on 12/15/2017 1:19 PM Addendum: Multiple urinary calculi are present, greater on the left side, where there appears to be early development of staghorn calculus 12/15 [place] PELVIS in the lower pole. Additional left-sided renal calculi are present. In the right kidney there are 3 tiny calculi lower pole. However, no obstructive uropathy is seen on either side. Signed By: Lex Jeter MD, 12/15/2017 1:19 PM IMPRESSION: /2018 [facility] CONTRAST 1.Small amount of left sided perirectal stranding which appears to communicate with the adjacent fascia and tracks to the left pelvic sidewall and perineum, and, subsequently, the posteromedial buttocks and upper thighs. There is no hamida fluid collection. Please see coronal image 63. 2.Levoscoliosis of the lower lumbar spine with compression deformity and anterolisthesis of the involved vertebral bodies. This [facility] radiology report is a preliminary resident dictation until finalized by an attending.Changes to this preliminary report may occur in an additional preliminary or finalized version. Dictated By: Jyotsna Lemos MD, 12/15/2017 11:26 AM I have reviewed the study and agree with the findings in this report. Signed By: Lex Jeter MD, 12/15/2017 11:57 AM EXAM: CT ABDOMEN AND PELVIS WITH CONTRAST [...] mm without signs of visceral organ entrapment. Interface, Rad/Mammog In - 12/15/2017 12:02 PM [...] anterolisthesis of the involved vertebral bodies. This [facility] radiology report is a preliminary resident dictation until finalized by an attending. Changes to this preliminary report may occur in an additional preliminary or finalized version. Dictated By: Jyotsna Lemos MD, 12/15/2017 11:26 AM I have reviewed the study and agree with the findings in this report. Signed By: Lex Jeter MD, 12/15/2017 11:57 AM LIPASE Lipase 100 U/L 73 - 393 12/15 [facility] LIVER T Protein 7.2 g/dL 6.4 - 8.2 12/15 [place] PROFILE /2017 [facility] LIVER Albumin 3.1 g/dL 3.4 - 5 12/15 [place] PROFILE /2018 [facility] LIVER T Bilirubin 0.2 mg/dL 0.2 - 1 12/15 [place] PROFILE /2018 [facility] LIVER Alk Phos 143 U/L 45 - 117 12/15 [place] PROFILE /2018 [facility] LIVER AST 11 U/L 15 - 37 12/15 [place] PROFILE /2018 [facility] LIVER ALT 11 U/L 12 - 78 09/14 [place] PROFILE /2018 [facility] LIVER D Bilirubin <0.1 0 - 0.2 12/15 [facility] LIVER Lab Abnormal 12/15 Health CBC/DIFF WBC 10.0 K/uL 4.5 - 12 12/15 [facility] CBC/DIFF RBC 4.10 4.60 - 12/15 [place] 6.20 /2017 [facility] CBC/DIFF Hemoglobin 8.9 g/dL 14 - 18 12/15 [facility] CBC/DIFF Hematocrit 32.1 % 40 - 54 12/15 [facility] CBC/DIFF MCV 78 fL 82 - 92 12/15 [facility] CBC/DIFF MCH 21.7 pg 27 - 31 12/15 [facility] CBC/DIFF MCHC 27.7 g/dL 32 - 36 12/15 [facility] CBC/DIFF RDW 51.2 fL 35.1 - 12/15 [place] 43.9 Health CBC/DIFF Platelet 450 K/uL 150 - 400 12/15 Health CBC/DIFF Mean Platelet 10.6 fL 9.4 - 12.4 12/15 Health CBC/DIFF Percent NRBC 0.0 12/15 Health CBC/DIFF Absolute NRBC 0.00 12/15 Health CBC/DIFF Neutrophil 79.1 % 34 - 67.9 12/15 [facility] CBC/DIFF Lymphocyte 9.5 % 21.8 - 50 12/15 Health CBC/DIFF Monocyte 6.6 % 5.3 - 12 12/15 Health CBC/DIFF Eosinophil 4.1 % 0.8 - 5 12/15 Health CBC/DIFF Basophil 0.3 % 0.2 - 1.2 12/15 Health CBC/DIFF Pct Immat Gran 0.4 0.0 - 0.5 12/15 Health CBC/DIFF Neutrophil, 7.95 K/uL 1.78 - 12/15 [place] Abs 5.36 /2017 Health CBC/DIFF Lymphocyte, 0.95 K/uL 1.32 - 12/15 [place] Abs 3.57 /2018 [facility] CBC/DIFF Monocyte, Abs 0.66 K/uL 0.3 - 0.82 12/15 Health CBC/DIFF Eosinophil, 0.41 K/uL 0.04 - 12/15 [place] Abs 0.54 /2017 Health CBC/DIFF Basophil, Abs 0.03 K/uL 0.01 - 12/15 [place] 0.08 /2017 [facility] CBC/DIFF Absol Immat 0.04 K/uL 0 - 0.03 12/15 [place] Gran /2017 Health CBC/DIFF Lab Abnormal 12/15 [place] Interpretation /2017 Health BMP POC CO2 POC 25 mmol/L 21 - 32 12/15 Physician [place] /2017 Notified [facility] BMP POC Chloride POC 104 mmol/L 98 - 107 12/15 [facility] BMP POC Potassium POC 4.3 mmol/L 3.5 - 5.1 12/15 [facility] BMP POC Sodium POC 140 mmol/L 136 - 145 12/15 [facility] BMP POC Glucose POC 87 mg/dL 74 - 106 12/15 [facility] BMP POC Urea Nitrogen 6 mg/dL 7 - 18 12/15 [place] POC /2017 [facility] BMP POC Creatinine POC 0.6 mg/dL 0.6 - 1.3 12/15 [facility] BMP POC Calcium 1.20 mmol/L 1.15 - 12/15 [place] Ionized POC 1.29 Health BMP POC Hemoglobin POC 10.5 g/dL 14 - 12/15 [facility] BMP POC Hematocrit POC 31.0 % 40 - 54 12/15 [facility] BMP POC GFR, Estimated >60 mL/min/1.7 12/15 [place] 3 m2 /2017 Health BMP POC GFR, Estim, >60 mL/min/1.7 12/15 [place] Afr-Am 3 m2 /2017 Health BMP POC Lab Abnormal 12/15 Interpretation /2017 Health VBG POC pH, Sean POC 7.42 7.33 - 12/15 Physician [place] 7.43 Notified Health VBG POC pCO2, Sean POC 40.9 38.0 - 12/15 [place] 50.0 /2018 Health VBG POC pO2, Sean POC 24 50 - 75 12/15 Health VBG POC Base Excess, 2 mmol/L 12/15 [place] Sean POC /2018 [facility] VBG POC HCO3, Sean POC 26.7 mmol/L 22 - 26 12/15 [facility] VBG POC % Sat, Sean POC 44 % 60 - 85 12/15 Health VBG POC Lactic Acid, 0.89 mmol/L 0.4 - 2 12/15 [place] Sean POC /2018 [facility] VBG POC Sample Type Sean 12/15 Health VBG POC TCO2, SEAN POC 28 mmol/L 21 - 32 12/15 [place] [facility] VBG POC Lab Abnormal 12/15 [facility] Vital Signs Vital Sign Value Date Comments Source Systolic (mm Hg) 124 12/15/2017 [facility] Diastolic (mm Hg) 86 12/15/2017 [facility] Heart Rate 88 12/15/2017 [facility] Temperature Oral (F) 37 [place] 12/15/2017 [facility] Respitory Rate 18 12/15/2017 [facility] Systolic (mm Hg) 123 12/15/2017 [facility] Diastolic (mm Hg) 87 12/15/2017 [facility] Heart Rate 87 12/15/2017 [facility] Temperature Oral (F) 36.94 [place] 12/15/2017 [facility] Respitory Rate 19 12/15/2017 [facility] Weight 65.772 12/15/2017 [facility] Encounters Location Location Encounter Encounter Reason Attending ADM DC Status Source Details Type Number For Provider Date Date Visit Emergency Emergency [id number] LLQ pain Billy 12/15 12/15 [facility] /2017 [facility] ([id number]) SAIDA HOLLEY Procedures Procedure Code Date Perfomer Comments Source UA CHEMISTRIES [id number] 12/15/[address] [facility] [address] ABDOMEN AND [id number] 12/15/2017 [facility] PELVIS CONTRAST VBG POC 57755 12/15/2017 [facility] BMP POC 17183 12/15/2017 [facility] CBC/DIFF 19165 12/15/2017 [facility] LIPASE 85126 12/15/2017 [facility] LIVER PROFILE [id number] 12/15/2017 [facility]
--- OUTSIDE RECORDS SUMMARY | 2018-01-28 12:57 | XMS REPORT | Clinical Summary ---
:1960 Author Organization [facility] Address [facility] [place] [address] Care Team Providers Name Role Phone Unavailable Primary Care Provider Unavailable Allergies Active Allergy Reactions Severity Noted Date Comments Penicillin G 12/15/2017 Current Medications Not on file Active Problems Problem Noted Date LLQ pain 12/15/2017 Encounters Date Type Specialty Care Team Description 12/15/2017 Emergency Emergency Medicine Billy Lozoya MD LLQ pain ( Primary Dx) after 12/14/2016 Social History Tobacco Use Types Packs/Day Years Used Date Never Assessed Sex Assigned at Date Recorded Not on file Last Filed Vital Signs Vital Sign Reading Time Taken Blood Pressure 123/87 12/15/2017 8:00 AM CDT Pulse 87 12/15/2017 8:00 AM CDT Temperature 36.9 C (98.5 F) 12/15/2017 8:00 AM CDT Respiratory Rate 19 12/15/2017 8:00 AM CDT Oxygen Saturation 98% 12/15/2017 8:00 AM CDT Inhaled Oxygen Concentration - - Weight 65.8 kg (145 lb) 12/15/2017 8:00 AM CDT Height - - Body Mass Index - - Plan of Treatment Health Maintenance Due Date Last Done Comments Colorectal Cancer Scrn Annual (FIT/FOBT) Age 50 to 75 2010 IMM Influenza Seasonal Jan to June (>/=19 yrs) 01/01/2018 Results Not on fileafter 12/14/2016
--- OUTSIDE RECORDS SUMMARY | 2018-01-28 12:57 | XMS REPORT | Clinical Summary ---
:1960 Author Organization [facility] Address [facility] [place] [address] Care Team Providers Name Role Phone Unavailable [...] MD LLQ pain ( Primary Dx) after 12/17/2016 Social History Tobacco Use Types Packs/Day Years [...] procedure are in the results section. after 12/17/2016 Results UA CHEMISTRIES (12/15/2017 11:37 AM) Color Yellow [facility] 4 Clarity Clear [facility] 4 Spec [place] 1.016 1.001 - 1.035 [facility] [...] anterolisthesis of the involved vertebral bodies. This [facility] radiology report is a preliminary resident [...] anterolisthesis of the involved vertebral bodies. This [facility] radiology report is a preliminary resident [...] SEAN POC 28 21 - 32 mmol/L [facility] 1 Performing Organization Address [facility] Phone Number SALMA [facility] 1 BMP POC (12/15/2017 8:39 AM) CO2 POC 25Comment: Physician 21 - 32 mmol/L [facility] 1 Notified Chloride POC 104 98 - 107 mmol/L [facility] 1 Potassium POC 4.3 3.50 - 5.10 mmol/L [facility] 1 Sodium POC 140 136 - 145 mmol/L [facility] 1 Glucose POC 87 74 - 106 mg/dL [facility] 1 Urea Nitrogen POC 6 (L) 7 - 18 mg/dL [facility] 1 Creatinine POC 0.6 0.6 - 1.3 mg/dL [facility] 1 Calcium Ionized POC 1.20 1.15 - 1.29 mmol/L [facility] 1 Hemoglobin POC 10.5 (L) 14.0 - 18.0 g/dL [place] [address] Hematocrit POC 31.0 (L) 40.0 - 54.0 % [place] [address] GFR, Estimated >60 mL/min/1.73 m2 [facility] [place] [address] GFR, Estim, Afr-Am >60 mL/min/1.73 m2 [facility] 1 Performing Organization Address [facility] Phone Number SALMA [facility] 1 LIVER PROFILE (12/15/2017 8:34 AM) T Protein 7.2 6.4 - 8.2 g/dL [facility] 1 Albumin 3.1 (L) 3.4 - 5.0 g/dL [place] [address] T Bilirubin 0.2 0.2 - 1.0 mg/dL [facility] 1 Alk Phos 143 (H) 45 - 117 U/L [facility] 1 AST 11 (L) 15 - 37 U/L [facility] ALT 11 (L) 12 - 78 U/L [facility] 1 D Bilirubin <0.1 0.0 - 0.2 mg/dL [facility] 1 Specimen Blood Performing Organization Address [facility] Phone Number SALMA [facility] 1 LIPASE (12/15/2017 8:34 AM) Lipase 100 73 - 393 U/L [facility] 1 Specimen Blood Performing Organization Address City/State/Zipcode Phone Number MISYS [facility] 1 CBC/DIFF (12/15/2017 8:34 AM) WBC 10.0 4.5 - 12.0 K/uL [facility] 2 RBC 4.10 (L) 4.60 - 6.20 M/uL [facility] 2 Hemoglobin 8.9 (L) 14.0 - 18.0 g/dL [facility] 2 Hematocrit 32.1 (L) 40.0 - 54.0 % [facility] 2 MCV 78 (L) 82 - 92 fL [facility] 2 MCH 21.7 (L) 27.0 - 31.0 pg [facility] 2 MCHC 27.7 (L) 32.0 - 36.0 g/dL [facility] 2 RDW 51.2 (H) 35.1 - 43.9 fL [facility] 2 Platelet 450 (H) 150 - 400 K/uL [facility] 2 Mean Platelet Volume 10.6 9.4 - 12.4 fL [facility] 2 Percent NRBC 0.0 [facility] 2 Absolute NRBC 0.00 [facility] 2 Neutrophil 79.1 (H) 34.0 - 67.9 % [facility] 2 Lymphocyte 9.5 (L) 21.8 - 50.0 % [facility] 2 Monocyte 6.6 5.3 - 12.0 % [facility] 2 Eosinophil 4.1 0.8 - 5.0 % [facility] 2 Basophil 0.3 0.2 - 1.2 % [facility] 2 Pct Immat Gran 0.4 0.0 - 0.5 [facility] 2 Neutrophil, Abs 7.95 (H) 1.78 - 5.36 K/uL [facility] 2 Lymphocyte, Abs 0.95 (L) 1.32 - 3.57 K/uL [facility] 2 Monocyte, Abs 0.66 0.30 - 0.82 K/uL [facility] 2 Eosinophil, Abs 0.41 0.04 - 0.54 K/uL [facility] 2 Basophil, Abs 0.03 0.01 - 0.08 K/uL [facility] 2 Absol Immat Gran 0.04 (H) 0.00 - 0.03 K/uL [facility] 2 Specimen Blood Performing Organization Address City/State/Zipcode Phone Number MISYS [facility] 2 after 12/17/2016
--- OUTSIDE RECORDS SUMMARY | 2018-01-28 12:57 | XMS REPORT | Clinical Summary ---
:1960 Author Organization [facility] Address [facility] [place] [address] Care Team Providers Name Role Phone Unavailable [...] MD LLQ pain ( Primary Dx) after 01/03/2017 Social History Tobacco Use Types Packs/Day Years [...] procedure are in the results section. after 01/03/2017 Results UA CHEMISTRIES (12/15/2017 11:37 AM) Color Yellow [facility] 4 Clarity Clear [facility] 4 Spec [place] 1.016 1.001 - 1.035 [facility] [...] anterolisthesis of the involved vertebral bodies. This [facility] radiology report is a preliminary resident [...] anterolisthesis of the involved vertebral bodies. This [facility] radiology report is a preliminary resident [...] SEAN POC 28 21 - 32 mmol/L [facility] 1 Performing Organization Address [facility] Phone Number SALMA [facility] 1 BMP POC (12/15/2017 8:39 AM) CO2 POC 25Comment: Physician 21 - 32 mmol/L [facility] 1 Notified Chloride POC 104 98 - 107 mmol/L [facility] 1 Potassium POC 4.3 3.50 - 5.10 mmol/L [facility] 1 Sodium POC 140 136 - 145 mmol/L [facility] 1 Glucose POC 87 74 - 106 mg/dL [facility] 1 Urea Nitrogen POC 6 (L) 7 - 18 mg/dL [facility] 1 Creatinine POC 0.6 0.6 - 1.3 mg/dL [facility] 1 Calcium Ionized POC 1.20 1.15 - 1.29 mmol/L [facility] 1 Hemoglobin POC 10.5 (L) 14.0 - 18.0 g/dL [place] [address] Hematocrit POC 31.0 (L) 40.0 - 54.0 % [place] [address] GFR, Estimated >60 mL/min/1.73 m2 [facility] [place] [address] GFR, Estim, Afr-Am >60 mL/min/1.73 m2 [facility] 1 Performing Organization Address [facility] Phone Number SALMA [facility] 1 LIVER PROFILE (12/15/2017 8:34 AM) T Protein 7.2 6.4 - 8.2 g/dL [facility] 1 Albumin 3.1 (L) 3.4 - 5.0 g/dL [place] [address] T Bilirubin 0.2 0.2 - 1.0 mg/dL [facility] 1 Alk Phos 143 (H) 45 - 117 U/L [facility] 1 AST 11 (L) 15 - 37 U/L [facility] ALT 11 (L) 12 - 78 U/L [facility] 1 D Bilirubin <0.1 0.0 - 0.2 mg/dL [facility] 1 Specimen Blood Performing Organization Address [facility] Phone Number SALMA [facility] 1 LIPASE (12/15/2017 8:34 AM) Lipase 100 73 - 393 U/L [facility] 1 Specimen Blood Performing Organization Address City/State/Zipcode Phone Number MISYS [facility] 1 CBC/DIFF (12/15/2017 8:34 AM) WBC 10.0 4.5 - 12.0 K/uL [facility] 2 RBC 4.10 (L) 4.60 - 6.20 M/uL [facility] 2 Hemoglobin 8.9 (L) 14.0 - 18.0 g/dL [facility] 2 Hematocrit 32.1 (L) 40.0 - 54.0 % [facility] 2 MCV 78 (L) 82 - 92 fL [facility] 2 MCH 21.7 (L) 27.0 - 31.0 pg [facility] 2 MCHC 27.7 (L) 32.0 - 36.0 g/dL [facility] 2 RDW 51.2 (H) 35.1 - 43.9 fL [facility] 2 Platelet 450 (H) 150 - 400 K/uL [facility] 2 Mean Platelet Volume 10.6 9.4 - 12.4 fL [facility] 2 Percent NRBC 0.0 [facility] 2 Absolute NRBC 0.00 [facility] 2 Neutrophil 79.1 (H) 34.0 - 67.9 % [facility] 2 Lymphocyte 9.5 (L) 21.8 - 50.0 % [facility] 2 Monocyte 6.6 5.3 - 12.0 % [facility] 2 Eosinophil 4.1 0.8 - 5.0 % [facility] 2 Basophil 0.3 0.2 - 1.2 % [facility] 2 Pct Immat Gran 0.4 0.0 - 0.5 [facility] 2 Neutrophil, Abs 7.95 (H) 1.78 - 5.36 K/uL [facility] 2 Lymphocyte, Abs 0.95 (L) 1.32 - 3.57 K/uL [facility] 2 Monocyte, Abs 0.66 0.30 - 0.82 K/uL [facility] 2 Eosinophil, Abs 0.41 0.04 - 0.54 K/uL [facility] 2 Basophil, Abs 0.03 0.01 - 0.08 K/uL [facility] 2 Absol Immat Gran 0.04 (H) 0.00 - 0.03 K/uL [facility] 2 Specimen Blood Performing Organization Address City/State/Zipcode Phone Number MISYS [facility] 2 after 01/03/2017
--- OUTSIDE RECORDS SUMMARY | 2018-01-28 12:57 | XMS REPORT | Clinical Summary ---
:1960 Author Organization [facility] Address [facility] [place] [address] Care Team Providers Name Role Phone Unavailable [...] MD LLQ pain ( Primary Dx) after 12/30/2016 Social History Tobacco Use Types Packs/Day Years [...] procedure are in the results section. after 12/30/2016 Results UA CHEMISTRIES (12/15/2017 11:37 AM) Color Yellow [facility] 4 Clarity Clear [facility] 4 Spec [place] 1.016 1.001 - 1.035 [facility] [...] anterolisthesis of the involved vertebral bodies. This [facility] radiology report is a preliminary resident [...] anterolisthesis of the involved vertebral bodies. This [facility] radiology report is a preliminary resident [...] SEAN POC 28 21 - 32 mmol/L [facility] Performing Organization Address [facility] Phone Number SALMA [facility] 1 BMP POC (12/15/2017 8:39 AM) CO2 POC 25Comment: Physician 21 - 32 mmol/L [facility] 1 Notified Chloride POC 104 98 - 107 mmol/L [facility] 1 Potassium POC 4.3 3.50 - 5.10 mmol/L [facility] 1 Sodium POC 140 136 - 145 mmol/L [facility] 1 Glucose POC 87 74 - 106 mg/dL [facility] 1 Urea Nitrogen POC 6 (L) 7 - 18 mg/dL [facility] 1 Creatinine POC 0.6 0.6 - 1.3 mg/dL [facility] 1 Calcium Ionized POC 1.20 1.15 - 1.29 mmol/L [facility] 1 Hemoglobin POC 10.5 (L) 14.0 - 18.0 g/dL [place] [address] Hematocrit POC 31.0 (L) 40.0 - 54.0 % [place] [address] GFR, Estimated >60 mL/min/1.73 m2 [facility] [place] [facility] [address] GFR, Estim, Afr-Am >60 mL/min/1.73 m2 [facility] 1 Performing Organization Address [facility] Phone Number SALMA [facility] 1 LIVER PROFILE (12/15/2017 8:34 AM) T Protein 7.2 6.4 - 8.2 g/dL [facility] 1 Albumin 3.1 (L) 3.4 - 5.0 g/dL [place] [address] T Bilirubin 0.2 0.2 - 1.0 mg/dL [facility] 1 Alk Phos 143 (H) 45 - 117 U/L [facility] 1 AST 11 (L) 15 - 37 U[facility] ALT 11 (L) 12 - 78 U/L [facility] 1 D Bilirubin <0.1 0.0 - 0.2 mg/dL [facility] 1 Specimen Blood Performing Organization Address [facility] Phone Number SALMA [facility] 1 LIPASE (12/15/2017 8:34 AM) Lipase 100 73 - 393 U/L [facility] 1 Specimen Blood Performing Organization Address City/State/Zipcode Phone Number MISYS [facility] 1 CBC/DIFF (12/15/2017 8:34 AM) WBC 10.0 4.5 - 12.0 K/uL [facility] 2 RBC 4.10 (L) 4.60 - 6.20 M/uL [facility] 2 Hemoglobin 8.9 (L) 14.0 - 18.0 g/dL [facility] 2 Hematocrit 32.1 (L) 40.0 - 54.0 % [facility] 2 MCV 78 (L) 82 - 92 fL [facility] 2 MCH 21.7 (L) 27.0 - 31.0 pg [facility] 2 MCHC 27.7 (L) 32.0 - 36.0 g/dL [facility] 2 RDW 51.2 (H) 35.1 - 43.9 fL [facility] 2 Platelet 450 (H) 150 - 400 K/uL [facility] 2 Mean Platelet Volume 10.6 9.4 - 12.4 fL [facility] 2 Percent NRBC 0.0 [facility] 2 Absolute NRBC 0.00 [facility] 2 Neutrophil 79.1 (H) 34.0 - 67.9 % [facility] 2 Lymphocyte 9.5 (L) 21.8 - 50.0 % [facility] 2 Monocyte 6.6 5.3 - 12.0 % [facility] 2 Eosinophil 4.1 0.8 - 5.0 % [facility] 2 Basophil 0.3 0.2 - 1.2 % [facility] 2 Pct Immat Gran 0.4 0.0 - 0.5 [facility] 2 Neutrophil, Abs 7.95 (H) 1.78 - 5.36 K/uL [facility] 2 Lymphocyte, Abs 0.95 (L) 1.32 - 3.57 K/uL [facility] 2 Monocyte, Abs 0.66 0.30 - 0.82 K/uL [facility] 2 Eosinophil, Abs 0.41 0.04 - 0.54 K/uL [facility] 2 Basophil, Abs 0.03 0.01 - 0.08 K/uL [facility] 2 Absol Immat Gran 0.04 (H) 0.00 - 0.03 K/uL [facility] 2 Specimen Blood Performing Organization Address City/State/Zipcode Phone Number MISYS [facility] 2 after 12/30/2016
--- OUTSIDE RECORDS SUMMARY | 2018-01-28 12:57 | XMS REPORT | Clinical Summary ---
:1960 Author Organization [facility] Address [facility] [place] [address] Care Team Providers Name Role Phone Unavailable [...] MD LLQ pain ( Primary Dx) after 12/15/2016 Social History Tobacco Use Types Packs/Day Years [...] procedure are in the results section. after 12/15/2016 Results UA CHEMISTRIES (12/15/2017 11:37 AM) Color Yellow [facility] 4 Clarity Clear [facility] 4 Spec [place] 1.016 1.001 - 1.035 [facility] [...] anterolisthesis of the involved vertebral bodies. This [facility] radiology report is a preliminary [...] anterolisthesis of the involved vertebral bodies. This [facility] radiology report is a preliminary [...] SEAN POC 28 21 - 32 mmol/L [facility] 1 Performing Organization Address [facility] Phone Number SALMA [facility] 1 BMP POC (12/15/2017 8:39 AM) CO2 POC 25Comment: Physician 21 - 32 mmol/L [facility] 1 Notified Chloride POC 104 98 - 107 mmol/L [facility] 1 Potassium POC 4.3 3.50 - 5.10 mmol/L [facility] 1 Sodium POC 140 136 - 145 mmol/L [facility] 1 Glucose POC 87 74 - 106 mg/dL [facility] 1 Urea Nitrogen POC 6 (L) 7 - 18 mg/dL [facility] 1 Creatinine POC 0.6 0.6 - 1.3 mg/dL [facility] 1 Calcium Ionized POC 1.20 1.15 - 1.29 mmol/L [facility] 1 Hemoglobin POC 10.5 (L) 14.0 - 18.0 g/dL [place] [address] Hematocrit POC 31.0 (L) 40.0 - 54.0 % [place] [address] GFR, Estimated >60 mL/min/1.73 m2 [facility] [place] [address] GFR, Estim, Afr-Am >60 mL/min/1.73 m2 [facility] 1 Performing Organization Address [facility] [place] Phone Number SALMA [facility] 1 LIVER PROFILE (12/15/2017 8:34 AM) T Protein 7.2 6.4 - 8.2 g/dL [facility] 1 Albumin 3.1 (L) 3.4 - 5.0 g/dL [place] [address] T Bilirubin 0.2 0.2 - 1.0 mg/dL [facility] 1 Alk Phos 143 (H) 45 - 117 U/L [facility] 1 AST 11 (L) 15 - 37 U/L [facility] ALT 11 (L) 12 - 78 U/L [facility] 1 D Bilirubin <0.1 0.0 - 0.2 mg/dL [facility] 1 Specimen Blood Performing Organization Address [facility] Phone Number SALMA [facility] 1 LIPASE (12/15/2017 8:34 AM) Lipase 100 73 - 393 U/L [facility] 1 Specimen Blood Performing Organization Address City/State/Zipcode Phone Number MISYS [facility] 1 CBC/DIFF (12/15/2017 8:34 AM) WBC 10.0 4.5 - 12.0 K/uL [facility] 2 RBC 4.10 (L) 4.60 - 6.20 M/uL [facility] 2 Hemoglobin 8.9 (L) 14.0 - 18.0 g/dL [facility] 2 Hematocrit 32.1 (L) 40.0 - 54.0 % [facility] 2 MCV 78 (L) 82 - 92 fL [facility] 2 MCH 21.7 (L) 27.0 - 31.0 pg [facility] 2 MCHC 27.7 (L) 32.0 - 36.0 g/dL [facility] 2 RDW 51.2 (H) 35.1 - 43.9 fL [facility] 2 Platelet 450 (H) 150 - 400 K/uL [facility] 2 Mean Platelet Volume 10.6 9.4 - 12.4 fL [facility] 2 Percent NRBC 0.0 [facility] 2 Absolute NRBC 0.00 [facility] 2 Neutrophil 79.1 (H) 34.0 - 67.9 % [facility] 2 Lymphocyte 9.5 (L) 21.8 - 50.0 % [facility] 2 Monocyte 6.6 5.3 - 12.0 % [facility] 2 Eosinophil 4.1 0.8 - 5.0 % [facility] 2 Basophil 0.3 0.2 - 1.2 % [facility] 2 Pct Immat Gran 0.4 0.0 - 0.5 [facility] 2 Neutrophil, Abs 7.95 (H) 1.78 - 5.36 K/uL [facility] 2 Lymphocyte, Abs 0.95 (L) 1.32 - 3.57 K/uL [facility] 2 Monocyte, Abs 0.66 0.30 - 0.82 K/uL [facility] 2 Eosinophil, Abs 0.41 0.04 - 0.54 K/uL [facility] 2 Basophil, Abs 0.03 0.01 - 0.08 K/uL [facility] 2 Absol Immat Gran 0.04 (H) 0.00 - 0.03 K/uL [facility] 2 Specimen Blood Performing Organization Address City/State/Zipcode Phone Number MISYS [facility] 2 after 12/15/2016
--- OUTSIDE RECORDS SUMMARY | 2018-01-28 12:58 | XMS REPORT | Clinical Summary ---
:1960 Author Organization [facility] Address [facility] [place] [address] Care Team Providers Name Role Phone Unavailable [...] MD LLQ pain ( Primary Dx) after 01/25/2017 Social History Tobacco Use Types Packs/Day Years [...] procedure are in the results section. after 01/25/2017 Results UA CHEMISTRIES (12/15/2017 11:37 AM) Color Yellow [facility] 4 Clarity Clear [facility] 4 Spec [place] 1.016 1.001 - 1.035 [facility] [...] anterolisthesis of the involved vertebral bodies. This [facility] radiology report is a preliminary resident dictation [...] anterolisthesis of the involved vertebral bodies. This [facility] radiology report is a preliminary resident dictation [...] SEAN POC 28 21 - 32 mmol/L [facility] 1 Performing Organization Address [facility] Phone Number SALMA [facility] 1 BMP POC (12/15/2017 8:39 AM) CO2 POC 25Comment: Physician 21 - 32 mmol/L [facility] 1 Notified Chloride POC 104 98 - 107 mmol/L [facility] 1 Potassium POC 4.3 3.50 - 5.10 mmol/L [facility] 1 Sodium POC 140 136 - 145 mmol/L [facility] 1 Glucose POC 87 74 - 106 mg/dL [facility] 1 Urea Nitrogen POC 6 (L) 7 - 18 mg/dL [facility] 1 Creatinine POC 0.6 0.6 - 1.3 mg/dL [facility] 1 Calcium Ionized POC 1.20 1.15 - 1.29 mmol/L [facility] 1 Hemoglobin POC 10.5 (L) 14.0 - 18.0 g/dL [place] [address] Hematocrit POC 31.0 (L) 40.0 - 54.0 % [place] [address] GFR, Estimated >60 mL/min/1.73 m2 [facility] [place] [address] GFR, Estim, Afr-Am >60 mL/min/1.73 m2 [facility] 1 Performing Organization Address [facility] Phone Number SALMA [facility] 1 LIVER PROFILE (12/15/2017 8:34 AM) T Protein 7.2 6.4 - 8.2 g/dL [facility] 1 Albumin 3.1 (L) 3.4 - 5.0 g/dL [place] [address] T Bilirubin 0.2 0.2 - 1.0 mg/dL [facility] 1 Alk Phos 143 (H) 45 - 117 U/L [facility] 1 AST 11 (L) 15 - 37 U/[facility] ALT 11 (L) 12 - 78 U/L [facility] 1 D Bilirubin <0.1 0.0 - 0.2 mg/dL [facility] 1 Specimen Blood Performing Organization Address [facility] Phone Number SALMA [facility] 1 LIPASE (12/15/2017 8:34 AM) Lipase 100 73 - 393 U/L [facility] 1 Specimen Blood Performing Organization Address City/State/Zipcode Phone Number MISYS [facility] 1 CBC/DIFF (12/15/2017 8:34 AM) WBC 10.0 4.5 - 12.0 K/uL [facility] 2 RBC 4.10 (L) 4.60 - 6.20 M/uL [facility] 2 Hemoglobin 8.9 (L) 14.0 - 18.0 g/dL [facility] 2 Hematocrit 32.1 (L) 40.0 - 54.0 % [facility] 2 MCV 78 (L) 82 - 92 fL [facility] 2 MCH 21.7 (L) 27.0 - 31.0 pg [facility] 2 MCHC 27.7 (L) 32.0 - 36.0 g/dL [facility] 2 RDW 51.2 (H) 35.1 - 43.9 fL [facility] 2 Platelet 450 (H) 150 - 400 K/uL [facility] 2 Mean Platelet Volume 10.6 9.4 - 12.4 fL [facility] 2 Percent NRBC 0.0 [facility] 2 Absolute NRBC 0.00 [facility] 2 Neutrophil 79.1 (H) 34.0 - 67.9 % [facility] 2 Lymphocyte 9.5 (L) 21.8 - 50.0 % [facility] 2 Monocyte 6.6 5.3 - 12.0 % [facility] 2 Eosinophil 4.1 0.8 - 5.0 % [facility] 2 Basophil 0.3 0.2 - 1.2 % [facility] 2 Pct Immat Gran 0.4 0.0 - 0.5 [facility] 2 Neutrophil, Abs 7.95 (H) 1.78 - 5.36 K/uL [facility] 2 Lymphocyte, Abs 0.95 (L) 1.32 - 3.57 K/uL [facility] 2 Monocyte, Abs 0.66 0.30 - 0.82 K/uL [facility] 2 Eosinophil, Abs 0.41 0.04 - 0.54 K/uL [facility] 2 Basophil, Abs 0.03 0.01 - 0.08 K/uL [facility] 2 Absol Immat Gran 0.04 (H) 0.00 - 0.03 K/uL [facility] 2 Specimen Blood Performing Organization Address City/State/Zipcode Phone Number MISYS [facility] 2 after 01/25/2017
--- OUTSIDE RECORDS SUMMARY | 2018-01-28 12:58 | XMS REPORT | Clinical Summary ---
:1960 Author Organization [facility] Address [facility] [place] [address] Care Team Providers Name Role Phone Unavailable [...] MD LLQ pain ( Primary Dx) after 01/26/2017 Social History Tobacco Use Types Packs/Day Years [...] procedure are in the results section. after 01/26/2017 Results UA CHEMISTRIES (12/15/2017 11:37 AM) Color Yellow [facility] 4 Clarity Clear [facility] 4 Spec [place] 1.016 1.001 - 1.035 [facility] [...] anterolisthesis of the involved vertebral bodies. This [facility] radiology report is a preliminary resident dictation [...] anterolisthesis of the involved vertebral bodies. This [facility] radiology report is a preliminary resident dictation [...] SEAN POC 28 21 - 32 mmol/L [facility] 1 Performing Organization Address [facility] Phone [facility] SALMA [facility] 1 BMP POC (12/15/2017 8:39 AM) CO2 POC 25Comment: Physician 21 - 32 mmol/L [facility] 1 Notified Chloride POC 104 98 - 107 mmol/L [facility] 1 Potassium POC 4.3 3.50 - 5.10 mmol/L [facility] 1 Sodium POC 140 136 - 145 mmol/L [facility] 1 Glucose POC 87 74 - 106 mg/dL [facility] 1 Urea Nitrogen POC 6 (L) 7 - 18 mg/dL [facility] 1 Creatinine POC 0.6 0.6 - 1.3 mg/dL [facility] 1 Calcium Ionized POC 1.20 1.15 - 1.29 mmol/L [facility] 1 Hemoglobin POC 10.5 (L) 14.0 - 18.0 g/dL [place] [address] Hematocrit POC 31.0 (L) 40.0 - 54.0 % [place] [address] GFR, Estimated >60 mL/min/1.73 m2 [facility] [place] [address] GFR, Estim, Afr-Am >60 mL/min/1.73 m2 [facility] 1 Performing Organization Address [facility] Phone Number SALMA [facility] 1 LIVER PROFILE (12/15/2017 8:34 AM) T Protein 7.2 6.4 - 8.2 g/dL [facility] 1 Albumin 3.1 (L) 3.4 - 5.0 g/dL [place] [address] T Bilirubin 0.2 0.2 - 1.0 mg/dL [facility] 1 Alk Phos 143 (H) 45 - 117 U/L [facility] 1 AST 11 (L) 15 - 37 U/[facility] ALT 11 (L) 12 - 78 U/L [facility] 1 D Bilirubin <0.1 0.0 - 0.2 mg/dL [facility] 1 Specimen Blood Performing Organization Address [facility] Phone Number SALMA [facility] 1 LIPASE (12/15/2017 8:34 AM) Lipase 100 73 - 393 U/L [facility] 1 Specimen Blood Performing Organization Address City/State/Zipcode Phone Number MISYS [facility] 1 CBC/DIFF (12/15/2017 8:34 AM) WBC 10.0 4.5 - 12.0 K/uL [facility] 2 RBC 4.10 (L) 4.60 - 6.20 M/uL [facility] 2 Hemoglobin 8.9 (L) 14.0 - 18.0 g/dL [facility] 2 Hematocrit 32.1 (L) 40.0 - 54.0 % [facility] 2 MCV 78 (L) 82 - 92 fL [facility] 2 MCH 21.7 (L) 27.0 - 31.0 pg [facility] 2 MCHC 27.7 (L) 32.0 - 36.0 g/dL [facility] 2 RDW 51.2 (H) 35.1 - 43.9 fL [facility] 2 Platelet 450 (H) 150 - 400 K/uL [facility] 2 Mean Platelet Volume 10.6 9.4 - 12.4 fL [facility] 2 Percent NRBC 0.0 [facility] 2 Absolute NRBC 0.00 [facility] 2 Neutrophil 79.1 (H) 34.0 - 67.9 % [facility] 2 Lymphocyte 9.5 (L) 21.8 - 50.0 % [facility] 2 Monocyte 6.6 5.3 - 12.0 % [facility] 2 Eosinophil 4.1 0.8 - 5.0 % [facility] 2 Basophil 0.3 0.2 - 1.2 % [facility] 2 Pct Immat Gran 0.4 0.0 - 0.5 [facility] 2 Neutrophil, Abs 7.95 (H) 1.78 - 5.36 K/uL [facility] 2 Lymphocyte, Abs 0.95 (L) 1.32 - 3.57 K/uL [facility] 2 Monocyte, Abs 0.66 0.30 - 0.82 K/uL [facility] 2 Eosinophil, Abs 0.41 0.04 - 0.54 K/uL [facility] 2 Basophil, Abs 0.03 0.01 - 0.08 K/uL [facility] 2 Absol Immat Gran 0.04 (H) 0.00 - 0.03 K/uL [facility] 2 Specimen Blood Performing Organization Address City/State/Zipcode Phone Number MISYS [facility] 2 after 01/26/2017
--- OUTSIDE RECORDS SUMMARY | 2018-01-28 12:58 | XMS REPORT | Clinical Summary ---
:1960 Author Organization [facility] Address [facility] [place] [address] Care Team Providers Name Role Phone Unavailable [...] MD LLQ pain ( Primary Dx) after 01/04/2017 Social History Tobacco Use Types Packs/Day Years [...] procedure are in the results section. after 01/04/2017 Results UA CHEMISTRIES (12/15/2017 11:37 AM) Color Yellow [facility] 4 Clarity Clear [facility] 4 Spec [place] 1.016 1.001 - 1.035 [facility] [...] involved vertebral bodies. This [facility] radiology report is a preliminary resident dictation [...] involved vertebral bodies. This [facility] radiology report is a preliminary resident dictation until finalized by an attending. Changes to this preliminary report may occur in an additional preliminary or finalized version. Dictated By: [email or web address] Lemos MD, 12/15/2017 11:26 AM I have [...] SEAN POC 28 21 - 32 mmol/L [facility] [place] 1 Performing Organization Address [facility] Phone Number SALMA [facility] 1 BMP POC (12/15/2017 8:39 AM) CO2 POC 25Comment: Physician 21 - 32 mmol/L [facility] 1 Notified Chloride POC 104 98 - 107 mmol/L [facility] 1 Potassium POC 4.3 3.50 - 5.10 mmol/L [facility] 1 Sodium POC 140 136 - 145 mmol/L [facility] 1 Glucose POC 87 74 - 106 mg/dL [facility] 1 Urea Nitrogen POC 6 (L) 7 - 18 mg/dL [facility] 1 Creatinine POC 0.6 0.6 - 1.3 mg/dL [facility] 1 Calcium Ionized POC 1.20 1.15 - 1.29 mmol/L [facility] 1 Hemoglobin POC 10.5 (L) 14.0 - 18.0 g/dL [place] [address] Hematocrit POC 31.0 (L) 40.0 - 54.0 % [place] [address] GFR, Estimated >60 mL/min/1.73 m2 [facility] [place] [address] GFR, Estim, Afr-Am >60 mL/min/1.73 m2 [facility] 1 Performing Organization Address [facility] Phone Number SALMA [facility] [place] 1 LIVER PROFILE (12/15/2017 8:34 AM) T Protein 7.2 6.4 - 8.2 g/dL [facility] 1 Albumin 3.1 (L) 3.4 - 5.0 g/dL [place] [address] T Bilirubin 0.2 0.2 - 1.0 mg/dL [facility] 1 Alk Phos 143 (H) 45 - 117 U/L [facility] 1 AST 11 (L) 15 - 37 U/L [facility] ALT 11 (L) 12 - 78 U/L [facility] 1 D Bilirubin <0.1 0.0 - 0.2 mg/dL [facility] 1 Specimen Blood Performing Organization Address [facility] Phone Number SALMA [facility] 1 LIPASE (12/15/2017 8:34 AM) Lipase 100 73 - 393 U/L [facility] 1 Specimen Blood Performing Organization Address City/State/Zipcode Phone Number MISYS [facility] 1 CBC/DIFF (12/15/2017 8:34 AM) WBC 10.0 4.5 - 12.0 K/uL [facility] 2 RBC 4.10 (L) 4.60 - 6.20 M/uL [facility] 2 Hemoglobin 8.9 (L) 14.0 - 18.0 g/dL [facility] 2 Hematocrit 32.1 (L) 40.0 - 54.0 % [facility] 2 MCV 78 (L) 82 - 92 fL [facility] 2 MCH 21.7 (L) 27.0 - 31.0 pg [facility] 2 MCHC 27.7 (L) 32.0 - 36.0 g/dL [facility] 2 RDW 51.2 (H) 35.1 - 43.9 fL [facility] 2 Platelet 450 (H) 150 - 400 K/uL [facility] 2 Mean Platelet Volume 10.6 9.4 - 12.4 fL [facility] 2 Percent NRBC 0.0 [facility] 2 Absolute NRBC 0.00 [facility] 2 Neutrophil 79.1 (H) 34.0 - 67.9 % [facility] 2 Lymphocyte 9.5 (L) 21.8 - 50.0 % [facility] 2 Monocyte 6.6 5.3 - 12.0 % [facility] 2 Eosinophil 4.1 0.8 - 5.0 % [facility] 2 Basophil 0.3 0.2 - 1.2 % [facility] 2 Pct Immat Gran 0.4 0.0 - 0.5 [facility] 2 Neutrophil, Abs 7.95 (H) 1.78 - 5.36 K/uL [facility] 2 Lymphocyte, Abs 0.95 (L) 1.32 - 3.57 K/uL [facility] 2 Monocyte, Abs 0.66 0.30 - 0.82 K/uL [facility] 2 Eosinophil, Abs 0.41 0.04 - 0.54 K/uL [facility] 2 Basophil, Abs 0.03 0.01 - 0.08 K/uL [facility] 2 Absol Immat Gran 0.04 (H) 0.00 - 0.03 K/uL [facility] 2 Specimen Blood Performing Organization Address City/State/Zipcode Phone Number MISYS [facility] 2 after 01/04/2017
--- OUTSIDE RECORDS SUMMARY | 2018-01-28 13:00 | XMS REPORT ---
:1960 [facility] [address] [place] [address] Care Team Providers Name Role Phone EDMUNDO LEIVA MD Primary Care Provider Unavailable ENRIQUE, DR DEVINE Unavailable Unavailable AALIYAH BRICENO Unavailable Unavailable MICHELE ALLAN Unavailable Unavailable DULCE RICE Unavailable Unavailable MICKEY VILLEGAS Unavailable Unavailable DR DECLAN SALAZAR Unavailable Unavailable LALA KOVACS Unavailable Unavailable PAUL VAZ Unavailable Unavailable MANINDER, DR PERICO Barrett Unavailable Unavailable TONI, MS MONICA Horn Unavailable Unavailable Mickey Diana Unavailable Unavailable ASIF BOWMAN Unavailable Unavailable NELLIE GRIFFITH Unavailable Unavailable Payers Payer Name Policy Type Policy Number Effective Date Expiration Date Problems This patient has no known problems. Allergies, Adverse Reactions, Alerts Allergy Name Allergy Status Severity Reaction(s) Onset Inactive Treating Comments Type Date Date Clinician NSAIDS DA Active SV 2018-01 (Non-Steroida -26 l 00:00:0 Anti-Inflamma 0 Penicillins DA Active MO 2018-01 00:00:0 0 NSAIDS DA Active SV 2017-12 (Non-Steroida -28 l 00:00:0 Anti-Inflamma 0 Penicillins DA Active MO 2017-12 00:00:0 0 NSAIDS DA Active SV 2017-11 (Non-Steroida -14 l 00:00:0 Anti-Inflamma 0 Penicillins DA Active MO 2017-11 00:00:0 0 Medications This patient has no known medications. Encounters Start End Encounter Admission Attending Care Care Encounter Date/Time Date/Time Type Type Clinicians Facility Department ID 2018-01-27 2018-01-27 Emergency [facility] [id number] 00:00:00 00:00:00 2018-01-02 2018-01-02 Emergency E SYBIL NUNEZ [facility] [id number] 12:45:00 13:40:00 2017-12-25 2017-12-25 Outpatient E KAITY [facility] [id number] 12:15:00 15:00:00 AALIYAH 2017-12-16 2017-12-16 Emergency E JERRELL, [facility] [id number] 11:18:00 12:40:00 MICHELE 2017-12-15 2017-12-15 Emergency [facility] [id number] 08:28:43 08:28:43 2017-12-15 2017-12-15 Emergency [facility] [id number] 08:02:30 08:02:30 2017-11-10 2017-11-10 Outpatient E MARTIN, [facility] [id number] 15:42:00 21:51:00 DECLAN 2017-08-04 2017-08-04 Emergency E PERICO DICKENS [facility] [id number] 10:02:00 12:00:00 2017-07-30 2017-07-30 Emergency E TONI, [facility] [id number] 13:37:00 17:53:00 MONICA 2017-06-07 2017-06-07 Emergency E BOWMAN, [facility] [id number] 10:57:00 13:46:00 ASIF 2017-05-28 2017-05-28 Emergency E [facility] [id number] 13:59:00 13:59:00 Results Test Description Test Time Test Comments Text Results Atomic Results Result Comments DRUGS OF ABUSE 2018-01-02 14:44:00 Test Item Value Reference Range Comments DRUG [...] Negative NEGATIVE DOAH (test code=DOAH) URINE DRUG CREEN CUT OFF VALUES Amphetamines 1000 ng/mL Barbituates 300 ng/mL Benzodiazepines 300 ng/mL Cocaine 300 ng/mL Opiates 300 ng/mL Phencyclidine 25 ng/mL THC 50 ng/mL Tricyclic Antidepressants 1000 ng/mL [id number] 14:14:00 Test Item Value Reference Range Comments COLOR (test code=COLU) YELLOW YELLOW CLARITY (test code=CLA) CLEAR CLEAR GLUCOSE UR (test code=UA GLUCOSE) NEGATIVE NEGATIVE BILI UR (test code=BILE) NEGATIVE NEGATIVE KETONES UR (test code=EMILIANA) NEGATIVE NEGATIVE SP GRAVITY (test code=SPGR) 1.018 1.005-1.030 PH UR (test code=PH) 7.0 4.5-8.0 PROTEIN UR (test code=PU) NEGATIVE NEGATIVE UROBIL UR (test code=UROQ) 0.2 EU/dL 0.2-1.0 NITRITE UR (test code=NITRITE) NEGATIVE NEGATIVE BLOOD UR (test code=UA BLOOD) NEGATIVE NEGATIVE LEUK ES UR (test code=LEUK) NEGATIVE NEGATIVE AMYLASE AND [id number] 13:44:00 Test Item Value Reference Range Comments AMYLASE (test code=10A) 80 U/L 28-100 LIPASE (test code=60A) 117 IU/L 73-393 COMPREHENSIVE METABOLIC [id number] 13:44:00 Test Item Value Reference Range Comments GLUCOSE (test code=06D) 90 mg/dL 75-100 SODIUM (test code=01A) 137 mmol/L 136-145 POTASSIUM (test code=01B) 3.8 mmol/L 3.6-5.1 CHLORIDE (test code=04A) 106 mmol/L 98-107 CO2 (test code=02A) 26 mmol/L 22-32 ANION GAP (test code=ANG) 8.8 mmol/L BUN (test code=05D) 9 mg/dL 7-18 CREATININE (test code=03E) 0.6 mg/dL 0.7-1.3 BUN/CREA (test code=BCR) 14 12-20 CALCIUM (test code=09D) 8.8 mg/dL 8.3-9.5 BILI TOTAL (test code=11A) 0.2 mg/dL 0.2-1.0 PROTEIN (test code=07D) 7.8 g/dL 6.4-8.2 ALBUMIN (test code=08D) 3.1 g/dL 3.5-4.8 GLOBULIN (test code=GLB) 4.7 g/dL 1.5-3.8 ALB/GLOB (test code=AGRR) 0.7 1.0-2.6 ALK PHOS (test code=35A) 131 IU/L 42-121 AST (test code=30A) 8 IU/L <=42 ALT (test code=31A) 11 IU/L <=78 CBC (INCLUDES AUTOMATED DIFFERENTIAL)2018-01-02 13:29:00 Test Item Value Reference Range Comments WBC (test code=WBC) 11.7 10\\S\\3/uL 4.5-11.0 RBC (test code=RBC) 4.05 10\\S\\6/uL 4.20-5.60 HGB (test code=HBG) 8.7 g/dL 14.0-18.0 HCT (test code=HCT) 30.0 % 35.0-46.0 MCV (test code=MCV) 74.1 fL 80.0-94.0 MCH (test code=MCH) 21.5 pg 27.0-31.0 MCHC (test code=MCHC) 29.0 g/dL 32.0-36.0 RDW (test code=RDW) 16.9 % 11.5-14.5 PLT (test code=PLT) 451 10\\S\\3/uL 130-400 MPV (test code=MPV) 10.5 fL 9.4-12.4 NEUTROP # (test code=NE#) 9.4 10\\S\\3/uL 2.0-8.0 LYMPH # (test code=LY#) 1.1 10\\S\\3/uL 1.2-4.0 MONOCYTE # (test code=MO#) 0.8 10\\S\\3/uL 0.0-1.1 EOSINOPH # (test code=EO#) 0.3 10\\S\\3/uL 0.0-0.7 BASOPHIL # (test code=BA#) 0.0 10\\S\\3/uL 0.0-0.3 IG # (test code=IG#) 0.06 10\\S\\3/uL 0.00-0.06 NRBC # (test code=NRBC#) 0.00 10\\S\\3/uL 0.00-0.01 NEUTROPH % (test code=NE%) 80.4 % 35.0-73.0 LYMPH % (test code=LY%) 9.6 % 20.0-55.0 MONO % (test code=MO%) 7.1 % 2.5-10.0 EOSINOPH % (test code=EO%) 2.1 % 0.0-5.0 BASOPHIL % (test code=BA%) 0.3 % 0.0-2.0 IG % (test code=IG%) 0.5 % 0.0-0.8 NRBC% (test code=NRBC%) 0.0 % 0.0-0.2 MANDIFF (test code=MDIFF) NO NO RBC MORPH (test code=RBCMOR) NORMAL CBC (INCLUDES AUTOMATED DIFFERENTIAL)2017-12-25 16:19:00 Test Item Value Reference Range Comments WBC (test code=WBC) 10.3 10\\S\\3/uL 4.5-11.0 RBC (test code=RBC) 3.59 10\\S\\6/uL 4.20-5.60 HGB (test code=HBG) 8.1 g/dL 14.0-18.0 HCT (test code=HCT) 27.4 % 35.0-46.0 MCV (test code=MCV) 76.3 fL 80.0-94.0 MCH (test code=MCH) 22.6 pg 27.0-31.0 MCHC (test code=MCHC) 29.6 g/dL 32.0-36.0 RDW (test code=RDW) 17.2 % 11.5-14.5 PLT (test code=PLT) 441 10\\S\\3/uL 130-400 MPV (test code=MPV) 10.9 fL 9.4-12.4 NEUTROP # (test code=NE#) 8.3 10\\S\\3/uL 2.0-8.0 LYMPH # (test code=LY#) 1.0 10\\S\\3/uL 1.2-4.0 MONOCYTE # (test code=MO#) 0.7 10\\S\\3/uL 0.0-1.1 EOSINOPH # (test code=EO#) 0.3 10\\S\\3/uL 0.0-0.7 BASOPHIL # (test code=BA#) 0.0 10\\S\\3/uL 0.0-0.3 IG # (test code=IG#) 0.04 10\\S\\3/uL 0.00-0.06 NRBC # (test code=NRBC#) 0.00 10\\S\\3/uL 0.00-0.01 NEUTROPH % (test code=NE%) 80.3 % 35.0-73.0 LYMPH % (test code=LY%) 9.3 % 20.0-55.0 MONO % (test code=MO%) 7.0 % 2.5-10.0 EOSINOPH % (test code=EO%) 2.8 % 0.0-5.0 BASOPHIL % (test code=BA%) 0.2 % 0.0-2.0 IG % (test code=IG%) 0.4 % 0.0-0.8 NRBC% (test code=NRBC%) 0.0 % 0.0-0.2 MANDIFF (test code=MDIFF) NO NO RBC MORPH (test code=RBCMOR) NORMAL URINALYSIS W/O MICROSCOPICOW2017-12-25 14:15:00 Test Item Value Reference Range Comments COLOR (test code=COLU) Yellow YELLOW CLARITY (test code=CLA) Clear CLEAR GLUCOSE UR (test code=UA Negative NEGATIVE GLUCOSE) BILI UR (test code=BILE) Negative NEGATIVE KETONES UR (test code=EMILIANA) Negative NEGATIVE SP GRAVITY (test code=SPGR) 1.020 1.005-1.030 PH UR (test code=PH) 6.5 4.5-8.0 PROTEIN UR (test code=PU) Negative NEGATIVE NITRITE UR (test Negative NEGATIVE code=NITRITE) UROBIL UR (test code=GUROQ) 0.2 E.U./dL UROBIL UR (test code=GUROQC) UROBILINOGEN REFERENCE RANGE 0.2 - 1.0 EU/dL BLOOD UR (test code=UA Trace-intact NEGATIVE BLOOD) LEUK ES UR (test code=LEUK) Negative NEGATIVE BRAIN NATRIURETIC PROTEIN OW2017-12-25 14:15:00 Test Item Value Reference Range Comments BNP (test code=OBNP) 82 pg/mL 0-50 TROPONIN I i-STAT OW2017-12-25 14:02:00 Test Item Value Reference Range Comments TROPONIN I (test code=A84) 0.010 ng/mL 0.000-0.045 LACTIC ACID OW2017-12-25 13:55:00 Test Item Value Reference Range Comments LACTATE (test code=ERICK) 1.2 mmol/L 0.9-1.7 CK MB i-STAT OW2017-12-25 13:55:00 Test Item Value Reference Range Comments CKMB (test code=A49) 2.4 ng/mL <=3.6 CHEM8+ i-STAT OW2017-12-25 13:55:00 Test Item Value Reference Range Comments SODIUM (test code=HEVER) 141 mmol/L 138-146 POTASSIUM (test code=KI) 3.8 mmol/L 3.5-4.9 CHLORIDE (test code=CLI) 104 mmol/L 98-109 CA IONIZED (test code=ICAI) 1.22 mmol/L 1.12-1.32 GLUCOSE (test code=GLUI) 84 mg/dL 75-100 TCO2 (test code=TCO2) 27 mmol/L 24-29 BUN (test code=BUN1) 7 mg/dL 8-26 CREATININE (test code=CREAI) 0.5 mg/dL 0.6-1.3 ANION GAP (test code=GANG) 16.0 mmol/L HGB (test code=MHB) 9.2 g/dL 12.0-17.0 HCT (test code=MHCT) 27.0 % 38.0-51.0 CT ABDOMEN AND PELVIS W/O CONTRAST *OW*2017-12-25 13:51:50CT abdomen and pelvis without contrastLocation Code: [id number] HISTORY: [id number]: Upper abdominal painCOMPARISON: NoneTechnique: Helical CT of the abdomen and pelvis was performed withoutintravenous contrast. Thin section axial, sagittal and coronal images wereobtained. One or more of the following dose reduction techniques were used:Automated exposure control, adjustment of the mA and or KV according to patientsize, and/or utilization of iterative reconstruction technique. DLP: 980.47mGy-cm.FINDINGS:The lung bases are clear. The unenhanced liver, gallbladder, adrenal glands, pancreas, and spleen areunremarkable. Numerous bilateral nonobstructing stones again seen. Hyperdensecyst again seen in the left kidney without change from 12/16/17. Calcifiedgranulomata are again seen in the liver and spleen.The unopacified loops of bowel demonstrate no focal thickening or dilatation.The appendix is visualized and is normal. There is no free peritoneal air orfluid. The abdominal aorta is normal in caliber and contour. There is noretroperitoneal mass or fluid collection. The urinary bladder is unremarkable.There is no pelvic mass or fluid collection. No evidence of diverticulitis ordiverticulosis.There is marked grade 2 spondylolisthesis of L4 relative to L5 with moderatemultilevel degenerative discdisease and spondylosis.IMPRESSION: Bilateral nonobstructing nephrolithiasis with stable dense cyst in the leftkidney.XR CHEST 2 VIEW *OW* 2017-12-25 13:48:21Exam: Chest x-ray 2 viewsHISTORY: Chest painLocation: [id number]:The heart size is normal and lung mascorro are clear. Mild hyperinflation noted.Osseous structures are intact.IMPRESSION:1. Normal chest except mild hyperinflation..PROTHROMBIN TIME i-STAT OW2017-12-25 13:38:00 Test Item Value Reference Range Comments PT (test code=PT1) 14.8 s 10.0-13.0 INR (test code=INR) 1.2 INRH (test code=INRH) SUGGESTED THERAPEUTIC RANGE FOR INR: 2.5 - 3.5 For Patients with Prosthetic Valves or Patients with recurrent Thromboembolic Events 2.0 - 3.[address] STONE PROTOCOL STUDY 2017-12-16 12:46:30CT ABDOMEN AND PELVIS W/O CONTRASTLocation code: [id number] INDICATIONS: Abdominal pain.TECHNIQUE: Volumetric acquisition of abdomen from the level of the domes of thediaphragm to the symphysis pubis using 3 mm collimation without the use ofintravenous or oral contrast. Axial and coronal images were reviewed.Dose lowering technique with automatic exposure control utilized. DLP: []mGy-cmCOMPARISON: INDINGS: Lung bases are clear. Liver, spleen, pancreas, and bilateral adrenal glands are within normal limits.Kidneys are normal in size and contour without hydronephrosis. Stable 1.6 cmstaghorn calculus lower pole. Small intrarenal calculi are also stable. Severalstable hyperdensities within the kidneys likely represent hemorrhagic cysts,measuring up to 1.7 cm in the left mid cortex.Visualizedloops of bowel are within normal limits. Calcified orcontrast-filled appendix noted. Retained fecal material throughout the colon.Moderate diverticular disease, without evidence of diverticulitis.Aortatapers normally without aneurysmal dilatation. Mild to moderateatherosclerosis No lymphadenopathy.CTPelvis: The urinary bladder is within normal limits. Prostate gland isunremarkable. Peritoneal and bilateral inner gluteal folds inflammatory changesappear slightly more prominent than on prior. There is a irregular probablecollection measuring 5.3 x 1.2 cm present, stable to slightly increased fromprior.Visualized osseous structures demonstrate degenerative changes in the lumbarspine. Grade 2 spondylolisthesis of L4 on 5 and L5 on S1 appears stable.IMPRESSION: 1. No significant interval change in aleft lower pole staghorn calculus. Noureteral calculi or hydronephrosis evident.2. Multiple small bilateral intrarenal calculi and also calcification seen.3. Slight progression of peritoneal inflammatory changes from prior. A leftperirectal abscess collection possibly with communication to the skin isnotexcluded. This area appears minimally increased in size from prior.4. Diverticular disease, without diverticulitis.BASIC METABOLIC PANEL 2017-12-16 12:17:00 Test Item Value Reference Range Comments GLUCOSE (test code=06D) 169 mg/dL 75-100 SODIUM (test code=01A) 141 mmol/L 136-145 POTASSIUM (test code=01B) 3.5 mmol/L 3.6-5.1 CHLORIDE (test code=04A) 106 mmol/L 98-107 CO2 (test code=02A) 27 mmol/L 22-32 ANION GAP (test code=ANG) 11.5 mmol/L BUN (test code=05D) 13 mg/dL 7-18 CREATININE (test code=03E) 0.7 mg/dL 0.7-1.3 BUN/CREA (test code=BCR) 18 12-20 CALCIUM (test code=09D) 8.4 mg/dL 8.3-9.5 CBC (INCLUDES AUTOMATED DIFFERENTIAL)*[id number] 12:07:00 Test Item Value Reference Range Comments WBC (test code=WBC) 9.7 10\\S\\3/uL 4.5-11.0 RBC (test code=RBC) 3.70 10\\S\\6/uL 4.20-5.60 HGB (test code=HBG) 8.2 g/dL 14.0-18.0 HCT (test code=HCT) 27.9 % 35.0-46.0 MCV (test code=MCV) 75.4 fL 80.0-94.0 MCH (test code=MCH) 22.2 pg 27.0-31.0 MCHC (test code=MCHC) 29.4 g/dL 32.0-36.0 RDW (test code=RDW) 17.6 % 11.5-14.5 PLT (test code=PLT) 444 10\\S\\3/uL 130-400 MPV (test code=MPV) 10.0 fL 9.4-12.4 NEUTROP # (test code=NE#) 7.4 10\\S\\3/uL 2.0-8.0 LYMPH # (test code=LY#) 1.1 10\\S\\3/uL 1.2-4.0 MONOCYTE # (test code=MO#) 0.7 10\\S\\3/uL 0.0-1.1 EOSINOPH # (test code=EO#) 0.4 10\\S\\3/uL 0.0-0.7 BASOPHIL # (test code=BA#) 0.0 10\\S\\3/uL 0.0-0.3 IG # (test code=IG#) 0.05 10\\S\\3/uL 0.00-0.06 NRBC # (test code=NRBC#) 0.00 10\\S\\3/uL 0.00-0.01 NEUTROPH % (test code=NE%) 76.7 % 35.0-73.0 LYMPH % (test code=LY%) 11.6 % 20.0-55.0 MONO % (test code=MO%) 7.2 % 2.5-10.0 EOSINOPH % (test code=EO%) 3.9 % 0.0-5.0 BASOPHIL % (test code=BA%) 0.1 % 0.0-2.0 IG % (test code=IG%) 0.5 % 0.0-0.8 NRBC% (test code=NRBC%) 0.0 % 0.0-0.2 MANDIFF (test code=WMDIFF) NO NO RBC MORPH (test code=WRBCMOR) NORMAL COMPREHENSIVE METABOLIC [id number] 11:23:00 Test Item Value Reference Range Comments TOTAL PROTEIN (BEAKER) 6.4 gm/dL 6.0-8.5 (test lysw=718) ALBUMIN (BEAKER) (test 3.1 g/dL 3.5-5.0 sguq=5194) ALKALINE PHOSPHATASE 112 U/L 30-115 (BEAKER) (test hmiq=620) BILIRUBIN TOTAL (BEAKER) 0.2 mg/dL 0.1-1.3 (test bmwz=311) SODIUM (BEAKER) (test 138 meq/L 135-148 zget=597) POTASSIUM (BEAKER) (test 3.7 meq/L 3.5-5.5 zgsl=809) CHLORIDE (BEAKER) (test 108 meq/L 98-106 uims=155) CO2 (BEAKER) (test 24 meq/L 20-31 umlh=802) BLOOD UREA NITROGEN 11 mg/dL 10-26 (BEAKER) (test msty=372) CREATININE (BEAKER) (test 0.74 mg/dL 0.50-1.20 lhnr=167) GLUCOSE RANDOM (BEAKER) 109 mg/dL 70-110 (test hsdz=354) CALCIUM (BEAKER) (test 8.5 mg/dL 8.5-10.5 yuuo=332) AST (SGOT) (BEAKER) (test 7 U/L 5-40 fyrg=542) ALT (SGPT) (BEAKER) (test < U/L 6-50 gnis=624) EGFR (BEAKER) (test 109 mL/min/1.73 sq ESTIMATED GFR IS NOT iccm=4394) m ACCURATE CREATININE CLEARANCE IN PREDICTING GLOMERULAR FILTRATION RATE. ESTIMATED GFR IS NOT APPLICABLE FOR DIALYSIS PATIENTS. URINALYSIS W/ [id number] 11:04:00 Test Item Value Reference Range Comments COLOR (BEAKER) (test ryfy=065) Yellow CLARITY (BEAKER) (test yurp=770) Clear SPECIFIC GRAVITY UA (BEAKER) (test njbd=043) 1.017 1.001-1.035 PH UA (BEAKER) (test ujup=411) 5.0 5.0-8.0 PROTEIN UA (BEAKER) (test vhxm=379) Negative Negative GLUCOSE UA (BEAKER) (test jwiq=833) Negative Negative KETONES UA (BEAKER) (test gyvp=714) Negative Negative BILIRUBIN UA (BEAKER) (test hivh=283) Negative Negative BLOOD UA (BEAKER) (test slwd=875) Negative Negative NITRITE UA (BEAKER) (test edgy=399) Negative Negative LEUKOCYTE ESTERASE UA (BEAKER) (test ygzs=705) Negative Negative UROBILINOGEN UA (BEAKER) (test bjoq=234) < mg/dL 0.2-1.0 RBC UA (BEAKER) (test hdsz=553) 2 /HPF WBC UA (BEAKER) (test asbo=852) 1 /HPF MUCUS (BEAKER) (test fuvo=9890) Rare SOURCE(BEAKER) (test dbwa=9251) CBC W/PLT COUNT & AUTO [id number] 10:59:00 Test Item Value Reference Range Comments WHITE BLOOD CELL COUNT (BEAKER) 14.1 K/ L 4.0-10.0 (test snih=585) RED BLOOD CELL COUNT (BEAKER) 3.28 M/ L 4.20-5.80 (test dncg=147) HEMOGLOBIN (BEAKER) (test 7.3 GM/DL 13.0-16.8 vxsy=275) HEMATOCRIT (BEAKER) (test 24.5 % 36.0-50.0 fphx=955) MEAN CORPUSCULAR VOLUME 74.7 fL 82.0-99.0 (BEAKER) (test xbwr=429) MEAN CORPUSCULAR HEMOGLOBIN 22.3 pg 27.0-33.0 (BEAKER) (test icgk=890) MEAN CORPUSCULAR HEMOGLOBIN 29.8 GM/DL 32.0-36.0 CONC (BEAKER) (test sslv=255) RED CELL DISTRIBUTION WIDTH 17.9 % 12.0-15.0 (BEAKER) (test ejjd=314) PLATELET COUNT (BEAKER) (test 375 K/CU MM 150-430 tnri=928) MEAN PLATELET VOLUME (BEAKER) 10.4 fL 6.0-11.5 MPV-Approximately 20% (test momp=246) positive bias due to method change. NUCLEATED RED BLOOD CELLS 0 /100 WBC 0-0 (BEAKER) (test aego=977) NEUTROPHILS RELATIVE PERCENT 83 % (BEAKER) (test wgpd=492) LYMPHOCYTES RELATIVE PERCENT 7 % (BEAKER) (test tvsh=012) MONOCYTES RELATIVE PERCENT 7 % (BEAKER) (test qsvr=446) EOSINOPHILS RELATIVE PERCENT 3 % (BEAKER) (test ooiv=370) BASOPHILS RELATIVE PERCENT 0 % (BEAKER) (test scux=916) NEUTROPHILS ABSOLUTE COUNT 11.69 K/ L 1.80-8.00 (BEAKER) (test knls=308) LYMPHOCYTES ABSOLUTE COUNT 0.94 K/ L 1.48-4.50 (BEAKER) (test oskw=169) MONOCYTES ABSOLUTE COUNT 0.96 K/ L 0.00-1.30 (BEAKER) (test ioqp=873) EOSINOPHILS ABSOLUTE COUNT 0.41 K/ L 0.00-0.50 (BEAKER) (test lzyv=314) BASOPHILS ABSOLUTE COUNT 0.03 K/ L 0.00-0.20 (BEAKER) (test gaag=886) IMMATURE GRANULOCYTES-RELATIVE 1 % 0-0 PERCENT (BEAKER) (test olii=0578) CT, [id number] 10:49:00With PO and IV contrast Reason for exam:-> abdominal pain What is the patient's sedation requirement?->No SedationFINAL REPORT HISTORY : abdominal painLLQ abd pain Technique: Multiple axial images of the abdomen and pelvis were performed without the administration of IV or oral contrast. This exam was performed according to our departmental dose optimization program which includes automatedexposure control , adjustment of the mA and/or kV according [...] be best assessed with a CT/MRI, renal massprotocol, to exclude a mass. There is atherosclerotic vascular disease. There are multiple hepatic granulomata. There is no abdominal, retroperitoneal or pelvic lymphadenopathy. Multilevel degenerativedisc changes of the visualized thoracolumbar spine are seen. There is stable anterolisthesis of L4-5and L5 over S1. Some sclerotic foci which are unchanged are seen in the axial skeleton. While these may represent bone islands, other etiologies cannot be excluded. As clinically warranted, findings can be correlated with a nuclear medicine bone scan. As seen on the prior exam, there is some partiallyvisualized nodularity/ irregularity of the subcutaneous fat and soft tissues of the inferior gluteal fold regions extending into the medial bilateral proximal thighs. There appear to be some fluid collections and possible fistulous within this area. This area is only partially visualized. One of the fistulous tracts is seen in the left medial gluteal fold/proximal thigh region. Given the nodularity ofthe findings, a neoplastic process cannot be entirely [...] under distention versus a nonspecific colitis. The appendixis visualized. There are no CT findings to suggest appendicitis, however. The prostate gland is mildly enlarged. There are some calcifications within the prostate gland. The seminal vesicles are within normal limits. Impression: 1. Several bilateral nonobstructing renal stones. No ureteral stones are identified. There is no hydronephrosis/ hydroureter. There is a stable hyperdense focus in theleft kidney. 2. Colonic diverticulosis. There is long segment wall thickening of the sigmoid colon that could be due to under distention or a nonspecific colitis. 3. 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 Evaluation is limited without IV contrast as well as only partial visualization. Signed: Wayne Triplett MDReport Verified Date/Time: 12/14/2017 10:49:21 Reading Location: [facility] Diagnostic Imaging Reading Room - [place] [address] 1120 ER SCREEN FOR HIV 08:55:00 Test Item Value Reference Range Comments HIV 1/2 AB (test NONREACTIVE NONREACTIVE This test is used for SCREENING code=SCRN HIV) purposes only. All reactive results are prelimenary and confirmation results will follow. HEPATITIS C ANTIBODY [id number] 08:55:00 Test Item Value Reference Range Comments SCRN HCV (test code=SCRN NEGATIVE NEGATIVE Hepatitis C Antibody test is for HCV) screening purposes only. All reactives will be confirmed by additional testing. [id number] 13:04:00 Test Item Value Reference Range Comments SODIUM (test code=NA) 142 MMOL/L 137-145 K+ (test code=KSERUM) 4.4 MMOL/L 3.5-5.1 PLEASE NOTE NEW REFERENCE RANGE(S) IN EFFECT EFFECTIVE 11/05/2009 - NEW ANALYZER (VITROS 5600) CHLORIDE (test code=CL) 108 MMOL/L 98-107 CO2 (test code=CO2) 25 MMOL/L 22-30 BUN (test code=BUN) 14 MG/DL 9-20 CREA (test code=CREA) 0.6 MG/DL 0.8-1.5 GLUCOSE (test 88 MG/DL 70-99 Fasting glucose normal code=GLUCOSE) <100 MG/DL- [employer] recommendation CALCIUM (test 9.1 MG/DL 8.4-10.2 code=CABLOOD) TOTPROT (test 6.5 G/DL 6.3-8.2 code=TOTPROT) ALBUMIN (test 3.4 G/DL 3.5-5.0 code=ALBSERUM) BILITOT (test 0.1 MG/DL 0.2-1.3 code=BILITOT) AST (test code=AST) 14 U/L 15-46 PHOSALK (test 123 U/L 38-126 code=PHOSALK) ALT (test code=ALT) 18 U/L 13-69 GFR (test code=GFR) 148 mL/min/1.73m2 A GFR of >90 mL/min/1.73m2 is considered normal. [id number] 13:04:00 Test Item Value Reference Range Comments LIPASE (test code=LIPA) 57 U/L 23-300 [id number] 12:26:00 Test Item Value Reference Range Comments WBC (test code=WBC) 13.7 K/UL 3.5-10.9 RBC (test code=RBC) 3.74 M/UL 4.3-5.7 HGB (test code=HGB) 8.3 G/DL 13.0-17.9 HCT (test code=HCT) 28.2 % 38-52 MCV (test code=MCV) 75.4 FL 80-98 MCH (test code=MCH) 22.2 PG 28-32 MCHC (test code=MCHC) 29.4 G/DL 32.5-36.5 RDW (test code=RDW) 17.6 % 11.5-14.5 PLT (test code=PLT) 401 K/UL 150-450 MPV (test code=MPV) 10.4 FL 7.4-10.4 MANDIFF (test code=MANDIFF) NO SCAN (test code=SCAN) NO NEUT% (test code=NEUT%) 82.4 % 40-75 LYMPH% (test code=LYMPH%) 8.3 % 24-44 MONO% (test code=MONO%) 5.3 % 0-13 EOS% (test code=EOS%) 3.0 % 0-4 BASO % (test code=BASO%) 0.1 % 0-2 IG (test code=IG) 0 % 0-1 IG% (test code=IG%) 0.9 % 0-1 IG%=Metamyelocytes, Myelocytes, and Promyelocytes. (Immature neutrophils not including "bands".) > 3% IG indicates risk of sepsis ABS NEUT (test code=NEUT) 11.3 K/UL 1.2-7.2 [id number] 11:51:00 Test Item Value Reference Range Comments GLUCOSE (test code=URGLU) NEGATIVE MG/DL NEG-100 BILIRUBN (test code=URBILI) NEGATIVE NEGATIVE KETONE (test code=URKET) NEGATIVE MG/DL NEGATIVE BLOOD (test code=URBLD) NEGATIVE UR PH (test code=URPH) 5.5 5.0-7.5 PROTEIN (test code=URPRO) NEGATIVE MG/DL NEGATIVE NITRITES (test code=URNIT) NEGATIVE NEGATIVE UROBILINGEN (test code=URURO) 0.2 EU/DL 0.2-1.0 LEUKOCYT (test code=URLEU) NEGATIVE NEGATIVE UA COLOR (test code=UA COLOR) YELLOW YELLOW CLARITY (test code=CLARITY) CLEAR CLEAR SP GRAV (test code=URSPGRAV) 1.019 1.000-1.025 UAMICRO (test code=UAMICRO) NO CT ABDOMEN/PELVIS [id number] 23:15:00 [place] [id number] Patient Name: ASHLEY STORY MR #: [id number] : 1960 Age/Sex: 57/M Req #: [id number] Adm Physician: Ordered by: MICKEY VILLEGAS MD Report #: [id number] Location: ER Room/Bed: _ Procedure: [id number] CT/CT ABDOMEN/PELVIS W Exam Date: 11/17/17 Exam Time: 2224 REPORT STATUS: Signed EXAM: CT Abdomen and Pelvis WITH contrast INDICATION: Pelvic and lower abdominal pain COMPARISON: None. TECHNIQUE: Abdomen and pelvis were scanned utilizing a multidetector helical scanner from the lung base to the pubic symphysis after administration of IV contrast. Coronal and sagittal reformations were obtained. Routine protocol was performed. Scan was performed when during portal venous phase. IV CONTRAST: 100 mL of Isovue-370 ORAL CONTRAST: Gastrografin RADIATION DOSE: Total DLP: 333.40 mGy*cm Estimated effective dose: (DLP x 0.015 x size factor) mSv COMPLICATIONS: None FINDINGS: LINES and TUBES: None. LOWER THORAX: Unremarkable HEPATOBILIARY: There are a few peripheral calcifications in the superior capsular region of the liver as seen on series 2, image 19 and 21. No focal hepatic lesions. No biliary ductal dilation. GALLBLADDER: No radio-opaque stones or sludge. No wall thickening. SPLEEN: No splenomegaly. PANCREAS: No focal masses or ductal dilatation. ADRENALS: No adrenal nodules KIDNEYS/URETERS: Kidneys enhance symmetrically. No hydronephrosis. No cystic or solid masslesions. Bilateral nephrolithiasis. Right kidney: 3 mm stone noted in the inferior renal collecting system. Left kidney: 1 x 1.8 cm large stone in the inferior left renal collecting system. Additional smaller stones are noted in the upper and interpolar region of the left kidney. GI TRACT: No abnormal distention, wall thickening, or evidence of bowel obstruction. There are diverticula within the colon without evidence of diverticulitis. Appendix is normal. PELVIC ORGANS/BLADDER: Unremarkable. LYMPH NODES: No lymphadenopathy. VESSELS: There is moderate atherosclerotic disease in the aorta and major arterial branches. PERITONEUM / RETROPERITONEUM: No free air or fluid. BONES: There are severe degenerative changes in the lumbar spine. SOFT TISSUES: Questionable skin thickening in the perineal region suspicious for cellulitis. Perianal fistula is also suspected. IMPRESSION: 1. Bilateral nephrolithiasis left greater than right. 2. Perineal soft tissue inflammatory changes associated with questionable left peritoneal fistula and superficial soft tissue phlegmon. 3. Diverticulosis without evidence of diverticulitis. Signed by: Dr. Shola Durán M.D. on 11:19 PM Dictated By: SHOLA CALHOUN MD 18 Transcribed By: DONN on 11/17/172318 COPY TO: MICKEY VILLEGAS MDHEPATITIS C ANTIBODY [id number] 08:31:00 Test Item Value Reference Range Comments SCRN HCV (test code=SCRN NEGATIVE NEGATIVE Hepatitis C Antibody test is for HCV) screening purposes only. All reactives will be confirmed by additional testing. ER SCREEN FOR HIV 08:31:00 Test Item Value Reference Range Comments HIV 1/2 AB (test NONREACTIVE NONREACTIVE This test is used for SCREENING code=SCRN HIV) purposes only. All reactive results are prelimenary and confirmation results will follow. 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 ([email or web address] [id number]) CHLORIDE (test code=CL) 107 MMOL/L 98-107 CO2 (test code=CO2) 26 MMOL/L 22-30 BUN (test code=BUN) 15 MG/DL 9-20 CREA (test code=CREA) 0.7 MG/DL 0.8-1.5 GLUCOSE (test 87 MG/DL 70-99 Fasting glucose normal code=GLUCOSE) <100 MG/DL- [employer] recommendation CALCIUM (test 9.5 MG/DL 8.4-10.2 code=CABLOOD) TOTPROT (test 6.9 G/DL 6.3-8.2 code=TOTPROT) ALBUMIN (test 3.6 G/DL 3.5-5.0 code=ALBSERUM) BILITOT (test 0.3 MG/DL 0.2-1.3 code=BILITOT) AST (test code=AST) 22 U/L 15-46 PHOSALK (test 100 U/L 38-126 code=PHOSALK) ALT (test code=ALT) 19 U/L 13-69 GFR (test code=GFR) 124 mL/min/1.73m2 A GFR of >90 mL/min/1.73m2 is considered normal. Slightly hemolyzed [id number] 15:35:00 Test Item Value Reference Range Comments LIPASE (test code=LIPA) 58 U/L 23-300 US [id number] 15:07:[address] [id number] IMAGING REPORTPatient Name: ASHLEY STORY NDate of Service: [id number]: 57 Sex: M Order #: [id number] [facility] 1960 X-Ray Number: [id number] Record Number: [id number] Hospital Number: [id number] Physician: JOSEPH SHARMA -Ordering Physician: Osmani SANTOS [...] PMLegally authenticated by TELLY Thompson 2017-11-12 15:05:15URINE [id number] 11:54:00 Test Item Value Reference Range Comments Culture Observations (test NO GROWTH (<1,000 CFU/ML) code=COB1) CT ABDOMEN AND PELVIS WITHOUT CONTRAST *WW*2017-11-10 15:13:00CT abdomen and pelvis without contrastLocation Code: A8PGHVWHQB HISTORY: R52: PAIN, UNSPECIFIEDCOMPARISON: 07/30/2017, 06/07/2017Technique: Helical [...] evidence of diverticulitis.U/S TESTICULAR*WW*2017-11-10 15:00:22SCROTAL ULTRASOUNDLocation Code: [id number] HISTORY: R52: PAIN, UNSPECIFIEDCOMPARISON: None.TECHNIQUE: Multiple high [...] (test code=USPERM) /HPF NONE CBC (INCLUDES AUTOMATED DIFFERENTIAL)*[id number] 13:00:00 Test Item Value Reference Range Comments [...] NO RBC MORPH (test code=WRBCMOR) NORMAL CT, [id number] 16:55:00Reason for exam:->ABDOMINAL PAINReason for exam :->NAUSEAWhat [...] Thomasort Verified Date/Time: 09/13/2017 16:55:35 Reading Location: [facility] B1 [id number] Ortho Consult Reading Room POCT-GLUCOSE [id number] 15:48:00 Test Item Value Reference Range Comments POC-GLUCOSE METER (BEAKER) 93 mg/dL 70-110 TESTED AT [facility] [address] [facility] (test fwtj=6804) [facility] [address] URINALYSIS WITH MICROSCOPIC IF [id number] 14:32:00 Test Item Value Reference Range Comments COLOR (BEAKER) (test fsdw=934) Light Yellow CLARITY (BEAKER) (test vodn=523) Clear SPECIFIC GRAVITY UA (BEAKER) (test rrxw=236) 1.011 1.001-1.035 PH UA (BEAKER) (test kmve=949) 6.5 5.0-8.0 PROTEIN UA (BEAKER) (test ysiz=954) Negative Negative GLUCOSE UA (BEAKER) (test jubw=655) Negative Negative KETONES UA (BEAKER) (test kncj=431) Negative Negative BILIRUBIN UA (BEAKER) (test aeza=256) Negative Negative BLOOD UA (BEAKER) (test vlxg=695) Negative Negative NITRITE UA (BEAKER) (test dpie=218) Negative Negative LEUKOCYTE ESTERASE UA (BEAKER) (test ciuy=945) Negative Negative UROBILINOGEN UA (BEAKER) (test atlu=088) 0.2 mg/dL 0.2-1.0 SOURCE(BEAKER) (test tsie=5785) COMPREHENSIVE METABOLIC [id number] 13:36:00 Test Item Value Reference Range Comments TOTAL PROTEIN (BEAKER) 7.3 gm/dL 6.0-8.3 (test tcvi=962) ALBUMIN (BEAKER) (test 3.6 g/dL 3.5-5.0 dhiy=8599) ALKALINE PHOSPHATASE 122 U/L 40-150 (BEAKER) (test govp=706) BILIRUBIN TOTAL (BEAKER) 0.3 mg/dL 0.2-1.2 (test vtih=307) SODIUM (BEAKER) (test 140 meq/L 136-145 mmnq=902) POTASSIUM (BEAKER) (test 3.8 meq/L 3.5-5.1 ehfl=219) CHLORIDE (BEAKER) (test 107 meq/L 98-107 bzzp=186) CO2 (BEAKER) (test 23 meq/L 22-29 vqgp=103) BLOOD UREA NITROGEN 9 mg/dL 7-21 (BEAKER) (test kjnf=990) CREATININE (BEAKER) (test 0.70 mg/dL 0.57-1.25 wouc=566) GLUCOSE RANDOM (BEAKER) 86 mg/dL 70-105 (test tvne=136) CALCIUM (BEAKER) (test 9.2 mg/dL 8.4-10.2 xxdl=514) AST (SGOT) (BEAKER) (test 8 U/L 5-34 iguj=659) ALT (SGPT) (BEAKER) (test 6 U/L 6-55 wuvp=549) EGFR (BEAKER) (test 117 mL/min/1.73 sq ESTIMATED GFR IS NOT qvhr=4336) m ACCURATE CREATININE CLEARANCE IN PREDICTING GLOMERULAR FILTRATION RATE. ESTIMATED GFR IS NOT APPLICABLE FOR DIALYSIS PATIENTS. CBC W/PLT COUNT & AUTO [id number] 13:07:00 Test Item Value Reference Range Comments WHITE BLOOD CELL COUNT (BEAKER) (test kaos=320) 11.5 K/ L 3.5-10.5 RED BLOOD CELL COUNT (BEAKER) (test lhvp=569) 3.93 M/ L 4.63-6.08 HEMOGLOBIN (BEAKER) (test uxuq=245) 8.9 GM/DL 13.7-17.5 HEMATOCRIT (BEAKER) (test tiir=090) 30.6 % 40.1-51.0 MEAN CORPUSCULAR VOLUME (BEAKER) (test kach=315) 77.9 fL 79.0-92.2 MEAN CORPUSCULAR HEMOGLOBIN (BEAKER) (test 22.6 pg 25.7-32.2 yiyo=517) MEAN CORPUSCULAR HEMOGLOBIN CONC (BEAKER) (test 29.1 GM/DL 32.3-36.5 mgsj=227) RED CELL DISTRIBUTION WIDTH (BEAKER) (test 16.4 % 11.6-14.4 vpdf=879) PLATELET COUNT (BEAKER) (test wvzn=337) 442 K/CU MM 150-450 MEAN PLATELET VOLUME (BEAKER) (test isxp=342) 10.2 fL 9.4-12.4 NUCLEATED RED BLOOD CELLS (BEAKER) (test 0 /100 WBC 0-0 gwdx=354) NEUTROPHILS RELATIVE PERCENT (BEAKER) (test 79 % ayog=411) LYMPHOCYTES RELATIVE PERCENT (BEAKER) (test 9 % vqud=403) MONOCYTES RELATIVE PERCENT (BEAKER) (test 9 % ipen=219) EOSINOPHILS RELATIVE PERCENT (BEAKER) (test 2 % rhlo=874) BASOPHILS RELATIVE PERCENT (BEAKER) (test 0 % yfye=376) NEUTROPHILS ABSOLUTE COUNT (BEAKER) (test 9.15 K/ L 1.78-5.38 tduj=732) LYMPHOCYTES ABSOLUTE COUNT (BEAKER) (test 1.04 K/ L 1.32-3.57 aqqb=747) MONOCYTES ABSOLUTE COUNT (BEAKER) (test 0.98 K/ L 0.30-0.82 gcrm=734) EOSINOPHILS ABSOLUTE COUNT (BEAKER) (test 0.26 K/ L 0.04-0.54 nlft=547) BASOPHILS ABSOLUTE COUNT (BEAKER) (test 0.02 K/ L 0.01-0.08 ufss=268) IMMATURE GRANULOCYTES-RELATIVE PERCENT (BEAKER) 1 % 0-1 (test yqtt=4594) POCT-LACTIC ACID, [id number] 12:44:00 Test Item Value Reference Range Comments POC-LACTIC ACID, VENOUS 0.8 mmol/L 0.9-1.7 TESTED AT [facility] [address] (BEAKER) (test ipbs=7953) [facility] [address] COMPREHENSIVE METABOLIC [id number] 08:51:00 Test Item Value Reference Range Comments TOTAL PROTEIN (BEAKER) 7.5 gm/dL 6.0-8.5 (test lxgf=109) ALBUMIN (BEAKER) (test 3.6 g/dL 3.5-5.0 yfcw=4275) ALKALINE PHOSPHATASE 119 U/L 30-115 (BEAKER) (test nqdo=492) BILIRUBIN TOTAL (BEAKER) 0.1 mg/dL 0.1-1.3 (test bfnc=180) SODIUM (BEAKER) (test 138 meq/L 135-148 mwgf=103) POTASSIUM (BEAKER) (test 4.0 meq/L 3.5-5.5 kamw=239) CHLORIDE (BEAKER) (test 105 meq/L 98-106 ugrf=063) CO2 (BEAKER) (test 26 meq/L 20-31 onqd=248) BLOOD UREA NITROGEN 10 mg/dL 10-26 (BEAKER) (test cfpi=982) CREATININE (BEAKER) (test 0.74 mg/dL 0.50-1.20 bsfr=155) GLUCOSE RANDOM (BEAKER) 88 mg/dL 70-110 (test mgjy=968) CALCIUM (BEAKER) (test 9.4 mg/dL 8.5-10.5 vydz=584) AST (SGOT) (BEAKER) (test 9 U/L 5-40 hjln=569) ALT (SGPT) (BEAKER) (test < U/L 6-50 vjxn=931) EGFR (BEAKER) (test 109 mL/min/1.73 sq ESTIMATED GFR IS NOT rotk=9286) m ACCURATE CREATININE CLEARANCE IN PREDICTING GLOMERULAR FILTRATION RATE. ESTIMATED GFR IS NOT APPLICABLE FOR DIALYSIS PATIENTS. [id number] 08:49:00 Test Item Value Reference Range Comments LIPASE (BEAKER) (test ivef=288) 29 U/L 8-78 CBC W/PLT COUNT & AUTO [id number] 08:35:00 Test Item Value Reference Range Comments WHITE BLOOD CELL COUNT (BEAKER) (test euxc=243) 8.8 K/ L 4.0-10.0 RED BLOOD CELL COUNT (BEAKER) (test suyp=236) 3.93 M/ L 4.20-5.80 HEMOGLOBIN (BEAKER) (test dvhd=761) 9.3 GM/DL 13.0-16.8 HEMATOCRIT (BEAKER) (test jmoy=721) 29.7 % 40.0-50.0 MEAN CORPUSCULAR VOLUME (BEAKER) (test hxid=614) 75.6 fL 82.0-98.0 MEAN CORPUSCULAR HEMOGLOBIN (BEAKER) (test 23.5 pg 27.0-33.0 edqd=913) MEAN CORPUSCULAR HEMOGLOBIN CONC (BEAKER) (test 31.2 GM/DL 32.0-36.0 zswo=230) RED CELL DISTRIBUTION WIDTH (BEAKER) (test 18.0 % 12.0-15.0 mqzz=747) PLATELET COUNT (BEAKER) (test ixfx=091) 482 K/CU MM 150-430 MEAN PLATELET VOLUME (BEAKER) (test moga=002) 8.3 fL 6.5-10.5 NUCLEATED RED BLOOD CELLS (BEAKER) (test 0 /100 WBC 0-0 kqnm=110) NEUTROPHILS RELATIVE PERCENT (BEAKER) (test 77 % jvkx=649) LYMPHOCYTES RELATIVE PERCENT (BEAKER) (test 13 % mojn=926) MONOCYTES RELATIVE PERCENT (BEAKER) (test 5 % yrdn=938) EOSINOPHILS RELATIVE PERCENT (BEAKER) (test 4 % kkuy=756) BASOPHILS RELATIVE PERCENT (BEAKER) (test 1 % bngy=858) NEUTROPHILS ABSOLUTE COUNT (BEAKER) (test 6.80 K/ L 1.80-8.00 htin=745) LYMPHOCYTES ABSOLUTE COUNT (BEAKER) (test 1.10 K/ L 1.48-4.50 wbfp=191) MONOCYTES ABSOLUTE COUNT (BEAKER) (test 0.50 K/ L 0.00-1.30 uiaa=311) EOSINOPHILS ABSOLUTE COUNT (BEAKER) (test 0.40 K/ L 0.00-0.50 rbbs=963) BASOPHILS ABSOLUTE COUNT (BEAKER) (test 0.10 K/ L 0.00-0.20 xsdd=590) AMYLASE AND LIPASE *WW*2017-08-04 11:44:00 Test Item [...] (test code=USPERM) /HPF NONE CBC (INCLUDES AUTOMATED DIFFERENTIAL)*[id number] 11:23:00 Test Item Value Reference Range Comments [...] (test code=USPERM) /HPF NONE BASIC METABOLIC PANEL *WW*2017-07-30 14:21:00 Test Item Value Reference Range Comments [...] code=09D) 8.1 mg/dL 8.3-9.5 CBC (INCLUDES AUTOMATED DIFFERENTIAL)*[id number] 14:14:00 Test Item Value Reference Range Comments [...] NO RBC MORPH (test code=WRBCMOR) NORMAL Culture, [id number] 14:17:00 Test Item Value Reference Range Comments Culture, Urine (test code=URC) NG36 [id number] 14:50:00 Test Item Value Reference Range Comments [...] (test code=UABLD) Trace Negative Urine Source: Urine [id number] 14:50:00 Test Item Value Reference Range Comments Urinalysis (test code=UARBC) 0-3 HPF 0-3 Urinalysis (test code=UASQUAM) 0-3 HPF 0-3 Urine Source: Urine [id number] 14:48:00 Test Item Value Reference Range Comments Hematology (test code=SED) 74 mm/hr 0-10 ADDED SED RATE, CRP NOT [id number] 14:00:00 Test Item Value Reference Range Comments [...] 5-34 Chemistry (test code=ALT) 8 U/L 8-55 [id number] 14:00:00 Test Item Value Reference Range Comments Chemistry (test code=FELISHA) 93.0 U/L 25-125 [id number] 14:00:00 Test Item Value Reference Range Comments Chemistry (test code=LIP) 31 U/L 8-78 [id number] 13:53:00 Test Item Value Reference Range Comments [...] 0.0-0.2 U/S KIDNEY (RENAL)*WW*2017-06-07 13:37:51RENAL ULTRASOUNDLocation Code: [id number] HISTORY: N28.1: CYST OF KIDNEY, ACQUIREDCOMPARISON: CT [...] small bilateral nonobstructing renal calculi.COMPREHENSIVE METABOLIC ORTEGA *WW*2017-06-07 12:02:00 Test Item Value Reference Range Comments [...] (test code=WAUAM) NO NO CBC (INCLUDES AUTOMATED DIFFERENTIAL)*[id number] 11:49:00 Test Item Value Reference Range Comments [...] CT ABDOMEN AND PELVIS WITHOUT CONTRAST *WW*HISTORY: [id number]: Lower abdominal pain . Initial encounter. No [...] no evidence of acute diverticulitis.HEPATITIS C ANTIBODY [id number] 08:46:00 Test Item Value Reference Range Comments [...] and confirmation results will follow. 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 ([email or web address] [id number]) CHLORIDE (test code=CL) 106 MMOL/L 98-107 CO2 (test code=CO2) 21 MMOL/L 22-30 BUN (test code=BUN) 11 MG/DL 9-20 CREA (test code=CREA) 0.5 MG/DL 0.8-1.5 GLUCOSE (test 195 MG/DL 70-99 Fasting glucose normal code=GLUCOSE) <100 MG/DL- [place] recommendation CALCIUM (test 8.9 MG/DL 8.4-10.2 code=CABLOOD) TOTPROT (test 6.6 G/DL 6.3-8.2 code=TOTPROT) ALBUMIN (test 3.2 G/DL 3.5-5.0 code=ALBSERUM) BILITOT (test 0.4 MG/DL 0.2-1.3 code=BILITOT) AST (test code=AST) 20 U/L 15-46 PHOSALK (test 99 U/L 38-126 code=PHOSALK) ALT (test code=ALT) 12 U/L 13-69 GFR (test code=GFR) 183 mL/min/1.73m2 A GFR of >90 mL/min/1.73m2 is considered normal. [id number] 12:25:00 Test Item Value Reference Range Comments LIPASE (test code=LIPA) 74 U/L 23-300 [id number] 12:25:00 Test Item Value Reference Range Comments [...] NEUT (test code=NEUT) 11.6 K/UL 1.2-7.2 TROPONIN [id number] 12:01:00 Test Item Value Reference Range Comments TROPER (test code=TROPER) 0.00 ng/ml 0.0-0.08 INTERPRETIVE DATA A POC TROPONIN OF </=0.08 NG/ML IS CONSIDERED NEGATIVE Culture, [id number] 11:42:00 Test Item Value Reference Range Comments Culture, Urine (test code=URC) NG48 Chemistry - BNP, HgbA1c, [id number] 15:48:00 Test Item Value Reference Range Comments Chemistry - BNP, HgbA1c, PTHi (test Less than 10.0 pg/mL 0-100 code=BNP) [id number] 15:40:00 Test Item Value Reference Range Comments [...] CA OXALATE HPF Negative Urine Source: Urine [id number] 15:13:00 Test Item Value Reference Range Comments [...] 0.0-0.7 Hematology (test code=BASO#) 0.1 thou/uL 0.0-0.2 [id number] 15:11:00 Test Item Value Reference Range Comments [...] code=AST) Chemistry (test 14 U/L 8-55 code=ALT) [id number] 15:11:00 Test Item Value Reference Range Comments Chemistry (test code=CK) 63 U/L 30-200
--- OUTSIDE RECORDS SUMMARY | 2018-01-28 13:00 | XMS REPORT | Continuity of Care Document ---
:1960 Author Organization [facility] Address [address] [place] [address] Phone Unavailable Care Team Providers Name Role Phone PHYSICIAN, NO Primary Care Physician Unavailable Insurance Providers Guarantor Chandler Carr Address [address] [place] [address] Email NONE Payer [employer] Policy Number [id number] Subscriber's Name Chandler Carr Relationship Self / Same As Patient Group Number [id number] Group Name NA Advance Directives Directive Response Recorded Date/Time Advance Directives No 07/19/14 3:33pm Advance Directive on File No 01/03/18 9:15am Directive to Physicians/Living Will No 07/19/14 3:33pm Health Care Proxy No 07/19/14 3:33pm Organ Donor No 07/19/14 3:33pm Medical Power of Train Clerk No 07/19/14 3:33pm Patient/Family Given Education Material R/T Y - 01/03/18..AW 01/03/18 9:15am Directives? Chief Complaint and Reason for Visit Chief Complaint Back Pain or Injury Reason for Visit Left against medical advice Chronic low back pain Problems Active ProblemsNo active problem information available. Past Problems Medical Problem Onset Date Status Abdominal pain Unknown Acute Abdominal pain Unknown Acute Abdominal pain Unknown Acute Acute pain in scrotum Unknown Acute Anemia Unknown Acute Chronic low back pain Unknown Acute Chronic pain Unknown Acute Contusion, back Unknown Acute Degenerated intervertebral disc Unknown Acute Dislocated finger Unknown Acute Diverticular disease of colon Unknown Acute Diverticulosis of colon Unknown Acute Diverticulosis of colon Unknown Acute Fall Unknown Acute Hidradenitis Unknown Acute LLQ abdominal pain Unknown Acute Left against medical advice Unknown Acute Left flank pain Unknown Acute Leukocytosis Unknown Acute Mild anemia Unknown Acute Narcotic dependency, continuous Unknown Acute Pain, abdominal, nonspecific Unknown Acute Staghorn kidney stones Unknown Acute Staghorn kidney stones Unknown Acute Medications No medication information available. Social History Social History Problem Response Recorded Date/Time Onset Date Status Hx Physical Abuse No 01/03/2018 9:15am Not Applicable Not Applicable Smoking Status Start Date Stop Date Current every day smoker Hospital Discharge Instructions No hospital discharge instruction information available. Plan of Care Discharge Date 01/03/18 11:30am Forms Provided Portal Welcome Letter Prescriptions See Medication Section Referrals NO PHYSICIAN Functional Status No functional status information available. Allergies, Adverse Reactions, Alerts Allergen Type Severity Reaction Status Last Updated Ibuprofen ([id number]) Allergy Severe SWELLING Active 07/19/14 Iodine ([id number]) Allergy Severe Active 06/09/17 Penicillins ([id number]) Allergy Severe Active 06/09/17 NSAIDs ([id number]) Allergy Unknown Active 11/13/17 Immunizations No immunization information available. Vital Signs Acute Vital Signs Vital Response Date/Time Blood Pressure 113/70 mm Hg 01/03/2018 11:31am Pulse Pulse Rate (adult) 99 beats per minute (60 - 100) 01/03/2018 11:31am Respiratory Rate 18 breaths per minute (10 - 24) 01/03/2018 11:31am Temperature Source Oral 01/03/2018 11:31am Height 5 ft 9 in 01/03/2018 9:15am Weight 150 lb 01/03/2018 9:15am Body Mass Index 22.2 kg/m^2 01/03/2018 9:15am Results Laboratory Results Test Name Result Units Flags Reference Collection Result Comments Date/Time Date/Time Urine Color LIGHT 11/13/2017 11/13/2017 YELLOW 8:00pm 8:06pm Urine Appearance CLEAR CLEAR 11/13/2017 11/13/2017 8:00pm 8:06pm Urine Glucose NEGATIVE NEGATIVE 11/13/2017 11/13/2017 8:00pm 8:06pm Urine Bilirubin NEGATIVE NEGATIVE 11/13/2017 11/13/2017 8:00pm 8:06pm Urine Ketones NEGATIVE NEGATIVE 11/13/2017 11/13/2017 8:00pm 8:06pm Urine Specific 1.019 1.003-1.030 11/13/2017 11/13/2017 [place] 8:00pm 8:06pm Urine Blood NEGATIVE NEGATIVE 11/13/2017 11/13/2017 8:00pm 8:06pm Urine pH 5.500 5-9 11/13/2017 11/13/2017 8:00pm 8:06pm Urine Protein NEGATIVE NEGATIVE 11/13/2017 11/13/2017 8:00pm 8:06pm Urine Urobilinogen NORMAL mg/dL 0.2-1.0 11/13/2017 11/13/2017 8:00pm 8:06pm Urine Nitrate NEGATIVE NEGATIVE 11/13/2017 11/13/2017 8:00pm 8:06pm Urine Leukocyte NEGATIVE NEGATIVE 11/13/2017 11/13/2017 Esterase 8:00pm 8:06pm Urine RBC <1 /hpf 0-5 11/13/2017 11/13/2017 8:00pm 8:22pm Urine WBC 1-5 /hpf 0-5 11/13/2017 11/13/2017 8:00pm 8:22pm Urine Epithelial <1 /hpf 0-5 11/13/2017 11/13/2017 Cells 8:00pm 8:22pm Urine Bacteria None /hpf None Detect 11/13/2017 11/13/2017 Detected 8:00pm 8:22pm Urine Casts None /lpf None Detect 11/13/2017 11/13/2017 Detected 8:00pm 8:22pm Urine Culture NO 11/13/2017 11/13/2017 Reflexed 8:00pm 8:22pm Urine Crystals Calcium /hpf A None Detect 11/13/2017 11/13/2017 oxalate 3+ 8:00pm 8:22pm White Blood Count 9.9 K/ul 4.0-12.3 12/23/2017 12/23/2017 10:46am 10:57am Red Blood Count 3.75 M/ul L 3.80-5.80 12/23/2017 12/23/2017 10:46am 10:57am Hemoglobin 8.5 g/dl L 11.67-17.22 12/23/2017 12/23/2017 10:46am 10:57am Hematocrit 27.9 % L 35.0-51.0 12/23/2017 12/23/2017 10:46am 10:57am Mean Corpuscular 74.4 fl L 78-96 12/23/2017 12/23/2017 Volume 10:46am 10:57am Mean Corpuscular 22.6 pg L 26.8-33.4 12/23/2017 12/23/2017 Hemoglobin 10:46am 10:57am Mean Corpuscular 30.4 g/dl L 32.3-36.7 12/23/2017 12/23/2017 Hemoglobin Concent 10:46am 10:57am Red Cell 16.2 % H 11.6-15.4 12/23/2017 12/23/2017 Distribution Width 10:46am 10:57am Platelet Count 423 K/ul H 115-328 12/23/2017 12/23/2017 10:46am 10:57am Mean Platelet 6.2 fl L 8.4-11.8 12/23/2017 12/23/2017 Volume 10:46am 10:57am Neutrophils (%) 79.8 % 44.7-82.4 12/23/2017 12/23/2017 (Auto) 10:46am 10:57am Lymphocytes (%) 8.6 % L 10.0-50.0 12/23/2017 12/23/2017 (Auto) 10:46am 10:57am Monocytes (%) 8.5 % 3.9-13.4 12/23/2017 12/23/2017 (Auto) 10:46am 10:57am Eosinophils (%) 2.0 % 0.0-6.43 12/23/2017 12/23/2017 (Auto) 10:46am 10:57am Basophils (%) 1.0 % H 0.0-0.72 12/23/2017 12/23/2017 (Auto) 10:46am 10:57am Random Glucose 91 mg/dL 74-106 12/23/2017 12/23/2017 10:46am 11:09am Blood Urea 7 mg/dL 6-20 12/23/2017 12/23/2017 Nitrogen 10:46am 11:09am Serum Osmolality 273 L 280-300 12/23/2017 12/23/2017 10:46am 11:09am Creatinine 0.6 mg/dL L 0.70-1.20 12/23/2017 12/23/2017 10:46am 11:09am Glomerular > 60.00 12/23/2017 12/23/2017 GFR RESULTS ARE REPORTED IN mL/min/1.73m2. Filtration Rate 10:46am 11:09am Calc Normal GFR: >60mL/min Moderately decreased GFR: 30-59 mL/min Severely decreased GFR: 15-29 mL/min Kidney Failure (or Dialysis): <15 mL/min The calculated eGFR is not valid for patients younger than 18 years or older than 75 years. BUN/Creatinine 11.7 L 12-12/23/2017 12/23/2017 Ratio 10:46am 11:09am Sodium Level 138 mmol/L 135-145 12/23/2017 12/23/2017 10:46am 11:09am Potassium Level 3.7 mmol/L 3.5-5.2 12/23/2017 12/23/2017 10:46am 11:09am Chloride Level 104 mmol/L 98-108 12/23/2017 12/23/2017 10:46am 11:09am Carbon Dioxide 24 mmol/L 21-32 12/23/2017 12/23/2017 Level 10:46am 11:09am Anion Gap 13.7 mEq/L 12-12/23/2017 12/23/2017 10:46am 11:09am Calcium Level 8.9 mg/dL 8.6-10.0 12/23/2017 12/23/2017 10:46am 11:09am Total Protein 7.3 g/dL 6.6-8.7 12/23/2017 12/23/2017 10:46am 11:09am Albumin 3.4 g/dL L 3.5-5.2 12/23/2017 12/23/2017 10:46am 11:09am Globulin 3.9 gm/dL 12/23/2017 12/23/2017 10:46am 11:09am Albumin/Globulin 0.9 >1.0 12/23/2017 12/23/2017 Ratio 10:46am 11:09am Total Bilirubin < 0.3 mg/dL 0.0-1.2 12/23/2017 12/23/2017 10:46am 11:09am Aspartate Amino 8 U/L L 15-40 12/23/2017 12/23/2017 Transf (AST/SGOT) 10:46am 11:09am Alanine 4 U/L 0-41 12/23/2017 12/23/2017 Aminotransferase 10:46am 11:09am (ALT/SGPT) Lipase 22 U/L 13-60 12/23/2017 12/23/2017 10:46am 11:09am Total Alkaline 119 U/L 40-130 12/23/2017 12/23/2017 Phosphatase 10:46am 11:09am Procedures Procedure Status Date Provider(s) EMERGENCY DEPT VISIT Completed 11/13/17 THER/PROPH/DIAG INJ IV PUSH Completed 11/13/17 TX/PRO/DX INJ NEW DRUG ADDON Completed 11/13/17 COMPLETE CBC W/AUTO DIFF WBC Completed 11/13/17 ASSAY OF LIPASE Completed 11/13/17 URINALYSIS AUTO W/SCOPE Completed 11/13/17 ROUTINE VENIPUNCTURE Completed 11/13/17 COMPREHEN METABOLIC PANEL Completed 11/13/17 Completed 11/13/17 MORPHINE SULFATE INJECTION Completed 11/13/17 EMERGENCY DEPT VISIT Completed 11/22/17 X-RAY EXAM OF HAND Completed 11/22/17 THER/PROPH/DIAG INJ SC/IM Completed 11/22/17 X-RAY EXAM L-S SPINE 2/3 VWS Completed 11/22/17 MORPHINE SULFATE INJECTION Completed 11/22/17 Completed 11/22/17 MORPHINE SULFATE INJECTION Completed 11/22/17 MORPHINE SULFATE INJECTION Completed 11/22/17 EMERGENCY DEPT VISIT Completed 12/23/17 CT ABD & PELVIS W/O CONTRAST Completed 12/23/17 THER/PROPH/DIAG INJ IV PUSH Completed 12/23/17 TX/PRO/DX INJ NEW DRUG ADDON Completed 12/23/17 COMPLETE CBC W/AUTO DIFF WBC Completed 12/23/17 ASSAY OF LIPASE Completed 12/23/17 ROUTINE VENIPUNCTURE Completed 12/23/17 COMPREHEN METABOLIC PANEL Completed 12/23/17 Completed 12/23/17 X-ray of right hand, three or more views Completed 11/22/17 SHAMEKA RO MD X-ray of lumbar spine, AP and lateral views Completed 11/23/17 JONO HART MD Computed tomography of abdomen and pelvis Completed 12/23/17 YO HERNDON MD without contrast Magnetic resonance imaging of lumbar spine Active 01/03/18 SHAMEKA RO MD without contrast Encounters Encounter Location Arrival/Admit Date Discharge/Depart Date Attending Provider Departed [place] 01/03/18 9:05am 01/03/18 11:30am [facility] Departed [place] 12/23/17 9:35am 12/23/17 12:42pm YO HERNDON [facility] Departed [place] 11/22/17 5:56pm 11/23/17 3:31am [facility]ON[facility] HART [facility] Departed [place] 11/13/17 7:09pm 11/13/17 9:14pm MAR[facility] Recent Diagnosis
[2018-01-28] MEDS ORDERED: ONDANSETRON 4 MG/2 ML VIAL ONE ×2 (13:42→14:19)
[2018-01-28] MEDS ORDERED: NA CHLORIDE 0.9% 1,000 ML ONE (13:42)
[2018-01-28] MEDS ORDERED: MEPERIDINE HCL 50 MG/ML AMP ONE (13:42)
[2018-01-28 14:01] LABS: Absolute Lymphocytes (CBC) 1.2 K/uL (0.7-4.9); Absolute Monocytes 0.8 K/uL (0.1-1.3); Absolute Neutrophil 8.9 K/uL (1.8-8.0); Basophils % 0.6 % (0-1.3); Eosinophils % 2.6 % (0-4.4); Hematocrit 28.8 % (39.6-49.0); Lymphocytes % 10.9 % (15.3-44.8); MCH 21.5 pg (27.0-35.0); MCV 70.3 fL (80-100); MPV 8.7 fL (7.6-11.3); Monocytes % 7.1 % (3.3-12.3)
[2018-01-28 14:11] LABS: ALT/SGPT 15 U/L (12-78); AST/SGOT 11 U/L (15-37); Alkaline Phosphatase 142 U/L (45-117); BUN Blood Urea Nitrogen 10 mg/dL (7-18); Bicarbonate 26 mmol/L (21-32); Bilirubin Direct < 0.1 mg/dL (0-0.2); Bilirubin Total 0.1 mg/dL (0.2-1.0); Glucose Level 95 mg/dL (74-106); Lipase 174 U/L (73-393); Potassium 3.8 mmol/L (3.5-5.1); Protein, Total 7.5 g/dL (6.4-8.2); Sodium Level 141 mmol/L (136-145)
[2018-01-28] MEDS ORDERED: MEPERIDINE HCL 25 MG/0.5 ML ONE (14:19)
[2018-01-28 14:28] LABS: Platelet Estimate ADEQ; Urine White Blood Cell Casts OK
[2018-01-28 14:29] LABS: Blood Morphology Comment NOTED (NOT SEEN); Hypochromasia 2+
--- NOTE | 2018-01-28 15:13 | RAD REPORT ---
EXAM DESCRIPTION: CT - Abdomen Pelvis Wo Contrast - 01/28/2018 2:42 pm CLINICAL HISTORY: Left lower quadrant pain iodinated contrast allergy COMPARISON: December 24, 2017 TECHNIQUE: Axial [address] imaging of the abdomen and pelvis was performed without IV contrast. No IV contrast was given because of allergy, abnormal renal function, patient refusal or physician re quest. No oral contrast administered. All CT scans are performed using dose optimization technique as appropriate and may include automated exposure control or mA/KV adjustment according to patient size. FINDINGS: No suspicious findings in the lung bases. The liver, spleen and pancreas show no suspicious findings on non-contrast imaging. Gallbladder and b iliary tree are also without suspicious finding. No hydronephrosis or suspicious renal mass. No obstructing calculus. Punctate pyramid or calyx calcul i noted on the right. There is additional calcification within the cortical tissue. Staghorn calcific ation present lower pole calices on the left similar to comparison. There is a round 15 millimeter hy perdense mass lateral mid left kidney that is unchanged from prior imaging. No significant adrenal fi nding. Isodense renal masses and pyelonephritis cannot be excluded in the absence of IV contrast. Uri nary bladder is mostly contracted limiting detail. No prostate gland or seminal vesicle acute finding . No gastric dilatation or gastric wall thickening. No acute small bowel finding. No appendicitis. Kiersten ent has mild diverticulosis without diverticulitis. Remnant contrast present in many diverticulum in the sigmoid colon. No active GI process seen. No free air, free fluid or inflammatory stranding. No mass or bulky lymphadenopathy. Fat filled umbi lical hernia is unchanged. The left-side iliacus and left-side oblique musculature is larger than the right. This is a stable pr esentation and believed to be secondary to altered mechanics of ambulation. Patient has postsurgical change in the lumbar spine and very severe degenerative change in the lumbar spine far advanced for h is 80 age. Height loss, subluxation abnormalities in disc space degenerative changes all match the re cent imaging. IMPRESSION: Diverticulosis without diverticulitis. No acute GI process seen. No new or acute finding to explain left lower quadrant symptoms. Nonobstructing renal calculi present with high protein content renal cysts -all stable from compariso n. Degenerative and very severe, advanced for age lumbar degenerative change stable from prior imaging. Full assessment is limited is the absence of IV contrast.
[2018-01-28] MEDS ORDERED: MORPHINE 4 MG/ML SYR ONE (15:24)
--- NOTE | 2018-01-28 15:56 | EDPHYS ---
Physician Documentation [facility] Name: Chandler Carr Age: 57 yrs Sex: Male : 1960 Arrival Date: 01/28/2018 Time: 12:56 Bed 8 Private MD: None, None ED Physician Bro Bartholomew HPI: 01/28 14:20 This 57 yrs old Male presents to ER via Ambulatory with complaints of jr8 Abdominal Pain. 14:20 The patient presents with abdominal pain in the lower abdomen. Onset: The jr8 symptoms/episode began/occurred acutely, today. The symptoms do not radiate. Associated signs and symptoms: Pertinent positives: nausea and vomiting. The symptoms are described as sharp, stabbing. Modifying factors: The symptoms are alleviated by nothing, the symptoms are aggravated by movement. Severity of pain: At its worst the pain was moderate in the emergency department the pain is unchanged. It is unknown whether or not the patient has had similar symptoms in the past. The patient has not recently seen a physician. 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 - Social history:: Smoking status: Patient uses tobacco products, denies chronic smoking, but will smoke occasionally. - Ebola Screening: : No symptoms or risks identified at this time. ROS: 14:20 Eyes: Negative for injury, pain, redness, and discharge, ENT: Negative for injury, jr8 pain, and discharge, Neck: Negative for injury, pain, and swelling, Cardiovascular: Negative for chest pain, palpitations, and edema, Respiratory: Negative for shortness of breath, cough, wheezing, and pleuritic chest pain, Back: Negative for injury and pain, MS/Extremity: Negative for injury and deformity, Skin: Negative for injury, rash, and discoloration, Neuro: Negative for headache, weakness, numbness, tingling, and seizure. 14:20 Abdomen/GI: Positive for abdominal pain, nausea and vomiting, Negative for diarrhea, abdominal distension, anorexia, dysphagia, hematemesis, black/tarry stool, rectal pain, rectal bleeding, bowel incontinence, flatulence. Exam: 14:20 Eyes: Pupils equal round and reactive to light, extra-ocular motions intact. Lids and jr8 lashes normal. Conjunctiva and sclera are non-icteric and not injected. Cornea within normal limits. Periorbital areas with no swelling, redness, or edema. ENT: Nares patent. No nasal discharge, no septal abnormalities noted. Tympanic membranes are normal and external auditory canals are clear. Oropharynx with no redness, swelling, or masses, exudates, or evidence of obstruction, uvula midline. Mucous membranes moist. Neck: Trachea midline, no thyromegaly or masses palpated, and no cervical lymphadenopathy. Supple, full range of motion without nuchal rigidity, or vertebral point tenderness. No Meningismus. Cardiovascular: Regular rate and rhythm with a normal S1 and S2. No gallops, murmurs, or rubs. Normal PMI, no JVD. No pulse deficits. Respiratory: Lungs have equal breath sounds bilaterally, clear to auscultation and percussion. No rales, rhonchi or wheezes noted. No increased work of breathing, no retractions or nasal flaring. Back: No spinal tenderness. No costovertebral tenderness. Full range of motion. Skin: Warm, dry with normal turgor. Normal color with no rashes, no lesions, and no evidence of cellulitis. MS/ Extremity: Pulses equal, no cyanosis. Neurovascular intact. Full, normal range of motion. Neuro: Awake and alert, GCS 15, oriented to person, place, time, and situation. Cranial nerves II-XII grossly intact. Motor strength 5/5 in all extremities. Sensory grossly intact. Cerebellar exam normal. Normal gait. 14:20 Constitutional: The patient appears alert, awake, uncomfortable. 14:20 Abdomen/GI: Inspection: abdomen appears normal, Bowel sounds: active, all quadrants, Palpation: soft, in all quadrants, moderate abdominal tenderness, in the suprapubic area and left lower quadrant, mass, is not appreciated, rebound tenderness, is not appreciated, voluntary guarding, is elicited in the lower abdomen, involuntary guarding, is not appreciated, no appreciated organomegaly, Indicators: McBurney's point is not tender, Hernandez's sign is negative, Rovsing's sign is negative, Liver: no appreciated palpable abnormalities, tenderness, is not appreciated. Vital Signs: 12:59 BP 129 / 86; Pulse 99; Resp 22; Temp 98.2; Pulse Ox 99% ; Weight 68.04 kg; Height 5 ft. sv 9 in. (175.26 cm); Pain 10/10; 15:03 BP 121 / 74; Pulse 71; Resp 16; Temp 98.2; Pulse Ox 98% on R/A; la1 12:59 Body Mass Index 22.15 (68.04 kg, 175.26 cm) sv MDM: 13:04 Patient medically screened. [facility] 15:22 Differential diagnosis: AAA, bowel obstruction, diverticulitis, Mesenteric ischemia or jr8 infarction, non-specific abd pain, Pyelonephritis, Testicular Torsion, Ureterolithiasis. Data reviewed: vital signs, nurses notes, lab test result(s), radiologic studies, CT scan, and as a result, I will discharge patient. Data interpreted: Pulse oximetry: on room air is 98 %. Interpretation: normal. Counseling: I had a detailed discussion with the patient and/or guardian regarding: the historical points, exam findings, and any diagnostic results supporting the discharge/admit diagnosis, lab results, radiology results, the need for outpatient follow up, a e learning developer, to return to the emergency department if symptoms worsen or persist or if there are any questions or concerns that arise at home. 15:54 Response to treatment: the patient's symptoms have markedly improved after treatment. [facility] 01/28 13:05 Order name: Basic Metabolic Panel; Complete Time: 14:12 01/28 13:05 Order name: CBC with Diff; Complete Time: 14:30 [facility] 01/28 13:05 Order name: Creatinine for Radiology; Complete Time: 14:12 8 01/28 13:05 Order name: Hepatic Function; Complete Time: 14:12 8 01/28 13:05 Order name: Lipase; Complete Time: 14:12 [facility] 01/28 14:06 Order name: CBC Smear Scan; Complete Time: 14:30 EDMS 01/28 14:36 Order name: Abdomen ; Complete Time: 15:14 EDMS 01/28 15:51 Order name: Urine Dipstick--Ancillary (enter results) 01/28 13:05 Order name: IV Saline Lock; Complete Time: 13:30 [facility] 01/28 13:05 Order name: Labs collected and sent; Complete Time: 13:30 jr8 Administered Medications: 13:44 Drug: NS 0.9% 1000 ml Route: IV; Rate: 1 bolus; Site: left antecubital; la1 16:09 Follow up: IV Status: Completed infusion la1 13:44 Drug: Demerol 50 mg Route: IVP; Site: left antecubital; la1 13:55 Follow up: Response: No adverse reaction; Pain is decreased la1 13:44 Drug: Zofran 4 mg Route: IVP; Site: left antecubital; la1 13:55 Follow up: Response: No adverse reaction la1 14:16 Drug: Demerol 25 mg Route: IVP; Site: left antecubital; la1 15:02 Follow up: Response: No adverse reaction; No change in condition la1 14:16 Drug: Zofran 4 mg Route: IVP; Site: left antecubital; la1 15:02 Follow up: Response: No adverse reaction la1 15:21 Drug: morphine 4 mg Route: IVP; Site: left antecubital; bp 16:09 Follow up: Response: No adverse reaction; Pain is decreased la1 Disposition: 01/28/18 15:55 Discharged to Home. Impression: Abdominal and pelvic pain. - Condition is Stable. - Discharge Instructions: Abdominal Pain, Adult. - Medication Reconciliation Form, Thank You Letter, Antibiotic Education, Prescription Opioid Use form. - Follow up: Erica Decker MD; When: 2 - 3 days; Reason: Recheck today's complaints, Continuance of care, Re-evaluation by your physician. - Problem is new. - Symptoms have improved. Signatures: Dispatcher [employer] [facility] Gloria Herron, RN RN Agustín Zimmer PA PA jr8 Heriberto Yo RN RN la1 Gopal Bone, RN RN bp Corrections: (The following items were deleted from the chart) 14:36 14:13 Abdomen Pelvis W Con+CT.RAD.BRZ ordered. [facility] 16:09 15:55 01/28/2018 15:55 Discharged to Home. Impression: Abdominal and pelvic pain. la1 Condition is Stable. Forms are Medication Reconciliation Form, Thank You Letter, Antibiotic Education, Prescription Opioid Use. Follow up: Erica Decker; When: 2 - 3 days; Reason: Recheck today's complaints, Continuance of care, Re-evaluation by your physician. Problem is new. Symptoms have improved. jr8
--- NOTE | 2018-01-28 15:56 | ER ---
Nurse's Notes [facility] Name: Chandler Carr Age: 57 yrs Sex: Male : 1960 Arrival Date: 01/28/2018 Time: 12:56 Bed 8 Private MD: None, None Diagnosis: Abdominal and pelvic pain Presentation: 01/28 12:57 Presenting complaint: Patient states: middle abd pain radiates to the LLQ, c/o vomiting sv started today. Transition of care: patient was not received from another setting of care. Onset of symptoms was January 28, 2018. Care prior to arrival: None. 12:57 Method Of Arrival: Ambulatory sv 12:57 Acuity: SCAR 3 sv 13:45 Risk Assessment: Do you want to hurt yourself or someone else? Patient reports no la1 desire to harm self or others. Initial Sepsis Screen: Does the patient meet any 2 criteria? No. Patient's initial sepsis screen is negative. Does the patient have a suspected source of infection? No. Patient's initial sepsis screen is negative. Triage Assessment: 12:57 General: Appears in no apparent distress. uncomfortable, Behavior is calm, cooperative, sv appropriate for age. Pain: Complains of pain in suprapubic area and left lower quadrant Pain currently is 10 out of 10 on a pain scale. Neuro: Level of Consciousness is awake, alert, obeys commands, Oriented to person, place, time, situation, Moves all extremities. Full function Gait is steady. Respiratory: Respiratory effort is even, unlabored, Respiratory pattern is regular, symmetrical. GI: Reports lower abdominal pain, nausea, vomiting. 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 - Social history:: Smoking status: Patient uses tobacco products, denies chronic smoking, but will smoke occasionally. - Ebola Screening: : No symptoms or risks identified at this time. Screenin:27 Abuse screen: Denies threats or abuse. Nutritional screening: No deficits noted. la1 Tuberculosis screening: No symptoms or risk factors identified. Fall Risk None identified. Assessment: 13:27 General: Appears in no apparent distress. Behavior is calm, cooperative. Pain: la1 Complains of pain in left lower quadrant and suprapubic area. Neuro: Level of Consciousness is awake, alert, obeys commands, Oriented to person, place, time, situation. Cardiovascular: Heart tones S1 S2 present. Respiratory: Airway is patent Respiratory effort is even, unlabored, Respiratory pattern is regular, symmetrical, Breath sounds are clear bilaterally. GI: Abdomen is round non-distended, Bowel sounds present X 4 quads. Abdomen is tender to palpation in left upper quadrant and left lower quadrant Guarding noted X 4 quads. GI: Reports nausea, vomiting. : No signs and/or symptoms were reported regarding the genitourinary system. Vital Signs: 12:59 BP 129 / 86; Pulse 99; Resp 22; Temp 98.2; Pulse Ox 99% ; Weight 68.04 kg; Height 5 ft. sv 9 in. (175.26 cm); Pain 10/10; 15:03 BP 121 / 74; Pulse 71; Resp 16; Temp 98.2; Pulse Ox 98% on R/A; la1 12:59 Body Mass Index 22.15 (68.04 kg, 175.26 cm) sv ED Course: 12:56 Patient arrived in ED. mr 12:56 None, None is Private Physician. mr 12:58 Triage completed. sv 12:59 Arm band placed on. sv 13:04 Agustín Edgar PA is PHCP. jr8 13:04 Bro Bartholomew MD is Attending Physician. jr8 13:26 Heriberto Yo RN is Primary Nurse. la1 13:28 Placed in gown. Bed in low position. Call light in reach. Pulse ox on. NIBP on. la1 13:28 No provider procedures requiring assistance completed. Inserted saline lock: 22 gauge la1 in left antecubital area, using aseptic technique. 14:40 CT completed. Patient tolerated procedure well. Patient moved back from CT. bq 14:40 Note: PT STATES IODINE ALLERGY. bq 14:42 Abdomen In Process Unspecified. EDMS 15:55 Erica Decker MD is Referral Physician. jr8 16:08 IV discontinued, intact, bleeding controlled, No redness/swelling at site. Pressure la1 dressing applied. Administered Medications: 13:44 Drug: NS 0.9% 1000 ml Route: IV; Rate: 1 bolus; Site: left antecubital; la1 16:09 Follow up: IV Status: Completed infusion la1 13:44 Drug: Demerol 50 mg Route: IVP; Site: left antecubital; la1 13:55 Follow up: Response: No adverse reaction; Pain is decreased la1 13:44 Drug: Zofran 4 mg Route: IVP; Site: left antecubital; la1 13:55 Follow up: Response: No adverse reaction la1 14:16 Drug: Demerol 25 mg Route: IVP; Site: left antecubital; la1 15:02 Follow up: Response: No adverse reaction; No change in condition la1 14:16 Drug: Zofran 4 mg Route: IVP; Site: left antecubital; la1 15:02 Follow up: Response: No adverse reaction la1 15:21 Drug: morphine 4 mg Route: IVP; Site: left antecubital; bp 16:09 Follow up: Response: No adverse reaction; Pain is decreased la1 Outcome: 15:55 Discharge ordered by MD. dsouza 16:08 Discharged to home ambulatory. la1 16:08 Condition: stable 16:08 Discharge instructions given to patient, Instructed on discharge instructions, follow up and referral plans. medication usage, Demonstrated understanding of instructions, follow-up care. 16:09 Patient left the ED. la1 Signatures: Dispatcher [employer] EDMS Gloria Herron RN RN sv Rivera, Mary mr Hoa Nova Josh, PA PA jr8 Heriberto Yo RN RN la1 Gopal Bone RN RN bp
[2018-01-28 20:15] LABS: Urine Blood NEGATIVE (NEG); Urine Glucose NEGATIVE (NEG); Urine Protein NEGATIVE (NEG); Urine Specific Gravity 1.025 (1.005-1.030)
== END 2018-01-28 16:09 | disposition home or self-care (01) ==
LOC: ER 12:53
DX: R10.9 Unspecified abdominal pain (principal); Z72.0 Tobacco use; Z88.0 Allergy status to penicillin; Z88.6 Allergy status to analgesic agent; Z85.828 Personal history of other malignant neoplasm of skin
CPT/HCPCS: 36415; 74176; 80048; 80076; 81003; 83690; 85025; 96361; 96374; 96375; 99284; J2175; J2405; J7030

== ENCOUNTER 2018-03-17 17:37 | Emergency (ER) | payer OTHER ==
--- OUTSIDE RECORDS SUMMARY | 2018-03-17 17:41 | XMS REPORT | Clinical Summary ---
:1960 Author Organization [facility] Address [address] [place] [address] Care Team Providers Name Role Phone System, Provider Not In MD Primary Care Provider Allergies Active Allergy Reactions Severity Noted Date Comments Iodine Rash Low 06/10/2017 Iodine And Iodide 01/06/2018 Face rash Containing Products Nsaids (Non-Steroidal Anaphylaxis High 04/18/2017 Anti-Inflammatory Drug) Penicillin Other (See Comments) 04/18/2017 "childhood allergy" Tolmetin 02/12/2018 Medications Medication Sig Dispensed Refills Start Date End Date Status HYDROcodone-acetamin Take 1 tablet 0 Active ophen (NORCO) 10-325 by mouth every mg per tablet 6 (six) hours as needed for moderate pain. moxifloxacin 1 drop. 0 10/23/2017 Active (VIGAMOX) 0.5 % ophthalmic solution prednisoLONE acetate 0 10/23/2017 Active (PRED FORTE) 1 % ophthalmic [...] 3 days. 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 Nephrolithiasis 06/10/2017 Encounters Date Type Specialty Care Team Description 03/17/2018 [facility] General Internal Tom Zayas Diverticulitis Encounter Medicine MD Osei (Primary Dx) Brennan Calloway MD 01/06/2018 Emergency Emergency Medicine Sivakumar Morris Drug-seeking behavior (Primary Dx); MD Isacc Chronic [...] Wingkun, Lumbar radiculopathy, acute (Primary Dx); Charlie Ambrzi MD Acute back pain with sciatica, left 11/11/2017 Emergency Emergency Medicine Roberto Carlos Alex, Acute suprapubic pain MD (Primary Dx) 2017 Emergency Emergency Medicine Mike Pepper Hidradenitis ( Primary Dx); MD DEXTER Pelvic pain; Testicular pain 10/11/2017 Emergency Emergency Medicine Jroge, Sami Abdominal pain, Mohammad, DO unspecified abdominal location (Primary Dx) 10/06/2017 Emergency General Internal David Sommers Chronic abdominal pain (Primary Dx); John Bauman MD Rectal fistula StevenSilvia mcdonald MD 09/19/2017 Emergency Emergency Medicine Gm, Les Abdominal pain, unspecified abdominal location (Primary Dx); MD Brennan Pelvic pain; Diarrhea, unspecified type 09/15/2017 Emergency Emergency Medicine Brandi, Abdominal pain, unspecified abdominal location (Primary Dx); Derek Eavns MD Drug-seeking behavior [facility] 09/11/2017 Emergency Emergency Medicine Janes Bruno Bin, Abdominal pain, unspecified abdominal location (Primary Dx); Acute back pain, unspecified back location, unspecified back pain laterality 09/08/2017 Emergency Emergency Medicine Anand, Left lower quadrant pain (Primary Dx); Adriano Maynard, Renal stones 09/01/2017 Emergency Emergency Medicine Raul Cameron Flank pain ( Primary T., Dx) 08/31/2017 Emergency Emergency Medicine Synagogue, Nadim Bin, Lower abdominal pain (Primary Dx); Diarrhea, unspecified type 08/16/2017 Emergency Emergency Medicine Mando Rhodes LLQ pain (Primary Dx ) MD Ej [...] MD Fredrick 04/18/2017 Emergency Emergency Medicine Janes Bruno, Lower abdominal pain (Primary Dx); Hidradenitis; Phlegmon; Anemia, unspecified type after 03/16/2017 Social History Tobacco Use Types Packs/Day Years [...] Vital Sign Reading Time Taken Blood Pressure 127/78 03/17/2018 1:00 PM PATIENT COMPANION Pulse 69 03/17/2018 1:00 PM PATIENT COMPANION Temperature 36.2 C (97.2 F) 03/17/2018 9:27 AM PATIENT COMPANION Respiratory Rate 16 03/17/2018 1:00 PM PATIENT COMPANION Oxygen Saturation 100% 03/17/2018 1:00 PM PATIENT COMPANION Inhaled Oxygen Concentration - - Weight 66.1 kg (145 lb 12.8 oz) 03/17/2018 9:27 AM PATIENT COMPANION Height 170.2 cm (5' 7") 03/17/2018 9:27 AM PATIENT COMPANION Body Mass Index 22.84 03/17/2018 9:27 AM PATIENT COMPANION Plan of Treatment Health Maintenance Due Date Last Done Comments COLON CANCER SCREENING 2010 SHINGLES VACCINES (1 of 2) 2010 INFLUENZA VACCINE 11/01/2017 Procedures Procedure Name Priority Date/Time Associated Comments Diagnosis CT ABDOMEN PELVIS WO STAT 03/17/2018 11:52 Results for this CONTRAST AM PATIENT COMPANION procedure are in the results section. SMEAR REVIEW STAT 03/17/2018 9:51 Results for this AM PATIENT COMPANION procedure are in the results section. ESTIMATED GFR STAT 03/17/2018 9:51 Results for this AM PATIENT COMPANION procedure are in the results section. LIPASE LEVEL STAT 03/17/2018 9:51 Results for this AM PATIENT COMPANION procedure are in the results section. COMPREHENSIVE METABOLIC STAT 03/17/2018 9:51 Results for this PANEL AM PATIENT COMPANION procedure are in the results section. CBC WITH PLATELET AND STAT 03/17/2018 9:51 Results for this DIFFERENTIAL AM PATIENT COMPANION procedure are in the results section. ECG 12-LEAD Routine 12/25/2017 LACTIC ACID LEVEL, Timed 12/16/2017 4:27 Results [...] the results section. ECG 12-LEAD Routine 08/07/2017 ECG ED PRELIMINARY Routine 08/04/2017 3:45 Results [...] STAT 06/10/2017 9:06 Results for this PM PATIENT COMPANION procedure are in the results section. ZZESTIMATED GFR STAT 06/10/2017 8:40 Results for this PM PATIENT COMPANION procedure are in the results section. LIPASE LEVEL STAT 06/10/2017 8:40 Results for this PM PATIENT COMPANION procedure are in the results section. AMYLASE LEVEL STAT 06/10/2017 8:40 Results for this PM PATIENT COMPANION procedure are in the results section. COMPREHENSIVE METABOLIC STAT 06/10/2017 8:40 Results for this PANEL PM PATIENT COMPANION procedure are in the results section. HC COMPLETE BLD COUNT STAT 06/10/2017 8:40 Results for this W/AUTO DIFF PM PATIENT COMPANION procedure are in the results section. CT ABDOMEN PELVIS W STAT 04/18/2017 4:22 Results for this CONTRAST AM PATIENT COMPANION procedure are in the results section. ZZESTIMATED GFR STAT 04/18/2017 2:27 Results for this AM PATIENT COMPANION procedure are in the results section. URINALYSIS SCREEN AND STAT 04/18/2017 2:27 Results for this MICROSCOPY, WITH REFLEX AM PATIENT COMPANION procedure are in TO CULTURE the results section. LIPASE LEVEL STAT 04/18/2017 2:27 Results for this AM PATIENT COMPANION procedure are in the results section. AMYLASE LEVEL STAT 04/18/2017 2:27 Results for this AM PATIENT COMPANION procedure are in the results section. COMPREHENSIVE METABOLIC STAT 04/18/2017 2:27 Results for this PANEL AM PATIENT COMPANION procedure are in the results section. HC COMPLETE BLD COUNT STAT 04/18/2017 2:27 Results for this W/AUTO DIFF AM PATIENT COMPANION procedure are in the results section. after 03/16/[address] Abdomen Pelvis Wo Contrast (03/17/2018 11:52 AM PATIENT COMPANION)Only the most recent of5 resultswithin the time period is included. Narrative Performed At EXAMINATION:CT ABDOMEN PELVIS WO CONTRAST [facility] CLINICAL HISTORY:po onlyiv contrast allergy COMPARISON:12/16/2017 TECHNIQUE:CT of the abdomen and pelvis without intravenous contrast. Absence of intravenous contrast decreases sensitivity for detection of focal lesions and vascular pathology.Up-to-date CT equipment and radiation dose reduction techniques were utilized. FINDINGS: LOWER THORAX:The visualized lung bases are clear. The heart is not enlarged. HEPATOBILIARY:Calcified granulomata are in the liver. No biliary ductal dilatation. The gallbladder is normal in appearance. SPLEEN:No splenomegaly. PANCREAS:No focal masses or ductal dilation. ADRENALS:No adrenal nodules. KIDNEYS:An approximately 2 cm staghorn calculus in the left kidney is stable in appearance. Subcentimeter calculi are in the knees bilaterally. The hyperdense 1.3 cm lesion in the superior pole of the left kidney is unchanged. PERITONEUM/RETROPERITONEUM:No free air or fluid. No lymphadenopathy. GI TRACT:FAT stranding surrounds the distal sigmoid colon in the region of multiple diverticuli. No evidence of bowel obstruction. The appendix is normal in appearance. PELVIC ORGANS/BLADDER:An approximately 2 mm stone is in the urinary bladder dependently. BONES AND SOFT TISSUES:No acute osseous abnormality or destructive osseous lesion. There is spondylolysis of L4 and L5 with grade 1 anterolisthesis of L4 on L5 and 2 anterolisthesis of L5 on S1. IMPRESSION: 1. Findings compatible with diverticulitis of the distal sigmoid colon. No abscess. 2. Small calcification in the urinary bladder may reflect a bladder calculus or recently passed stone. 3. Bilateral nephrolithiasis. 4. L4 and L5 spondylolysis and anterolisthesis. [id number] Procedure Note Hm Interface, Radiology Results Incoming - 03/17/2018 12:05 PM PATIENT COMPANION EXAMINATION: CT ABDOMEN PELVIS WO CONTRAST CLINICAL HISTORY: po only iv contrast allergy COMPARISON: 12/16/2017 TECHNIQUE: CT of the abdomen and pelvis without intravenous contrast. Absence of intravenous contrast decreases sensitivity for detection of focal lesions and vascular pathology. Up-to-date CT equipment and radiation dose reduction techniques were utilized. FINDINGS: LOWER THORAX: The visualized lung bases are clear. The heart is not enlarged. HEPATOBILIARY: Calcified granulomata are in the liver. No biliary ductal dilatation. The gallbladder is normal in appearance. SPLEEN: No splenomegaly. PANCREAS: No focal masses or ductal dilation. ADRENALS: No adrenal nodules. KIDNEYS: An approximately 2 cm staghorn calculus in the left kidney is stable in appearance. Subcentimeter calculi are in the knees bilaterally. The hyperdense 1.3 cm lesion in the superior pole of the left kidney is unchanged. PERITONEUM/RETROPERITONEUM: No free air or fluid. No lymphadenopathy. GI TRACT: FAT stranding surrounds the distal sigmoid colon in the region of multiple diverticuli. No evidence of bowel obstruction. The appendix is normal in appearance. PELVIC ORGANS/BLADDER: An approximately 2 mm stone is in the urinary bladder dependently. BONES AND SOFT TISSUES: No acute osseous abnormality or destructive osseous lesion. There is spondylolysis of L4 and L5 with grade 1 anterolisthesis of L4 on L5 and 2 anterolisthesis of L5 on S1. IMPRESSION: 1. Findings compatible with diverticulitis of the distal sigmoid colon. No abscess. 2. Small calcification in the urinary bladder may reflect a bladder calculus or recently passed stone. 3. Bilateral nephrolithiasis. 4. L4 and L5 spondylolysis and anterolisthesis. [id number] Performing Organization Address City/[facility]/Zipcode Phone Number [facility] [address] [place] [address] Smear review (03/17/2018 9:51 AM PATIENT COMPANION)Only the most recent of6 resultswithin the time period is included. Platelet slide review Og adequate [facility] Anisocytosis Few [facility] Target cells Few [facility] Ovalocytes Few [facility] Performing Organization Address City/[facility]/Zipcode Phone Number [facility] DEPARTMENT OF PATHOLOGY AND [address] [place] [address] [place] [address] [facility] [address] [place] [address] Estimated GFR (03/17/2018 9:51 AM PATIENT COMPANION)Only the most recent of2 resultswithin the time period is included. Estimated GFR >=90 mL/min/1.73 m2 [facility] Comment: [facility] CatergoryUnitsInterpretation G1 >=90 Normal or high G2 60-89Mildly decreased [id number] to moderately decreased [id number] to severely decreased G4 15-29Severely decreased G5 <15Kidney failure The eGFR was calculated using the Chronic Kidney Disease Epidemiology Collaboration (CKD-EPI) equation. Interpretation is based on recommendations of the National Kidney Foundation-Kidney Disease Outcomes Quality Initiative (NKF-KDOQI) published in 2014. Specimen Plasma specimen Performing Organization Address City/State/Zipcode Phone Number [facility] DEPARTMENT OF PATHOLOGY AND [address] [place] [address] [address] [place] [address] CBC with platelet and differential (03/17/2018 9:51 AM PATIENT COMPANION)Only the most recent of17 resultswithin the time period is included. WBC 7.60 4.50 - 11.00 k/uL [facility] RBC 4.37 (L) 4.40 - 6.00 m/uL [facility] HGB 9.4 (L) 14.0 - 18.0 g/dL [facility] HCT 32.6 (L) 41.0 - 51.0 % [facility] MCV 74.6 (L) 82.0 - 100.0 fL [facility] MCH 21.5 (L) 27.0 - 34.0 pg [facility] MCHC 28.8 (L) 31.0 - 37.0 g/dL [facility] RDW - SD 45.4 37.0 - 55.0 fL [facility] MPV 10.5 8.8 - 13.2 fL [facility] Platelet count 413 (H) 150 - 400 k/uL [facility] Nucleated RBC 0.00 /100 WBC [facility] Neutrophils 77.5 (H) 39.0 - 69.0 % [facility] Lymphocytes 12.1 (L) 25.0 - 45.0 % [facility] Monocytes 6.2 0.0 - 10.0 % [facility] Eosinophils 3.3 0.0 - 5.0 % [facility] Basophils 0.4 0.0 - 1.0 % [facility] Specimen Blood Performing Organization Address [facility] Phone Number [facility] DEPARTMENT OF PATHOLOGY AND [address] [place] [address] Lipase level (03/17/2018 9:51 AM PATIENT COMPANION)Only the most recent of13 resultswithin the time period is included. Lipase 24 13 - 60 U/L [facility] Specimen Plasma specimen Performing Organization Address City/[facility] Phone Number [facility] DEPARTMENT OF PATHOLOGY AND [address] [place] [address] Comprehensive metabolic panel (03/17/2018 9:51 AM PATIENT COMPANION)Only the most recent of15 resultswithin the time period is included. Sodium 140 135 - 148 mEq/L [facility] Potassium 4.2 3.5 - 5.0 mEq/L [facility] Chloride 102 98 - 112 mEq/L [facility] CO2 25 24 - 31 mEq/L [facility] Anion gap 13@ANIO 7 - 15 mEq/L [facility] BUN 19 6 - 20 mg/dL [facility] Creatinine 0.70 0.70 - 1.20 mg/dL [facility] Glucose 185 (H) 65 - 99 mg/dL [facility] Calcium 9.8 8.3 - 10.2 mg/dL [facility] Protein 8.5 (H) 6.3 - 8.3 g/dL [facility] Comment: [facility] 4.6-7.0 g/dL 1 week 4.4-7.6 g/dL 7 months-1year5.1-7.3 g/dL 1-2 years5.6-7.5 g/dL >3 years6.0-8.0 g/dL 18-150 6.3-8.3 g/dL Albumin 4.0 3.5 - 5.0 g/dL [facility] A/G ratio 0.9 0.7 - 3.8 [facility] Alkaline phosphatase 150 (H) 40 - 129 U/L [facility] AST 16 10 - 50 U/L [facility] ALT 9 5 - 50 U/L [facility] Total bilirubin <0.2 0.0 - 1.2 mg/dL [facility] Specimen Plasma specimen Performing Organization Address City/[facility]/Zipcode Phone Number [facility] DEPARTMENT OF PATHOLOGY AND [id number] [place] [address] [place] [address] GENOMIC MEDICINE [facility] [id number] [place] [address] [place] [id number] [facility] ECG 12 lead (12/25/2017)Only the most recent of3 resultswithin the time period is included. Narrative Performed At Lactic acid level, SEPSIS - Now and repeat 2x every 3 hours (12/16/2017 4:27 PM CDT)Only the most recent of4 resultswithin the time period is included. Lactic acid 0.7 0.5 - 2.2 mmol/L [facility] DEPARTMENT OF PATHOLOGY AND GENOMIC MEDICINE Specimen Plasma specimen Performing Organization Address City/State/Zipcode Phone Number [facility] DEPARTMENT OF PATHOLOGY [address] [place] [address] AND [facility] Urinalysis screen and microscopy, with reflex to culture (12/16/2017 4:05 PM CDT)Only the most recent of10 resultswithin the time period is included. Specimen site Clean catch [facility] DEPARTMENT OF PATHOLOGY AND GENOMIC MEDICINE Color, UA Yellow [facility] DEPARTMENT OF PATHOLOGY AND GENOMIC MEDICINE Appearance, UA Clear [facility] DEPARTMENT OF PATHOLOGY AND GENOMIC MEDICINE Specific gravity, UA 1.014 1.001 - 1.030 [facility] DEPARTMENT OF PATHOLOGY AND GENOMIC MEDICINE pH, UA 6.0 5.0 - 9.0 [facility] DEPARTMENT OF PATHOLOGY AND GENOMIC MEDICINE Protein, UA Negative Negative [facility] DEPARTMENT OF PATHOLOGY AND GENOMIC MEDICINE Glucose, UA Negative Negative [facility] DEPARTMENT OF PATHOLOGY AND GENOMIC MEDICINE Ketones, UA Negative Negative [facility] DEPARTMENT OF PATHOLOGY AND GENOMIC MEDICINE Bilirubin, UA Negative Negative [facility] DEPARTMENT OF PATHOLOGY AND GENOMIC MEDICINE Blood, UA Negative Negative [facility] DEPARTMENT OF PATHOLOGY AND GENOMIC MEDICINE Nitrite, UA Negative Negative [facility] DEPARTMENT OF PATHOLOGY AND GENOMIC MEDICINE Urobilinogen, UA 2.0 (A) <2.0 E.U./dL [facility] DEPARTMENT OF PATHOLOGY AND GENOMIC MEDICINE Leukocyte esterase, UA Negative Negative [facility] DEPARTMENT OF PATHOLOGY AND GENOMIC MEDICINE WBC, UA 1 0 - 1 /HPF [facility] DEPARTMENT OF PATHOLOGY AND GENOMIC MEDICINE RBC, UA 2 0 - 5 /HPF [facility] DEPARTMENT OF PATHOLOGY AND GENOMIC MEDICINE Bacteria, UA None seen None seen [facility] DEPARTMENT OF PATHOLOGY AND GENOMIC MEDICINE Yeast, UA None seen [facility] DEPARTMENT OF PATHOLOGY AND GENOMIC MEDICINE Yeast with pseudohyphae, UA None seen [facility] DEPARTMENT OF PATHOLOGY AND [facility] Specimen Urine Performing Organization Address City/[facility]code Phone Number [facility] DEPARTMENT OF PATHOLOGY [address] [place] [address] AND [facility] Urine culture (12/16/2017 4:05 PM CDT)Only the most recent of8 resultswithin the time period is included. Urine culture SEE COMMENTComment: Bacteriuria [facility] DEPARTMENT OF PATHOLOGY screen negative. AND GENOMIC MEDICINE Performing Organization Address [facility] Phone Number [facility] DEPARTMENT PATHOLOGY [address] [place] [address] AND [facility] US Scrotal (12/16/2017 2:16 PM CDT)Only the most recent of3 resultswithin the time period is included. Narrative Performed At EXAMINATION:US SCROTAL [facility] CLINICAL HISTORY:testicular pain on right COMPARISON:None. TECHNIQUE:Sonographic [...] or spermatocele. 2. Otherwise, unremarkable scrotal ultrasound. [id number] Procedure Note Interface, Radiology Results Incoming - [...] or spermatocele. 2. Otherwise, unremarkable scrotal ultrasound. [facility]-[id number] Performing Organization Address City/State/Zipcode Phone Number [facility] [address] [place] [address] CT Renal Stone Protocol (12/16/2017 1:44 PM CDT)Only the most recent of7 resultswithin the time period is included. Narrative Performed At PROCEDURE:CT RENAL STONE PROTOCOL [facility] CLINICAL HISTORY:hx of kidney stone and diverticulitispresents [...] if clinically indicated. Prostatic calcification. Sigmoid diverticulosis. [facility]-[id number] . Procedure Note [facility], Radiology Results Incoming - 12/16/2017 1:58 [...] if clinically indicated. Prostatic calcification. Sigmoid diverticulosis. [facility]-[id number] . Performing Organization Address City/[facility]/Zipcode Phone Number [facility] [address] [place] [address] Partial thromboplastin time, activated (12/16/2017 1:33 PM CDT)Only the most recent of3 resultswithin the time period is included. PTT 36.8 (H) 23.0 - 36.0 sec [facility] DEPARTMENT OF Comment: PATHOLOGY AND [facility] PTT therapeutic range for unfractionated heparin is MEDICINE 61.0-112.0 seconds which corresponds to Anti-Xa 0.3-0.7 U/ml. Specimen Blood Performing Organization Address [facility] Phone Number [facility] DEPARTMENT OF PATHOLOGY [id number] [place] [address] AND [facility] Prothrombin time with INR (12/16/2017 1:33 PM CDT)Only the most recent of3 resultswithin the time period is included. Prothrombin time 13.4 12.0 - 15.0 sec [facility] DEPARTMENT OF PATHOLOGY AND [facility] INR 1.0 [facility] DEPARTMENT OF Comment: PATHOLOGY AND GENOMIC The International Normalized Ratio (INR) is a therapeutic MEDICINE monitoring tool for patients who are stable on oral anticoagulant therapy. An INR of 2.0-3.0 is suggested for deep vein thrombosis/pulmonary embolism. Specimen Blood Performing Organization Address [facility] Phone Number [facility] DEPARTMENT OF PATHOLOGY [address] [place] [address] AND [facility] ECG ED Preliminary Interpretation - NOT AN ORDER (12/16/2017 1:16 PM CDT)Only the most recent of2 resultswithin the time period is included. Narrative Performed At Aaliyah Gordon MD 12/18/2017 11:47 AM ECG ED Preliminary Interpretation - Not an Order Performed by: AALIYAH GORDON Authorized by: AALIYAH GORDON XR Hips Bilateral Ap Lateral W Ap Pelvis (11/16/2017 1:44 PM CDT) Narrative Performed At EXAMINATION:XR HIPS BILATERAL AP LATERAL W AP PELVIS [facility] CLINICAL HISTORY:Fracturehip COMPARISON:None. FINDINGS: AP pelvis:There [...] significance noted. Impression: Arthritic changes as noted. [id number] Procedure Note Hm Interface, Radiology Results Incoming [...] significance noted. Impression: Arthritic changes as noted. [id number] Performing Organization Address City/State/Zipcode Phone Number [facility] [address] [place] [address] Estimated GFR (11/11/2017 9:11 AM CDT)Only the most recent of15 resultswithin the time period is included. GFR Non Af Amer >90 mL/min/1.73 m2 [facility] DEPARTMENT OF PATHOLOGY AND [facility] GFR Af Amer >90 mL/min/1.73 m2 [facility] DEPARTMENT OF Comment: PATHOLOGY AND GENOMIC Chronic [...] Americans. Specimen Plasma specimen Performing Organization Address City/[facility] Phone Number [facility] DEPARTMENT OF [facility] AND [address] [place] [address] [place] [address] [facility] Hepatic function panel (11/11/2017 9:11 AM CDT)Only the most recent of2 resultswithin the time period is included. Albumin 3.7 3.5 - 5.0 g/dL [facility] DEPARTMENT OF PATHOLOGY AND [facility] Total bilirubin <0.2 0.0 - 1.2 mg/dL [facility] DEPARTMENT OF PATHOLOGY AND [facility] Bilirubin direct <0.1 0.0 - 0.3 mg/dL [facility] DEPARTMENT OF PATHOLOGY AND GENOMIC [facility] Alkaline phosphatase 127 40 - 129 U/L [facility] DEPARTMENT OF PATHOLOGY AND GENOMIC [facility] Protein 7.6 6.3 - 8.3 g/dL [facility] DEPARTMENT OF Comment: PATHOLOGY AND GENOMIC [place] 4.6-7.0 g/dL MEDICINE 1 week 4.4-7.6 g/dL 7 months-1year5.1-7.3 g/dL 1-2 years5.6-7.5 g/dL >3 years6.0-8.0 g/dL 18-150 6.3-8.3 g/dL ALT 7 5 - 50 U/L [facility] DEPARTMENT OF PATHOLOGY AND GENOMIC MEDICINE AST 9 (L) 10 - 50 U/L [facility] DEPARTMENT OF PATHOLOGY AND [facility] Specimen Plasma specimen Performing Organization Address City/[facility] Unitcode Phone Number [facility] AND [id number] [place] [address] [place] [address] [facility] Basic metabolic panel (11/11/2017 9:11 AM CDT)Only the most recent of2 resultswithin the time period is included. Sodium 138 135 - 148 mEq/L [facility] DEPARTMENT OF PATHOLOGY AND GENOMIC MEDICINE Potassium 4.4 3.5 - 5.0 mEq/L [facility] DEPARTMENT OF PATHOLOGY AND GENOMIC MEDICINE Chloride 104 98 - 112 mEq/L [facility] DEPARTMENT OF PATHOLOGY AND GENOMIC MEDICINE CO2 23 (L) 24 - 31 mEq/L [facility] DEPARTMENT OF PATHOLOGY AND GENOMIC MEDICINE Anion gap 11@ANIO 7 - 15 mEq/L [facility] DEPARTMENT OF PATHOLOGY AND GENOMIC MEDICINE BUN 12 6 - 20 mg/dL [facility] DEPARTMENT OF PATHOLOGY AND GENOMIC MEDICINE Creatinine 0.7 0.7 - 1.2 mg/dL [facility] DEPARTMENT OF PATHOLOGY AND GENOMIC MEDICINE Glucose 99 65 - 99 mg/dL [facility] DEPARTMENT OF PATHOLOGY AND GENOMIC MEDICINE Calcium 8.7 8.3 - 10.2 mg/dL [facility] DEPARTMENT OF PATHOLOGY AND GENOMIC MEDICINE Specimen Plasma specimen Performing Organization Address City/[facility] Unitcode Phone Number [facility] DEPARTMENT OF PATHOLOGY AND [id number] [place] [address] [place] [address] [facility] Gram stain (09/19/2017 10:37 AM CDT) Gram stain result Rare WBC's [facility] DEPARTMENT OF PATHOLOGY No organisms seen AND [facility] MEDICINE Comment: Specimen Information Specimen Source: Urine Specimen Site: Clean catch Specimen Urine Performing Organization Address City/[facility]/Zipcode Phone Number [facility] DEPARTMENT OF PATHOLOGY AND [address] [place] [address] [facility]IC[facility] US Renal (09/11/2017 3:28 PM CDT) Narrative Performed At EXAMINATION: RENAL RADIANT CLINICAL HISTORY:Examine for possible masses, [...] Bilateral renal calculi without evidence of hydronephrosis. [id number] Procedure Note Interface, Radiology Results Incoming - [...] Bilateral renal calculi without evidence of hydronephrosis. [id number] Performing Organization Address [facility] Phone Number [facility] [address] [place] [address] XR Chest 1 Vw (09/11/2017 1:00 PM CDT) Narrative Performed At EXAMINATION:XR CHEST 1 VW RADIANT CLINICAL HISTORY:back pain COMPARISON:None IMPRESSION: No acute abnormality single view chest Emphysematous changes over the upper lobes bilaterally. Minimal linear atelectasis versus scar left base. No infiltrate congestion or effusion. No pneumothorax. Cardiomediastinal silhouette pulmonary vasculature and visualized skeleton normal in appearance [id number] Procedure Note Interface, Radiology Results Incoming - 09/11/2017 1:16 PM CDT EXAMINATION: XR CHEST 1 VW CLINICAL HISTORY: back pain COMPARISON: None IMPRESSION: No acute abnormality single view chest Emphysematous changes over the upper lobes bilaterally. Minimal linear atelectasis versus scar left base. No infiltrate congestion or effusion. No pneumothorax. Cardiomediastinal silhouette pulmonary vasculature and visualized skeleton normal in appearance [id number] Performing Organization Address [facility] Phone Number [employer] [address] [place] [address] Blood culture, aerobic & anaerobic (09/11/2017 11:45 AM CDT)Only the most recent of2 resultswithin the time period is included. Blood culture isolate No growth after 5 days of incubation. [facility] DEPARTMENT OF Comment: PATHOLOGY AND GENOMIC Specimen Information MEDICINE Specimen Source: Blood Specimen Site: Forearm, left Specimen Blood - Forearm, left Performing Organization Address City/[facility] Unitcode Phone Number [facility] DEPARTMENT OF PATHOLOGY AND [address] [place] [address] [facility] Troponin (09/11/2017 11:40 AM CDT) Troponin <0.300 0.000 - 0.300 ng/mL [facility] DEPARTMENT OF Comment: PATHOLOGY AND GENOMIC 0.30 - 1.49 ng/mlMay indicate increased risk of acute MEDICINE coronary syndrome. >=1.5 ng/mlConsistent with acute myocardial infarction. The diagnostic value of a single normal or non-diagnostic result is questionable.Serial samples at 2-6 hour intervals are required to rule out acute myocardial injury. Specimen Plasma specimen Performing Organization Address [facility] Unitcomt Phone Number [facility] DEPARTMENT OF PATHOLOGY AND [id number] [place] [address] B natriuretic peptide (09/11/2017 11:40 AM CDT) BNP 5 0 - 100 pg/mL [facility] DEPARTMENT OF PATHOLOGY AND GENOMIC MEDICINE Specimen Blood Performing Organization Address [facility] Number [facility] DEPARTMENT OF PATHOLOGY AND [address] [place] [address] [address] Creatine kinase, total (CPK) (09/11/2017 11:40 AM CDT) Creatine kinase 54 39 - 308 U/L [facility] DEPARTMENT OF PATHOLOGY AND GENOMIC MEDICINE Specimen Plasma specimen Performing Organization Address [facility] Number [facility] DEPARTMENT OF PATHOLOGY AND [address] [place] [address] [address] Amylase level (08/31/2017 11:25 AM CDT)Only the most recent of4 resultswithin the time period is included. Amylase 94 (H) 13 - 73 U/L [facility] DEPARTMENT OF PATHOLOGY AND GENOMIC MEDICINE Specimen Plasma specimen Performing Organization Address [facility] Unitcomt Phone Number [facility] DEPARTMENT OF PATHOLOGY AND [address] [place] [address] [address] Abdomen Pelvis W Contrast (08/16/2017 4:36 PM CDT)Only the most recent of2 resultswithin the [...] renal staghorn calculus. Bilateral renal calyceal stones. [facility]-[id number] Procedure Note [facility], Radiology Results Incoming - 08/16/2017 4:50 PM [...] renal staghorn calculus. Bilateral renal calyceal stones. [facility]-[id number] Performing Organization Address City/State/Zipcode Phone Number [facility] [address] [place] [address] after 03/16/2017 Insurance Payer Benefit Plan / Group Subscriber ID Type Phone Address [employer] xxxxxxxxx HMO Advance Directives Patient has advance care planning documents on file. For more information, please contact:Sai Lauren[address] [place] [address]
--- OUTSIDE RECORDS SUMMARY | 2018-03-17 17:41 | XMS REPORT | Clinical Summary ---
:1960 Author Organization [facility] Address [facility] [place] [address] Care Team Providers Name Role Phone Unavailable Primary Care Provider Unavailable Allergies Active Allergy Reactions Severity Noted Date Comments Gadolinium-Containing Rash 12/15/2017 Does not cause reaction if Contrast Media premedicated with benadryl per patient. Penicillin G 12/15/2017 Medications Not on file Active Problems Problem Noted Date LLQ pain 12/15/2017 Encounters Date Type Specialty Care Team Description 12/15/2017 Emergency Emergency Medicine Billy Lozoya MD LLQ pain ( Primary Dx) after 03/16/2017 Social History Tobacco Use Types [...] in the results section. after 03/16/2017 Results UA CHEMISTRIES (12/15/2017 11:37 AM CDT) Color Yellow [facility] Clarity Clear [facility] Spec [place] 1.016 1.001 - 1.035 [facility] [...] CT ABDOMEN AND PELVIS CONTRAST (12/15/2017 10:30 AM CDT) Addenda Addendum by Lex Jeter MD on [...] anterolisthesis of the involved vertebral bodies. This [facility] radiology report is a preliminary resident [...] anterolisthesis of the involved vertebral bodies. This [facility] radiology report is a preliminary resident [...] Phone Number SMS VBG POC (12/15/2017 8:40 AM CDT) pH, Sean POC 7.42Comment: 7.33 - 7.43 [facility] Physician Notified 1 pCO2, Sean POC 40.9 38.0 - 50.0 [facility] mm Hg 1 pO2, Sean POC 24 (L) 50 - 75 mm Hg [facility] 1 Base Excess, Sean 2 mmol/L [facility] POC 1 HCO3, Sean POC 26.7 (H) 22.0 - 26.0 [facility] mmol/L 1 % Sat, Sean POC 44 (L) 60 - 85 % [facility] 1 Lactic Acid, Sean 0.89 0.4 - 2.0 [facility] POC mmol/L 1 Sample Type Sean [facility] 1 TCO2, SEAN POC 28 21 - 32 [facility] mmol/L 1 Performing Organization Address [facility] Phone Number MISYS [facility] 1 BMP POC (12/15/2017 8:39 AM CDT) CO2 POC 25Comment: 21 - 32 [facility] Physician mmol/L 1 Notified Chloride POC 104 98 - 107 [facility] mmol/L 1 Potassium POC 4.3 3.50 - 5.10 [facility] mmol/L 1 Sodium POC 140 136 - 145 [facility] mmol/L 1 Glucose POC 87 74 - 106 [facility] mg/dL 1 Urea Nitrogen POC 6 (L) 7 - 18 mg/dL [facility] 1 Creatinine POC 0.6 0.6 - 1.3 [facility] mg/dL 1 Calcium Ionized POC 1.20 1.15 - 1.29 [facility] mmol/L 1 Hemoglobin POC 10.5 (L) 14.0 - 18.0 [facility] g/dL 1 Hematocrit POC 31.0 (L) 40.0 - 54.0 % [facility] 1 GFR, Estimated >60 mL/min/1.73 [facility] m2 1 GFR, Estim, Afr-Am >60 mL/min/1.73 [facility] m2 1 Performing Organization Address [facility] Phone Number MISYS [facility] 1 LIVER PROFILE (12/15/2017 8:34 AM CDT) T Protein 7.2 6.4 - 8.2 g/dL [facility] 1 Albumin 3.1 (L) 3.4 - 5.0 g/dL [facility] 1 T Bilirubin 0.2 0.2 - 1.0 mg/dL [facility] 1 Alk Phos 143 (H) 45 - 117 U/L [facility] 1 AST 11 (L) 15 - 37 U/L [facility] 1 ALT 11 (L) 12 - 78 U/L [facility] 1 D Bilirubin <0.1 0.0 - 0.2 mg/dL [facility] 1 Specimen Blood Performing Organization Address [facility]/Zipcode Phone Number [facility] 1 LIPASE (12/15/2017 8:34 AM CDT) [facility] Lipase 100 73 - 393 U/L [facility] 1 Specimen Blood Performing Organization Address [facility] Phone [facility] 1 CBC/DIFF (12/15/2017 8:34 AM CDT) [facility] WBC 10.0 4.5 - 12.0 K/uL [facility] 2 RBC 4.10 (L) 4.60 - 6.20 [facility] 2 M/uL Hemoglobin 8.9 (L) 14.0 - 18.0 [facility] 2 g/dL Hematocrit 32.1 (L) 40.0 - 54.0 % [facility] 2 MCV 78 (L) 82 - 92 fL [facility] 2 MCH 21.7 (L) 27.0 - 31.0 pg [facility] 2 MCHC 27.7 (L) 32.0 - 36.0 [facility] 2 g/dL RDW 51.2 (H) 35.1 - 43.9 fL [facility] 2 Platelet 450 (H) 150 - 400 K/uL [facility] 2 Mean Platelet Volume 10.6 9.4 - 12.4 fL [facility] 2 Percent NRBC 0.0 [facility] 2 Absolute NRBC 0.00 [facility] 2 Neutrophil 79.1 (H) 34.0 - 67.9 % [facility] 2 Lymphocyte 9.5 (L) 21.8 - 50.0 % [facility] 2 Monocyte 6.6 5.3 - 12.0 % [facility] 2 Eosinophil 4.1 0.8 - 5.0 % [facility] 2 Basophil 0.3 0.2 - 1.2 % [facility] 2 Pct Immat Gran 0.4 0.0 - 0.5 [facility] 2 Neutrophil, Abs 7.95 (H) 1.78 - 5.36 [facility] 2 K/uL Lymphocyte, Abs 0.95 (L) 1.32 - 3.57 [facility] K/uL Monocyte, Abs 0.66 0.30 - 0.82 [facility] K/uL Eosinophil, Abs 0.41 0.04 - 0.54 [facility] K/uL Basophil, Abs 0.03 0.01 - 0.08 [facility] 2 K/uL Absol Immat Gran 0.04 (H) 0.00 - 0.03 [facility] K/uL Specimen Blood Performing Organization Address City/State/[facility] Phone Number [facility] 2 after 03/16/2017 Insurance Payer Benefit Plan / Subscriber ID Effective Phone Address Type Group Dates [employer] SSI xxxxxxxxx 2017-Daija [phone] [address] [id number] [place] [address]
--- OUTSIDE RECORDS SUMMARY | 2018-03-17 17:42 | XMS REPORT | Clinical Summary ---
:1960 Author Organization [facility] Address [address] [place] [address] Care Team Providers Name Role Phone Yuri [...] medical advice 06/18/2017 Emergency Emergency Medicine after 03/16/2017 Social History Tobacco Use Types [...] in the results section. after 03/16/2017 Results CBC with platelet count + automated diff (12/14/2017 10:50 AM CDT)Only the most recent of3 resultswithin the time period is included. WBC 14.1 (H) 4.0 - 10.0 K/L [facility] RBC 3.28 (L) 4.20 - 5.80 M/L [facility] Hemoglobin 7.3 (L) 13.0 - 16.8 GM/DL [facility] Hematocrit 24.5 (L) 36.0 - 50.0 % [facility] MCV 74.7 (L) 82.0 - 99.0 fL [facility] MCH 22.3 (L) 27.0 - 33.0 pg [facility] MCHC 29.8 (L) 32.0 - 36.0 GM/DL [facility] RDW 17.9 (H) 12.0 - 15.0 % [facility] Platelets 375 150 - 430 K/CU MM [facility] MPV 10.4Comment: 6.0 - 11.5 fL [facility] MPV-Approximately 20% positive bias due to method change. nRBC 0 0 - 0 /100 WBC [facility] % Neutros 83 % [facility] % Lymphs 7 % [facility] % Monos 7 % [facility] % Eos 3 % [facility] % Baso 0 % [facility] # Neutros 11.69 (H) 1.80 - 8.00 K/L [facility] # Lymphs 0.94 (L) 1.48 - 4.50 K/L [facility] # Monos 0.96 0.00 - 1.30 K/L [facility] # Eos 0.41 0.00 - 0.50 K/L [facility] # Baso 0.03 0.00 - 0.20 K/L [facility] Immature 1 (H) 0 - 0 % [facility] Granulocytes-Relative Specimen Blood - Arm, Left Performing Organization Address City/State/Zipcode Phone Number [facility] [address] [place] [address] Urinalysis w/Microscopic (12/14/2017 10:50 AM CDT) Color, UA Yellow [facility] Clarity, UA Clear [facility] Specific [place], UA 1.017 1.001 - 1.035 [facility] pH, UA 5.0 5.0 - 8.0 [facility] Protein, UA Negative Negative [facility] Glucose, UA Negative Negative [facility] Ketones, UA Negative Negative [facility] Bilirubin, UA Negative Negative [facility] Blood, UA Negative Negative [facility] Nitrite, UA Negative Negative [facility] Leukocytes, UA Negative Negative [facility] Urobilinogen, UA <1.0 0.2 - 1.0 mg/dL [facility] RBC, UA 2 /HPF [facility] WBC, UA 1 /HPF [facility] Mucus Rare [facility] Specimen Source [facility] Specimen Urine - Urine, Clean Catch Performing Organization Address [facility] Phone Number [facility] [address] [place] [address] [phone] Comprehensive metabolic panel (12/14/2017 10:50 AM CDT)Only the most recent of3 resultswithin the time period is included. Protein, Total 6.4 6.0 - 8.5 gm/dL [facility] Albumin 3.1 (L) 3.5 - 5.0 g/dL [facility] Alkaline Phosphatase 112 30 - 115 U/L [facility] Total Bilirubin 0.2 0.1 - 1.3 mg/dL [facility] Sodium 138 135 - 148 meq/L [facility] Potassium 3.7 3.5 - 5.5 meq/L [facility] Chloride 108 (H) 98 - 106 meq/L [facility] CO2 24 20 - 31 meq/L [facility] BUN 11 10 - 26 mg/dL [facility] Creatinine 0.74 0.50 - 1.20 mg/dL [facility] Glucose 109 70 - 110 mg/dL [facility] Calcium 8.5 8.5 - 10.5 mg/dL [facility] AST 7 5 - 40 U/L [facility] ALT <6 (L) 6 - 50 U/L [facility] EGFR 109Comment: ESTIMATED GFR mL/min/1.73 sq m [facility] IS NOT ACCURATE CREATININE CLEARANCE IN PREDICTING GLOMERULAR FILTRATION RATE. ESTIMATED GFR IS NOT APPLICABLE FOR DIALYSIS PATIENTS. Specimen Blood - Arm, Left Performing Organization Address [facility] Phone Number [facility] [address] [place] [address] CT abdomen/pelvis without iv contrast (12/14/2017 10:30 AM CDT)Only the most recent of2 resultswithin the time period is included. Narrative Performed At FINAL REPORT [facility] HISTORY : abdominal pain LLQ abd [...] MD Report Verified Date/Time:12/14/2017 10:49:21 Reading Location: [facility] Diagnostic Imaging Reading Room - [place] [id number] Procedure Note Interface, External Ris In [...] Report Verified Date/Time: 12/14/2017 10:49:21 Reading Location: [facility] Diagnostic Imaging Reading Room - [place] [address] Performing Organization Address City/State/Zipcode Phone Number [facility] Urinalysis with Microscopic If Indicated (09/13/2017 1:26 PM CDT) Color, UA Light Yellow [facility] Clarity, UA Clear [facility] Specific [place], UA 1.011 1.001 - 1.035 [facility] pH, UA 6.5 5.0 - 8.0 [facility] Protein, UA Negative Negative [facility] Glucose, UA Negative Negative [facility] Ketones, UA Negative Negative [facility] Bilirubin, UA Negative Negative [facility] Blood, UA Negative Negative [facility] Nitrite, UA Negative Negative [facility] Leukocytes, UA Negative Negative [facility] Urobilinogen, UA 0.2 0.2 - 1.0 mg/dL [facility] Specimen Source [facility] Specimen Urine - Urine, Clean Catch Performing Organization Address [facility] Phone Number [address] [address] [place] POC-Lactic Acid, Venous (09/13/2017 12:39 PM CDT) POC-Lactic Acid, Venous 0.8 (L)Comment: 0.9 - 1.7 mmol/L [facility] TESTED AT [address] [address] Specimen Blood Performing Organization Address [facility] Phone Number [address] [address] [place] POC-Glucose meter (09/13/2017 12:39 PM CDT) POC-Glucose Meter 93Comment: TESTED AT 70 - 110 mg/dL [address] [address] Specimen Blood Performing Organization Address [facility] Phone Number [address] [address] [place] Lipase (08/16/2017 8:19 AM CDT) Lipase 29 8 - 78 U/L [facility] Specimen Blood Performing Organization Address [facility] Phone Number [facility] [address] [place] [address] after 03/16/2017 Insurance Payer Benefit Plan / Group Subscriber ID Type Phone Address MEDICAID - MEDICAID MEDICAID [employer] xxxxxxxxx Medicaid MGD CARE Non-Contracted
--- OUTSIDE RECORDS SUMMARY | 2018-03-17 17:43 | XMS REPORT | Clinical Summary ---
:1960 Author Organization [facility] Address [facility] [place] [address] Care Team Providers Name Role Phone Unavailable [...] MD LLQ pain ( Primary Dx) after 02/26/2017 Social History Tobacco Use Types Packs/Day Years [...] procedure are in the results section. after 02/26/2017 Results UA CHEMISTRIES (12/15/2017 11:37 AM) Color Yellow [facility] Clarity Clear [facility] Spec Bent 1.016 1.001 - 1.035 [facility] [...] anterolisthesis of the involved vertebral bodies. This [facility] radiology report is a preliminary resident dictation [...] anterolisthesis of the involved vertebral bodies. This [facility] radiology report is a preliminary resident dictation [...] SEAN POC 28 21 - 32 mmol/L [facility] Performing Organization Address [facility] [place] Phone Number [place] [facility] 1 BMP POC (12/15/2017 8:39 AM) CO2 POC 25Comment: Physician 21 - 32 mmol/L [facility] 1 Notified Chloride POC 104 98 - 107 mmol/L [facility] 1 Potassium POC 4.3 3.50 - 5.10 mmol/L [facility] 1 Sodium POC 140 136 - 145 mmol/L [facility] 1 Glucose POC 87 74 - 106 mg/dL [facility] 1 Urea Nitrogen POC 6 (L) 7 - 18 mg/dL [facility] 1 Creatinine POC 0.6 0.6 - 1.3 mg/dL [facility] 1 Calcium Ionized POC 1.20 1.15 - 1.29 mmol/L [facility] 1 Hemoglobin POC 10.5 (L) 14.0 - 18.0 g/dL [place] [address] Hematocrit POC 31.0 (L) 40.0 - 54.0 % [place] [address] GFR, Estimated >60 mL/min/1.73 m2 [facility] [place] [address] GFR, Estim, Afr-Am >60 mL/min/1.73 m2 [facility] 1 Performing Organization Address [facility] [place] Phone Number [place] [facility] 1 LIVER PROFILE (12/15/2017 8:34 AM) T Protein 7.2 6.4 - 8.2 g/dL [facility] 1 Albumin 3.1 (L) 3.4 - 5.0 g/dL [place] [address] T Bilirubin 0.2 0.2 - 1.0 mg/dL [facility] 1 Alk Phos 143 (H) 45 - 117 U/L [facility] 1 AST 11 (L) 15 - 37 U/L [facility] ALT 11 (L) 12 - 78 U/L [facility] 1 D Bilirubin <0.1 0.0 - 0.2 mg/dL [facility] 1 Specimen Blood Performing Organization Address [facility] Phone Number [place] [facility] 1 LIPASE (12/15/2017 8:34 AM) Lipase 100 73 - 393 U/L [facility] 1 Specimen Blood Performing Organization Address City/State/Zipcode Phone Number [place] [facility] 1 CBC/DIFF (12/15/2017 8:34 AM) WBC 10.0 4.5 - 12.0 K/uL [facility] 2 RBC 4.10 (L) 4.60 - 6.20 M/uL [facility] 2 Hemoglobin 8.9 (L) 14.0 - 18.0 g/dL [facility] 2 Hematocrit 32.1 (L) 40.0 - 54.0 % [facility] 2 MCV 78 (L) 82 - 92 fL [facility] 2 MCH 21.7 (L) 27.0 - 31.0 pg [facility] 2 MCHC 27.7 (L) 32.0 - 36.0 g/dL [facility] 2 RDW 51.2 (H) 35.1 - 43.9 fL [facility] 2 Platelet 450 (H) 150 - 400 K/uL [facility] 2 Mean Platelet Volume 10.6 9.4 - 12.4 fL [facility] 2 Percent NRBC 0.0 [facility] 2 Absolute NRBC 0.00 [facility] 2 Neutrophil 79.1 (H) 34.0 - 67.9 % [facility] 2 Lymphocyte 9.5 (L) 21.8 - 50.0 % [facility] 2 Monocyte 6.6 5.3 - 12.0 % [facility] 2 Eosinophil 4.1 0.8 - 5.0 % [facility] 2 Basophil 0.3 0.2 - 1.2 % [facility] 2 Pct Immat Gran 0.4 0.0 - 0.5 [facility] 2 Neutrophil, Abs 7.95 (H) 1.78 - 5.36 K/uL [facility] 2 Lymphocyte, Abs 0.95 (L) 1.32 - 3.57 K/uL [facility] 2 Monocyte, Abs 0.66 0.30 - 0.82 K/uL [facility] 2 Eosinophil, Abs 0.41 0.04 - 0.54 K/uL [facility] 2 Basophil, Abs 0.03 0.01 - 0.08 K/uL [facility] 2 Absol Immat Gran 0.04 (H) 0.00 - 0.03 K/uL [facility] 2 Specimen Blood Performing Organization Address City/State/Zipcode Phone Number [place] [facility] after 02/26/2017
--- OUTSIDE RECORDS SUMMARY | 2018-03-17 17:43 | XMS REPORT | Continuity of Care Document ---
:1960 Author Organization Interface Problems Problem Status Onset Classification Date Comments Source Date Reported LLQ pain Active 12/16/19 Problem 02/27/[address] Abdominal pain Resolved Problem 01/03/2018 [facility] Acute pain in Resolved Problem 01/03/2018 [facility] scrotum [facility] Anemia Resolved Problem 01/03/2018 [facility] Chronic low back Resolved Problem 01/03/2018 [facility] Chronic pain Resolved Problem 01/03/2018 [facility] Contusion, back Resolved Problem 01/03/2018 [facility] Degenerated Resolved Problem 01/03/2018 [facility] intervertebral [facility] Dislocated finger Resolved Problem 01/03/2018 [facility] Diverticular Resolved Problem 01/03/2018 [facility] disease of colon [facility] Diverticulosis of Resolved Problem 01/03/2018 [facility] colon [facility] Fall Resolved Problem 01/03/2018 [facility] Hidradenitis Resolved Problem 01/03/2018 [facility] LLQ abdominal Resolved Problem 01/03/2018 [facility] Left against Resolved Problem 01/03/2018 [facility] medical advice [facility] Left flank pain Resolved Problem 01/03/2018 [facility] Leukocytosis Resolved Problem 01/03/2018 [facility] Mild anemia Resolved Problem 01/03/2018 [facility] Narcotic Resolved Problem 01/03/2018 [facility] dependency, [facility] Pain, abdominal, Resolved Problem 01/03/2018 [facility] nonspecific [facility] Staghorn kidney Resolved Problem 01/03/2018 [facility] stones [facility] Medications Medication Details Route Status Patient Ordering Order Source Instructions Provider Date Allergies, Adverse Reactions, Alerts Substance Category Reaction Severity Reaction Status Date Comments Source type Reported Ibuprofen SWELLING Severe Allergy to Active [facility] ([id number] Substance 5 [facility] Iodine Severe Allergy to Active [facility] ([id number] Substance 8 [facility] Penicillins Severe Allergy to Active [facility] ([id number] Substance 8 [facility] NSAIDs Unknown Allergy to Active [facility] ([id number] Substance 8 [facility] ) Medical [place] Penicillin G Propensity Active [facility] to adverse 8 Health reactions to drug Gadolinium-C Rash Propensity Active [facility] ontaining to adverse 8 Health Contrast reactions Media to drug Immunizations Immunization Date Given Site Status Last Updated Comments Source Results Order Name Results Value Reference Date Interpretation Comments Source Range White blood 9.9 4.0 - 12.3 12/23 [facility] cell count /2017 [facility] RBC count 3.75 3.80 - 12/23 [facility] 5.80 /2017 [facility] Blood 8.5 11.67 - 12/23 [facility] hemoglobin 17. [facility] measurement Medical (mass/volume) Center Hematocrit 27.9 35.0 - 12/23 [facility] 51.0 [facility] MCV (mean 74.4 78 - 96 12/23 [facility] corpuscular /2017 [facility]) Medical determination Center Mean 22.6 26.8 - 12/23 [facility] corpuscular 33.4 /2017 [facility] hemoglobin Medical (MCH) Center determination Mean 30.4 32.3 - 12/23 [facility] corpuscular 36.7 [facility] hemoglobin Medical concentration Center (MCHC) determination RDW 16.2 11.6 - 12/23 [facility] 15.4 [facility] Platelets bld 423 115 - 328 12/23 [facility] Blood 6.2 8.4 - 11.8 12/23 [facility] platelet mean /2017 [facility] volume Medical Center Blood band 79.8 44.7 - 12/23 [facility] neutrophils/1 82.4 /2017 [place] [address] leukocytes [facility] Center Body fluid 8.6 10.0 - 12/23 [facility] lymphocytes/1 50.0 /2017 [place] [address] leukocytes Medical [place] Kaufman % 8.5 3.9 - 13.4 12/23 [facility] Eosinophil % 2.0 0.0 - 6.43 [place] [facility] Basophil % 1.0 0.0 - 0.72 12/23a [facility] Serum or 91 74 - 106 12/23rda plasma [facility] glucose Medical measurement Center (mass/volume) Serum or 7 6 - 20 12/23rda plasma urea [facility] nitrogen Medical measurement Center (mass/volume) Osmolality 273 280 - 300 12/23a ser [facility] Creatinine 0.6 0.70 - 12/[place] measurement 1. [facility] Estimated null 12/23 glomerular [facility] filtration Medical rate (GFR) Center determination Serum or 11.7 12 - 12/23 plasma urea [facility] nitrogen/crea Medical tinine ratio Center Sodium level 138 135 - 145 12/23 [facility] Potassium 3.7 3.5 - 5.2 12/23 [facility] Chloride 104 98 - 108 12/23 measurement [facility] CO2 24 21 - 32 12/23 [facility] Anion gap 13.7 - 12/23 [facility] measurement [facility] Calcium level 8.9 8.6 - 10.0 12/23 [facility] Total protein 7.3 6.6 - 8.7 12/23 [facility] Albumin 3.4 3.5 - 5.2 12/23 [facility] Globulin ser 3.9 12/23 [facility] Albumin-globu 0.9 >1.0 12/23 [facility] moises ratio ser [facility] Bilirubin null 0.0 - 1.2 12/23a total /2017 [facility] AST 8 15 - 40 12/23 [facility] ALT (SGPT) 4 0 - 41 12/23 [facility] ser/plas /2018 [facility] Lipase 22 13 - 60 12/23rda [facility] ALP ser/plas 119 40 - 130 09/ [facility] UA Color Yellow 12/15 [facility] UA Clarity Clear 12/15 [facility] UA Spec [place] 1.016 1.001 - 12/15 [facility] 1.035 Health UA pH 6.0 5 - 8 12/15 [facility]A Protein Negative NEG 12/15 [facility] UA Glucose Negative NEG 12/15 [facility]A Ketone Negative NEG 12/15 [facility] UA Bilirubin Negative NEG 12/15 [facility] UA Nitrate Negative NEG 12/15 [facility] UA Urobilinogen <1.0 0.2 - 1 12/15 [facility] UA Leukocyte Negative NEG 12/15 [facility] UA Blood Negative NEG 12/[address] [facility] [address] ABDOMEN <p Addendum by 12/15 [facility] AND PELVIS styleCode="he Bil, /2017 Health CONTRAST ader">Addendu MD Lex m by moshe Jeter MD on 12/15/2017 12/15/2017 1:19 PM 1:19 Addendum: PM</p><p>A Multiple ddendum: urinary Multiple calculi are urinary present, calculi are greater on present, the left greater on side, where the there left</p><p>si appears to de, where be early there appears development to be early of staghorn development calculus of staghorn in the calculus</p>< lower pole. p>in the Additional lower pole. left-sided Additional renal left-sided calculi are renal calculi present. In are present. the right In</p><p>the kidney right kidney there are 3 there are 3 tiny tiny calculi calculi lower pole. lower pole. However, However, no no</p><p>obst obstructive ructive uropathy is uropathy is seen on seen on either either side. side.</p><p> </p><p>Signed Signed By: By: Lex Jteer MD, [place] HOLLEY, 12/15/2017 12/15/2017 1:19 1:19 PM PM</p><p> </p> CT ABDOMEN <p>IMPRESSION IMPRESSION: 12/15 [facility] AND PELVIS :</p><p>1.Sma 1. Health CONTRAST ll amount of amount of left sided left sided perirectal perirectal stranding stranding which appears which to</p><p>comm appears to unicate with communicate the adjacent with the fascia and adjacent tracks to the fascia and left tracks to pelvic</p>&lt the left ;p>sidewall pelvic and perineum, sidewall and, and subsequently, perineum, the and, posteromedial subsequentl buttocks y, the and</p><p>upp posteromedi er thighs. al buttocks There is no and hamida fluid upper collection. thighs. Please see There is no coronal</p><p hamida fluid >image collection. 63.</p><p> Please see 2.Levoscolios coronal is of the image 63. lower lumbar 2.Levoscoli spine with osis of the compression lower deformity</p> lumbar <p>and spine with anterolisthes compression is of the deformity involved and vertebral anterolisth bodies. esis of the </p><p> involved </p><p> vertebral </p><p>This bodies. [facility] radiology report is a This [facility] preliminary international affairs vice president report is a dictation preliminary until</p><p>f resident inalized by dictation an until attending.Cynthia finalized nges to this by an preliminary attending.C report may hanges to occur</p><p>i this n an preliminary additional report may preliminary occur or finalized in an version.</p>< additional p> preliminary </p><p>Dictat or ed By: Jyotsna bernalized Canelo HOLLEY, version. 12/15/2017 11:26 Dictated AM</p><p> By: Jyotsna Lemos </p><p>I have , reviewed the 12/15/2017 study and 11:26 AM agree with the findings I have in this reviewed report.</p><p the study > and agree </p><p>Signed with the By: Lex ng in [place] HOLLEY, this 12/15/2017 report. 11:57 AM</p><p> Signed By: </p> Lex Jeter MD, 12/15/2017 11:[address] ABDOMEN <p>EXAM: CT EXAM: CT 12/15 [facility] AND PELVIS ABDOMEN AND ABDOMEN AND /2017 Health CONTRAST PELVIS WITH PELVIS WITH CONTRAST</p>< CONTRAST p> </p><p>DATE: DATE: 12/15/2017 12/15/2017 10:32 10:32 AM AM</p><p> </p><p>INDICA INDICATION: TION: LLQ LLQ pain, pain, hx of hx of diverticulosi diverticulo s and sis and nephrolithias nephrolithi is. LLQ asis. LLQ pain</p><p> pain </p><p> </p><p>ADDITI ONAL ADDITIONAL INFORMATION: INFORMATION "PMhx : "PMhx significant significant for Squamous for cell Squamous carcinoma</p> cell <p>s/p carcinoma resection, s/p nephrolithias resection, is, and nephrolithi Diverticuliti asis, and s?who Diverticuli presents to [facility]?who the</p><p>Chelsae presents to [facility] Center the w/ c/o LLQ Emergency stabbing pain Center w/ x 4 hours ago c/o LLQ with stabbing two</p><p>epi pain x 4 sodes of hours ago diarrhea and with two nausea w/ no episodes of vomiting. diarrhea Denies fevers and nausea or w/ no chills</p><p> vomiting. but reports Denies pain is fevers or similar to chills his but reports diverticuliti pain is s similar to pain."</p> his <p> diverticuli </p><p>COMPAR tis pain." LESTER: None</p><p> COMPARISON: </p><p>TECHNI None QUE: Volumetric CT TECHNIQUE: of the Volumetric abdomen and CT of the pelvis is abdomen and acquired pelvis is following</p> acquired <p>the following intravenous the administratio intravenous n of administrat contrast. ion of Axial, contrast. coronal and Axial, sagittal</p>< coronal and p>images are sagittal provided.</p> images are <p>IV provided. contrast: 100 IV mL of contrast: Omnipaque 100 mL of 300</p><p>Ent Omnipaque jadyn 300 contrast: Enteric None.</p><p>D contrast: LP: 906.80 None. mGy-cm DLP: 906.80 </p><p> mGy-cm </p><p>FINDIN GS:</p><p> FINDINGS: </p><p>Lines, tubes and Lines, hardware: tubes and None.</p><p> hardware: </p><p>Lower None. thorax: Clear.</p><p> Lower </p><p>Liver: thorax: Normal.</p><p Clear. > </p><p>Biliar Liver: y tree: No Normal. intra- or extrahepatic Biliary biliary tree: No ductal intra- or dilation.</p> extrahepati <p> c biliary </p><p>Gallbl ductal adder: dilation. Normal.</p><p > Gallbladder </p><p>Pancre : Normal. as: Normal.</p><p Pancreas: > Normal. </p><p>Spl een: Spleen: Normal.</p><p Normal. > </p><p>Adrena Adrenals: ls: Normal. Normal.</p><p > Kidneys and </p><p>Kid ureters: neys and Normal. ureters: Normal.</p><p Bladder: > Fluid </p><p>Bladde distended, r: Fluid normal. distended, normal.</p><p Reproductiv > e organs: </p><p>Reprod Seminal uctive vesicles organs: are Seminal unremarkabl vesicles are e. unremarkable. Dysmorphic Dysmorphic</p calcificati ><p>calcifica ons noted tions noted in the in the prostate, prostate, otherwise otherwise unremarkabl unremarkable. e. </p><p> </p><p>Gastro Gastrointes intestinal tinal tract:</p><p> tract: Stomach: A Stomach: A small sliding small hiatal hernia sliding is hiatal noted.</p><p> hernia is Small bowel: noted. Normal.</p><p Small >Colon: bowel: Normal.</p&gt Normal. ;<p> Colon: </p><p>Append Normal. ix: Normal.</p><p Appendix: > Normal. </p><p>Perito neum, Peritoneum, mesentery and mesentery retroperitone and um: No free retroperito air, ascites neum: No or</p><p>locu free air, lated fluid. ascites or However, loculated there is skin fluid. thickening However, along the there is posterior</p> skin <p>buttock thickening and upper along the thigh, posterior tracking buttock and along the upper perineum and thigh, the tracking left</p><p>pa along the rarectal perineum fascia to the and the pelvic left sidewall. pararectal Some fascia to inflammatory the pelvic changes</p><p sidewall. >appear to Some extend from inflammator the rectum to y changes the fascial appear to thickening extend from (coronal</p&g the rectum t;<p>image to the 63).</p><p> fascial </p><p>Lymph thickening nodes: (coronal Normal.</p><p image 63). > </p><p>Vas Lymph culature: nodes: </p><p>Aorta Normal. and branches: Moderate Vasculature amount of : calcific Aorta and atheroscleros branches: is is Moderate noted</p><p>i amount of n the calcific abdominal atheroscler aorta osis is extending noted into the in the bilateral abdominal iliac aorta arteries.</p> extending <p>IVC and into the veins: bilateral Normal.</p><p iliac >Portal arteries. vasculature: IVC and Normal.</p&gt veins: ;<p> Normal. </p><p>Bones: Portal Levoscoliosis vasculature centered at : Normal. the L3 level with Bones: significant Levoscolios disc</p><p is centered >space at the L3 narrowing and level with degenerative significant changes of disc the involved space lumbar</p><p> narrowing vertebrae. and Chronic degenerativ compression e changes deformity of of the the L3-L4 involved vertebral lumbar bodies</p><p> vertebrae. is noted. Chronic Postsurgical compression laminectomy deformity changes, of the L3-L5. A L3-L4 Grade 2 L4 vertebral over bodies L5</p><p>and is noted. Grade 1 L5 Postsurgica over S1 l anterolisthes laminectomy is are also changes, noted. T8-9 L3-L5. A disc Grade 2 L4 space</p><p>n over L5 arrowing and and Grade 1 subchondral L5 over S1 sclerosis of anterolisth the endplates esis are are also noted. noted.</p><p> T8-9 disc </p><p>Soft space tissues: A narrowing small and umbilical subchondral hernia is sclerosis noted. The of the neck endplates measures</p>< are noted. p>approximate ly 3.7 mm Soft without signs tissues: A of visceral small organ umbilical entrapment.</ hernia is p><p> </p> noted. The neck measures approximate ly 3.7 mm without signs of visceral organ entrapment. CT ABDOMEN <p Interface, Rad/Mammog In - 12/15/2017 12:02 PM CDT EXAM: CT ABDOMEN AND PELVIS WITH CONTRAST 12/15 [facility] AND PELVIS styleCode=" /2017 Health CONTRAST ader">Interfa ce, Rad/Mammog In DATE: 12/15/2017 10:32 AM - 12/15/2017 12:02 PM CDT</p><p> <span>EXAM: INDICATION: LLQ pain, hx of diverticulosis and nephrolithiasis. LLQ pain CT ABDOMEN AND PELVIS WITH CONTRAST</spa n>

< span>DATE: ADDITIONAL INFORMATION: "PMhx significant for Squamous cell carcinoma 12/15/2017 10:32 s/p resection, nephrolithiasis, and Diverticulitis?who presents to the AM</span><br/ ><span> Emergency Center w/ c/o LLQ stabbing pain x 4 hours ago with two </span>
< span>INDIC episodes of diarrhea and nausea w/ no vomiting. Denies fevers or chills ATION: LLQ pain, hx of but reports pain is similar to his diverticulitis pain." diverticulosi s and nephrolithias is. LLQ COMPARISON: None pain</span><b r/>
<span > </span>
< TECHNIQUE: Volumetric CT of the abdomen and pelvis is acquired following span>ADDITION AL the intravenous administration of contrast. Axial, coronal and sagittal INFORMATION: "PMhx images are provided. significant for Squamous IV contrast: 100 mL of Omnipaque 300 cell carcinoma</sp Enteric contrast: None. an>
<span >s/p DLP: 906.80 mGy-cm resection, nephrolithias is, and Diverticuliti FINDINGS: s?who presents to the</span>
<span>Emerg Lines, tubes and hardware: None. ency Center w/ c/o LLQ stabbing pain x 4 hours ago Lower thorax: Clear. with two</span>
<span>episo silvestre of Liver: Normal. diarrhea and nausea w/ no vomiting. Denies fevers Biliary tree: No intra- or extrahepatic biliary ductal dilation. or chills</span>
<span>bu t reports Gallbladder: Normal. pain is similar to his diverticuliti Pancreas: Normal. s pain."</span>

<sp an>COMPARISON Spleen: Normal. : None</span >

<s yoon>TECHNIQUE Adrenals: Normal. : Volumetric CT of the abdomen and pelvis is Kidneys and ureters: Normal. acquired following</sp an>
<span >the Bladder: Fluid distended, normal. intravenous administratio n of contrast. Reproductive organs: Seminal vesicles are unremarkable. Dysmorphic Axial, coronal and calcifications noted in the prostate, otherwise unremarkable. sagittal</spa n>
<span> images are provided.</sp Gastrointestinal tract: an>
<span >IV contrast: Stomach: A small sliding hiatal hernia is noted. 100 mL of Omnipaque Small bowel: Normal. 300</span>
<span>Enter Colon: Normal. ic contrast: None.</span>< br/><span>DLP : 906.80 Appendix: Normal. mGy-cm </span>
< br/><span>FIN DINGS: Peritoneum, mesentery and retroperitoneum: No free air, ascites or </span>
< br/><span>Moises loculated fluid. However, there is skin thickening along the posterior es, tubes and hardware: buttock and upper thigh, tracking along the perineum and the left None.</span>< br/>
<spa pararectal fascia to the pelvic sidewall. Some inflammatory changes n>Lower thorax: appear to extend from the rectum to the fascial thickening (coronal Clear.</span>

&lt image 63). ;span>Liver: Normal.</span >

<s yoon>Biliary Lymph nodes: Normal. tree: No intra- or extrahepatic biliary Vasculature: ductal dilation.</sp Aorta and branches: Moderate amount of calcific atherosclerosis is noted an>

<span>Gallbla in the abdominal aorta extending into the bilateral iliac arteries. dder: Normal.</s IVC and veins: Normal. yoon>
<br/ ><span>Pancre Portal vasculature: Normal. as: Normal.</span >

&l t;span>Spleen Bones: Levoscoliosis centered at the L3 level with significant disc : Normal.</span space narrowing and degenerative changes of the involved lumbar >

<s yoon>Adrenals: vertebrae. Chronic compression deformity of the L3-L4 vertebral bodies Normal.</span >

<s is noted. Postsurgical laminectomy changes, L3-L5. A Grade 2 L4 over L5 yoon>Kidneys and ureters: and Grade 1 L5 over S1 anterolisthesis are also noted. T8-9 disc space Normal.</span >

<s narrowing and subchondral sclerosis of the endplates are noted. yoon>Bladder: Fluid distended, normal.</span Soft tissues: A small umbilical hernia is noted. The neck measures >

<s yoon>Reproduct approximately 3.7 mm without signs of visceral organ entrapment. thien organs: Seminal vesicles are unremarkable. IMPRESSION Dysmorphic</s yoon>
<spa IMPRESSION: n>calcificati ons noted in 1. Small amount of left sided perirectal stranding which appears to the prostate, otherwise communicate with the adjacent fascia and tracks to the left pelvic unremarkable. </span>
< sidewall and perineum, and, subsequently, the posteromedial buttocks and br/><span>Gas trointestinal upper thighs. There is no hamida fluid collection. Please see coronal tract:</span>
<span>St image 63. omach: A small sliding 2. Levoscoliosis of the lower lumbar spine with compression deformity hiatal hernia is and anterolisthesis of the involved vertebral bodies. noted.</span>
<span>Sm all bowel: Normal.</span >
<span>C olon: This [facility] radiology report is a preliminary resident dictation until Normal.</span >

<s finalized by an attending. Changes to this preliminary report may occur yoon>Appendix: Normal.</span in an additional preliminary or finalized version. >

<s yoon>Peritoneu m, mesentery and Dictated By: Jyotsna Lemos MD, 12/15/2017 11:26 AM retroperitone um: No free air, ascites or</span><br/ I have reviewed the study and agree with the findings in this report. ><span>locula geoffrey fluid. However, there is skin Signed By: Lex Jeter MD, 12/15/2017 11:57 AM thickening along the posterior</sp an>
<s yoon>buttock and upper thigh, tracking along the perineum and the left</span>&l t;br/><span>p ararectal fascia to the pelvic sidewall. Some inflammatory changes</span >
<spa n>appear to extend from the rectum to the fascial thickening (coronal</spa n>
<sp an>image 63).</span><b r/>
<span >Lymph nodes: Normal.</span >

<s yoon>Vasculatu re: </span>
< span>Aorta and branches: Moderate amount of calcific atheroscleros is is noted</span>< br/><span>in the abdominal aorta extending into the bilateral iliac arteries.</sp an>
<span >IVC and veins: Normal.</span >
<span>P ortal vasculature: Normal.</span >
<br/ ><span>Bones: Levoscoliosis centered at the L3 level with significant disc</span><b r/><span>spac e narrowing and degenerative changes of the involved lumbar</span>
<span>ve rtebrae. Chronic compression deformity of the L3-L4 vertebral bodies</span>
<span>is noted. Postsurgical laminectomy changes, L3-L5. A Grade 2 L4 over L5</span><br/ ><span>and Grade 1 L5 over S1 anterolisthes is are also noted. T8-9 disc space</span>< br/><span>federico rowing and subchondral sclerosis of the endplates are noted.</span>

<sp an>Soft tissues: A small umbilical hernia is noted. The neck measures</spa n>
<span> approximately 3.7 mm without signs of visceral organ entrapment.</ span>

<span>IMPRE SSION</span>< br/><span>IMP RESSION: </span>
< span>1. Small amount of left sided perirectal stranding which appears to</span><br/ ><span>commun icate with the adjacent fascia and tracks to the left pelvic</span>
<span>si dewall and perineum, and, subsequently, the posteromedial buttocks and</span>
<span>upper thighs. There is no hamida fluid collection. Please see coronal</span >
<span>i mage 63.</span>
<span>2. Levoscoliosi s of the lower lumbar spine with compression deformity</sp an>
<span >and anterolisthes is of the involved vertebral bodies. </span>
< br/>
<spa n>This [facility] radiology report is a preliminary resident dictation until</span>< br/><span>fin alized by an attending. Changes to this preliminary report may occur</span>< br/><span>in an additional preliminary or finalized version.</spa n>

< span>Dictated By: Jyotsna Lemos MD, 12/15/2017 11:26 AM</span>< br/>
<spa n>I have reviewed the study and agree with the findings in this report.</span >

<s yoon>Signed By: Lex Jeter MD, 12/15/2017 11:57 AM</span><br/ ></p> CT ABDOMEN Addendum by Lex Jeter MD on 12/15/2017 1:19 PM Addendum: Multiple urinary calculi are present, greater on the left side, where there appears to be early development of staghorn calculus 12/15 [facility] AND PELVIS in the lower pole. Additional left-sided renal calculi are present. In the right kidney there are 3 tiny calculi lower pole. However, no obstructive uropathy is seen on either side. Signed By: Lex Jeter MD, 12/15/2017 1:19 PM IMPRESSION: /2017 Health CONTRAST 1.Small amount of left sided perirectal stranding which appears to communicate with the adjacent fascia and tracks to the left pelvic sidewall and perineum, and, subsequently, the posteromedial buttocks and upper thighs. There is no hamida fluid collection. Please see coronal image 63. 2.Levoscoliosis of the lower lumbar spine with compression deformity and anterolisthesis of the involved vertebral bodies. This [facility] radiology report is a preliminary [...] anterolisthesis of the involved vertebral bodies. This [facility] radiology report is a preliminary [...] g/dL 6.4 - 8.2 12/15 [facility] LIVER Albumin 3.1 g/dL 3.4 - 5 12/15 [facility] LIVER T Bilirubin 0.2 mg/dL 0.2 - 1 12/15 [facility] LIVER Alk Phos 143 U/L 45 - 117 12/15 [facility] /2017 [facility] LIVER AST 11 U/L 15 - 37 12/15 [facility] /2017 Health LIVER ALT 11 U/L 12 - 78 12/15 [facility] /2017 Health LIVER D Bilirubin <0.1 0 - 0.2 12/15 [facility] /2017 [facility] LIVER Lab Abnormal 12/15 [facility] Interpretatio /2017 Health n CBC/DIFF WBC 10.0 K/uL 4.5 - 12 12/15 [facility] CBC/DIFF RBC 4.10 4.60 - 12/15 [facility] 6.20 [facility] CBC/DIFF Hemoglobin 8.9 g/dL 14 - 18 12/15 [facility] CBC/DIFF Hematocrit 32.1 % 40 - 54 12/15 [facility] CBC/DIFF MCV 78 fL 82 - 92 12/15 [facility] CBC/DIFF MCH 21.7 pg 27 - 31 12/15 Health CBC/DIFF MCHC 27.7 g/dL 32 - 36 12/15 [facility] CBC/DIFF RDW 51.2 fL 35.1 - 12/15 [facility] 43.9 /2018 [facility] CBC/DIFF Platelet 450 K/uL 150 - 400 12/15 [facility] CBC/DIFF Mean Platelet 10.6 fL 9.4 - 12.4 12/15 [facility] CBC/DIFF Percent NRBC 0.0 12/15 Health CBC/DIFF Absolute NRBC 0.00 12/15 [facility] CBC/DIFF Neutrophil 79.1 % 34 - 67.9 12/15 [facility] CBC/DIFF Lymphocyte 9.5 % 21.8 - 50 12/15 [facility] CBC/DIFF Monocyte 6.6 % 5.3 - 12 12/15 Health CBC/DIFF Eosinophil 4.1 % 0.8 - 5 12/15 Health CBC/DIFF Basophil 0.3 % 0.2 - 1.2 12/15 Health CBC/DIFF Pct Immat 0.4 0.0 - 0.5 12/15 Health CBC/DIFF Neutrophil, 7.95 K/uL 1.78 - 12/15 [place] Abs 5.36 /2017 Health CBC/DIFF Lymphocyte, 0.95 K/uL 1.32 - 12/15 [place] Abs 3.57 Health CBC/DIFF Monocyte, Abs 0.66 K/uL 0.3 - 0.82 12/15 Health CBC/DIFF Eosinophil, 0.41 K/uL 0.04 - 12/15 [place] Abs 0.54 /2017 Health CBC/DIFF Basophil, Abs 0.03 K/uL 0.01 - 12/15 [place] 0.08 /2017 Health CBC/DIFF Absol Immat 0.04 K/uL 0 - 0.03 12/15 [facility] CBC/DIFF Lab Abnormal 12/15 [place] Interpretatio Health BMP POC CO2 POC 25 mmol/L 21 - 32 12/15 [facility] Notified [facility] BMP POC Chloride POC 104 mmol/L 98 - 107 12/15 [facility] BMP POC Potassium POC 4.3 mmol/L 3.5 - 5.1 12/15 [facility] BMP POC Sodium POC 140 mmol/L 136 - 145 12/15 [facility] BMP POC Glucose POC 87 mg/dL 74 - 106 12/15 [facility] BMP POC Urea Nitrogen 6 mg/dL 7 - 18 12/15 [facility] POC /2017 [facility] BMP POC Creatinine 0.6 mg/dL 0.6 - 1.3 12/15 [facility] POC /2017 [facility] BMP POC Calcium 1.20 mmol/L 1.15 - 12/15 [place] Ionized POC 1.29 Health BMP POC Hemoglobin 10.5 g/dL 14 - 18 12/15 [place] POC /2017 Health BMP POC Hematocrit 31.0 % 40 - 54 12/15 [facility] POC /2017 [facility] BMP POC GFR, >60 mL/min/1.7 12/15 [place] Estimated 3 m2 /2018 Health BMP POC GFR, Estim, >60 mL/min/1.7 12/15 [place] Afr-Am 3 m2 /2017 Health BMP POC Lab Abnormal 12/15 [place] Interpretatio /2017 Health n VBG POC pH, Michael POC 7.42 7.33 - 12/15 Physician [place] 7.43 Notified Health VBG POC pCO2, Michael POC 40.9 38.0 - 12/15 [place] 50.0 /2017 Health VBG POC pO2, Michael POC 24 50 - 75 12/15 [facility] VBG POC Base Excess, 2 mmol/L 12/15 [place] Michael POC /2017 Health VBG POC HCO3, Michael POC 26.7 mmol/L 22 - 26 12/15 Health VBG POC % Sat, Michael 44 % 60 - 85 12/15 [facility] POC /2018 [facility] VBG POC Lactic Acid, 0.89 mmol/L 0.4 - 2 12/15 [place] Michael POC /2018 Health VBG POC Sample Type Michael 12/15 Health VBG POC TCO2, MICHAEL POC 28 mmol/L 21 - 32 12/15 [facility] VBG POC Lab Abnormal 12/15 [place] Interpretatio /2017 Health n Color of LIGHT 11/13 [place] Urine by Auto YELLOW [facility] Urine CLEAR CLEAR 11/13 [place] appearance /2017 [facility] determination [facility] Glucose NEGATIVE NEGATIVE 11/13 [facility] [Presence] in Regional Urine by Medical Automated Center test strip Urine total NEGATIVE NEGATIVE 11/13 [facility] bilirubin Regional measurement Medical (mass/volume) Center Ketones NEGATIVE NEGATIVE 11/13 [facility] [Mass/volume] /2017 Regional in Urine by Medical Automated Center test strip Specific 1.019 1.003 - 11/13 [facility] gravity of 1.030 [facility] Urine by Medical Automated Center test strip Urine blood NEGATIVE NEGATIVE 11/13 [facility] detection by [facility] dipstick Medical Center Urine pH 5.500 5 - 9 11/13 [place] measurement /2017 [facility] Urine protein NEGATIVE NEGATIVE 11/13 [place] test by /2017 [facility] dipstick Medical Center Urine NORMAL 0.2 - 1.0 11/13 [place] urobilinogen /2017 [facility] detection Medical Center Nitrite ur NEGATIVE NEGATIVE 11/13 [facility] dipstick [facility] Urine NEGATIVE NEGATIVE 11/13 [facility] leukocyte /2017 [facility] esterase Medical detection by Center automated test strip RBC count ur null 0 - 5 11/13 [facility] auto /2017 [facility] Leukocytes null 0 - 5 11/13 [facility] [#/area] in Regional Urine Medical sediment by Center Automated count Epithelial null 0 - 5 11/13 [facility] cells Regional detection in [facility] urine Center sediment by light microscopy Bacterial None None 11/13 [facility] urine culture Detected Detect [facility] Automated None None 11/13 [facility] urine Detected Detect [facility] sediment Medical casts Center (number/area) Urine Culture NO 11/13 [facility] Reflexed [facility] Urine Calcium None 11/13 [facility] crystals oxalate 3+ Detect Regional detection by Medical automated Center Bacterial Urine [facility] urine culture Bacteria [facility] Vital Signs Vital Sign Value Date Comments Source Systolic (mm Hg) 124 12/15/2017 [facility] Diastolic (mm Hg) 86 12/15/2017 [facility] Heart Rate 88 12/15/2017 [facility] Temperature Oral (F) 37 Blanca 12/15/2017 [facility] Respitory Rate 18 12/15/2017 [facility] Systolic (mm Hg) 123 12/15/2017 [facility] Diastolic (mm Hg) 87 12/15/2017 [facility] Heart Rate 87 12/15/2017 [facility] Temperature Oral (F) 36.94 Blanca 12/15/2017 [facility] Respitory Rate 19 12/15/2017 [facility] Weight 65.772 12/15/2017 [facility] Encounters Location Location Encounter Encounter Reason Attending ADM DC Status Source Details Type Number For Provider Date Date Visit Departed [id number] JAIRO 11/13 11/13 [facility] Emergency 59 LARA /2017 [facility] Room [place] [facility] Departed [id number] JONO 11/22 11/23 [facility] Emergency 64 GIANNONE /[address] [facility] Medical [facility] Emergency Emergency [id number] LLQ Billy 12/15 12/15 [facility] pain Devora /2017 Health ([id number]) SAIDA HOLLEY Departed [id number] YO 12/23 12/23 [facility] Emergency 61 FRAME /2017 [facility] Departed [id number] CLEMENT 01/03 01/03 [facility] Emergency 88 JIA HOLLEY /2017 [facility] Room [facility] Procedures Procedure Code Date Perfomer Comments Source Magnetic [id number] JIA [facility] resonance imaging 8 Regional of lumbar spine Medical without contrast Center EMERGENCY DEPT 83890 [facility] VISIT 8 [facility] CT ABD & PELVIS 75824 [facility] W/O CONTRAST 8 [facility] THER/PROPH/DIAG 63719 [facility] INJ IV PUSH 8 [facility] TX/PRO/[place] [address] [place] DRUG ADDON 8 [facility] COMPLETE CBC 67801 [facility] W/AUTO DIFF WBC 8 [facility] ASSAY OF LIPASE 79217 [facility] 8 [facility] ROUTINE 09376 [facility] VENIPUNCTURE 8 [facility] COMPREHEN 38566 [facility] METABOLIC PANEL 8 [facility] Computed [id number] FRAME [facility] tomography of 8 Regional abdomen and Medical pelvis without Center contrast UA CHEMISTRIES 41780 [facility] 8 CT ABDOMEN AND 09[address] [facility] PELVIS CONTRAST 8 VBG POC [address] [place] [address] BMP POC [address] [place] [address] CBC/DIFF 49440 [facility] 8 LIPASE [address] [place] [address] LIVER PROFILE [address] [place] [address] X-ray of lumbar [id number] GIANNONE [place] spine, AP and 8 Regional lateral views [facility] EMERGENCY DEPT 09636 [facility] VISIT 8 [facility] [place] [address] [facility] HAND 8 [facility] THER/PROPH/DIAG 08485 [facility] INJ SC/IM 8 [facility] X-RAY EXAM L-S 63686 [facility] SPINE 2/3 VWS 8 [facility] MORPHINE SULFATE J2270 [facility] INJECTION 8 [facility] X-ray of right [id number] UGORJI [place] hand, three or 8 [facility] EMERGENCY DEPT 64994 [place] VISIT 8 [facility] THER/PROPH/DIAG 19229 [place] INJ IV PUSH 8 [facility] TX/[place] [address] [place] DRUG ADDON 8 [facility] COMPLETE CBC 54704 [place] W/AUTO DIFF WBC 8 [facility] ASSAY OF LIPASE 49503 [facility] 8 [facility] URINALYSIS AUTO 33649 [place] W/SCOPE 8 [facility] ROUTINE 50726 [place] VENIPUNCTURE 8 [facility] COMPREHEN 09329 [facility] METABOLIC PANEL 8 [facility] MORPHINE SULFATE J2270 [facility] INJECTION 8 [facility]
--- OUTSIDE RECORDS SUMMARY | 2018-03-17 17:44 | XMS REPORT | Clinical Summary ---
:1960 Author Organization [facility] Address [facility] [place] [address] Care Team Providers Name Role Phone Unavailable [...] MD LLQ pain ( Primary Dx) after 01/31/2017 Social History Tobacco Use Types Packs/Day Years [...] procedure are in the results section. after 01/31/2017 Results UA CHEMISTRIES (12/15/2017 11:37 AM) Color Yellow [facility] Clarity Clear [facility] Spec [place] 1.016 1.001 - 1.035 [facility] [...] anterolisthesis of the involved vertebral bodies. This [facility] radiology report is a preliminary resident [...] anterolisthesis of the involved vertebral bodies. This [facility] radiology report is a preliminary resident [...] SEAN POC 28 21 - 32 mmol/L [facility] 1 Performing Organization Address [facility] Phone Number [place] [facility] 1 BMP POC (12/15/2017 8:39 AM) CO2 POC 25Comment: Physician 21 - 32 mmol/L [facility] 1 Notified Chloride POC 104 98 - 107 mmol/L [facility] 1 Potassium POC 4.3 3.50 - 5.10 mmol/L [facility] 1 Sodium POC 140 136 - 145 mmol/L [facility] 1 Glucose POC 87 74 - 106 mg/dL [facility] 1 Urea Nitrogen POC 6 (L) 7 - 18 mg/dL [facility] 1 Creatinine POC 0.6 0.6 - 1.3 mg/dL [facility] 1 Calcium Ionized POC 1.20 1.15 - 1.29 mmol/L [facility] 1 Hemoglobin POC 10.5 (L) 14.0 - 18.0 g/dL [place] [address] Hematocrit POC 31.0 (L) 40.0 - 54.0 % [place] [address] GFR, Estimated >60 mL/min/1.73 m2 [facility] [place] [address] GFR, Estim, Afr-Am >60 mL/min/1.73 m2 [facility] 1 Performing Organization Address [facility] Phone Number [place] 1 LIVER PROFILE (12/15/2017 8:34 AM) T Protein 7.2 6.4 - 8.2 g/dL [facility] 1 Albumin 3.1 (L) 3.4 - 5.0 g/dL [place] [address] T Bilirubin 0.2 0.2 - 1.0 mg/dL [facility] 1 Alk Phos 143 (H) 45 - 117 U/L [facility] 1 AST 11 (L) 15 - 37 U/L [facility] ALT 11 (L) 12 - 78 U/L [facility] 1 D Bilirubin <0.1 0.0 - 0.2 mg/dL [facility] 1 Specimen Blood Performing Organization Address [facility] Phone Number SALMA [facility] 1 LIPASE (12/15/2017 8:34 AM) Lipase 100 73 - 393 U/L [facility] 1 Specimen Blood Performing Organization Address City/State/Zipcode Phone Number MISYS [facility] 1 CBC/DIFF (12/15/2017 8:34 AM) WBC 10.0 4.5 - 12.0 K/uL [facility] 2 RBC 4.10 (L) 4.60 - 6.20 M/uL [facility] 2 Hemoglobin 8.9 (L) 14.0 - 18.0 g/dL [facility] 2 Hematocrit 32.1 (L) 40.0 - 54.0 % [facility] 2 MCV 78 (L) 82 - 92 fL [facility] 2 MCH 21.7 (L) 27.0 - 31.0 pg [facility] 2 MCHC 27.7 (L) 32.0 - 36.0 g/dL [facility] 2 RDW 51.2 (H) 35.1 - 43.9 fL [facility] 2 Platelet 450 (H) 150 - 400 K/uL [facility] 2 Mean Platelet Volume 10.6 9.4 - 12.4 fL [facility] 2 Percent NRBC 0.0 [facility] 2 Absolute NRBC 0.00 [facility] 2 Neutrophil 79.1 (H) 34.0 - 67.9 % [facility] 2 Lymphocyte 9.5 (L) 21.8 - 50.0 % [facility] 2 Monocyte 6.6 5.3 - 12.0 % [facility] 2 Eosinophil 4.1 0.8 - 5.0 % [facility] 2 Basophil 0.3 0.2 - 1.2 % [facility] 2 Pct Immat Gran 0.4 0.0 - 0.5 [facility] 2 Neutrophil, Abs 7.95 (H) 1.78 - 5.36 K/uL [facility] 2 Lymphocyte, Abs 0.95 (L) 1.32 - 3.57 K/uL [facility] 2 Monocyte, Abs 0.66 0.30 - 0.82 K/uL [facility] 2 Eosinophil, Abs 0.41 0.04 - 0.54 K/uL [facility] 2 Basophil, Abs 0.03 0.01 - 0.08 K/uL [facility] 2 Absol Immat Gran 0.04 (H) 0.00 - 0.03 K/uL [facility] 2 Specimen Blood Performing Organization Address City/State/Zipcode Phone Number MISYS [facility] 2 after 01/31/2017
--- OUTSIDE RECORDS SUMMARY | 2018-03-17 17:48 | XMS REPORT ---
:1960 [facility] [address] [place] [address] Care Team Providers Name Role Phone EDMUNDO LEIVA MD Primary Care Provider Unavailable [place], DR MENDOZA Unavailable Unavailable LEXUS, DR CHUCK Barron Unavailable Unavailable [facility], DR PRATHER Unavailable Unavailable ENRIQUE, DR DEVINE Unavailable Unavailable AALIYAH BRICENO Unavailable Unavailable MICHELE ALLAN Unavailable Unavailable DULCE RCIE Unavailable Unavailable MICKEY VILLEGAS Unavailable Unavailable MARTIN, DR MANRIQUEZ Unavailable Unavailable LALA KOVACS Unavailable Unavailable PAUL [...] 0 NSAIDS DA Active SV 2017-12 (Non-Steroida - l 00:00:0 Anti-Inflamma 0 Penicillins DA Active MO 2017-12 00:00:0 0 NSAIDS DA Active SV 2017-11 (Non-Steroida -14 l 00:00:0 Anti-Inflamma 0 Penicillins DA Active MO 2017-11 00:00:0 0 Medications This patient has no known medications. Encounters Start End Encounter Admission Attending Care Care Encounter Date/Time Date/Time Type Type Clinicians Facility Department ID 2018-03-06 2018-03-06 Outpatient E VALERIY, [facility] [id number] 00:18:00 06:25:00 REJI 2018-03-01 2018-03-02 Inpatient E LEXUS [facility] [id number] 13:53:00 15:07:00 CHUCK 2018-01-29 2018-01-29 Outpatient E RICARDO [facility] [id number] 11:53:00 18:20:00 YAMILKA 2018-01-27 2018-01-27 Emergency [facility] [id number] 00:00:00 00:00:00 2018-01-02 2018-01-02 Emergency E SYBIL NUNEZ [facility] [id number] 12:45:00 13:40:00 2017-12-25 2017-12-25 Outpatient E KAITY, [facility] [id number] 12:15:00 15:00:00 AALIYAH 2017-12-16 2017-12-16 Emergency E JERRELL, [facility] [id number] 11:18:00 12:40:00 MICHELE 2017-12-15 2017-12-15 Emergency [facility] [id number] 08:28:43 08:28:43 2017-12-15 2017-12-15 Emergency [facility] [id number] 08:02:30 08:02:30 2017-11-10 2017-11-10 Outpatient E MARTIN, [facility] [id number] 15:42:00 21:51:00 DECLAN 2017-08-04 2017-08-04 Emergency E DICKENS, PERICO [facility] [id number] 10:02:00 12:00:00 2017-07-30 2017-07-30 Emergency E TONI [facility] [id number] 13:37:00 17:53:00 MONICA 2017-06-07 2017-06-07 Emergency E COLBY [facility] [id number] 10:57:00 13:46:00 ASIF 2017-05-28 2017-05-28 Emergency E [facility] [id number] 13:59:00 13:59:00 Results Test Description Test Time Test Comments Text Results Atomic Results Result Comments CT ABDOMEN AND PELVIS 2018-03-07 18:25:22 ADDENDUM:The examination was WITH CONTRAST reviewed and [facility]. Theradiodense structure described in the report from 03/05/18 is very likelycontrast material within the patient's appendix. This is redemonstrated on thefollow-up study obtained March 07 [place], along with gas within thelumen of the appendix.It is unclear where the patient received oral contrast material that wouldopacify the appendix in such a manner as [facility] contrast. It is likely that the patientmight to another outside facility unknown to us and did receive oral contrastmaterial which deposited within the appendix which is normal in appearance. OCCULT BLOOD 2018-03-06 00:19:00 Test Item Value Reference Range Comments Direct Exam (test code=DE3) NEGATIVE FOR OCCULT BLOOD DRUGS OF [id number] 20:19:00 Test Item Value Reference Range Comments DRUG SCRN (test code=HDOA) URINE DRUG SCREEN This is an unconfirmed screening result and should not be used for non-medical purposes CANNABINOD (test code=88C) Negative NEGATIVE AMPHETAMINE (test code=84A) Negative NEGATIVE BENZODIAZP (test code=86A) Negative NEGATIVE BARBITURAT (test code=85A) Negative NEGATIVE OPIATES (test code=92B) POSITIVE NEGATIVE COCAINE (test code=87A) Negative NEGATIVE PHENCYCLID (test code=66A) Negative NEGATIVE METHADONE (test code=64A) Negative NEGATIVE DOAH (test code=DOAH.) URINE DRUG SCREEN Cut-off values are as follows: Cannabinoids 50 ng/mL Cocaine 300 ng/mL Amphetamines 1000 ng/mL Phencyclidine 25 ng/mL Benzodiazepines 200 ng.mL Methadone 300 ng/mL Barbiturates 200 ng/mL Opiates 2000 ng/mL [id number] 20:06:00 Test Item Value Reference Range Comments COLOR [...] LEUK ES UR (test code=LEUK) NEGATIVE NEGATIVE COMPREHENSIVE METABOLIC [id number] 19:53:00 Test Item Value Reference Range Comments GLUCOSE (test code=06D) 109 mg/dL 75-100 SODIUM (test code=01A) 137 mmol/L 136-145 POTASSIUM (test code=01B) 3.8 mmol/L 3.6-5.1 CHLORIDE (test code=04A) 108 mmol/L 98-107 CO2 (test code=02A) 23 mmol/L 22-32 ANION GAP (test code=ANG) 9.8 mmol/L BUN (test code=05D) 11 mg/dL 7-18 CREATININE (test code=03E) 0.7 mg/dL 0.7-1.3 BUN/CREA (test code=BCR) 17 12-20 CALCIUM (test code=09D) 7.9 mg/dL 8.3-9.5 BILI TOTAL (test code=11A) 0.1 mg/dL 0.2-1.0 PROTEIN (test code=07D) 6.8 g/dL 6.4-8.2 ALBUMIN (test code=08D) 2.7 g/dL 3.5-4.8 GLOBULIN (test code=GLB) 4.1 g/dL 1.5-3.8 ALB/GLOB (test code=AGRR) 0.7 1.0-2.6 ALK PHOS (test code=35A) 119 IU/L 42-121 AST (test code=30A) 10 IU/L <=42 ALT (test code=31A) 10 IU/L <=78 AMYLASE AND [id number] 19:53:00 Test Item Value Reference Range Comments AMYLASE (test code=10A) 63 U/L 28-100 LIPASE (test code=60A) 105 IU/L 73-393 CBC (INCLUDES AUTOMATED DIFFERENTIAL)2018-03-05 19:40:00 Test Item Value Reference Range Comments WBC (test code=WBC) 10.9 10\\S\\3/uL 4.5-11.0 RBC (test code=RBC) 3.37 10\\S\\6/uL 4.20-5.60 HGB (test code=HBG) 7.2 g/dL 14.0-18.0 HCT (test code=HCT) 25.2 % 35.0-46.0 MCV (test code=MCV) 74.8 fL 80.0-94.0 MCH (test code=MCH) 21.4 pg 27.0-31.0 MCHC (test code=MCHC) 28.6 g/dL 32.0-36.0 RDW (test code=RDW) 17.7 % 11.5-14.5 PLT (test code=PLT) 398 10\\S\\3/uL 130-400 MPV (test code=MPV) 10.7 fL 9.4-12.4 NEUTROP # (test code=NE#) 8.3 10\\S\\3/uL 2.0-8.0 LYMPH # (test code=LY#) 1.0 10\\S\\3/uL 1.2-4.0 MONOCYTE # (test code=MO#) 1.1 10\\S\\3/uL 0.0-1.1 EOSINOPH # (test code=EO#) 0.5 10\\S\\3/uL 0.0-0.7 BASOPHIL # (test code=BA#) 0.0 10\\S\\3/uL 0.0-0.3 IG # (test code=IG#) 0.06 10\\S\\3/uL 0.00-0.06 NRBC # (test code=NRBC#) 0.00 10\\S\\3/uL 0.00-0.01 NEUTROPH % (test code=NE%) 75.9 % 35.0-73.0 LYMPH % (test code=LY%) 9.2 % 20.0-55.0 MONO % (test code=MO%) 9.8 % 2.5-10.0 EOSINOPH % (test code=EO%) 4.1 % 0.0-5.0 BASOPHIL % (test code=BA%) 0.4 % 0.0-2.0 IG % (test code=IG%) 0.6 % 0.0-0.8 NRBC% (test code=NRBC%) 0.0 % 0.0-0.2 MANDIFF (test code=MDIFF) NO NO CBC (INCLUDES AUTOMATED DIFFERENTIAL)2018-03-02 06:48:00 Test Item Value Reference Range Comments WBC (test code=WBC) 7.2 10\\S\\3/uL 4.5-11.0 RBC (test code=RBC) 3.61 10\\S\\6/uL 4.20-5.60 HGB (test code=HBG) 7.7 g/dL 14.0-18.0 HCT (test code=HCT) 26.9 % 35.0-46.0 MCV (test code=MCV) 74.5 fL 80.0-94.0 MCH (test code=MCH) 21.3 pg 27.0-31.0 MCHC (test code=MCHC) 28.6 g/dL 32.0-36.0 RDW (test code=RDW) 17.8 % 11.5-14.5 PLT (test code=PLT) 410 10\\S\\3/uL 130-400 MPV (test code=MPV) 10.6 fL 9.4-12.4 NEUTROP # (test code=NE#) 4.7 10\\S\\3/uL 2.0-8.0 LYMPH # (test code=LY#) 1.2 10\\S\\3/uL 1.2-4.0 MONOCYTE # (test code=MO#) 0.8 10\\S\\3/uL 0.0-1.1 EOSINOPH # (test code=EO#) 0.5 10\\S\\3/uL 0.0-0.7 BASOPHIL # (test code=BA#) 0.0 10\\S\\3/uL 0.0-0.3 IG # (test code=IG#) 0.04 10\\S\\3/uL 0.00-0.06 NRBC # (test code=NRBC#) 0.00 10\\S\\3/uL 0.00-0.01 NEUTROPH % (test code=NE%) 65.2 % 35.0-73.0 LYMPH % (test code=LY%) 16.1 % 20.0-55.0 MONO % (test code=MO%) 11.4 % 2.5-10.0 EOSINOPH % (test code=EO%) 6.3 % 0.0-5.0 BASOPHIL % (test code=BA%) 0.4 % 0.0-2.0 IG % (test code=IG%) 0.6 % 0.0-0.8 NRBC% (test code=NRBC%) 0.0 % 0.0-0.2 MANDIFF (test code=MDIFF) NO NO RBC MORPH (test code=RBCMOR) NORMAL CBC WITH [id number] 06:11:00 Test Item Value Reference Range Comments WBC (test code=WBC) 8.1 10\\S\\3/uL 4.5-11.0 RBC (test code=RBC) 3.44 10\\S\\6/uL 4.20-5.60 HGB (test code=HBG) 7.2 g/dL 14.0-18.0 HCT (test code=HCT) 25.5 % 35.0-46.0 MCV (test code=MCV) 74.1 fL 80.0-94.0 MCH (test code=MCH) 20.9 pg 27.0-31.0 MCHC (test code=MCHC) 28.2 g/dL 32.0-36.0 RDW (test code=RDW) 17.7 % 11.5-14.5 PLT (test code=PLT) 383 10\\S\\3/uL 130-400 MPV (test code=MPV) 10.3 fL 9.4-12.4 NEUTROP # (test code=NE#) 5.8 10\\S\\3/uL 2.0-8.0 LYMPH # (test code=LY#) 1.1 10\\S\\3/uL 1.2-4.0 MONOCYTE # (test code=MO#) 0.8 10\\S\\3/uL 0.0-1.1 EOSINOPH # (test code=EO#) 0.3 10\\S\\3/uL 0.0-0.7 BASOPHIL # (test code=BA#) 0.0 10\\S\\3/uL 0.0-0.3 IG # (test code=IG#) 0.05 10\\S\\3/uL 0.00-0.06 NRBC # (test code=NRBC#) 0.00 10\\S\\3/uL 0.00-0.01 NEUTROPH % (test code=NE%) 71.9 % 35.0-73.0 LYMPH % (test code=LY%) 13.4 % 20.0-55.0 MONO % (test code=MO%) 9.5 % 2.5-10.0 EOSINOPH % (test code=EO%) 4.2 % 0.0-5.0 BASOPHIL % (test code=BA%) 0.4 % 0.0-2.0 IG % (test code=IG%) 0.6 % 0.0-0.8 NRBC% (test code=NRBC%) 0.0 % 0.0-0.2 PLT EST (test code=PLTEST) ADEQUATE ADEQUATE PLT MORPH (test code=PLTMOR) NORMAL (1.5-3 um) NORMAL ANISO (test code=ANISO) 1+ NONE HYPOCHROM (test code=HYPOC) 1+ NONE MICROCYTIC (test code=MICRO) 1+ NONE POLYCHROM (test code=POLY) 1+ NONE BASIC METABOLIC [id number] 06:01:00 Test Item Value Reference Range Comments GLUCOSE (test code=06D) 124 mg/dL 75-100 SODIUM (test code=01A) 136 mmol/L 136-145 POTASSIUM (test code=01B) 3.9 mmol/L 3.6-5.1 CHLORIDE (test code=04A) 105 mmol/L 98-107 CO2 (test code=02A) 26 mmol/L 22-32 ANION GAP (test code=ANG) 8.9 mmol/L BUN (test code=05D) 9 mg/dL 7-18 CREATININE (test code=03E) 0.8 mg/dL 0.7-1.3 BUN/CREA (test code=BCR) 12 12-20 CALCIUM (test code=09D) 8.2 mg/dL 8.3-9.5 BASIC METABOLIC [id number] 06:29:00 Test Item Value Reference Range Comments GLUCOSE (test code=06D) 81 mg/dL 75-100 SODIUM (test code=01A) 135 mmol/L 136-145 POTASSIUM (test code=01B) 4.0 mmol/L 3.6-5.1 CHLORIDE (test code=04A) 105 mmol/L 98-107 CO2 (test code=02A) 23 mmol/L 22-32 ANION GAP (test code=ANG) 11.0 mmol/L BUN (test code=05D) 8 mg/dL 7-18 CREATININE (test code=03E) 0.7 mg/dL 0.7-1.3 BUN/CREA (test code=BCR) 12 12-20 CALCIUM (test code=09D) 8.2 mg/dL 8.3-9.5 CBC (INCLUDES AUTOMATED DIFFERENTIAL)2018-02-28 05:37:00 Test Item Value Reference Range Comments WBC (test code=WBC) 8.5 10\\S\\3/uL 4.5-11.0 RBC (test code=RBC) 3.93 10\\S\\6/uL 4.20-5.60 HGB (test code=HBG) 8.2 g/dL 14.0-18.0 HCT (test code=HCT) 29.4 % 35.0-46.0 MCV (test code=MCV) 74.8 fL 80.0-94.0 MCH (test code=MCH) 20.9 pg 27.0-31.0 MCHC (test code=MCHC) 27.9 g/dL 32.0-36.0 RDW (test code=RDW) 17.8 % 11.5-14.5 PLT (test code=PLT) 411 10\\S\\3/uL 130-400 MPV (test code=MPV) 10.0 fL 9.4-12.4 NEUTROP # (test code=NE#) 5.9 10\\S\\3/uL 2.0-8.0 LYMPH # (test code=LY#) 1.2 10\\S\\3/uL 1.2-4.0 MONOCYTE # (test code=MO#) 0.9 10\\S\\3/uL 0.0-1.1 EOSINOPH # (test code=EO#) 0.4 10\\S\\3/uL 0.0-0.7 BASOPHIL # (test code=BA#) 0.0 10\\S\\3/uL 0.0-0.3 IG # (test code=IG#) 0.05 10\\S\\3/uL 0.00-0.06 NRBC # (test code=NRBC#) 0.00 10\\S\\3/uL 0.00-0.01 NEUTROPH % (test code=NE%) 69.0 % 35.0-73.0 LYMPH % (test code=LY%) 14.6 % 20.0-55.0 MONO % (test code=MO%) 10.7 % 2.5-10.0 EOSINOPH % (test code=EO%) 4.7 % 0.0-5.0 BASOPHIL % (test code=BA%) 0.4 % 0.0-2.0 IG % (test code=IG%) 0.6 % 0.0-0.8 NRBC% (test code=NRBC%) 0.0 % 0.0-0.2 MANDIFF (test code=MDIFF) NO NO RBC MORPH (test code=RBCMOR) NORMAL URINALYSIS WITH [id number] 16:11:00 Test Item Value Reference Range Comments COLOR [...] FEW /LPF NONE BACTERIA UR (test code=UBACT) NONE /HPF NONE CAST UR (test code=CAST) /LPF NONE CRYSTAL UR (test code=CRYU) / LPF NONE MUCUS UR (test code=MUC) / HPF NONE AMORPH UR (test code=CRISTINA) / HPF NONE TRICH UR (test code=UTRICH) /HPF NONE YEAST UR (test code=UY) /HPF NONE SPERM UR (test code=USPERM) /HPF NONE CT ABDOMEN AND PELVIS WITH [id number] 16:00:04CT abdomen and pelvis with contrastLocation Code: O9MSEQIBZA HISTORY: Lower abdominal painCOMPARISON: 01/29/18, 12/25/2017, 12/16/2017Technique: Helical CT of the abdomen and pelvis was performed following theadministration of intravenous contrast. Thin section axial, sagittal andcoronal images were obtained. Automatic exposure control was utilized. TotalDLP: 1098 mGycmFINDINGS:The lung bases are clear. Multiple left renal calculi remain. The largest within the lower pole measures9 mm. There is no ureteral calculus or hydronephrosis. The liver, gallbladder,adrenal glands, pancreas, and spleen are unremarkable.There is mild thickening and inflammation of the sigmoid colon in the region ofnumerous diverticuli. There is mild adjacent mesenteric inflammation withoutfluid collection or free air. The unopacified loops of bowel proximallydemonstrate no additional thickening or dilatation. The appendix is visualizedand is normal. There is no free peritoneal air or fluid. Calcified atherosclerotic plaques present throughout the abdominal aortawithout aneurysm branch occlusion. There is no retroperitoneal mass or fluidcollection. The urinary bladder is unremarkable. There is no pelvic mass orfluid collection. Extensive inflammatory changes in the perineal region and again noted. There godfrey cylindrical peripherally enhancing fluid collection within the leftintergluteal fold and perineal region measuring 9 x 6 mm in transversedimension by approximately 5 cm in craniocaudal length. There there is novisualized additional fluid collection or abscess.Severe spondylosis of lower lumbar spine with multiple anterolistheses statuspost laminectomy at L3-L5 again noted. IMPRESSION: 1. Mild acute sigmoid diverticulitis without abscess or free air.2. Stable nonobstructing left renal calculi.3. Stable extensive perineal inflammation and dermal thickening. There is astable small cylindrical fistulous tract versus fluid collection along the leftintergluteal fold.4. Severe lower lumbar spondylosis with grade 1 anterolisthesis of L4 on L5, L5on S1 and grade 1 retrolisthesis of L3 on L4. Patient is status postlaminectomy at L3-L5.CBC WITH [id number] 15:48: 00 Test Item Value Reference Range Comments WBC (test code=WBC) 8.8 10\\S\\3/uL 4.5-11.0 RBC (test code=RBC) 3.85 10\\S\\6/uL 4.20-5.60 HGB (test code=HBG) 8.2 g/dL 14.0-18.0 HCT (test code=HCT) 28.7 % 35.0-46.0 MCV (test code=MCV) 74.5 fL 80.0-94.0 MCH (test code=MCH) 21.3 pg 27.0-31.0 MCHC (test code=MCHC) 28.6 g/dL 32.0-36.0 RDW (test code=RDW) 18.2 % 11.5-14.5 PLT (test code=PLT) 440 10\\S\\3/uL 130-400 MPV (test code=MPV) 10.1 fL 9.4-12.4 NEUTROP # (test code=NE#) 6.7 10\\S\\3/uL 2.0-8.0 LYMPH # (test code=LY#) 1.3 10\\S\\3/uL 1.2-4.0 MONOCYTE # (test code=MO#) 0.6 10\\S\\3/uL 0.0-1.1 EOSINOPH # (test code=EO#) 0.2 10\\S\\3/uL 0.0-0.7 BASOPHIL # (test code=BA#) 0.0 10\\S\\3/uL 0.0-0.3 IG # (test code=IG#) 0.03 10\\S\\3/uL 0.00-0.06 NRBC # (test code=NRBC#) 0.00 10\\S\\3/uL 0.00-0.01 NEUTROPH % (test code=NE%) 75.7 % 35.0-73.0 LYMPH % (test code=LY%) 14.8 % 20.0-55.0 MONO % (test code=MO%) 6.7 % 2.5-10.0 EOSINOPH % (test code=EO%) 2.3 % 0.0-5.0 BASOPHIL % (test code=BA%) 0.2 % 0.0-2.0 IG % (test code=IG%) 0.3 % 0.0-0.8 NRBC% (test code=NRBC%) 0.0 % 0.0-0.2 PLT EST (test code=PLTEST) INCREASED ADEQUATE PLT MORPH (test code=PLTMOR) NORMAL (1.5-3 um) NORMAL ANISO (test code=ANISO) 1+ NONE POIK (test code=POIK) 1+ NONE HYPOCHROM (test code=HYPOC) 1+ NONE MICROCYTIC (test code=MICRO) 1+ NONE POLYCHROM (test code=POLY) 1+ NONE OVALOCYTES (test code=OVA) 1+ NONE COMPREHENSIVE METABOLIC [id number] 15:26:00 Test Item Value Reference Range Comments GLUCOSE (test code=06D) 140 mg/dL 75-100 SODIUM (test code=01A) 142 mmol/L 136-145 POTASSIUM (test code=01B) 3.4 mmol/L 3.6-5.1 CHLORIDE (test code=04A) 109 mmol/L 98-107 CO2 (test code=02A) 26 mmol/L 22-32 ANION GAP (test code=ANG) 10.4 mmol/L BUN (test code=05D) 10 mg/dL 7-18 CREATININE (test code=03E) 0.8 mg/dL 0.7-1.3 BUN/CREA (test code=BCR) 13 12-20 CALCIUM (test code=09D) 8.4 mg/dL 8.3-9.5 BILI TOTAL (test code=11A) 0.1 mg/dL 0.2-1.0 PROTEIN (test code=07D) 7.8 g/dL 6.4-8.2 ALBUMIN (test code=08D) 2.9 g/dL 3.5-4.8 GLOBULIN (test code=GLB) 4.9 g/dL 1.5-3.8 ALB/GLOB (test code=AGRR) 0.6 1.0-2.6 ALK PHOS (test code=35A) 157 IU/L 42-121 AST (test code=30A) 9 IU/L <=42 ALT (test code=31A) 13 IU/L <=78 [id number] 15:26:00 Test Item Value Reference Range Comments AMYLASE (test code=10A) 70 U/L 28-100 LIPASE [id number] 15:21:00 Test Item Value Reference Range Comments LIPASE (test code=60A) 100 IU/L 73-393 DRUGS OF [id number] 12:32:00 Test Item Value Reference Range Comments DRUG SCRN (test code=HDOA) URINE DRUG SCREEN This is an unconfirmed screening result and should not be used for non-medical purposes CANNABINOD (test code=88C) Negative NEGATIVE AMPHETAMINE (test code=84A) Negative NEGATIVE BENZODIAZP (test code=86A) Negative NEGATIVE BARBITURAT (test code=85A) Negative NEGATIVE OPIATES (test code=92B) POSITIVE NEGATIVE COCAINE (test code=87A) Negative NEGATIVE PHENCYCLID (test code=66A) Negative NEGATIVE METHADONE (test code=64A) Negative NEGATIVE DOAH (test code=DOAH.) URINE DRUG SCREEN Cut-off values are as follows: Cannabinoids 50 ng/mL Cocaine 300 ng/mL Amphetamines 1000 ng/mL Phencyclidine 25 ng/mL Benzodiazepines 200 ng.mL Methadone 300 ng/mL Barbiturates 200 ng/mL Opiates 2000 ng/mL [id number] 12:28:00 Test Item Value Reference Range Comments COLOR (test code=COLU) YELLOW YELLOW CLARITY (test code=CLA) CLEAR CLEAR GLUCOSE UR (test code=UA GLUCOSE) NEGATIVE NEGATIVE BILI UR (test code=BILE) NEGATIVE NEGATIVE KETONES UR (test code=EMILIANA) NEGATIVE NEGATIVE SP GRAVITY (test code=SPGR) 1.017 1.005-1.030 PH UR (test code=PH) 6.5 4.5-8.0 PROTEIN UR (test code=PU) NEGATIVE NEGATIVE UROBIL UR (test code=UROQ) 0.2 EU/dL 0.2-1.0 NITRITE UR (test code=NITRITE) NEGATIVE NEGATIVE BLOOD UR (test code=UA BLOOD) NEGATIVE NEGATIVE LEUK ES UR (test code=LEUK) NEGATIVE NEGATIVE U/S [id number] 11:06:05SCROTAL ULTRASOUNDCLINICAL HISTORY: [id number]: Pain in testicleCOMPARISON: 11/10/17TECHNIQUE: Multiple high resolution images were obtained through the pelvis using amultifrequency linear transducer. Color Doppler was also utilized.FINDINGS: The bilateral testes are normal in size, shape, and echogenicity. The righttestis measures 4.1 x 1.7 x 2.4 cm. The left testis measures 3.7 x 1.6 x 2.5cm. No solid or cystic masses identified. Vascular flow is documented; thereis no evidence of torsion.The bilateral epididymides are also within normal limits. No solid or cysticmass is found. No hyperemia is seen. There is no hydrocele.IMPRESSION:Unremarkable scrotal ultrasound. No change since 11/10/17.COMPREHENSIVE METABOLIC [id number] 11:05 :00 Test Item Value Reference Range Comments GLUCOSE (test code=06D) 87 mg/dL 75-100 SODIUM (test code=01A) 140 mmol/L 136-145 POTASSIUM (test code=01B) 3.5 mmol/L 3.6-5.1 CHLORIDE (test code=04A) 106 mmol/L 98-107 CO2 (test code=02A) 27 mmol/L 22-32 ANION GAP (test code=ANG) 10.5 mmol/L BUN (test code=05D) 11 mg/dL 7-18 CREATININE (test code=03E) 0.7 mg/dL 0.7-1.3 BUN/CREA (test code=BCR) 15 12-20 CALCIUM (test code=09D) 9.0 mg/dL 8.3-9.5 BILI TOTAL (test code=11A) 0.3 mg/dL 0.2-1.0 PROTEIN (test code=07D) 8.0 g/dL 6.4-8.2 ALBUMIN (test code=08D) 3.3 g/dL 3.5-4.8 GLOBULIN (test code=GLB) 4.7 g/dL 1.5-3.8 ALB/GLOB (test code=AGRR) 0.7 1.0-2.6 ALK PHOS (test code=35A) 160 IU/L 42-121 AST (test code=30A) 11 IU/L <=42 ALT (test code=31A) 14 IU/L <=78 AMYLASE AND [id number] 11:04:00 Test Item Value Reference Range Comments AMYLASE (test code=10A) 88 U/L 28-100 LIPASE (test code=60A) 140 IU/L 73-393 CT ABDOMEN AND PELVIS W/O [id number] 10:59:09EXAMINATION: CT ABDOMEN AND PELVIS W/O CONTRAST.LOCATION: S17.HISTORY: Lower abdominal pain.COMPARISON : CT abdomen/pelvis 12/25/17.TECHNIQUE: CT of abdomen and pelvis was performed without oral or intravenouscontrast as protocol. One or more the following dose reduction techniques wereused: Automatedexposure control, adjustment of mA and/ or kV according topatient size, and use of iterative reconstruction technique.FINDINGS:Evaluation of intra-abdominal viscera is limited due to lack of oral andintravenous contrast.Visualized lung bases appear unremarkable.The unenhanced liver demonstrates few punctate calcifications within it. The, gallbladder, spleen, pancreas, and adrenal glands to be unremarkable.Multiple bilateral intrarenal nonobstructing calculi. 14 mm hyperdensestructure in the upper poleleft kidney. No hydronephrosis. Underdistendedurinary bladder.Visualized bowel loops are normal in course and caliber. There is no evidenceof obstruction. Colonic diverticulosis. Unremarkable appendix.No abdominal or pelvic bulky lymphadenopathy is identified.No free fluid or pneumoperitoneum. 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 Skin thickening involving bilateralgluteal folds, which appears to extend to involve the left inguinalregion/perineal region. Thereis what appears to be fistulous tract involvingleft perianal region grossly measuring 6 cm.Visualized osseous structures demonstrate degenerative changes, particularlyinvolving the lumbar spine. Postoperative changes of lower lumbar spine.Millimeter anterolisthesis of L5 on S1. 5 mm anterolisthesis ofL4 and L5. 5 mmanterolisthesis of L3 on L4 and 5 mm anterolisthesis of L2 on L3.IMPRESSION : Skin thickening involving bilateral gluteal folds, which appear to extend toinvolve perineal region and left inguinal region. There is what appears to be along fistulous tract involving the left perianal region. Recommend surgicalconsultation. Depending on clinical circumstances, postcontrast pelvic MRI maybe warranted.Other findings as above.Findings discussed with LORENA Aaron at 01/29/2018 10:49 AM.[id number] 10:58:00 Test Item Value Reference Range Comments MAGNESIUM (test code=48A) 1.9 mg/dL 1.8-2.4 PRO TIME AND [id number] 10:46:00 Test Item Value Reference Range Comments PT (test code=TT) 11.0 s 9.8-13.6 INR (test code=INR) 1.0 INRH (test code=INRH) SUGGESTED THERAPEUTIC RANGE FOR INR: 2.5 - 3.5 For Patients with Prosthetic Valves or Patients with recurrent Thromboembolic Events 2.0 - 3.0 For Most Other Applications PTT (test code=PTT) 30.7 s 20.2-38.0 PTTH (test code=PTTH) To monitor the effectiveness of heparin, we offer the Anti-Xa (Heparin Assay). It can be used for either unfractionated or LMW Heparin. Order Code is ANTI-XA CBC (INCLUDES AUTOMATED DIFFERENTIAL)2018-01-29 10:37:00 Test Item Value Reference Range Comments WBC (test code=WBC) 12.5 10\\S\\3/uL 4.5-11.0 RBC (test code=RBC) 4.35 10\\S\\6/uL 4.20-5.60 HGB (test code=HBG) 9.4 g/dL 14.0-18.0 HCT (test code=HCT) 32.4 % 35.0-46.0 MCV (test code=MCV) 74.5 fL 80.0-94.0 MCH (test code=MCH) 21.6 pg 27.0-31.0 MCHC (test code=MCHC) 29.0 g/dL 32.0-36.0 RDW (test code=RDW) 17.2 % 11.5-14.5 PLT (test code=PLT) 469 10\\S\\3/uL 130-400 MPV (test code=MPV) 10.3 fL 9.4-12.4 NEUTROP # (test code=NE#) 10.1 10\\S\\3/uL 2.0-8.0 LYMPH # (test code=LY#) 1.0 10\\S\\3/uL 1.2-4.0 MONOCYTE # (test code=MO#) 0.9 10\\S\\3/uL 0.0-1.1 EOSINOPH # (test code=EO#) 0.3 10\\S\\3/uL 0.0-0.7 BASOPHIL # (test code=BA#) 0.0 10\\S\\3/uL 0.0-0.3 IG # (test code=IG#) 0.08 10\\S\\3/uL 0.00-0.06 NRBC # (test code=NRBC#) 0.00 10\\S\\3/uL 0.00-0.01 NEUTROPH % (test code=NE%) 80.9 % 35.0-73.0 LYMPH % (test code=LY%) 8.2 % 20.0-55.0 MONO % (test code=MO%) 7.4 % 2.5-10.0 EOSINOPH % (test code=EO%) 2.6 % 0.0-5.0 BASOPHIL % (test code=BA%) 0.3 % 0.0-2.0 IG % (test code=IG%) 0.6 % 0.0-0.8 NRBC% (test code=NRBC%) 0.0 % 0.0-0.2 MANDIFF (test code=MDIFF) NO NO RBC MORPH (test code=RBCMOR) NORMAL DRUGS OF [id number] 14:44:00 Test Item Value Reference Range Comments [...] THC 50 ng/mL Tricyclic Antidepressants 1000 ng/mL [id number] 14:14:00 Test Item Value Reference Range Comments [...] UR (test code=LEUK) NEGATIVE NEGATIVE AMYLASE AND [id number] 13:44:00 Test Item Value Reference Range Comments AMYLASE (test code=10A) 80 U/L 28-100 LIPASE (test code=60A) 117 IU/L 73-393 COMPREHENSIVE METABOLIC [id number] 13:44:00 Test Item Value Reference Range Comments [...] 13:51:50CT abdomen and pelvis without contrastLocation Code: [id number] HISTORY: [id number]: Upper abdominal painCOMPARISON: NoneTechnique: Helical CT of [...] 13:48:21Exam: Chest x-ray 2 viewsHISTORY: Chest painLocation: [id number]:The heart size is normal and lung mascorro [...] Most Other Applications CT STONE PROTOCOL STUDY *WW*2017-12-16 12:46:30CT ABDOMEN AND PELVIS W/O CONTRASTLocation code: [id number] INDICATIONS: Abdominal pain.TECHNIQUE: Volumetric acquisition of abdomen [...] code=09D) 8.4 mg/dL 8.3-9.5 CBC (INCLUDES AUTOMATED DIFFERENTIAL)*[id number] 12:07:00 Test Item Value Reference Range Comments [...] RBC MORPH (test code=WRBCMOR) NORMAL COMPREHENSIVE METABOLIC [id number] 11:23:00 Test Item Value Reference Range Comments TOTAL PROTEIN (BEAKER) 6.4 gm/dL 6.0-8.5 (test phdu=079) ALBUMIN (BEAKER) (test 3.1 g/dL 3.5-5.0 kzjb=6672) ALKALINE PHOSPHATASE 112 U/L 30-115 (BEAKER) (test obxc=006) BILIRUBIN TOTAL (BEAKER) 0.2 mg/dL 0.1-1.3 (test idrt=355) SODIUM (BEAKER) (test 138 meq/L 135-148 gcsv=510) POTASSIUM (BEAKER) (test 3.7 meq/L 3.5-5.5 sjuh=147) CHLORIDE (BEAKER) (test 108 meq/L 98-106 hgbl=515) CO2 (BEAKER) (test 24 meq/L 20-31 vxdh=590) BLOOD UREA NITROGEN 11 mg/dL 10-26 (BEAKER) (test pcsa=419) CREATININE (BEAKER) (test 0.74 mg/dL 0.50-1.20 jnre=018) GLUCOSE RANDOM (BEAKER) 109 mg/dL 70-110 (test yuhf=528) CALCIUM (BEAKER) (test 8.5 mg/dL 8.5-10.5 zlgc=935) AST (SGOT) (BEAKER) (test 7 U/L 5-40 xbzz=904) ALT (SGPT) (BEAKER) (test < U/L 6-50 ruaf=862) EGFR (BEAKER) (test 109 mL/min/1.73 sq ESTIMATED GFR IS NOT pcaf=2541) m ACCURATE CREATININE CLEARANCE IN PREDICTING GLOMERULAR FILTRATION RATE. ESTIMATED GFR IS NOT APPLICABLE FOR DIALYSIS PATIENTS. URINALYSIS W/ [id number] 11:04:00 Test Item Value Reference Range Comments COLOR (BEAKER) (test syux=912) Yellow CLARITY (BEAKER) (test egof=159) Clear SPECIFIC GRAVITY UA (BEAKER) (test jcwl=871) 1.017 1.001-1.035 PH UA (BEAKER) (test wlja=521) 5.0 5.0-8.0 PROTEIN UA (BEAKER) (test qdgm=948) Negative Negative GLUCOSE UA (BEAKER) (test hcdt=129) Negative Negative KETONES UA (BEAKER) (test ujrb=644) Negative Negative BILIRUBIN UA (BEAKER) (test whsn=850) Negative Negative BLOOD UA (BEAKER) (test xgfa=606) Negative Negative NITRITE UA (BEAKER) (test ivsk=014) Negative Negative LEUKOCYTE ESTERASE UA (BEAKER) (test sskv=546) Negative Negative UROBILINOGEN UA (BEAKER) (test vfyq=759) < mg/dL 0.2-1.0 RBC UA (BEAKER) (test ipqw=101) 2 /HPF WBC UA (BEAKER) (test jmuv=013) 1 /HPF MUCUS (BEAKER) (test fjvt=5238) Rare SOURCE(BEAKER) (test hpth=1979) CBC W/PLT COUNT & AUTO [id number] 10:59:00 Test Item Value Reference Range Comments WHITE BLOOD CELL COUNT (BEAKER) 14.1 K/ L 4.0-10.0 (test hghm=474) RED BLOOD CELL COUNT (BEAKER) 3.28 M/ L 4.20-5.80 (test lbvg=955) HEMOGLOBIN (BEAKER) (test 7.3 GM/DL 13.0-16.8 drvu=114) HEMATOCRIT (BEAKER) (test 24.5 % 36.0-50.0 htqf=606) MEAN CORPUSCULAR VOLUME 74.7 fL 82.0-99.0 (BEAKER) (test sgqx=952) MEAN CORPUSCULAR HEMOGLOBIN 22.3 pg 27.0-33.0 (BEAKER) (test aebk=952) MEAN CORPUSCULAR HEMOGLOBIN 29.8 GM/DL 32.0-36.0 CONC (BEAKER) (test vblv=737) RED CELL DISTRIBUTION WIDTH 17.9 % 12.0-15.0 (BEAKER) (test qaad=886) PLATELET COUNT (BEAKER) (test 375 K/CU MM 150-430 muda=296) MEAN PLATELET VOLUME (BEAKER) 10.4 fL 6.0-11.5 MPV-Approximately 20% (test twdy=064) positive bias due to method change. NUCLEATED RED BLOOD CELLS 0 /100 WBC 0-0 (BEAKER) (test cjpo=854) NEUTROPHILS RELATIVE PERCENT 83 % (BEAKER) (test lwnq=644) LYMPHOCYTES RELATIVE PERCENT 7 % (BEAKER) (test xznr=918) MONOCYTES RELATIVE PERCENT 7 % (BEAKER) (test gjve=958) EOSINOPHILS RELATIVE PERCENT 3 % (BEAKER) (test hcyu=533) BASOPHILS RELATIVE PERCENT 0 % (BEAKER) (test owku=654) NEUTROPHILS ABSOLUTE COUNT 11.69 K/ L 1.80-8.00 (BEAKER) (test kfhs=497) LYMPHOCYTES ABSOLUTE COUNT 0.94 K/ L 1.48-4.50 (BEAKER) (test nufw=308) MONOCYTES ABSOLUTE COUNT 0.96 K/ L 0.00-1.30 (BEAKER) (test bypu=097) EOSINOPHILS ABSOLUTE COUNT 0.41 K/ L 0.00-0.50 (BEAKER) (test rpyc=109) BASOPHILS ABSOLUTE COUNT 0.03 K/ L 0.00-0.20 (BEAKER) (test zron=497) IMMATURE GRANULOCYTES-RELATIVE 1 % 0-0 PERCENT (BEAKER) (test qahb=1855) CT, [id number] 10:49:00With PO and IV contrast Reason for [...] as only partial visualization. Signed: Wayne Triplett Verified Date/Time: 12/14/2017 10:49:21 Reading Location: [facility] Diagnostic Imaging Reading Room - [place] [address] ER SCREEN FOR HIV / 08:55:00 Test Item Value Reference Range Comments HIV 1/2 AB (test NONREACTIVE NONREACTIVE This test is used for SCREENING code=SCRN HIV) purposes only. All reactive results are prelimenary and confirmation results will follow. HEPATITIS C ANTIBODY [id number] 08:55:00 Test Item Value Reference Range Comments SCRN HCV (test code=SCRN NEGATIVE NEGATIVE Hepatitis C Antibody test is for HCV) screening purposes only. All reactives will be confirmed by additional testing. [id number] 13:04:00 Test Item Value Reference Range Comments SODIUM (test code=NA) 142 MMOL/L 137-145 K+ (test code=KSERUM) 4.4 MMOL/L 3.5-5.1 PLEASE NOTE NEW REFERENCE RANGE(S) IN EFFECT EFFECTIVE 11/05/2009 - NEW ANALYZER ([employer] [facility]) CHLORIDE (test code=CL) 108 MMOL/L 98-107 CO2 (test code=CO2) 25 MMOL/L 22-30 BUN (test code=BUN) 14 MG/DL 9-20 CREA (test code=CREA) 0.6 MG/DL 0.8-1.5 GLUCOSE (test 88 MG/DL 70-99 Fasting glucose normal code=GLUCOSE) <100 MG/DL- [employer] recommendation CALCIUM (test 9.1 MG/DL 8.4-10.2 code=CABLOOD) TOTPROT (test 6.5 G/DL 6.3-8.2 code=TOTPROT) ALBUMIN (test 3.4 G/DL 3.5-5.0 code=ALBSERUM) BILITOT (test 0.1 MG/DL 0.2-1.3 code=BILITOT) AST (test code=AST) 14 U/L 15-46 PHOSALK (test 123 U/L 38-126 code=PHOSALK) ALT (test code=ALT) 18 U/L 13-69 GFR (test code=GFR) 148 mL/min/1.73m2 A GFR of >90 mL/min/1.73m2 is considered normal. [id number] 13:04:00 Test Item Value Reference Range Comments LIPASE (test code=LIPA) 57 U/L 23-300 [id number] 12:26:00 Test Item Value Reference Range Comments [...] ABS NEUT (test code=NEUT) 11.3 K/UL 1.2-7.2 [id number] 11:51:00 Test Item Value Reference Range Comments [...] 1.000-1.025 UAMICRO (test code=UAMICRO) NO CT ABDOMEN/PELVIS [id number] 23:15:00 [facility] [address] [place], [place] [id number] Patient Name: ASHLEY STORY MR #: [id number] : 1960 Age/Sex: 57/M Req #: [id number] Adm Physician: Ordered by: MICKEY VILLEGAS MD Report #: [id number] Location: ER Room/Bed: _ Procedure: [id number] CT/CT ABDOMEN/PELVIS W Exam Date: 11/17/17 Exam [...] COPY TO: MICKEY VILLEGAS MDHEPATITIS C ANTIBODY [id number] 08:31:00 Test Item Value Reference Range Comments [...] are prelimenary and confirmation results will follow. [id number] 16:30:00 Test Item Value Reference Range Comments [...] code=URSPGRAV) 1.025 1.000-1.025 UAMICRO (test code=UAMICRO) NO [id number] 15:48:00 Test Item Value Reference Range Comments [...] ABS NEUT (test code=NEUT) 7.1 K/UL 1.2-7.2 [id number] 15:35:00 Test Item Value Reference Range Comments SODIUM (test code=NA) 142 MMOL/L 137-145 K+ (test code=KSERUM) 4.8 MMOL/L 3.5-5.1 PLEASE NOTE NEW REFERENCE RANGE(S) IN EFFECT EFFECTIVE 11/05/2009 - NEW ANALYZER ([employer] [facility]) CHLORIDE (test code=CL) 107 MMOL/L 98-107 CO2 (test code=CO2) 26 MMOL/L 22-30 BUN (test code=BUN) 15 MG/DL 9-20 CREA (test code=CREA) 0.7 MG/DL 0.8-1.5 GLUCOSE (test 87 MG/DL 70-99 Fasting glucose normal code=GLUCOSE) <100 MG/DL- [employer] recommendation CALCIUM (test 9.5 MG/DL 8.4-10.2 code=CABLOOD) TOTPROT (test 6.9 G/DL 6.3-8.2 code=TOTPROT) ALBUMIN (test 3.6 G/DL 3.5-5.0 code=ALBSERUM) BILITOT (test 0.3 MG/DL 0.2-1.3 code=BILITOT) AST (test code=AST) 22 U/L 15-46 PHOSALK (test 100 U/L 38-126 code=PHOSALK) ALT (test code=ALT) 19 U/L 13-69 GFR (test code=GFR) 124 mL/min/1.73m2 A GFR of >90 mL/min/1.73m2 is considered normal. Slightly hemolyzed [id number] 15:35:00 Test Item Value Reference Range Comments LIPASE (test code=LIPA) 58 U/L 23-300 US [id number] 15:07:[address] [address]HVMCRPBEME IMAGING REPORTPatient Name: ASHLEY STORY of Service: [id number]: 57 Sex: M Order #: [id number] [facility] 1960 X-Ray Number: [id number] Record Number: [id number] Hospital Number: [id number] Physician: JOSEPH SHARMA -Ordering Physician: Osmani SANTOS.History: Right testicular pain.Technique: Transcutaneous ultrasound assessment of [...] PMLegally authenticated by TELLY Thompson 2017-11-12 15:05:15URINE [id number] 11:54:00 Test Item Value Reference Range Comments Culture Observations (test NO GROWTH (<1,000 CFU/ML) code=COB1) CT ABDOMEN AND PELVIS WITHOUT CONTRAST *WW*2017-11-10 15:13:00CT abdomen and pelvis without contrastLocation Code: [id number] HISTORY: R52: PAIN, UNSPECIFIEDCOMPARISON: 07/30/2017, 06/07/2017Technique: Helical [...] evidence of diverticulitis.U/S TESTICULAR2017-11-10 15:00:22SCROTAL ULTRASOUNDLocation Code: I5GEEASPIM HISTORY: R52: PAIN, UNSPECIFIEDCOMPARISON: None.TECHNIQUE: Multiple high [...] (test code=USPERM) /HPF NONE CBC (INCLUDES AUTOMATED DIFFERENTIAL)*[id number] 13:00:00 Test Item Value Reference Range Comments [...] NO RBC MORPH (test code=WRBCMOR) NORMAL CT, [id number] 16:55:00Reason for exam:->ABDOMINAL PAINReason for exam :->NAUSEAWhat [...] history and physical exam. Signed: Kevin Thomas Verified Date/Time: 09/13/2017 16:55:35 Reading Location: [facility] B1 C013X Ortho Consult Reading Room POCT-GLUCOSE [id number] 15:48:00 Test Item Value Reference Range Comments POC-GLUCOSE METER (BEAKER) 93 mg/dL 70-[address] [facility] [address] (test ppyv=5366) [place] [address] URINALYSIS WITH MICROSCOPIC IF [id number] 14:32:00 Test Item Value Reference Range Comments COLOR (BEAKER) (test motd=424) Light Yellow CLARITY (BEAKER) (test hoaz=703) Clear SPECIFIC GRAVITY UA (BEAKER) (test jkll=110) 1.011 1.001-1.035 PH UA (BEAKER) (test bvpu=838) 6.5 5.0-8.0 PROTEIN UA (BEAKER) (test coge=581) Negative Negative GLUCOSE UA (BEAKER) (test dxli=966) Negative Negative KETONES UA (BEAKER) (test vnbf=268) Negative Negative BILIRUBIN UA (BEAKER) (test gvhk=745) Negative Negative BLOOD UA (BEAKER) (test gxsv=131) Negative Negative NITRITE UA (BEAKER) (test allp=518) Negative Negative LEUKOCYTE ESTERASE UA (BEAKER) (test ujpb=649) Negative Negative UROBILINOGEN UA (BEAKER) (test kbfc=966) 0.2 mg/dL 0.2-1.0 SOURCE(BEAKER) (test lrqz=9851) COMPREHENSIVE METABOLIC [id number] 13:36:00 Test Item Value Reference Range Comments TOTAL PROTEIN (BEAKER) 7.3 gm/dL 6.0-8.3 (test ehho=541) ALBUMIN (BEAKER) (test 3.6 g/dL 3.5-5.0 pqsd=2510) ALKALINE PHOSPHATASE 122 U/L 40-150 (BEAKER) (test tztg=230) BILIRUBIN TOTAL (BEAKER) 0.3 mg/dL 0.2-1.2 (test olxl=172) SODIUM (BEAKER) (test 140 meq/L 136-145 ybhs=978) POTASSIUM (BEAKER) (test 3.8 meq/L 3.5-5.1 flpn=260) CHLORIDE (BEAKER) (test 107 meq/L 98-107 tweb=952) CO2 (BEAKER) (test 23 meq/L 22-29 bryv=746) BLOOD UREA NITROGEN 9 mg/dL 7-21 (BEAKER) (test hgpv=902) CREATININE (BEAKER) (test 0.70 mg/dL 0.57-1.25 zqxq=293) GLUCOSE RANDOM (BEAKER) 86 mg/dL 70-105 (test oeok=359) CALCIUM (BEAKER) (test 9.2 mg/dL 8.4-10.2 ekal=712) AST (SGOT) (BEAKER) (test 8 U/L 5-34 kzpn=803) ALT (SGPT) (BEAKER) (test 6 U/L 6-55 ghfh=899) EGFR (BEAKER) (test 117 mL/min/1.73 sq ESTIMATED GFR IS NOT oemk=7083) m ACCURATE CREATININE CLEARANCE IN PREDICTING GLOMERULAR FILTRATION RATE. ESTIMATED GFR IS NOT APPLICABLE FOR DIALYSIS PATIENTS. CBC W/PLT COUNT & AUTO [id number] 13:07:00 Test Item Value Reference Range Comments WHITE BLOOD CELL COUNT (BEAKER) (test ikjp=955) 11.5 K/ L 3.5-10.5 RED BLOOD CELL COUNT (BEAKER) (test noml=968) 3.93 M/ L 4.63-6.08 HEMOGLOBIN (BEAKER) (test tlyx=194) 8.9 GM/DL 13.7-17.5 HEMATOCRIT (BEAKER) (test jxly=205) 30.6 % 40.1-51.0 MEAN CORPUSCULAR VOLUME (BEAKER) (test mufs=868) 77.9 fL 79.0-92.2 MEAN CORPUSCULAR HEMOGLOBIN (BEAKER) (test 22.6 pg 25.7-32.2 karm=784) MEAN CORPUSCULAR HEMOGLOBIN CONC (BEAKER) (test 29.1 GM/DL 32.3-36.5 vkos=017) RED CELL DISTRIBUTION WIDTH (BEAKER) (test 16.4 % 11.6-14.4 hhbm=333) PLATELET COUNT (BEAKER) (test expp=744) 442 K/CU MM 150-450 MEAN PLATELET VOLUME (BEAKER) (test wael=342) 10.2 fL 9.4-12.4 NUCLEATED RED BLOOD CELLS (BEAKER) (test 0 /100 WBC 0-0 hqoe=536) NEUTROPHILS RELATIVE PERCENT (BEAKER) (test 79 % eixy=862) LYMPHOCYTES RELATIVE PERCENT (BEAKER) (test 9 % gsps=296) MONOCYTES RELATIVE PERCENT (BEAKER) (test 9 % bofy=425) EOSINOPHILS RELATIVE PERCENT (BEAKER) (test 2 % faoe=553) BASOPHILS RELATIVE PERCENT (BEAKER) (test 0 % yavf=444) NEUTROPHILS ABSOLUTE COUNT (BEAKER) (test 9.15 K/ L 1.78-5.38 xrfr=666) LYMPHOCYTES ABSOLUTE COUNT (BEAKER) (test 1.04 K/ L 1.32-3.57 pdns=850) MONOCYTES ABSOLUTE COUNT (BEAKER) (test 0.98 K/ L 0.30-0.82 oivk=793) EOSINOPHILS ABSOLUTE COUNT (BEAKER) (test 0.26 K/ L 0.04-0.54 xbol=828) BASOPHILS ABSOLUTE COUNT (BEAKER) (test 0.02 K/ L 0.01-0.08 sdfx=171) IMMATURE GRANULOCYTES-RELATIVE PERCENT (BEAKER) 1 % 0-1 (test mawp=3562) POCT-LACTIC ACID, [id number] 12:44:00 Test Item Value Reference Range Comments POC-LACTIC ACID, VENOUS 0.8 mmol/L 0.9-1.7 TESTED AT [address] (BEAKER) (test zbdw=5719) [facility] [address] COMPREHENSIVE METABOLIC [id number] 08:51:00 Test Item Value Reference Range Comments TOTAL PROTEIN (BEAKER) 7.5 gm/dL 6.0-8.5 (test whig=003) ALBUMIN (BEAKER) (test 3.6 g/dL 3.5-5.0 heep=6360) ALKALINE PHOSPHATASE 119 U/L 30-115 (BEAKER) (test anqz=699) BILIRUBIN TOTAL (BEAKER) 0.1 mg/dL 0.1-1.3 (test kzoj=968) SODIUM (BEAKER) (test 138 meq/L 135-148 hnyo=555) POTASSIUM (BEAKER) (test 4.0 meq/L 3.5-5.5 yznz=273) CHLORIDE (BEAKER) (test 105 meq/L 98-106 ugkl=832) CO2 (BEAKER) (test 26 meq/L 20-31 pylm=491) BLOOD UREA NITROGEN 10 mg/dL 10-26 (BEAKER) (test shdm=343) CREATININE (BEAKER) (test 0.74 mg/dL 0.50-1.20 rnyt=975) GLUCOSE RANDOM (BEAKER) 88 mg/dL 70-110 (test gqwh=983) CALCIUM (BEAKER) (test 9.4 mg/dL 8.5-10.5 ahly=858) AST (SGOT) (BEAKER) (test 9 U/L 5-40 occa=077) ALT (SGPT) (BEAKER) (test < U/L 6-50 aqbv=078) EGFR (BEAKER) (test 109 mL/min/1.73 sq ESTIMATED GFR IS NOT wedv=4956) m ACCURATE CREATININE CLEARANCE IN PREDICTING GLOMERULAR FILTRATION RATE. ESTIMATED GFR IS NOT APPLICABLE FOR DIALYSIS PATIENTS. [id number] 08:49:00 Test Item Value Reference Range Comments LIPASE (BEAKER) (test nwam=149) 29 U/L 8-78 CBC W/PLT COUNT & AUTO [id number] 08:35:00 Test Item Value Reference Range Comments WHITE BLOOD CELL COUNT (BEAKER) (test uosg=848) 8.8 K/ L 4.0-10.0 RED BLOOD CELL COUNT (BEAKER) (test thdh=222) 3.93 M/ L 4.20-5.80 HEMOGLOBIN (BEAKER) (test bhse=584) 9.3 GM/DL 13.0-16.8 HEMATOCRIT (BEAKER) (test dltp=142) 29.7 % 40.0-50.0 MEAN CORPUSCULAR VOLUME (BEAKER) (test dggy=331) 75.6 fL 82.0-98.0 MEAN CORPUSCULAR HEMOGLOBIN (BEAKER) (test 23.5 pg 27.0-33.0 rasw=004) MEAN CORPUSCULAR HEMOGLOBIN CONC (BEAKER) (test 31.2 GM/DL 32.0-36.0 jdby=322) RED CELL DISTRIBUTION WIDTH (BEAKER) (test 18.0 % 12.0-15.0 kqpj=892) PLATELET COUNT (BEAKER) (test hfkg=295) 482 K/CU MM 150-430 MEAN PLATELET VOLUME (BEAKER) (test akfm=676) 8.3 fL 6.5-10.5 NUCLEATED RED BLOOD CELLS (BEAKER) (test 0 /100 WBC 0-0 ryyk=510) NEUTROPHILS RELATIVE PERCENT (BEAKER) (test 77 % kfgn=426) LYMPHOCYTES RELATIVE PERCENT (BEAKER) (test 13 % qiuo=416) MONOCYTES RELATIVE PERCENT (BEAKER) (test 5 % lbuc=377) EOSINOPHILS RELATIVE PERCENT (BEAKER) (test 4 % myxn=042) BASOPHILS RELATIVE PERCENT (BEAKER) (test 1 % lgrx=605) NEUTROPHILS ABSOLUTE COUNT (BEAKER) (test 6.80 K/ L 1.80-8.00 ckad=094) LYMPHOCYTES ABSOLUTE COUNT (BEAKER) (test 1.10 K/ L 1.48-4.50 ydqh=996) MONOCYTES ABSOLUTE COUNT (BEAKER) (test 0.50 K/ L 0.00-1.30 jmsu=034) EOSINOPHILS ABSOLUTE COUNT (BEAKER) (test 0.40 K/ L 0.00-0.50 ykkp=204) BASOPHILS ABSOLUTE COUNT (BEAKER) (test 0.10 K/ L 0.00-0.20 rqlh=499) AMYLASE AND LIPASE 2017-08-04 11:44:00 Test Item [...] (test code=USPERM) /HPF NONE CBC (INCLUDES AUTOMATED DIFFERENTIAL)*[id number] 11:23:00 Test Item Value Reference Range Comments [...] code=09D) 8.1 mg/dL 8.3-9.5 CBC (INCLUDES AUTOMATED DIFFERENTIAL)*[id number] 14:14:00 Test Item Value Reference Range Comments [...] NO RBC MORPH (test code=WRBCMOR) NORMAL Culture, [id number] 14:17:00 Test Item Value Reference Range Comments Culture, Urine (test code=URC) NG36 [id number] 14:50:00 Test Item Value Reference Range Comments [...] (test code=UABLD) Trace Negative Urine Source: Urine [id number] 14:50:00 Test Item Value Reference Range Comments Urinalysis (test code=UARBC) 0-3 HPF 0-3 Urinalysis (test code=UASQUAM) 0-3 HPF 0-3 Urine Source: Urine [id number] 14:48:00 Test Item Value Reference Range Comments Hematology (test code=SED) 74 mm/hr 0-10 ADDED SED RATE, CRP NOT [id number] 14:00:00 Test Item Value Reference Range Comments [...] 5-34 Chemistry (test code=ALT) 8 U/L 8-55 [id number] 14:00:00 Test Item Value Reference Range Comments Chemistry (test code=FELISHA) 93.0 U/L 25-125 [id number] 14:00:00 Test Item Value Reference Range Comments Chemistry (test code=LIP) 31 U/L 8-78 [id number] 13:53:00 Test Item Value Reference Range Comments [...] 0.0-0.2 U/S KIDNEY (RENAL)*LISA*2017-06-07 13:37:51RENAL ULTRASOUNDLocation Code: I1XMLCYBQZ HISTORY: N28.1: CYST OF KIDNEY, ACQUIREDCOMPARISON: CT [...] (test code=WAUAM) NO NO CBC (INCLUDES AUTOMATED DIFFERENTIAL)*[id number] 11:49:00 Test Item Value Reference Range Comments [...] CT ABDOMEN AND PELVIS WITHOUT CONTRAST *WW*HISTORY: [id number]: Lower abdominal pain . Initial encounter. No [...] no evidence of acute diverticulitis.HEPATITIS C ANTIBODY [id number] 08:46:00 Test Item Value Reference Range Comments [...] and confirmation results will follow. OCCULT BLOOD, [id number] 12:45:00 Test Item Value Reference Range Comments OCCULT BLOOD FECES (test code=OCCBLFEC) NEGATIVE NEGATIVE LOT# CRD (test code=LOT# CRD) [id number] EXP CRD (test code=EXP CRD) 2019-07-02 LOT# DVL (test code=LOT# DVL) 98950 EXP DVL (test code=EXP DVL) 2020-01 INT QC (test code=INT QC) PASSED [id number] 12:25:00 Test Item Value Reference Range Comments SODIUM (test code=NA) 140 MMOL/L 137-145 K+ (test code=KSERUM) 4.3 MMOL/L 3.5-5.1 PLEASE NOTE NEW REFERENCE RANGE(S) IN EFFECT EFFECTIVE 11/05/2009 - NEW ANALYZER ([employer]) CHLORIDE (test code=CL) 106 MMOL/L 98-107 CO2 (test code=CO2) 21 MMOL/L 22-30 BUN (test code=BUN) 11 MG/DL 9-20 CREA (test code=CREA) 0.5 MG/DL 0.8-1.5 GLUCOSE (test 195 MG/DL 70-99 Fasting glucose normal code=GLUCOSE) <100 MG/DL- [employer] recommendation CALCIUM (test 8.9 MG/DL 8.4-10.2 code=CABLOOD) TOTPROT (test 6.6 G/DL 6.3-8.2 code=TOTPROT) ALBUMIN (test 3.2 G/DL 3.5-5.0 code=ALBSERUM) BILITOT (test 0.4 MG/DL 0.2-1.3 code=BILITOT) AST (test code=AST) 20 U/L 15-46 PHOSALK (test 99 U/L 38-126 code=PHOSALK) ALT (test code=ALT) 12 U/L 13-69 GFR (test code=GFR) 183 mL/min/1.73m2 A GFR of >90 mL/min/1.73m2 is considered normal. [id number] 12:25:00 Test Item Value Reference Range Comments LIPASE (test code=LIPA) 74 U/L 23-300 [id number] 12:25:00 Test Item Value Reference Range Comments [...] NEUT (test code=NEUT) 11.6 K/UL 1.2-7.2 TROPONIN [id number] 12:01:00 Test Item Value Reference Range Comments TROPER (test code=TROPER) 0.00 ng/ml 0.0-0.08 INTERPRETIVE DATA A POC TROPONIN OF </=0.08 NG/ML IS CONSIDERED NEGATIVE Culture, [id number] 11:42:00 Test Item Value Reference Range Comments Culture, Urine (test code=URC) [id number] Chemistry - BNP, HgbA1c, [id number] 15:48:00 Test Item Value Reference Range Comments Chemistry - BNP, HgbA1c, PTHi (test Less than 10.0 pg/mL 0-100 code=BNP) [id number] 15:40:00 Test Item Value Reference Range Comments [...] CA OXALATE HPF Negative Urine Source: Urine [id number] 15:13:00 Test Item Value Reference Range Comments [...] 0.0-0.7 Hematology (test code=BASO#) 0.1 thou/uL 0.0-0.2 [id number] 15:11:00 Test Item Value Reference Range Comments [...] code=AST) Chemistry (test 14 U/L 8-55 code=ALT) [id number] 15:11:00 Test Item Value Reference Range Comments Chemistry (test code=CK) 63 U/L 30-200
[2018-03-17] MEDS ORDERED: MORPHINE 4 MG/ML SYR ONE (18:53)
[2018-03-17] MEDS ORDERED: NA CHLORIDE 0.9% 1,000 ML ONE (18:53)
[2018-03-17] MEDS ORDERED: ONDANSETRON 4 MG/2 ML VIAL ONE (18:53)
[2018-03-17 19:14] LABS: Absolute Lymphocytes (CBC) 1.3 K/uL (0.7-4.9); Absolute Monocytes 0.6 K/uL (0.1-1.3); Basophils % 0.8 % (0-1.3); Eosinophils % 3.8 % (0-4.4); Hematocrit 31.5 % (39.6-49.0); Lymphocytes % 17.4 % (15.3-44.8); MCH 21.9 pg (27.0-35.0); MCV 70.8 fL (80-100); MPV 9.1 fL (7.6-11.3); RBC Red Blood Cell Count 4.45 M/uL (4.33-5.43)
[2018-03-17 19:35] LABS: ALT/SGPT 16 U/L (12-78); AST/SGOT 13 U/L (15-37); Alkaline Phosphatase 140 U/L (45-117); BUN Blood Urea Nitrogen 17 mg/dL (7-18); Bicarbonate 28 mmol/L (21-32); Bilirubin Direct < 0.1 mg/dL (0-0.2); Bilirubin Total 0.2 mg/dL (0.2-1.0); Glucose Level 101 mg/dL (74-106); Lipase 205 U/L (73-393); Potassium 3.5 mmol/L (3.5-5.1); Sodium Level 141 mmol/L (136-145)
[2018-03-17] MEDS ORDERED: MEPERIDINE HCL 50 MG/ML AMP ONE ×2 (19:35→20:57)
--- NOTE | 2018-03-17 20:17 | RAD REPORT ---
EXAM DESCRIPTION: CT - Abdomen Pelvis W Contrast - 03/17/2018 7:58 pm CLINICAL HISTORY: Abdominal pain. Diarrhea COMPARISON: January 2018 TECHNIQUE: Computed axial tomography of the abdomen and pelvis was obtained. 100 cc Isovue-300 is ad ministered intravenously. Oral contrast was given. All CT scans are performed using dose optimization technique as appropriate and may include automated exposure control or mA/KV adjustment according to patient size. FINDINGS: The hepatic granulomata are present. The spleen pancreas and adrenals appear unremarkable. Several tiny nonobstructing right renal calculi. Multiple nonobstructing left renal calculi. The larg est measures 10 millimeter. Small hemorrhagic/proteinaceous left renal cyst The appendix is normal caliber. Diverticula stem from the colon. Mild stranding is present adjacent t o the sigmoid colon. The wall is thickened. An abscess is not seen. Free air is not noted. Postsurgical changes involve the lumbar spine. Mild posterior subluxation of L3 on L4 and mild anteri or subluxation of L4 on L5 is unchanged. Moderate anterior subluxation of L5 on S1 is unchanged. Thickening of the skin and subcutaneous tissues of the left buttocks is unchanged. Increased density within the left ischiorectal fossa is unchanged IMPRESSION: Mild sigmoid diverticulitis
[2018-03-17] MEDS ORDERED: FENTANYL CITR 100 MCG/2 ML ONE (20:34)
--- NOTE | 2018-03-17 21:09 | ER ---
Nurse's Notes [facility] Name: Chandler Carr Age: 57 yrs Sex: Male : 1960 Arrival Date: 03/17/2018 Time: 17:40 Bed 16 Private MD: None, None Diagnosis: Sigmoid Diverticulitis without perforation or abscess Presentation: 03/17 17:55 Presenting complaint: Patient states: "I got diverticulitis, I just got out the [facility] yesterday morning. I was in the hospital for 6 days" States that he was feeling better when he left yesterday, but the pain got worse this after noon. Denies vomiting, reports nausea and diarrhea. Denies fever. Transition of care: patient was not received from another setting of care. Onset of symptoms was March 17, 2018. Risk Assessment: Do you want to hurt yourself or someone else? Patient reports no desire to harm self or others. Initial Sepsis Screen: Does the patient meet any 2 criteria? HR > 90 bpm. No. Patient's initial sepsis screen is negative. Does the patient have a suspected source of infection? Yes: Acute abdominal pain. Care prior to arrival: None. 17:55 Method Of Arrival: Ambulatory [facility] 17:55 Acuity: SCAR 3 [facility] Triage Assessment: 17:57 General: Appears uncomfortable, Behavior is cooperative, restless. Pain: Complains of [facility] pain in abdomen Pain currently is 10 out of 10 on a pain scale. Neuro: Level of Consciousness is awake, alert, obeys commands. Cardiovascular: Patient's skin is warm and dry. Respiratory: Airway is patent Respiratory effort is even, unlabored, Respiratory pattern is regular, symmetrical. 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 - Social history:: Smoking status: Patient uses tobacco products, denies chronic smoking, but will smoke occasionally. - Ebola Screening: : Patient denies travel to an Ebola-affected area in the 21 days before illness onset. Screenin:10 Abuse screen: Denies threats or abuse. Nutritional screening: No deficits noted. rb1 Tuberculosis screening: No symptoms or risk factors identified. Fall Risk None identified. Assessment: 18:05 General: Appears uncomfortable, slender, Behavior is anxious, Denies fever. Pain: rb1 Complains of pain in abdomen Pain currently is 10 out of 10 on a pain scale. Pain began x 7 days ago. Pt. was discharged from a hospital in [place] yesterday for the same complaint. Pt. stated, "They had me on a pain pump with Dilaudid x 5 days.". Neuro: Level of Consciousness is awake, alert, obeys commands, Oriented to person, place, time, situation. Cardiovascular: Capillary refill < 3 seconds is brisk in bilateral fingers. Respiratory: Airway is patent Respiratory effort is even, unlabored, Respiratory pattern is regular, symmetrical. GI: Reports diarrhea, nausea. : No signs and/or symptoms were reported regarding the genitourinary system. Derm: Skin is pink, warm \\T\\ dry. 19:20 Reassessment: Patient appears in no apparent distress at this time. Patient and/or jb4 family updated on plan of care and expected duration. Pain level reassessed. Patient is alert, oriented x 3, equal unlabored respirations, skin warm/dry/pink. Pt reports Morphine did not alleviate pain. Physician notified. Pain: Complains of pain in abdomen Pain currently is 10 out of 10 on a pain scale. Cardiovascular: Patient's skin is warm and dry. Respiratory: Airway is patent Respiratory effort is even, unlabored, Respiratory pattern is regular, symmetrical. 20:20 Reassessment: Patient appears in no apparent distress at this time. Patient and/or jb4 family updated on plan of care and expected duration. Pain level reassessed. Patient is alert, oriented x 3, equal unlabored respirations, skin warm/dry/pink. Pt reports an increase in pain, Physician notified, see MAR for orders. 21:30 Reassessment: Patient appears in no apparent distress at this time. Patient and/or jb4 family updated on plan of care and expected duration. Pain level reassessed. Patient is alert, oriented x 3, equal unlabored respirations, skin warm/dry/pink. Pt asked to call for a ride. Informed that he cannot drive due to opiate medication that was given. 22:13 Reassessment: Discussed with pt the need to stay due to large amount of narcotic jb4 medication given , Pt states " I understand but I am leaving any way." Requested for pt to have a ride come and pick him up. pt refused. Pt walked out, unable to walk in a straight line, hit the wall x2. Pt continues to state that he is leaving, even though he is aware that the police must be notified. boiler repair supervisor is aware of situation, Police notified. Vital Signs: 17:57 BP 137 / 91; Pulse 93; Resp 20; Temp 98.2; Pulse Ox 100% on R/A; Weight 65.77 kg (R); aj1 Height 5 ft. 9 in. (175.26 cm) (R); Pain 10/10; 19:30 BP 132 / 76; Pulse 78; Resp 20; Pulse Ox 99% on R/A; jb4 20:30 BP 129 / 82; Pulse 63; Resp 16; Pulse Ox 99% on R/A; jb4 21:30 BP 134 / 87; Pulse 66; Resp 16; Pulse Ox 99% on R/A; jb4 17:57 Body Mass Index 21.41 (65.77 kg, 175.26 cm) aj1 ED Course: 17:40 Patient arrived in ED. sb2 17:40 None, None is Private Physician. sb2 17:57 Triage completed. aj1 17:57 Arm band placed on Patient placed in an exam room. aj1 17:58 Hilton Villalpando PA is PHCP. [facility] 17:58 Bro Bartholomew MD is Attending Physician. jmm 18:10 Patient has correct armband on for positive identification. Bed in low position. Call rb1 light in reach. Side rails up X 1. Pulse ox on. NIBP on. 18:10 Inserted saline lock: 20 gauge in left forearm, using aseptic technique. ,using aseptic rb1 technique. IV inserted by RODRICK Estrada. Blood collected. 18:26 Esther Conley, RN is Primary Nurse. rb1 19:00 Report given to PHOENIX Ramírez. rb1 19:21 Radiology exam delayed due to lab results not completed at this time. (BUN/Creatinine). bq 19:58 CT Abd/Pelvis - W/Contrast In Process Unspecified. EDMS 19:58 CT completed. Patient tolerated procedure well. Patient moved back from CT. bq 21:07 Erica Decker MD is Referral Physician. m 22:13 No provider procedures requiring assistance completed. jb4 22:13 IV discontinued, intact, bleeding controlled. jb4 Administered Medications: 18:50 Drug: morphine 4 mg Route: IVP; Site: left forearm; rb1 19:20 Follow up: Response: No adverse reaction; Pain is unchanged, physician notified jb4 18:50 Drug: Zofran 4 mg Route: IVP; Site: left femoral; rb1 19:46 Follow up: Response: No adverse reaction; Nausea is decreased jb4 18:50 Drug: NS 0.9% 1000 ml Route: IV; Rate: 1 bolus; Site: left forearm; rb1 20:00 Follow up: Response: No adverse reaction; IV Status: Completed infusion jb4 19:35 Drug: Demerol 50 mg Route: IVP; Site: left forearm; jb4 19:46 Follow up: Response: No adverse reaction; Pain is decreased jb4 20:29 Drug: fentaNYL (PF) 50 mcg Route: IVP; Site: left forearm; jb4 20:40 Follow up: Response: No adverse reaction; Pain is unchanged, physician notified jb4 20:50 Drug: Demerol 50 mg Route: IVP; Site: left forearm; jb4 21:15 Follow up: Response: Pain is decreased jb4 22:10 Not Given (Patient Refused): Dilaudid 1 mg IVP once jb4 Outcome: 21:08 Discharge ordered by . [facility] 22:13 AMA Other Pt informed of discharge status, and the need stay and a wait for ride due to jb4 opioid medication being administered. Pt informed that police will be called if he refuses to stay. Pt states " I am leaving" and acknowledge that that writing tutor will be call stating "I don't care, call them.". Pt walked out of ED, unable to walk in a straight line, hit the wall x2, proceeded to his car. boiler repair supervisor notified. Police notified. 22:13 Condition: stable 22:13 Discharge instructions given to patient, Instructed on discharge instructions, follow up and referral plans. medication usage, The need to stay in ED until ride arrive. Demonstrated understanding of instructions, follow-up care, medications, Prescriptions given X 4. 22:45 Patient left the ED. jb4 Signatures: Dispatcher [employer] EDMayra Melissa RN RN aj1 Hilton Villalpando PA PA jmm Quilty, Betty bq Barber, Rebecca, RN RN rb1 Aj Johnston RN RN jb4 Rhonda Merchant2
--- NOTE | 2018-03-17 21:09 | EDPHYS ---
Physician Documentation [facility] Name: Chandler Carr Age: 57 yrs Sex: Male : 1960 Arrival Date: 03/17/2018 Time: 17:40 Bed 16 Private MD: None, None ED Physician Bro Bartholomew HPI: 03/17 18:34 This 57 yrs old Male presents to ER via Ambulatory with complaints of Pelvic jmm Pain. 18:34 The patient presents with abdominal pain in the lower abdomen. Onset: The jmm symptoms/episode began/occurred 6 day(s) ago. The symptoms do not radiate. Associated signs and symptoms: Pertinent negatives: nausea and vomiting, fever. This is a 57 year old male with a history of diverticulitis that presents to the ED with lower abdominal pain worsening since yesterday. Patient was discharged from hospital in [place] for diverticulitis. . 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 - Social history:: Smoking status: Patient uses tobacco products, denies chronic smoking, but will smoke occasionally. - Ebola Screening: : Patient denies travel to an Ebola-affected area in the 21 days before illness onset. ROS: 18:34 Constitutional: Negative for fever, chills, and weight loss, Cardiovascular: Negative jmm for chest pain, palpitations, and edema, Respiratory: Negative for shortness of breath, cough, wheezing, and pleuritic chest pain. 18:34 Abdomen/GI: Positive for abdominal pain. 18:34 All other systems are negative. Exam: 18:34 Constitutional: This is a well developed, well nourished patient who is awake, alert, jmm and in no acute distress. Head/Face: atraumatic. Eyes: EOMI, no conjunctival erythema appreciated ENT: Moist Mucus Membranes Neck: Trachea midline, Supple Chest/axilla: Normal chest wall appearance and motion. Cardiovascular: Regular rate and rhythm. No edema appreciated Respiratory: Normal respirations, no respiratory distress appreciated 18:34 Abdomen/GI: Inspection: abdomen appears normal, Bowel sounds: normal, Palpation: soft, moderate abdominal tenderness, in the suprapubic area, right lower quadrant and left lower quadrant. 18:34 Back: ROM is normal. 18:34 Musculoskeletal/extremity: ROM: intact in all extremities. 18:34 Skin: Appearance: Color: normal in color. 18:34 Neuro: Orientation: is normal, Mentation: is normal, Memory: is normal. 18:34 Psych: Behavior/mood is pleasant, cooperative. Vital Signs: 17:57 BP 137 / 91; Pulse 93; Resp 20; Temp 98.2; Pulse Ox 100% on R/A; Weight 65.77 kg (R); aj1 Height 5 ft. 9 in. (175.26 cm) (R); Pain 10/10; 19:30 BP 132 / 76; Pulse 78; Resp 20; Pulse Ox 99% on R/A; jb4 20:30 BP 129 / 82; Pulse 63; Resp 16; Pulse Ox 99% on R/A; jb4 21:30 BP 134 / 87; Pulse 66; Resp 16; Pulse Ox 99% on R/A; jb4 17:57 Body Mass Index 21.41 (65.77 kg, 175.26 cm) aj1 MDM: 18:34 Patient medically screened. [facility] 21:05 Data reviewed: vital signs, nurses notes. Counseling: I had a detailed discussion with kelly the patient and/or guardian regarding: the historical points, exam findings, and any diagnostic results supporting the discharge/admit diagnosis, lab results, radiology results, the need for outpatient follow up, to return to the emergency department if symptoms worsen or persist or if there are any questions or concerns that arise at home. 21:06 ED course: I discussed the patient with Dr. Fleming whom did not recommend admission. [facility] Patient is alert and non toxic in appearance. CT shows mild diverticulitis. CBC shows no leukocytosis. Patient will be given oral antibiotics, oral pain medication, antiemtics and is given strict return precautions. Patient understood and agrees with the plan of care. . 03/17 18:36 Order name: Basic Metabolic Panel; Complete Time: 19:37 [facility] 03/17 18:36 Order name: CBC with Diff; Complete Time: 19:26 [facility] 03/17 18:36 Order name: Creatinine for Radiology; Complete Time: 19:51 [facility] 03/17 18:36 Order name: Hepatic Function; Complete Time: 19:37 [facility] 03/17 18:36 Order name: Lipase; Complete Time: 19:37 [facility] 03/17 18:40 Order name: CT Abd/Pelvis - W/Contrast; Complete Time: 20:19 [facility] 03/17 18:36 Order name: IV Saline Lock; Complete Time: 19:14 [facility] 03/17 18:36 Order name: Labs collected and sent; Complete Time: 19:14 [facility] Administered Medications: 18:50 Drug: morphine 4 mg Route: IVP; Site: left forearm; rb1 19:20 Follow up: Response: No adverse reaction; Pain is unchanged, physician notified jb4 18:50 Drug: Zofran 4 mg Route: IVP; Site: left femoral; rb1 19:46 Follow up: Response: No adverse reaction; Nausea is decreased jb4 18:50 Drug: NS 0.9% 1000 ml Route: IV; Rate: 1 bolus; Site: left forearm; rb1 20:00 Follow up: Response: No adverse reaction; IV Status: Completed infusion jb4 19:35 Drug: Demerol 50 mg Route: IVP; Site: left forearm; jb4 19:46 Follow up: Response: No adverse reaction; Pain is decreased jb4 20:29 Drug: fentaNYL (PF) 50 mcg Route: IVP; Site: left forearm; jb4 20:40 Follow up: Response: No adverse reaction; Pain is unchanged, physician notified jb4 20:50 Drug: Demerol 50 mg Route: IVP; Site: left forearm; jb4 21:15 Follow up: Response: Pain is decreased jb4 22:10 Not Given (Patient Refused): Dilaudid 1 mg IVP once jb4 Disposition: 03/18 07:53 Co-signature as Attending Physician, Bro Bartholomew MD. Disposition: 03/17/18 21:08 Discharged to Home. Impression: Sigmoid Diverticulitis without perforation or abscess. - Condition is Stable. - Discharge Instructions: Diverticulitis. - Prescriptions for Zofran ODT 4 mg Oral tablet,disintegrating - place 1 tablet by TRANSLINGUAL route every 4-6 hours; 20 tablet. Flagyl 500 mg Oral Tablet - take 1 tablet by ORAL route every 8 hours for 10 days; 30 tablet. Tylenol- Codeine #3 300-30 mg Oral Tablet - take 1 tablet by ORAL route every 6 hours As needed; 9 tablet. Cipro 500 mg Oral Tablet - take 1 tablet by ORAL route every 12 hours for 10 days; 20 tablet. - Medication Reconciliation Form, Thank You Letter, Antibiotic Education, Prescription Opioid Use form. - Follow up: Erica Decker MD; When: 1 - 2 days; Reason: Recheck today's complaints, Continuance of care, Re-evaluation by your physician. Signatures: Dispatcher [employer] EDMS Mayra Luke RN RN aj1 Hilton Villalpando PA PA jmm Barber, Rebecca RN RN rb1 Aj Johnston RN RN jb4 Bro Bartholomew MD MD gs Corrections: (The following items were deleted from the chart) 03/17 22:45 21:08 03/17/2018 21:08 Discharged to Home. Impression: Sigmoid Diverticulitis without jb4 perforation or abscess. Condition is Stable. Forms are Medication Reconciliation Form, Thank You Letter, Antibiotic Education, Prescription Opioid Use. Follow up: Erica Decker; When: 1 - 2 days; Reason: Recheck today's complaints, Continuance of care, Re-evaluation by your physician. kelly
[2018-03-17] MEDS ORDERED: HYDROMORPHONE HCL 2 MG/ML inj ONE (21:26)
== END 2018-03-17 22:45 | disposition home or self-care (01) ==
LOC: ER 17:37
DX: K57.32 Diverticulitis of large intestine without perforation or abscess without bleeding (principal); Z72.0 Tobacco use; Z88.0 Allergy status to penicillin; Z88.6 Allergy status to analgesic agent; Z85.828 Personal history of other malignant neoplasm of skin
CPT/HCPCS: 36415; 74177; 80048; 80076; 83690; 85025; 99284; J1170; J2175; J2405; J3010; J7030; Q9967